=== PATIENT | male | born 1970 | race Hispanic/Latino ===

== ENCOUNTER 2017-10-06 13:56 | Inpatient (IN) | payer OTHER ==
[2017-10-06 14:21] VITALS: BMI 28.1
[2017-10-06] MEDS ORDERED: Lactated Ringer's 1,000 ML IV SCH ×2 (14:30→14:32)
--- NOTE | 2017-10-06 14:31 | ED PDOC ---
Arrival/HPI - General Time Seen by Provider: 10/06/17 14:13 Historian: Patient - History of Present Illness Narrative History of Present Illness (Text): 10/06/17 14:27 Maldonado Rose is a 47 year old male, whose past medical history includes diabetes, hypertension, LA, and 7 cardiac stents, who presents to the emergency department complaining persistent shortness of breath for a few days. Patient's states that patient had the flu last week and went to [facility] three days ago where he was diagnosed with pneumonia after a CT scan. Patient was prescribed Levaquin and received the third dose today with little relief. No other complaints offered at this time. Time/Duration: < week Symptom Onset: Gradual Symptom Course: Unchanged Severity Level: Mild Activities at Onset: Light Context: Home Past Medical History - Provider Review Nursing Documentation Reviewed: Yes - Cardiac Hx LA: Yes Hx Hypertension: Yes - Endocrine/Metabolic Hx Diabetes Mellitus Type 2: Yes - Psychiatric Hx Substance Use: No Family/Social History - Physician Review Nursing Documentation Reviewed: Yes Family/Social History: No Known Family HX Smoking Status: Smoker Currrent Status Unknown Hx Alcohol Use: Yes Hx Substance Use: No Allergies/Home Meds Allergies/Adverse Reactions: Allergies No Known Allergies Allergy (Verified 01/09/17 22:10) Home Medications: Home Meds Medication Instructions Recorded Confirmed Aspirin [Ecotrin] 81 mg PO DAILY 05/23/17 10/06/17 Dapagliflozin/Metformin HCl 1 each PO DAILY 05/23/17 10/06/17 [Xigduo Xr 5 mg-1,000 mg Tablet] Lisinopril [Zestril] 5 mg PO DAILY 05/23/17 10/06/17 Metoprolol Tartrate [Lopressor] 25 mg PO BID 05/23/17 10/06/17 Prasugrel [Effient] 10 mg PO DAILY 05/23/17 10/06/17 SITagliptin [Januvia] 100 mg PO DAILY 05/23/17 10/06/17 Review of Systems - Physician Review All systems were reviewed & negative as marked: Yes - Review of Systems Constitutional: absent: Night Sweats Eyes: absent: Vision Changes ENT: absent: Hearing Changes Respiratory: SOB Gastrointestinal: absent: Abdominal Pain Genitourinary Male: absent: Dysuria, Frequency Musculoskeletal: absent: Arthralgias, Back Pain Skin: absent: Rash, Pruritis Neurological: absent: Headache Endocrine: absent: Diaphoresis Hemo/Lymphatic: absent: Adenopathy Psychiatric: absent: Anxiety, Depression Physical Exam Vital Signs Reviewed: Yes Vital Signs Temp Pulse Resp BP Pulse Ox 10/06/17 16:04 98.8 F 129 H 20 123/69 95 10/06/17 15:21 22 96 10/06/17 14:21 99.6 F 150 H 22 141/76 93 L Temperature: Afebrile Blood Pressure: Normal Pulse: Tachycardic Mental Status: Positive for: Alert and Oriented X 3 - Systems Exam Head: Present: Atraumatic, Normocephalic Pupils: Present: PERRL Extroacular Muscles: Present: EOMI Conjunctiva: Present: Normal Mouth: Present: Moist Mucous Membranes Neck: Present: Normal Range of Motion Respiratory/Chest: Present: Other (Coarse breath sounds bilaterally). No: Good Air Exchange (Decreased air entry, worse on left than right) Cardiovascular: Present: Tachycardic Abdomen: Present: Normal Bowel Sounds. No: Tenderness, Distention, Peritoneal Signs Back: Present: Normal Inspection Upper Extremity: Present: NORMAL PULSES (equal pulses bilaterally) Lower Extremity: No: Edema Neurological: Present: GCS=15, CN II-XII Intact, Speech Normal Skin: Present: Warm, Dry, Normal Color. No: Rashes Psychiatric: Present: Alert, Oriented x 3, Normal Insight, Normal Concentration Medical Decision Making ED Course and Treatment: 10/06/17 14:41 Impression: 47 year old male complaining persistent shortness of breath for a few days. Differential Diagnosis included but are not limited to: Plan: -- EKG -- Chest X-ray -- VBG and Blood Culture -- Urine Culture -- Labs -- Toradol, Tamiflu, Vancomycin, Zosyn, and IV Fluids -- Reassess and disposition Progress Notes: EKG: Ordered, reviewed, and independently interpreted the EKG. Rate : 146 BPM Rhythm : NSR Interpretation : No ST-segment elevations or depressions, no T-wave inversions, normal intervals. Comparison : No previous EKG for comparison. 10/06/17 14:35 Reviewed radiology, Chest X-ray shows pneumonia. 10/06/17 15:00 Lactate at 2.6. Antibiotics ordered as well as blood culture and IVF at 30 cc per kg over 30 minutes. Code Sepsis called on patient. 10/06/17 15:52 Cxray shows "Large left pleural effusion. Underlying consolidation cannot be excluded. Follow-up to resolution is advised." WBC elevated with shift and bands. Lactate elevated. Failed outpatient therapy for pneumonia (on day 3 of levaquin). Spoke to Dr. Antonio who admits to Dr. Mitchell and requesting admission to medicine. - Lab Interpretations Lab Results: 10/06/17 14:30 10/06/17 14:30 Lab Results 10/06/17 17:00: Influenza Typ A,B (EIA) Negative for flu a/b 10/06/17 14:30: WBC 11.8 H, RBC 5.32, Hgb 16.7, Hct 45.2, MCV 85.0, MCH 31.4, MCHC 36.9, RDW 11.8, Plt Count 157, MPV 10.5, Gran % 90.3 H, Lymph % (Auto) 4.1 L, Desha % (Auto) 5.2, Eos % (Auto) 0.3 L, Baso % (Auto) 0.1, Gran # 10.66 H, Lymph # (Auto) 0.5 L, Desha # (Auto) 0.6, Eos # (Auto) 0.0, Baso # (Auto) 0.01, Neutrophils % (Manual) 86 H, Band Neutrophils % 2, Lymphocytes % (Manual) 6 L, Atypical Lymphs % 1 H, Monocytes % (Manual) 5 10/06/17 14:30: Sodium 134, Chloride 95 L, Potassium 3.6, Carbon Dioxide 22, Anion Gap 20, BUN 21, Creatinine 0.7 L, Est GFR ( Amer) > 60, Est GFR ( Non-Af Amer) > 60, Random Glucose 233 H, Calcium 9.9, Total Bilirubin 0.7, AST 18, ALT 18, Alkaline Phosphatase 90, Total Creatine Kinase < 20 L, Troponin I < 0.01, NT-Pro-B Natriuret Pep 199, Total Protein 7.4, Albumin 3.8, Globulin 3.6, Albumin/Globulin Ratio 1.0 L 10/06/17 14:30: pO2 94 H, VBG pH 7.40, VBG pCO2 38.0 L, VBG HCO3 23.5, VBG Total CO2 24.7, VBG O2 Sat (Calc) 97.9 H, VBG Base Excess -1.1 L, VBG Potassium 3.6, Sodium 130.0 L, Chloride 94.0 L, Glucose 237 H, Lactate 2.6 H, FiO2 21.0, Venous Blood Potassium 3.6 10/06/17 14:30: PT 15.1 H, INR 1.32 H, APTT 31.3 I have reviewed the lab results: Yes - RAD Interpretation Radiology Orders: 10/06/17 14:20 CHEST PORTABLE [RAD] Stat - Medication Orders Current Medication Orders: Lactated Ringer's (Lactated Ringer's) 1,000 mls @ 1,000 mls/hr IV .Q1H VALENTINA Last Admin: 10/06/17 15:08 Dose: 1,000 mls/hr eMAR Start Stop Document 10/06/17 15:08 EQ (Rec: 10/06/17 15:08 EQ [id number]) Intravenous Solution Start Date 10/06/17 Start Time 15:08 Discontinued Medications Lactated Ringer's (Lactated Ringer's) 1,000 mls @ 500 mls/hr IV .Q2H VALENTINA Last Admin: 10/06/17 15:20 Dose: eMAR Start Stop Document 10/06/17 15:20 EQ (Rec: 10/06/17 15:20 EQ [id number]) Intravenous Solution Start Date 10/06/17 Start Time 15:20 Vancomycin HCl (Vancomycin 1gm) 1 gm in 250 mls @ 167 mls/hr IVPB STAT STA PRN Reason: Protocol Stop: 10/06/17 16:01 Last Admin: 10/06/17 17:02 Dose: 167 mls/hr eMAR Start Stop Document 10/06/17 17:02 EQ (Rec: 10/06/17 17:03 EQ [id number]) Intravenous Solution Start Date 10/06/17 Start Time 17:02 Piperacillin Sod/Tazobactam Sod (Zosyn 3.375 In Ns 100ml) 100 mls @ 200 mls/hr IVPB STAT STA PRN Reason: Protocol Stop: 10/06/17 15:01 Last Admin: 10/06/17 15:19 Dose: 200 mls/hr eMAR Start Stop Document 10/06/17 15:19 EQ (Rec: 10/06/17 15:19 EQ [id number]) Intravenous Solution Start Date 10/06/17 Start Time 15:19 Lactated Ringer's 2,600 ml/ IV (SUPPLIES) 2,600 mls @ 5,034.9 mls/hr IV ONCE ONE PRN Reason: 60 ML/KG/HR Stop: 10/06/17 14:58 Last Admin: 10/06/17 15:08 Dose: 5,034.9 mls/hr eMAR Start Stop Document 10/06/17 15:08 EQ (Rec: 10/06/17 15:08 EQ [id number]) Intravenous Solution Start Date 10/06/17 Start Time 15:08 Ketorolac Tromethamine (Toradol) 30 mg IVP STAT STA Stop: 10/06/17 14:23 Last Admin: 10/06/17 15:06 Dose: 30 mg MAR Pain Assessment Document 10/06/17 15:06 EQ (Rec: 10/06/17 15:07 EQ [id number]) Pain Reassessment Is this a pain reassessment? No Sleep Is patient sleeping during reassessment? No Presence of Pain Presence of Pain Yes IVP Administration Document 10/06/17 15:06 EQ (Rec: 10/06/17 15:07 EQ [id number]) Charges for Administration # of IVP Administrations 1 Morphine Sulfate (Morphine) 4 mg IVP STAT STA Stop: 10/06/17 14:34 Last Admin: 10/06/17 15:06 Dose: 4 mg MAR Pain Assessment Document 10/06/17 15:06 EQ (Rec: 10/06/17 15:06 EQ [id number]) Pain Reassessment Is this a pain reassessment? No Sleep Is patient sleeping during reassessment? No Presence of Pain Presence of Pain Yes IVP Administration Document 10/06/17 15:06 EQ (Rec: 10/06/17 15:06 EQ [id number]) Charges for Administration # of IVP Administrations 1 Oseltamivir Phosphate (Tamiflu Cap) 75 mg PO STAT STA PRN Reason: Protocol Stop: 10/06/17 14:34 Last Admin: 10/06/17 15:07 Dose: 75 mg - Scribe Statement The provider has reviewed the documentation as recorded by the Juan Padilla Provider Scribe Attestation: All medical record entries made by the Scribe were at my direction and personally dictated by me. I have reviewed the chart and agree that the record accurately reflects my personal performance of the history, physical exam, medical decision making, and the department course for this patient. I have also personally directed, reviewed, and agree with the discharge instructions and disposition. Disposition/Present on Arrival - Present on Arrival Any Indicators Present on Arrival: No - Disposition Have Diagnosis and Disposition been Completed?: Yes Diagnosis: Pneumonia, SIRS (systemic inflammatory response syndrome) Disposition: HOSPITALIZED Disposition Time: 16:00 Patient Plan: Admission Patient Problems: Current Active Problems Problem Status Onset Pneumonia Acute SIRS (systemic inflammatory response syndrome) Acute Condition: FAIR Referrals: Ivet Mitchell MD [Primary Care Provider] - Follow up with primary
[2017-10-06] MEDS ORDERED: Piperacillin/Tazobact 3.375 gm 100 ML IVPB STA (14:32)
[2017-10-06] MEDS ORDERED: Vancomycin 1gm in NS 250ml 1 GM/250 ML BAG IVPB STA (14:32)
[2017-10-06] MEDS ORDERED: Morphine 4 mg/ml ISec IVP STA (14:33)
[2017-10-06 14:51] LABS: VENOUS BLOOD GAS BASE EXCESS -1.1 mmol/L (0.0-2.0); VENOUS BLOOD GAS PO2 94 mm/Hg (30-55)
[2017-10-06 14:57] LABS: BASO # 0.01 K/mm3 (0.0-2.0); BASO % 0.1 % (0.0-3.0); EOS % 0.3 % (1.5-5.0); GRAN # 10.66 (1.4-6.5); GRAN % 90.3 % (50.0-68.0); HEMOGLOBIN 16.7 g/dL (14.0-18.0); LYMPH # 0.5 (1.2-3.4); LYMPH % 4.1 % (22.0-35.0); MEAN CORPUSCULAR HEMOGLOBIN 31.4 pg (25.0-35.0); MEAN CORPUSCULAR HGB CONC 36.9 g/dl (31.0-37.0); MEAN PLATELET VOLUME 10.5 fl (7.0-11.0); MONO # 0.6 (0.1-0.6); MONO % 5.2 % (1.0-6.0); PLATELET COUNT 157 10^3/uL (120.0-450.0); RBC 5.32 10^6/uL (3.5-6.1); RED CELL DISTRIBUTION WIDTH 11.8 % (11.5-14.5); WHITE BLOOD COUNT 11.8 10^3/ul (4.5-11.0)
[2017-10-06 15:00] LABS: ALBUMIN 3.8 g/dL (3.0-4.8); ALT/SGPT 18 U/L (7-56); AST/SGOT 18 U/L (17-59); BLOOD UREA NITROGEN 21 mg/dL (7-21); CALCIUM 9.9 mg/dL (8.4-10.5); GFR AFRICAN-AMERICAN > 60; GFR NON-AFRICAN AMERICAN > 60
[2017-10-06 15:06] LABS: INR 1.32 (0.93-1.08); PARTIAL THROMBOPLASTIN TIME 31.3 Seconds (25.1-36.5); PROTHROMBIN TIME 15.1 SECONDS (9.4-12.5)
[2017-10-06 15:11] LABS: B-TYPE NATRIURETIC PEPTIDE 199 pg/mL (0-450); TROPONIN I < 0.01 ng/mL
[2017-10-06 15:22] LABS: ATYPICAL LYMPHOCYTE 1 % (0.0-0.0); BAND 2 % (0-2); LYMPHOCYTE 6 % (22.0-35.0); MONOCYTE 5 % (1.0-6.0); NEUTROPHIL 86 % (50.0-70.0)
--- NOTE | 2017-10-06 15:46 | RAD ---
HISTORY: Cough and fever COMPARISON: No prior. FINDINGS: LUNGS: The right lung is clear. There is a large left pleural effusion. PLEURA: No significant pleural effusion identified, no pneumothorax apparent. CARDIOVASCULAR: Normal. OSSEOUS STRUCTURES: No significant abnormalities. VISUALIZED UPPER ABDOMEN: Normal. OTHER FINDINGS: None. IMPRESSION: Large left pleural effusion. Underlying consolidation cannot be excluded. Follow-up to resolution is advised.
[2017-10-06] MEDS ORDERED: HYDROmorphone 0.5 mg/0.5 ml ISec IVP STA (18:55)
[2017-10-06 19:04] LABS: VENOUS BLOOD GAS BASE EXCESS 1.1 mmol/L (0.0-2.0); VENOUS BLOOD GAS PO2 40 mm/Hg (30-55); VENOUS BLOOD PH 7.32 (7.32-7.43)
--- NOTE | 2017-10-06 19:39 | PCM.SEPTIC ---
Sepsis Progress Note - Reassessment Type Date of Evaluation: 10/06/17 Time of Evaluation: 19:00 Reassessment Type: Non-invasive reassessment - Non Invasive Reassessment Were the most recent vital sign reviewed: Yes Vital Sign (Latest): Temp Pulse Resp BP Pulse Ox 98.8 F 110 H 18 121/65 95 10/06/17 16:04 10/06/17 17:50 10/06/17 17:50 10/06/17 17:50 10/06/17 17:50 Cardiovascular: Yes: Tachycardia Respiratory: Yes: Other (Coarse breath sounds) Capillary Refill: Normal (Less than 2 sec) Skin: Warm
[2017-10-06] MEDS: Insulin Reg-LOW-Coverage SC SCH (21:36)
[2017-10-06] MEDS: Vancomycin 1gm in NS 250ml 1 GM/250 ML BAG IVPB SCH (22:27)
[2017-10-07] MEDS: Meropenem 1 GM in Sodium Chloride 0.9% 100 ML IVPB SCH ×2 (01:12→05:05)
[2017-10-07] MEDS: Albuterol-Ipratrop 3 mg / 0.5 (3 ml) UD IH SCH ×4 (01:31→20:42)
[2017-10-07] MEDS ORDERED: Oxycodone/Acetaminophen 10/325 mg Tab PO STA (03:19)
[2017-10-07] MEDS: Insulin Reg-LOW-Coverage SC SCH ×5 (08:10→22:06)
--- NOTE | 2017-10-07 09:57 | CARD ---
APPROVED REPORT EKG Measurement Heart [id number] <Conclusion> Sinus tachycardia NSSTW changes Electrical artifact present
[2017-10-07] MEDS: Oxycodone/Acetaminophen 10/325 mg Tab PO PRN ×3 (10:35→22:03)
[2017-10-07] MEDS: Vancomycin 1gm in NS 250ml 1 GM/250 ML BAG IVPB SCH ×2 (10:37→21:01)
[2017-10-07] MEDS: METFORMIN HCL PO SCH (10:37)
[2017-10-07] MEDS: DAPAGLIFLOZIN PO SCH (10:37)
[2017-10-07] MEDS: [UNRECOGNIZED DRUG - OTHER] PO SCH (10:37)
--- NOTE | 2017-10-07 12:39 | CT ---
PROCEDURE: CT Chest without contrast HISTORY: left effusion r/o a mass COMPARISON: None. TECHNIQUE: Contiguous axial images were obtained through the chest without intravenous contrast enhancement. Sagittal and coronal reconstructions were performed. Radiation dose (DLP): 679.16 mGy-cm. This CT exam was performed using one or more of the following dose reduction techniques: Automated exposure control, adjustment of the mA and/or kV according to patient size, and/or use of iterative reconstruction technique. FINDINGS: LUNGS: Extensive left lower lobe atelectasis. Subsegmental lingular atelectasis. Multifocal vaguely nodular small opacities posterior basal right lower lobe and in lateral segment right middle lobe and extensive ill-defined opacity in anterior segment right upper lobe. Nonspecific. Possible infectious etiology. Cannot rule out neoplastic origin. Followup advised. MEDIASTINUM: Unremarkable thoracic aorta. No aneurysm. Normal heart size. Trace pericardial effusion. Coronary arterial calcification. Main pulmonary artery unremarkable. No vascular congestion. Mediastinal lymphadenopathy, mild. No hilar lymphadenopathy appreciated. Focal high attenuation material is seen within the lumen of the distal thoracic esophagus, uncertain significance. There is no high attenuation material seen within the stomach. This does not appear calcified. Uncertain PLEURA: Moderate left pleural effusion. Trace right pleural effusion. No pneumothorax. BONES: No fracture. No destructive lesion. UPPER ABDOMEN: Mild splenomegaly. OTHER FINDINGS: None. IMPRESSION: Moderate left pleural effusion. Extensive left lower lobe atelectasis with lingular subsegmental atelectasis. Vaguely nodular multifocal small opacities right lower lobe, right middle lobe and extensive ill-defined opacity anterior segment right upper lobe. Possible infectious origin. Cannot rule out neoplastic. Mediastinal lymphadenopathy. Incidental focal high attenuation material within the distal esophageal lumen of uncertain significance. Mild splenomegaly.
[2017-10-07] MEDS: Meropenem 1g/NS 100mL IVPB 1 GM/100 ML PIGGYBACK IVPB SCH ×2 (15:59→22:53)
[2017-10-07] MEDS: MethylPREDNISolone 40 mg Vial IVP SCH (22:03)
--- NOTE | 2017-10-07 22:33 | CON ---
DATE: 10/07/2017 CHIEF COMPLAINT: Shortness of breath times several days. HISTORY OF PRESENT ILLNESS: This is a 47-year-old male, long-time smoker, still continues to smoke, who has a history of diabetes, hypertension, coronary artery disease, myocardial infarction, diabetes mellitus and who had flu-like symptoms for the past week and now is admitted with worsening shortness of breath and patient states he had low grade fevers and no abdominal pain, no diarrhea, no constipation. No dysuria, no frequency. No headaches or blurred vision. PAST MEDICAL HISTORY: Significant for coronary artery disease, high cholesterol, hypertension, diabetes mellitus and myocardial infarction. PAST SURGICAL HISTORY: Significant for cardiac cath with stent placement. ALLERGIES: THE PATIENT HAS NO KNOWN ALLERGIES. MEDICATIONS AT HOME: Include Januvia, prasugrel, metoprolol, lisinopril, metformin, aspirin. SOCIAL HISTORY: He works in construction and [employer]. No travel history. Lives with his family. They do have a dog. PHYSICAL EXAMINATION: VITAL SIGNS: Temperature is 97, T-max was 102.5, respiratory rate was up to 22, heart rate of 128, blood pressure is 130/90. Examination of oxygenation reveals down to 93% on O2 saturation. HEENT: Unremarkable. NECK: Supple. LUNGS: Have decreased breath sounds. HEART: Normal S1, S2. ABDOMEN: Soft, nontender. LABORATORY DATA: Reveals a white count of 11,800, hemoglobin of 16, platelets of 157 and 90% granulocytosis and the coagulation is noted. BUN of 21, creatinine of 0.7. Serology, influenza is negative. Microbiology is pending. The patient had a chest x-ray, which shows a large left pleural effusion, underlying consolidation cannot be identified. The patient had a sepsis. Progress note by is reviewed. ASSESSMENT AND PLAN: This is a 47-year-old male with hypertension, coronary artery disease, myocardial infarction, diabetes mellitus, admitted with fever of 102, tachycardia, dyspnea, hypoxia and with a large effusion. We will treat the patient on vancomycin, meropenem and doxycycline. Procalcitonin is pending. Urine for Legionella antigen is pending and order a CAT scan of the chest. HIV test is pending. Blood culture, urine culture and sputum cultures have been ordered, and order a CAT scan of the chest and we will follow closely with you. Yonis Guzman MD [facility] # [id number]
[2017-10-08] MEDS: Albuterol-Ipratrop 3 mg / 0.5 (3 ml) UD IH SCH ×4 (02:07→20:28)
[2017-10-08] MEDS: Oxycodone/Acetaminophen 10/325 mg Tab PO PRN ×4 (05:04→22:23)
[2017-10-08] MEDS: Meropenem 1g/NS 100mL IVPB 1 GM/100 ML PIGGYBACK IVPB SCH ×3 (05:05→22:20)
[2017-10-08 06:58] LABS: BASO # 0.02 K/mm3 (0.0-2.0); BASO % 0.1 % (0.0-3.0); EOS % 0.1 % (1.5-5.0); GRAN # 16.68 (1.4-6.5); GRAN % 88.9 % (50.0-68.0); HEMOGLOBIN 15.9 g/dL (14.0-18.0); LYMPH # 0.8 (1.2-3.4); LYMPH % 4.4 % (22.0-35.0); MEAN CELL VOLUME 85.2 fl (80.0-105.0); MEAN CORPUSCULAR HEMOGLOBIN 31.1 pg (25.0-35.0); MEAN CORPUSCULAR HGB CONC 36.5 g/dl (31.0-37.0); MEAN PLATELET VOLUME 10.6 fl (7.0-11.0); MONO # 1.2 (0.1-0.6); MONO % 6.5 % (1.0-6.0); RBC 5.12 10^6/uL (3.5-6.1); RED CELL DISTRIBUTION WIDTH 11.8 % (11.5-14.5); WHITE BLOOD COUNT 18.8 10^3/ul (4.5-11.0)
[2017-10-08 07:36] LABS: ALBUMIN 3.3 g/dL (3.0-4.8); ALT/SGPT 24 U/L (7-56); AST/SGOT 22 U/L (17-59); BLOOD UREA NITROGEN 17 mg/dL (7-21); CALCIUM 9.2 mg/dL (8.4-10.5); GFR AFRICAN-AMERICAN > 60; GFR NON-AFRICAN AMERICAN > 60
[2017-10-08] MEDS: Insulin Reg-LOW-Coverage SC SCH ×4 (07:46→21:49)
--- NOTE | 2017-10-08 08:15 | HP ---
CHIEF COMPLAINT: Shortness of breath, coughing. HISTORY OF PRESENT ILLNESS: Mr. Maldonado Castaneda is a 47-year-old male with past medical history of diabetes mellitus, hypertension, myocardial infarction and history of seven cardiac stents, came to the emergency department complaining of persistent shortness of breath for a few days; the patient's states the patient had flu-like symptoms, went to [facility] 3 days ago where he was diagnosed with pneumonia after CT scan. The patient was prescribed Levaquin, received third dose, 2 days with a little relief. No hematuria or hematochezia. Still coughing, having shortness of breath and feverish. PAST MEDICAL HISTORY: History of NV, hypertension, diabetes mellitus type 2. FAMILY HISTORY: Father and mother, noncontributory. HABITS: Currently smoking , Alcohol, yes. Substance abuse, no. ALLERGIES: THE PATIENT IS NOT ALLERGIC WITH ANY MEDICATIONS. HOME MEDICATIONS: Ecotrin, metformin, Zestril, Lopressor, Effient, Januvia. REVIEW OF SYSTEMS: The patient was seen and examined on the bedside in his room, having fever. No vision changes. No hearing changes. Still having shortness of breath. No abdominal pain. No dysuria or frequency. No arthralgia, back pain. No rash, pruritus. Feeling headache and feverish. No adenopathy. No anxiety or depression. PHYSICAL EXAMINATION: VITAL SIGNS: Temperature 98.8, pulse 129, respiratory rate 20, blood pressure 123/69, pulse oximetry 95. HEENT: Head; normocephalic, atraumatic. Eyes; PERRLA. Extraocular muscles intact. Conjunctivae clear. Nose patent. Mucous membrane moist. NECK: Supple. No carotid bruit, JVD or thyromegaly. CHEST: Bilaterally symmetrical. LUNGS: Positive wheezing bilaterally. HEART: S1 and S2 positive. ABDOMEN: Soft. Bowel sounds present. No organomegaly. EXTREMITIES: No edema. No cyanosis. NEUROLOGICAL: The patient is awake and alert. Moving all 4 extremities. No focal deficit. LABORATORY DATA: White blood cells noted , hemoglobin 16.7, hematocrit , platelet count noted . Sodium 134, potassium 3.6, BUN 21, creatinine 0.7, glucose noted ASSESSMENT AND PLAN: Mr. Maldonado Castaneda is a 47-year-old male with leukocytosis; hyperglycemia, failed outpatient treatment, was taking Levaquin, today is the third dose and not helping; pneumonia, systemic inflammatory response syndrome; diabetes mellitus; hypertension; myocardial infarction, 7 cardiac stents; history of chronic obstructive pulmonary disease; went to [facility], got Levaquin, today was third day, but still not helping, so came here. We admitted the patient, put Infectious Disease consult and Pulmonary consult, ordered some serology, started the patient on doxycycline, meropenem, vancomycin, Tylenol p.r.n. for fever, started on insulin sliding scale with low algorithm, repeat labs. We will follow up. Misty Verduzco MD MTDD
--- NOTE | 2017-10-08 08:31 | CON ---
DATE: PULMONARY CONSULTATION REFERRING PHYSICIAN: Misty Verduzco MD REASON FOR CONSULTATION: Chronic lung disease, pneumonia, and pleural effusion. HISTORY OF PRESENT ILLNESS: This is a 47-year-old gentleman with past medical history significant for chronic obstructive lung disease, diabetes, hypertension, history of coronary artery disease, coronary stent, comes into emergency room with cough, shortness of breath. According to , the patient had flew about a week ago or so, was admitted to [facility]. The patient was sent home with Levuin. With persistent symptom, she brought him to emergency room where a CT scan shows left lung infiltrate, effusion, adenopathy. He has a cough. No hemoptysis, no hematemesis, no hematuria, no diarrhea reported. PAST MEDICAL HISTORY: Diabetes, hypertension, chronic lung disease, coronary artery disease, history of coronary stent. ALLERGIES: NONE KNOWN. SOCIAL HISTORY: Active smoker. Denies any alcohol use. FAMILY HISTORY: No significant cardiopulmonary disease reported. MEDICATIONS: He is on oral hypoglycemic with combination of metformin and dapagliflozin, also on doxycycline 100 mg twice a day, DuoNeb q. 6 hours, Ecotrin 81 mg daily, Effient 10 mg daily, insulin coverage, Januvia 100 mg daily, metoprolol tartrate 25 mg twice a day; started on meropenem 1 g IV q. 8 hours., Percocet 10/325 one tab q. 6 hours. p.r.n., Tylenol p.r.n., vancomycin 1 g q. 12 hours, Zestril 5 mg daily. REVIEW OF SYSTEMS: Mild headache, rhinitis, cough, sputum production. No nausea, no vomiting. No dysuria, leg pain or leg swelling. PHYSICAL EXAMINATION GENERAL: Lying in the bed. Temperature is 99.9, T-max 102.5, heart rate is 135, respiratory rate is 20, blood pressure is 134/81, pulse ox 90% on 3 L nasal cannula. HEENT: Moist mucous membrane. Crowded airway. Mallampati score is IV. NECK: Short thick neck. LUNGS: Have decreased breath sounds in the left lung. Scattered rhonchi and wheezing. HEART: S1 and S2. ABDOMEN: Soft, nontender. No organomegaly. EXTREMITIES: No edema. NEUROLOGIC: Awake and follows simple commands. LABORATORY DATA: Shows hemoglobin 16.7, hematocrit 45.2, WBC of 11.8, platelet is 157. INR 1.32. PTT 31. VBG is pH 7.32, pCO2 is 55, O2 is 40. Sodium 134, potassium 3.6, chloride 95, bicarbonate 22, BUN 21, creatinine 0.7, glucose 233, calcium 9.9, AST 18, ALT 18, alkaline phosphatase is 90. Troponin less than 0.01. ProBNP 199. Albumin is 3.8, procalcitonin 2.91. Influenza A and B is negative. Urine Legionella Pneumophila antigen is negative. Blood culture has been negative. CAT scan of the chest shows left lung infiltrate, effusion, mediastinal adenopathy. IMPRESSION AND PLAN: Probably had viral syndrome, could be influenza, presently has a left lung pneumonia with effusion and adenopathy, history of diabetes, hypertension, may have component of chronic obstructive pulmonary disease, also may have sleep apnea syndrome. Agree with present management. Continue broad-spectrum antibiotics covering healthcare-associated organism. He failed outpatient Levaquin treatment. Add inhaled bronchodilator, IV bronchodilator, sleep apnea precaution, gastric prophylaxis, DVT prophylaxis. We will need PFT, sleep study upon discharge as an outpatient. Let see how he does next day or so; if does not improve, may need thoracentesis for diagnosing therapeutic purposes. Thank you and we will follow with you. Laz Da Silva MD
--- NOTE | 2017-10-08 09:29 | PN ---
DATE: 10/07/2017 SUBJECTIVE: The patient is seen and examined at the bedside, looking sicker, complaining about pain in the left side of the chest with coughing, looks like musculoskeletal. No nausea, vomiting or diarrhea. No hematuria, no hematochezia. No swelling of the leg. No fever, no chills. PHYSICAL EXAMINATION: VITAL SIGNS: Temperature 98.4, pulse 112, blood pressure 120/84, respiratory rate 18. HEENT: Head normocephalic, atraumatic. Eyes: PERRLA. Extraocular muscles intact. Conjunctivae clear. Nose: Patent. NECK: Supple. No carotid bruit, JVD or thyromegaly. CHEST: Bilaterally symmetrical. HEART: S1, S2 positive. LUNGS: Clear to auscultation. ABDOMEN: Soft. Bowel sounds present. No organomegaly. EXTREMITIES: No edema, no cyanosis. NEUROLOGIC: Patient is awake, alert. Moving all 4 extremities. No focal deficits. MEDICATIONS: Aspirin, albuterol, Effient, Januvia, Lopressor, meropenem, Percocet, Tylenol, vancomycin, oxycodone, Zestril. LABORATORY DATA: White blood cells 11.8, hemoglobin 16.7, hematocrit 45.2, platelets 157. Sodium 134, potassium 3.6, BUN 21, creatinine 0.7, glucose 181. ASSESSMENT AND PLAN: Mr. Maldonado Castaneda is a 47-year-old male with leukocytosis; hyperglycemia; went for CAT scan of the chest, results are pending; progress note is appreciated; viral syndrome; history of hypertension; myocardial infarction, seven cardiac stents. Patient was admitted with pneumonia, systemic inflammatory response syndrome. Patient was getting Tylenol for chest pain, but as per patient, Tylenol is not helping. Infectious Disease and Pulmonary are on the case. Serology ordered. Aspirin, diabetes mellitus, hypertension and hypercholesterolemia. We will follow up. Misty Verduzco MD [facility]
[2017-10-08] MEDS: Vancomycin 1gm in NS 250ml 1 GM/250 ML BAG IVPB SCH (09:31)
[2017-10-08] MEDS: MethylPREDNISolone 40 mg Vial IVP SCH ×2 (09:31→21:25)
[2017-10-08] MEDS: METFORMIN HCL PO SCH (09:37)
[2017-10-08] MEDS: DAPAGLIFLOZIN PO SCH (09:37)
[2017-10-08] MEDS: [UNRECOGNIZED DRUG - OTHER] PO SCH (09:37)
--- NOTE | 2017-10-08 23:15 | PN ---
DATE: 10/08/2017 SUBJECTIVE: The patient is in bed, in no acute distress, nontoxic. PHYSICAL EXAMINATION: VITAL SIGNS: Temperature is 99, blood pressure is 140/90, respiratory rate of 20, heart rate of 115. HEENT: Examination of the HEENT is unremarkable. NECK: Supple. LUNGS: Have decreased breath sounds. HEART: Normal S1 and S2. ABDOMEN: Soft, nontender. LABORATORY DATA: Reveals the patient's white count of 18,000, hemoglobin of 15, and platelets of 238. Coagulation is noted. Chemistries revealed the BUN of 17, creatinine of 0.7. Procalcitonin is noted to be 2.91. Blood cultures, no growth. Urine cultures, no growth. Patient had a CAT scan of the chest, which reveals extensive left pleural effusion, extensive left lower lobe atelectasis and vague nodule of multifocal small opacities of right lower lobe, right middle lobe and extensive ill-defined opacity in anterior segment of the right upper lobe and mediastinal adenopathy, incidental focal high attenuation material within distal esophagus, mild splenomegaly is read on the CAT scan of the chest by Dr. Avery Mckeon. Dr. Da Silva's consultation is reviewed and appreciated. ASSESSMENT AND PLAN: This is a 47-year-old male who was seen earlier this morning in room 373, bed 2, who states he is doing much better with leukocytosis, with hypertension, coronary artery disease, myocardial infarction, diabetes mellitus, admitted with tachycardia and fever and hypoxia, large effusion with sepsis with community-acquired pneumonia, concerned about the mediastinal adenopathy that is not consistent with community-acquired pneumonia, more concerned with an underlying malignancy, and at this time although this is most likely a bacterial pneumonia with a procalcitonin of 2.91, I am concerned about underlying malignancy to be the cause of this patient with a long history of smoking. Patient appears to be responding. We will check on the sputum culture. We will change the doxycycline to p.o. and continue the meropenem and discontinue the vancomycin. We will discuss with Dr. Da Silva. Dr. Verduzco's progress note is reviewed. We will also discuss with Dr. Verduzco, concerned about underlying malignancy in this patient. We will also check on final cultures. Patient's influenza is negative, HIV is negative and urine for Legionella antigen is negative. Yonis Guzman MD [facility] # [id number]
--- NOTE | 2017-10-09 02:55 | PN ---
DATE: 10/08/2017 PULMONARY PROGRESS NOTE REFERRING PHYSICIAN: Misty Verduzco MD SUBJECTIVE: He is lying in the bed. Head at 45 degree. Feels little better. Cough has improved. No nausea, no vomiting, no diarrhea. No leg pain, no leg swelling. OBJECTIVE: GENERAL: In no acute distress. VITAL SIGNS: Temperature 99, heart rate 127, respiratory rate 20, blood pressure 144/92, pulse ox 95% on room air. HEENT: Moist mucous membrane. Crowded airway. Mallampati score is IV. NECK: Supple. No JVD. LUNGS: Decreased breath sounds 0.40 the left side. Scattered rhonchi and crackles. HEART: S1 and S2. ABDOMEN: Soft, nontender. No organomegaly. EXTREMITIES: No edema. NEUROLOGIC: Awake, alert, and follows simple commands. MEDICATIONS: He is on combination of metformin and dapagliflozin, which is not given, doxycycline 100 mg twice a day, DuoNeb q. 6 hours, Ecotrin 81 mg daily, Effient 10 mg daily, insulin coverage, Januvia 100 mg daily, metoprolol tartrate 25 mg twice a day; meropenem 1 g IV q. 8 hours., Percocet 10/325 one tab q. 6 hours. p.r.n., Solu-Medrol 40 mg q.12 hour, Tylenol p.r.n., Zestril 5 mg daily. LABORATORY DATA: Hemoglobin 15.9, hematocrit 43.6, WBC 18.8, platelet count is 238. Sodium 133, potassium 4.2, chloride 93, bicarbonate 28, BUN 17, creatinine 0.6, glucose 275, calcium 9.2. AST 22, ALT 24, alkaline phosphatase 105, albumin is 3.3. Microbiology: Blood culture and urine culture, there is no growth. IMPRESSION AND PLAN: Probably started the viral syndrome, could be influenza, left lung pneumonia, effusion, adenopathy, diabetes, hypertension, chronic obstructive lung disease, may have sleep apnea syndrome. Spoke to patient in detail. We will suggest to get ultrasound-guided thoracentesis. Will consult Dr. Avery Connell. Continue IV and inhaled bronchodilator. Keep head at 45 degree, gastric prophylaxis, deep vein thrombosis prophylaxis. Need further x-ray to assure the stability of infiltrate and effusion. Thank you and will follow with you. Laz Da Silva MD
[2017-10-09] MEDS: Albuterol-Ipratrop 3 mg / 0.5 (3 ml) UD IH SCH ×4 (02:58→20:18)
--- NOTE | 2017-10-09 04:49 | PN ---
DATE: SUBJECTIVE: Patient is a 47-year-old male. Patient is seen and examined on the bedside, looking comfortable. No nausea, vomiting, or diarrhea. No fever. No chills. Cough is a little bit better. Chest pain is better, that is mainly musculoskeletal. No headache. No dizziness. No hematuria or hematochezia. PHYSICAL EXAMINATION: VITAL SIGNS: Temperature 98.8, pulse 120, blood pressure 144/92. HEENT: Head normocephalic, atraumatic. Eyes: PERRLA. Extraocular muscles intact. Conjunctivae clear. Nose patent. Mucous membranes moist. NECK: Supple. No carotid bruit. No JVD or thyromegaly. CHEST: Bilaterally symmetrical. HEART: S1 and S2 positive. LUNGS: Clear to auscultation. ABDOMEN: Soft. Bowel sounds present. No organomegaly. EXTREMITIES: No edema. No cyanosis. NEUROLOGIC: Patient is awake, alert. Moving all four extremities. No focal deficits. MEDICATIONS: Metformin, doxycycline, DuoNeb, Ecotrin, Effient, insulin, Januvia, metoprolol, meropenem, Percocet, Solu-Medrol, Tylenol, Zestril. LABORATORY DATA: White blood cells is 10.8, hemoglobin 15.9, hematocrit 43.6, platelets 238. Sodium 133, potassium 4.2, BUN 17, creatinine 0.7, glucose 243. ASSESSMENT AND PLAN: Mr. 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 Seen by Dr. Da Silva, equipment tech/critical care. Patient has a history of hypertension, chronic Lyme disease, coronary artery disease, history of coronary artery stent, has probably viral syndrome, could be influenza, has left lung pneumonia with effusion and adenopathy, history of chronic obstructive pulmonary disease, sleep apnea syndrome. Continue broad-spectrum antibiotics coverage for healthcare associated pneumonia. Patient failed outpatient Levaquin treatment. Add inhaled bronchodilators, intravenous bronchodilators, sleep apnea precautions. Patient is getting Percocet for chest pain due to coughing, and according to Dr. Da Silva, if patient will not improve, needs thoracentesis for diagnostic and therapeutic purposes. CAT scan of the chest is reviewed by me, moderate left pleural effusion, extensive left lower lobe atelectasis with lingual subsegment atelectasis, vague nodule, multifocal small opacities in the right lower lobe and right middle lobe and extensive ill-defined opacities in the anterior segment of the upper lobe, possible infectious reason, cannot rule out neoplastic or mediastinal lymphadenopathy, incidental focal high attenuation material within the distal esophageal lumen of uncertain etiology, mild splenomegaly. Gastrointestinal and deep venous thrombosis prophylaxis. Repeat labs. We will follow. Misty Verduzco MD
[2017-10-09] MEDS: Meropenem 1g/NS 100mL IVPB 1 GM/100 ML PIGGYBACK IVPB SCH ×3 (05:17→22:15)
[2017-10-09] MEDS: Oxycodone/Acetaminophen 10/325 mg Tab PO PRN (07:57)
[2017-10-09] MEDS: Insulin Reg-LOW-Coverage SC SCH ×2 (07:59→12:40)
[2017-10-09] MEDS ORDERED: MethylPREDNISolone 40 mg Vial IVP SCH (10:16)
[2017-10-09] MEDS: [UNRECOGNIZED DRUG - OTHER] PO SCH (10:47)
[2017-10-09] MEDS: DAPAGLIFLOZIN PO SCH (10:47)
[2017-10-09] MEDS: METFORMIN HCL PO SCH (10:47)
[2017-10-09] MEDS: MethylPREDNISolone 40 mg Vial IVP SCH ×2 (10:48→22:21)
--- NOTE | 2017-10-09 13:36 | PCM.RRT ---
<Danni Barroso - Last Filed: 10/09/17 16:40> SHOP SERVICE TECHNICIAN Nurse Assessment - Situation Date: 10/09/17 Time SHOP SERVICE TECHNICIAN was called: 13:16 SHOP SERVICE TECHNICIAN Responder Arrival Time: 13:20 SHOP SERVICE TECHNICIAN Location:: [address] [place] [address] SHOP SERVICE TECHNICIAN Reason for Call: Respiratory Distress SHOP SERVICE TECHNICIAN Called By: RN - IV IV Inserted during SHOP SERVICE TECHNICIAN?: No - Respiratory Oxygen Delivery Method: BiPAP @% Received Nebulizer Treatments:: No Was the Patient Ventilated with Bag/Mask 100% O2?: No Secretions Suctioned?: No Was the Patient Intubated?: No Was the Patient Placed on a Ventilator?: No - Ventilator Settings Mode: CPAP - Medication Medications Administered During SHOP SERVICE TECHNICIAN: Lasix 40 mgIV - Diagnostic Test Ordered EKG: Yes Chest X-Ray: Yes - Stat Labs Ordered SHOP SERVICE TECHNICIAN Stat Labs Ordered: CBC, BMP, TROPONIN, LACTIC ACID, ABG CPR started during SHOP SERVICE TECHNICIAN?: No - Vital Signs Vital Sign: HR 103, BP 159/99, RR 26, 76% FiO2 - Julio C Coma Scale Coma Scale Eye Opening: Spontaneous Coma Scale Motor: Obeys Commands Movement Coma Scale Verbal: Oriented - Time SHOP SERVICE TECHNICIAN Ended Time SHOP SERVICE TECHNICIAN Ended: 14:30 - Vital Signs at end of SHOP SERVICE TECHNICIAN Vital Signs at end of SHOP SERVICE TECHNICIAN: BP 162/105, HR 107, 99% on bipap - Recommendations 5) SHOP SERVICE TECHNICIAN Level of Care Recommendations: Transfer to ICU Notifications: Attending Physician, Consultations I.Reason for SHOP SERVICE TECHNICIAN - A) Acute Change in Patient: (Select all that apply): Staff member or family is worried about patient - Neurological Status (Select all that apply): Alert, Oriented - Respiratory Oxygen Delivery Method: BiPAP @% - Constitutional Appears: In Acute Distress, Other (anxious) - Head Head Exam: ATRAUMATIC, NORMOCEPHALIC - Eyes Eye Exam: EOMI, PERRL. absent: Conjunctival injection, Nystagmus, Scleral icterus - Respiratory Exam Respiratory Exam: Decreased Breath Sounds, NORMAL BREATHING PATTERN. absent: Accessory Muscle Use, Chest Wall Tenderness, Rales, Rhonchi, Wheezes - Cardiovascular Exam Cardiovascular Exam: RRR, +S1, +S2. absent: Murmur - GI/Abdominal Exam GI & Abdominal Exam: Soft, Normal Bowel Sounds. absent: Distended, Tenderness, Mass, Organomegaly, Rebound - Neurological Exam Neurological Exam: Alert, Awake, Oriented x3 - Extremities Exam Extremities Exam: Normal Inspection Plan - Assessment of Findings&Treatment Plan 47 year old male, whose past medical history includes diabetes, hypertension, MD, and 7 cardiac stents, anxiety, admitted for sepsis 2/2 pneumonia, found to have moderate left sided pleural effusion, leukocytosis (steroid induced), elevated lactate. SHOP SERVICE TECHNICIAN called as pt was sob and complained of left sided chest pain: - CBC, CMP, Troponin - CXR showed left sided pneumothorax, bipap, ABG - Lasix 40mg IV and ativan given - Case discussed with PMD Dr Verduzco and ICU team - F/u results Dr Bam Foster and Dr Rodriguez at bedside, discussed interventions. <New Rodriguez - Last Filed: 10/09/17 18:37> SHOP SERVICE TECHNICIAN Nurse Assessment - Vital Signs Vital Sign: Rapid Response Vital Sign Blood Pressure 159/99 Pulse Rate 103 Respiratory Rate 26 Oxygen Saturation 76 - Vital Signs at end of SHOP SERVICE TECHNICIAN Vital Signs at end of SHOP SERVICE TECHNICIAN: Rapid Response End Vital Sign Blood Pressure 152/94 Pulse Rate 111 Respiratory Rate 22 O2 Sat by Pulse Oximetry 100 Attending/Attestation - Attestation I have personally seen and examined this patient.: Yes I have fully participated in the care of the patient.: Yes I have reviewed all pertinent clinical information, including history, physical exam and plan: Yes
[2017-10-09] MEDS ORDERED: Metoprolol 1 mg/ml Inj IVP ONE (13:42)
[2017-10-09 13:44] LABS: ARTERIAL BLOOD GAS HCO3 29.2 mmol/L (21-28); ARTERIAL BLOOD GAS O2 SAT 96.6 % (95-98); ARTERIAL BLOOD GAS PCO2 46 mm/Hg (35-45); ARTERIAL BLOOD GAS PH 7.41 (7.35-7.45); ARTERIAL BLOOD GAS TCO2 30.6 mmol.L (22-28)
[2017-10-09 13:45] LABS: BASO # 0.03 K/mm3 (0.0-2.0); BASO % 0.1 % (0.0-3.0); GRAN # 22.82 (1.4-6.5); GRAN % 87.5 % (50.0-68.0); LYMPH # 0.9 (1.2-3.4); LYMPH % 3.3 % (22.0-35.0); MEAN CELL VOLUME 85.6 fl (80.0-105.0); MEAN CORPUSCULAR HEMOGLOBIN 31.1 pg (25.0-35.0); MEAN CORPUSCULAR HGB CONC 36.3 g/dl (31.0-37.0); MEAN PLATELET VOLUME 10.2 fl (7.0-11.0); MONO # 2.4 (0.1-0.6); MONO % 9.1 % (1.0-6.0); RBC 5.47 10^6/uL (3.5-6.1); RED CELL DISTRIBUTION WIDTH 12.2 % (11.5-14.5)
[2017-10-09 13:55] LABS: WHITE BLOOD COUNT 26.1 10^3/ul (4.5-11.0)
[2017-10-09 14:01] LABS: ALB/GLOB RATIO 0.9 (1.1-1.8); ALBUMIN 3.5 g/dL (3.0-4.8); ALT/SGPT 18 U/L (7-56); AST/SGOT 27 U/L (17-59); BLOOD UREA NITROGEN 19 mg/dL (7-21); CALCIUM 9.6 mg/dL (8.4-10.5); GFR AFRICAN-AMERICAN > 60; GFR NON-AFRICAN AMERICAN > 60; MAGNESIUM 2.3 mg/dL (1.7-2.2)
[2017-10-09 14:06] LABS: TROPONIN I < 0.01 ng/mL
--- NOTE | 2017-10-09 14:25 | RAD ---
HISTORY: [facility] COMPARISON: Chest CT 10/07/2017 and portable chest 10/06/2017. FINDINGS: LUNGS: There is prominent infiltrate at the right lung diffusely with limited sparing at right base. No definite right pleural effusion is identified. Limited left pleural effusion is seen the left base. This represents a significant interval improvement compared to moderately large left pleural effusion previously shown. However, the lateral left hemithorax is quite lucent and is suspicious for a pneumothorax occupying the pleural space lateral to trapped lung with atelectasis or residual infiltrate medial to it and lateral to the left heart. Follow-up chest CT can be performed if clinically warranted for additional characterization. Patient apparently has not undergone recent left thoracentesis. No right pneumothorax. CARDIOVASCULAR: Cardiac silhouette is obscured by bilateral pulmonary opacity as well as the pulmonary vascular pattern. OSSEOUS STRUCTURES: No significant abnormalities. VISUALIZED UPPER ABDOMEN: Normal. OTHER FINDINGS: None. IMPRESSION: 1. Interval prominent infiltrate or atelectasis opacifies the majority of the right lung with limited sparing at the right base. No definite right pleural effusion appreciable. 2. Prior left pleural effusion is markedly reduced however lucency at the lateral left hemithorax may represent bullous pulmonary changes versus potential pneumothorax lateral to trapped lung. CT may be useful for follow-up if clinically warranted. Findings discussed with Dr. Lo, with written down and read back verification 08/08/2018 2:15 p.m..
[2017-10-09] MEDS ORDERED: Albuterol-Ipratrop 3 mg / 0.5 (3 ml) UD IH SCH (14:30)
[2017-10-09] MEDS ORDERED: Propofol 10 mg/ml 1,000 MG/100 ML VIAL ONE (14:49)
[2017-10-09] MEDS ORDERED: Insulin Regular 100 UNITS in Sodium Chloride 0.9% 99 ML IV PRN (15:32)
[2017-10-09] MEDS ORDERED: Propofol 10 mg/ml 500 MG/50 ML VIAL IV PRN ×2 (15:35→16:38)
[2017-10-09] MEDS ORDERED: Midazolam 100 mg/100ml in NS 100 MG/100 ML SOL IV PRN (15:40)
[2017-10-09] MEDS ORDERED: Propofol 10 mg/ml 1,000 MG/100 ML VIAL IV PRN (16:31)
[2017-10-09 16:36] LABS: VENOUS BLOOD GAS BASE EXCESS 4.4 mmol/L (0.0-2.0); VENOUS BLOOD GAS PO2 63 mm/Hg (30-55); VENOUS BLOOD PH 7.31 (7.32-7.43)
[2017-10-09 16:39] LABS: HEMOGLOBIN 16.7 g/dL (14.0-18.0); MEAN CORPUSCULAR HEMOGLOBIN 31.2 pg (25.0-35.0); MEAN CORPUSCULAR HGB CONC 36.3 g/dl (31.0-37.0); MEAN PLATELET VOLUME 10.9 fl (7.0-11.0); RBC 5.35 10^6/uL (3.5-6.1); RED CELL DISTRIBUTION WIDTH 12.2 % (11.5-14.5)
[2017-10-09 16:43] LABS: WHITE BLOOD COUNT 31.5 10^3/ul (4.5-11.0)
--- NOTE | 2017-10-09 16:52 | RAD ---
HISTORY: s/p intubation COMPARISON: 10/09/2017. FINDINGS: Endotracheal tube terminates 4.7 cm proximal to the isabel. The nasogastric tube terminates in the stomach. LUNGS: There is persistent dense consolidation in the right lung. There is progressive collapse of the left upper lobe and lower lobe. PLEURA: No significant pleural effusion identified. Question of loculated left lower and lateral pneumothorax. CARDIOVASCULAR: Normal. OSSEOUS STRUCTURES: No significant abnormalities. VISUALIZED UPPER ABDOMEN: Normal. OTHER FINDINGS: None. IMPRESSION: Endotracheal tube terminates 4.7 cm proximal to the isabel. Persistent consolidation in the right lung could with progressive collapse of the left upper and lower lobes. Question of left lower and lateral pneumothorax. Repeat PA radiograph/CT scan would be helpful for further evaluation.
[2017-10-09 16:58] LABS: INR 1.15 (0.93-1.08); PROTHROMBIN TIME 13.1 SECONDS (9.4-12.5)
[2017-10-09 17:00] LABS: ARTERIAL BLOOD GAS HCO3 31.2 mmol/L (21-28); ARTERIAL BLOOD GAS O2 SAT 93.3 % (95-98); ARTERIAL BLOOD GAS PCO2 62 mm/Hg (35-45); ARTERIAL BLOOD GAS PH 7.31 (7.35-7.45); ARTERIAL BLOOD GAS TCO2 33.1 mmol.L (22-28)
[2017-10-09 17:06] LABS: ALBUMIN 3.3 g/dL (3.0-4.8); ALT/SGPT 21 U/L (7-56); AST/SGOT 28 U/L (17-59); BLOOD UREA NITROGEN 21 mg/dL (7-21); CALCIUM 9.4 mg/dL (8.4-10.5); GFR AFRICAN-AMERICAN > 60; GFR NON-AFRICAN AMERICAN > 60; MAGNESIUM 2.1 mg/dL (1.7-2.2)
[2017-10-09] MEDS ORDERED: NOREPINEPHRINE BIT/0.9 % NACL 4 MG/250 ML BAG IV ONE (17:08)
[2017-10-09] MEDS ORDERED: Cisatracurium Besylate 200 MG in Sodium Chloride 0.9% 250 ML IV PRN (17:19)
[2017-10-09] MEDS: Fentanyl 1000mcg/100ml NS 1,000 MCG/100 ML BAG IV PRN (18:09)
--- NOTE | 2017-10-09 19:34 | PCM.PROC ---
Procedures Attestation:: I certify that I have explained the specified Operation(s) or Procedure(s), risks, benefits and reasonable alternatives to the Patient and/or other person responsible. The opportunity was given to ask questions and all questions answered - Central Line Placement Left Subclavian Triple Lumen Catheter Aseptic technique was employed throughout the procedure: Hand Hygiene done prior to procedure, Full sterile barriers (mask, hair cover, sterile gown, sterile gloves), Full body sterile drape, Chloraprep Antiseptic: 30 second prep for IJ or SC sites, Chloraprep Antiseptic: 2 minute prep for Femoral CVP Time Out Performed: Yes Pt. Placed on Pulse Ox Monitor: Yes Central Line Prep: Chlorhexidine-Alcohol Combination Local Anesthesia Used: Lidocaine 1% Amount of Anesthesia Used (mls): 10 Ultrasound Used for Placement: No Central Line Lumen Inserted: triple Central Line Length: 20 cm Post Procedure: Sutured in Place, Good Blood Return, All Ports Aspirated, Flushed, Capped, Sterile Dressing Applied Secured by: Suture Post procedure dressing: Chlorhexidine disc (Biopatch) Post Procedure X-Ray: Yes Patient Tolerated Procedure: Well, No Complications - Chest Tube Chest Tube Location: Mid-Axillary Left Size of Tube (cm): 32 Chest Tube Procedure: Chlorhexidine Tube Sutured to Skin: Yes Sterile Dressing Applied: Yes Anesthesia: Lidocaine 1% Volume Anesthetic (mls): 10 Incision Made With: #11 blade Post Procedure: sutured to skin, sterile dressing applied, air occlusive dressing [place] of Air [place]: Yes Tube Drainage: fluid (serous) Amount of Initial Drainage: 1,000 Post Procedure CXR?: Yes Patient Tolerated Procedure: Yes
[2017-10-09] MEDS: Propofol 10 mg/ml 1,000 MG/100 ML VIAL IV PRN ×2 (19:39→22:08)
--- NOTE | 2017-10-09 19:39 | PCM.PROC ---
Procedures Attestation:: I certify that I have explained the specified Operation(s) or Procedure(s), risks, benefits and reasonable alternatives to the Patient and/or other person responsible. The opportunity was given to ask questions and all questions answered - Arterial Line Right Radial Aseptic technique was employed throughout the procedure: Hand Hygiene done prior to procedure, Full sterile barriers (mask, hair cover, sterile gown, sterile gloves), Full body sterile drape, Chloraprep Antiseptic: 30 second prep for IJ or SC sites Time Out Performed: Yes Pt. placed on Pulse Ox Monitor: Yes Central Line Prep: Chlorhexidine-Alcohol Combination Local Anesthesia Used: Lidocaine 1% Ultrasound Used for Placement: Yes Technique Used: Guide Wire Technique Secured by: Suture Post procedure dressing: Clear vapor permeable Patient Tolerated Procedure: well Immediate Complications: none
[2017-10-09] MEDS: Pantoprazole 40mg/100mL NS 40 MG/100 ML BAG IVPB SCH ×3 (20:00→22:18)
[2017-10-09 20:30] LABS: VENOUS BLOOD GAS BASE EXCESS 0.8 mmol/L (0.0-2.0); VENOUS BLOOD GAS PO2 88 mm/Hg (30-55); VENOUS BLOOD PH 7.39 (7.32-7.43)
--- NOTE | 2017-10-09 20:47 | CP.PCM.CON ---
History of Present Illness - History of Present Illness History of Present Illness: Surgery Consult note. Dr. Rubi Patient history obtained from chart review due to patient condition. 47yo M with PMHx of DM, HTN, CAD s/p stents x7 came to the ED on 10/06/17 for shortness of breath. Patient was recently diagnosed with Pneumonia on CT at [facility]. Today, patient had an [employer] due to worsening shortness of breath. Patient was transferred to the ICU and subsequently intubated to protect the airway. CXR evidence of worsening ARDS and repeat CXR with large left sided pleural effusion. CT Chest on 10/07 with evidence of moderate size left pleural effusion noted. Surgery consulted today due to need for urgent Chest tube due to worsening hypotension and large left sided pleural effusion. ROS unobtainable due to patient condition PMHx: DM, HTN, CAD s/p cardiac stents x7 PSHx: unknown Family Hx: unknown Social Hx: Current tobacco use NKDA Review of Systems - Review of Systems Systems not reviewed;Unavailable: Acuity of Condition, Intubated Past Patient History - Past Social History Smoking Status: Never Smoked - CARDIAC Hx Cardiac Disorders: Yes Hx Hypercholesterolemia: Yes Hx Hypertension: Yes Other/Comment: [place] - ENDOCRINE/METABOLIC Hx Endocrine Disorders: Yes Hx Diabetes Mellitus Type 2: Yes - MUSCULOSKELETAL/RHEUMATOLOGICAL Hx Falls: No - PSYCHIATRIC Hx Psychophysiologic Disorder: Yes Other/Comment: Etoh (socially) - SURGICAL HISTORY Hx Coronary Stent: Yes - ANESTHESIA Hx Anesthesia: No Hx Anesthesia Reactions: No Hx Malignant Hyperthermia: No Meds Allergies/Adverse Reactions: Allergies Allergy/AdvReac Type Severity Reaction Status Date / Time No Known Allergies Allergy Verified 01/09/17 22:10 - Medications Medications: Current Medications Acetaminophen (Tylenol 325mg Tab) 650 mg PO Q4H PRN PRN Reason: Fever >100.4 F Last Admin: 10/08/17 17:35 Dose: 650 mg Albuterol/Ipratropium (Duoneb 3 Mg/0.5 Mg (3 Ml) Ud) 3 ml IH [id number] [facility] Last Admin: 10/09/17 20:18 Dose: 3 ml Aspirin (Ecotrin) 81 mg PO DAILY [facility] Last Admin: 10/09/17 10:36 Dose: 81 mg Doxycycline Hyclate (Doryx) 100 mg PO Q12 [facility] PRN Reason: Protocol Stop: 10/17/17 22:01 Last Admin: 10/09/17 10:36 Dose: 100 mg Heparin Sodium (Porcine) (Heparin) 5,000 units SC Q12 [facility] PRN Reason: Protocol Meropenem/Sodium Chloride (Meropenem 1g/Ns 100ml Ivpb) 1 gm in 100 mls @ 100 mls/hr IVPB Q8 [facility] Last Admin: 10/09/17 05:17 Dose: 100 mls/hr Vancomycin HCl (Vancomycin 1gm) 1 gm in 250 mls @ 167 mls/hr IVPB Q12H [facility] PRN Reason: Protocol Insulin Human Regular 100 (units/ Sodium Chloride) 100 mls @ 1 mls/hr IV .Q24H PRN; Protocol; 1 UNITS/HR PRN Reason: TITRATE PER MD ORDER Fentanyl Citrate (Fentanyl Citrate/Sodium Chloride 1 Mg/100 Ml) 1,000 mcg in 100 mls @ 10 mls/hr IV .Q10H PRN; Protocol; 100 MCG/HR PRN Reason: TITRATE PER MD ORDER Last Admin: 10/09/17 18:09 Dose: 100 mcg/hr, 10 mls/hr Midazolam 100 mg/100ml in NS (Midazolam 100 Mg/100ml In Ns) 100 mg in 100 mls @ 5 mls/hr IV .Q20H PRN; Protocol; 5 MG/HR PRN Reason: Agitation Last Admin: 10/09/17 18:11 Dose: 5 mg/hr, 5 mls/hr Pantoprazole Sodium (Protonix 40mg Ivpb) 40 mg in 100 mls @ 20 mls/hr IVPB .Q5H [facility] Cisatracurium Besylate 200 mg/ (Sodium Chloride) 270 mls @ 3.51 mls/hr IV .Q24H PRN; Protocol; 0.5 MCG/KG/MIN PRN Reason: TITRATE PER MD ORDER Propofol (Diprivan) 1,000 mg in 100 mls @ 2.6 mls/hr IV .Q24H PRN; Protocol; 5 MCG/KG/MIN PRN Reason: TITRATE PER MD ORDER Last Admin: 10/09/17 19:39 Dose: 40 mcg/kg/min, 20.804 mls/hr Insulin Human Regular (Humulin R Low) 0 units SC ACHS [facility] PRN Reason: Protocol Last Admin: 10/09/17 12:40 Dose: 3 units Lisinopril (Zestril) 5 mg PO DAILY [facility] Last Admin: 10/09/17 10:36 Dose: 5 mg Methylprednisolone (Solu-Medrol) 20 mg IVP Q12 [facility] Metoprolol Tartrate (Lopressor) 50 mg PO BID [facility] Last Admin: 10/09/17 20:05 Dose: Not Given Non-Formulary Medication (Dapagliflozin/Metformin Hcl [Xigduo Xr 5 Mg-1,000 Mg Tablet]) 1 each PO DAILY [facility] Last Admin: 10/09/17 10:47 Dose: Not Given Oseltamivir Phosphate (Tamiflu Cap) 75 mg PO BID [facility] PRN Reason: Protocol Stop: 10/14/17 14:16 Last Admin: 10/09/17 20:05 Dose: Not Given Oxycodone/Acetaminophen (Percocet 10/325 Mg Tab) 1 tab PO Q6H PRN PRN Reason: Pain, moderate (4-7) Last Admin: 10/09/17 07:57 Dose: 1 tab Prasugrel (Effient) 10 mg PO DAILY [facility] Last Admin: 10/09/17 10:36 Dose: 10 mg Sitagliptin Phosphate (Januvia) 100 mg PO DAILY [facility] Last Admin: 10/09/17 10:37 Dose: 100 mg Physical Exam - Constitutional Appears: In Acute Distress, Older Than Stated Age - Head Exam Head Exam: ATRAUMATIC, NORMAL INSPECTION, NORMOCEPHALIC - ENT Exam ENT Exam: Mucous Membranes Moist - Respiratory Exam Respiratory Exam: Decreased Breath Sounds (decreased breath sounds on left ), Respiratory Distress Additional comments: Intubated and sedated - GI/Abdominal Exam GI & Abdominal Exam: Soft. absent: Distended, Firm, Guarding - Extremities Exam Extremities exam: Positive for: normal inspection. Negative for: pedal edema - Neurological Exam Additional comments: Intubated and sedated - Skin Skin Exam: Diaphoretic Results - Vital Signs Recent Vital Signs: Last Vital Signs Temp 98.7 F 10/09/17 12:00 Pulse 91 H 10/09/17 20:00 Resp 20 10/09/17 12:00 BP 93/56 L 10/09/17 20:00 Pulse Ox 97 10/09/17 20:00 - Labs Result Diagrams: 10/09/17 16:20 10/09/17 16:20 Labs: Laboratory Results - last 24 hr 10/08/17 10/09/17 10/09/17 21:31 07:35 11:09 WBC RBC Hgb Hct MCV MCH MCHC RDW Plt Count MPV Gran % Lymph % (Auto) Love % (Auto) Eos % (Auto) Baso % (Auto) Gran # Lymph # (Auto) Love # (Auto) Eos # (Auto) Baso # (Auto) PT INR pCO2 pO2 HCO3 ABG pH ABG Total CO2 ABG O2 Saturation ABG Base Excess ABG Potassium VBG pH VBG pCO2 VBG HCO3 VBG Total CO2 VBG O2 Sat (Calc) VBG Base Excess VBG Potassium Sodium Chloride Glucose Lactate Mechanical Rate FiO2 Tidal Volume PEEP Inspiratory BiPAP Potassium Carbon Dioxide Anion Gap BUN Creatinine Est GFR ( Amer) Est GFR (Non-Af Amer) POC Glucose (mg/dL) 243 H 339 H 250 H Random Glucose Calcium Phosphorus Magnesium Total Bilirubin AST ALT Alkaline Phosphatase Troponin I Total Protein Albumin Globulin Albumin/Globulin Ratio Arterial Blood Potassium Venous Blood Potassium 10/09/17 10/09/17 10/09/17 13:19 13:19 13:20 WBC 26.1 H* D RBC 5.47 Hgb 17.0 Hct 46.8 MCV 85.6 MCH 31.1 MCHC 36.3 RDW 12.2 Plt Count 285 MPV 10.2 Gran % 87.5 H Lymph % (Auto) 3.3 L Love % (Auto) 9.1 H Eos % (Auto) 0.0 L Baso % (Auto) 0.1 Gran # 22.82 H Lymph # (Auto) 0.9 L Love # (Auto) 2.4 H Eos # (Auto) 0.0 Baso # (Auto) 0.03 PT INR pCO2 46 H pO2 77.0 L HCO3 29.2 H ABG pH 7.41 ABG Total CO2 30.6 H ABG O2 Saturation 96.6 ABG Base Excess 3.8 H ABG Potassium 3.8 VBG pH VBG pCO2 VBG HCO3 VBG Total CO2 VBG O2 Sat (Calc) VBG Base Excess VBG Potassium Sodium 130.0 L 134 Chloride 99.0 91 L Glucose 355 H Lactate 1.7 Mechanical Rate 16 FiO2 100.0 Tidal Volume PEEP Inspiratory BiPAP 16 Potassium 4.8 Carbon Dioxide 32 Anion Gap 16 BUN 19 Creatinine 0.7 L Est GFR ( Amer) > 60 Est GFR (Non-Af Amer) > 60 POC Glucose (mg/dL) Random Glucose 345 H* D Calcium 9.6 Phosphorus 3.4 Magnesium 2.3 H Total Bilirubin 0.5 AST 27 ALT 18 Alkaline Phosphatase 144 H D Troponin I < 0.01 Total Protein 7.3 Albumin 3.5 Globulin 3.8 Albumin/Globulin Ratio 0.9 L Arterial Blood Potassium 3.8 Venous Blood Potassium 10/09/17 10/09/17 10/09/17 16:20 16:20 16:20 WBC 31.5 H* D RBC 5.35 Hgb 16.7 Hct 46.0 MCV 86.0 MCH 31.2 MCHC 36.3 RDW 12.2 Plt Count 338 MPV 10.9 Gran % Lymph % (Auto) Love % (Auto) Eos % (Auto) Baso % (Auto) Gran # Lymph # (Auto) Love # (Auto) Eos # (Auto) Baso # (Auto) PT 13.1 H INR 1.15 H pCO2 pO2 HCO3 ABG pH ABG Total CO2 ABG O2 Saturation ABG Base Excess ABG Potassium VBG pH VBG pCO2 VBG HCO3 VBG Total CO2 VBG O2 Sat (Calc) VBG Base Excess VBG Potassium Sodium 137 Chloride 95 L Glucose Lactate Mechanical Rate FiO2 Tidal Volume PEEP Inspiratory BiPAP Potassium 3.8 Carbon Dioxide 28 Anion Gap 18 BUN 21 Creatinine 0.6 L Est GFR ( Amer) > 60 Est GFR (Non-Af Amer) > 60 POC Glucose (mg/dL) Random Glucose 318 H* Calcium 9.4 Phosphorus 4.8 H Magnesium 2.1 Total Bilirubin 0.4 AST 28 ALT 21 Alkaline Phosphatase 165 H Troponin I Total Protein 6.8 Albumin 3.3 Globulin 3.5 Albumin/Globulin Ratio 1.0 L Arterial Blood Potassium Venous Blood Potassium 10/09/17 10/09/17 10/09/17 16:20 16:55 20:22 WBC RBC Hgb Hct MCV MCH MCHC RDW Plt Count MPV Gran % Lymph % (Auto) Love % (Auto) Eos % (Auto) Baso % (Auto) Gran # Lymph # (Auto) Love # (Auto) Eos # (Auto) Baso # (Auto) PT INR pCO2 62 H pO2 63 H 66.0 L 88 H HCO3 31.2 H ABG pH 7.31 L ABG Total CO2 33.1 H ABG O2 Saturation 93.3 L ABG Base Excess 3.2 H ABG Potassium 3.8 VBG pH 7.31 L 7.39 VBG pCO2 65.0 H 43.0 VBG HCO3 32.7 H 26.0 VBG Total CO2 34.7 H 27.3 VBG O2 Sat (Calc) 91.8 H 98.0 H VBG Base Excess 4.4 H 0.8 VBG Potassium 4.0 2.8 L Sodium 133.0 132.0 139.0 Chloride 99.0 97.0 L 112.0 H Glucose 356 H 353 H 246 H Lactate 2.6 H 1.9 1.2 Mechanical Rate 30 FiO2 21.0 100.0 21.0 Tidal Volume 350 PEEP 15 Inspiratory BiPAP Potassium Carbon Dioxide Anion Gap BUN Creatinine Est GFR ( Amer) Est GFR (Non-Af Amer) POC Glucose (mg/dL) Random Glucose Calcium Phosphorus Magnesium Total Bilirubin AST ALT Alkaline Phosphatase Troponin I Total Protein Albumin Globulin Albumin/Globulin Ratio Arterial Blood Potassium 3.8 Venous Blood Potassium 4.0 2.8 L Assessment & Plan - Assessment and Plan (Free Text) Assessment: 47yo M with large left sided pleural effusion, VDRF and worsening cardiac output. Surgery consulted for urgent chest tube placement - CT Chest 10/07 noted - Multiple CXRs from this admission noted - Hypotensive, tachycardic - severe leukocytosis Plan: - Emergent implied consent - Left Chest tube placement: 32F. Immediate gush of air along with >1L of straw colored fluid. - Left subclavian TLC placement - Right radial Arterial line placement - f/u pleural fluid analysis and cxs sent - Chest tube to suction - Continue IV Abx - Daily CXR - We will continue to follow Further recs as per Dr. Greyson Huynh PGY1 surgery pager: [phone]
[2017-10-09] MEDS: Vancomycin 1gm in NS 250ml 1 GM/250 ML BAG IVPB SCH (21:00)
[2017-10-09 22:00] LABS: ARTERIAL BLOOD GAS HCO3 30.5 mmol/L (21-28); ARTERIAL BLOOD GAS O2 SAT 99.4 % (95-98); ARTERIAL BLOOD GAS PCO2 47 mm/Hg (35-45); ARTERIAL BLOOD GAS PH 7.42 (7.35-7.45); ARTERIAL BLOOD GAS TCO2 31.9 mmol.L (22-28)
[2017-10-09] MEDS ORDERED: NOREPINEPHRINE BIT/0.9 % NACL 4 MG/250 ML BAG IV PRN (23:20)
[2017-10-10] MEDS: Pantoprazole 40mg/100mL NS 40 MG/100 ML BAG IVPB SCH ×5 (00:49→22:56)
[2017-10-10] MEDS: Albuterol-Ipratrop 3 mg / 0.5 (3 ml) UD IH SCH ×4 (01:05→20:11)
[2017-10-10] MEDS: Vancomycin 1gm in NS 250ml 1 GM/250 ML BAG IVPB SCH ×2 (01:54→14:18)
[2017-10-10] MEDS: Propofol 10 mg/ml 1,000 MG/100 ML VIAL IV PRN (02:37)
[2017-10-10] MEDS: Fentanyl 1000mcg/100ml NS 1,000 MCG/100 ML BAG IV PRN (03:10)
--- NOTE | 2017-10-10 04:56 | CP.PCM.CON ---
<Lamberto Hagen - Last Filed: 10/10/17 12:41> History of Present Illness - History of Present Illness History of Present Illness: GI consult note for Dr. Flo Hagen PGY2 HPI: Patient is a 47yo male with past medical history of diabetes, hypertension , [place], CAD s/p 7 stents that had [place] [facility] [place] of [place]ness of breath. History obtained from chart due to patient status. He had reported having been to [facility] [place] three days prior to presentation with similar complaints and at that time was diagnosed with pneumonia and discharged on levaquin. He had been taking levaquin with minimal relief of his symptoms and persistent worsening of his dyspnea. On arrival to the ED, CXR was notable for a large left pleural effusion with likely underlying consolidation. He was noted to have leukocytosis of 11.8 with left shift, lactate of 3.0 and temperature of 102.5F. He was subsequently admitted for sepsis secondary to pneumonia. His hospital course was complicated by acute hypoxemic respiratory failure resulting in intubation. GI consulted for evaluation for coffee-ground secretions from OGT. 12point ROS limited due to patient status PMHx: as stated above PSHx: Hx of 7 stents placed Allergies: NKDA Medications: See MAR Family Hx: No reported family history of colorectal ca Social Hx: History of tobacco and regular alcohol use over the past 4 months; no illicit drugs; lives with his Past Patient History - Past Social History Smoking Status: Never Smoked - CARDIAC Hx Cardiac Disorders: Yes Hx Hypercholesterolemia: Yes Hx Hypertension: Yes Other/Comment: [place] - ENDOCRINE/METABOLIC Hx Endocrine Disorders: Yes Hx Diabetes Mellitus Type 2: Yes - MUSCULOSKELETAL/RHEUMATOLOGICAL Hx Falls: No - PSYCHIATRIC Hx Psychophysiologic Disorder: Yes Other/Comment: Etoh (socially) - SURGICAL HISTORY Hx Coronary Stent: Yes - ANESTHESIA Hx Anesthesia: No Hx Anesthesia Reactions: No Hx Malignant Hyperthermia: No Meds Allergies/Adverse Reactions: Allergies Allergy/AdvReac Type Severity Reaction Status Date / Time No Known Allergies Allergy Verified 01/09/17 22:10 - Medications Medications: Current Medications Acetaminophen (Tylenol 325mg Tab) 650 mg PO Q4H PRN PRN Reason: Fever >100.4 F Last Admin: 10/08/17 17:35 Dose: 650 mg Albuterol/Ipratropium (Duoneb 3 Mg/0.5 Mg (3 Ml) Ud) 3 ml IH [id number] [facility] Last Admin: 10/10/17 01:05 Dose: 3 ml Aspirin (Ecotrin) 81 mg PO DAILY [facility] Last Admin: 10/09/17 10:36 Dose: 81 mg Doxycycline Hyclate (Doryx) 100 mg PO Q12 [facility] PRN Reason: Protocol Stop: 10/17/17 22:01 Last Admin: 10/09/17 22:11 Dose: 100 mg Meropenem/Sodium Chloride (Meropenem 1g/Ns 100ml Ivpb) 1 gm in 100 mls @ 100 mls/hr IVPB Q8 [facility] Last Admin: 10/09/17 22:15 Dose: 100 mls/hr Vancomycin HCl (Vancomycin 1gm) 1 gm in 250 mls @ 167 mls/hr IVPB Q12H [facility] PRN Reason: Protocol Last Admin: 10/10/17 01:54 Dose: 167 mls/hr Insulin Human Regular 100 (units/ Sodium Chloride) 100 mls @ 1 mls/hr IV .Q24H PRN; Protocol; 1 UNITS/HR PRN Reason: TITRATE PER MD ORDER Last Titration: 10/10/17 04:09 Dose: 3 units/hr, 3 mls/hr Fentanyl Citrate (Fentanyl Citrate/Sodium Chloride 1 Mg/100 Ml) 1,000 mcg in 100 mls @ 10 mls/hr IV .Q10H PRN; Protocol; 100 MCG/HR PRN Reason: TITRATE PER MD ORDER Last Admin: 10/10/17 03:10 Dose: 100 mcg/hr, 10 mls/hr Midazolam 100 mg/100ml in NS (Midazolam 100 Mg/100ml In Ns) 100 mg in 100 mls @ 5 mls/hr IV .Q20H PRN; Protocol; 5 MG/HR PRN Reason: Agitation Last Admin: 10/09/17 18:11 Dose: 5 mg/hr, 5 mls/hr Pantoprazole Sodium (Protonix 40mg Ivpb) 40 mg in 100 mls @ 20 mls/hr IVPB .Q5H [facility] Last Admin: 10/10/17 02:15 Dose: 20 mls/hr Cisatracurium Besylate 200 mg/ (Sodium Chloride) 270 mls @ 3.51 mls/hr IV .Q24H PRN; Protocol; 0.5 MCG/KG/MIN PRN Reason: TITRATE PER MD ORDER Last Titration: 10/10/17 01:23 Dose: 1.167 mcg/kg/min, 8.19 mls/hr Propofol (Diprivan) 1,000 mg in 100 mls @ 2.6 mls/hr IV .Q24H PRN; Protocol; 5 MCG/KG/MIN PRN Reason: TITRATE PER MD ORDER Last Titration: 10/10/17 03:13 Dose: 25 mcg/kg/min, 13.002 mls/hr NOREPINEPHRINE BIT/0.9 % NACL (Levophed 4 Mg/ 250 Ml Ns Premixed) 4 mg in 250 mls @ 15 mls/hr IV [id number] PRN; Protocol; 4 MCG/MIN PRN Reason: TITRATE PER MD ORDER Last Admin: 10/09/17 23:47 Dose: 4 mcg/min, 15 mls/hr Methylprednisolone (Solu-Medrol) 20 mg IVP Q12 [facility] Last Admin: 10/09/17 22:21 Dose: 20 mg Oseltamivir Phosphate (Tamiflu Cap) 75 mg PO BID [facility] PRN Reason: Protocol Stop: 10/14/17 14:16 Last Admin: 10/09/17 20:05 Dose: Not Given Oxycodone/Acetaminophen (Percocet 10/325 Mg Tab) 1 tab PO Q6H PRN PRN Reason: Pain, moderate (4-7) Last Admin: 10/09/17 07:57 Dose: 1 tab Prasugrel (Effient) 10 mg PO DAILY [facility] Last Admin: 10/09/17 10:36 Dose: 10 mg Physical Exam - Head Exam Head Exam: ATRAUMATIC, NORMAL INSPECTION, NORMOCEPHALIC - Eye Exam Eye Exam: EOMI, PERRL - ENT Exam ENT Exam: Mucous Membranes Moist - Respiratory Exam Additional comments: coarse breath sounds bilaterally - Cardiovascular Exam Cardiovascular Exam: +S1, +S2. absent: Gallop, JVD, Rubs - GI/Abdominal Exam GI & Abdominal Exam: Soft. absent: Distended, Firm, Rigid, Tenderness Additional comments: no hepatosplenomegaly - Extremities Exam Extremities exam: Negative for: pedal edema - Neurological Exam Neurological exam: Alert - Skin Skin Exam: Dry, Intact, Normal Color, Warm Results - Vital Signs Recent Vital Signs: Last Vital Signs Temp 98 F 10/09/17 19:27 Pulse 82 10/10/17 04:00 Resp 20 10/09/17 12:00 BP 104/58 L 10/10/17 04:00 Pulse Ox 93 L 10/10/17 04:00 - Labs Result Diagrams: 10/10/17 06:30 10/10/17 06:30 Labs: Laboratory Results - last 24 hr 10/09/17 10/09/17 10/09/17 07:35 11:09 13:19 WBC RBC Hgb Hct MCV MCH MCHC RDW Plt Count MPV Gran % Lymph % (Auto) Ramsey % (Auto) Eos % (Auto) Baso % (Auto) Gran # Lymph # (Auto) Ramsey # (Auto) Eos # (Auto) Baso # (Auto) PT INR pCO2 46 H pO2 77.0 L HCO3 29.2 H ABG pH 7.41 ABG Total CO2 30.6 H ABG O2 Saturation 96.6 ABG Base Excess 3.8 H ABG Potassium 3.8 VBG pH VBG pCO2 VBG HCO3 VBG Total CO2 VBG O2 Sat (Calc) VBG Base Excess VBG Potassium Sodium 130.0 L Chloride 99.0 Glucose 355 H Lactate 1.7 Mechanical Rate 16 FiO2 100.0 Tidal Volume PEEP Inspiratory BiPAP 16 Potassium Carbon Dioxide Anion Gap BUN Creatinine Est GFR ( Amer) Est GFR (Non-Af Amer) POC Glucose (mg/dL) 339 H 250 H Random Glucose Calcium Phosphorus Magnesium Total Bilirubin AST ALT Alkaline Phosphatase Troponin I Total Protein Albumin Globulin Albumin/Globulin Ratio Procalcitonin Arterial Blood Potassium 3.8 Venous Blood Potassium 10/09/17 10/09/17 10/09/17 13:19 13:20 16:20 WBC 26.1 H* D 31.5 H* D RBC 5.47 5.35 Hgb 17.0 16.7 Hct 46.8 46.0 MCV 85.6 86.0 MCH 31.1 31.2 MCHC 36.3 36.3 RDW 12.2 12.2 Plt Count 285 338 MPV 10.2 10.9 Gran % 87.5 H Lymph % (Auto) 3.3 L Ramsey % (Auto) 9.1 H Eos % (Auto) 0.0 L Baso % (Auto) 0.1 Gran # 22.82 H Lymph # (Auto) 0.9 L Ramsey # (Auto) 2.4 H Eos # (Auto) 0.0 Baso # (Auto) 0.03 PT INR pCO2 pO2 HCO3 ABG pH ABG Total CO2 ABG O2 Saturation ABG Base Excess ABG Potassium VBG pH VBG pCO2 VBG HCO3 VBG Total CO2 VBG O2 Sat (Calc) VBG Base Excess VBG Potassium Sodium 134 Chloride 91 L Glucose Lactate Mechanical Rate FiO2 Tidal Volume PEEP Inspiratory BiPAP Potassium 4.8 Carbon Dioxide 32 Anion Gap 16 BUN 19 Creatinine 0.7 L Est GFR ( Amer) > 60 Est GFR (Non-Af Amer) > 60 POC Glucose (mg/dL) Random Glucose 345 H* D Calcium 9.6 Phosphorus 3.4 Magnesium 2.3 H Total Bilirubin 0.5 AST 27 ALT 18 Alkaline Phosphatase 144 H D Troponin I < 0.01 Total Protein 7.3 Albumin 3.5 Globulin 3.8 Albumin/Globulin Ratio 0.9 L Procalcitonin Arterial Blood Potassium Venous Blood Potassium 10/09/17 10/09/17 10/09/17 16:20 16:20 16:20 WBC RBC Hgb Hct MCV MCH MCHC RDW Plt Count MPV Gran % Lymph % (Auto) Ramsey % (Auto) Eos % (Auto) Baso % (Auto) Gran # Lymph # (Auto) Ramsey # (Auto) Eos # (Auto) Baso # (Auto) PT 13.1 H INR 1.15 H pCO2 pO2 HCO3 ABG pH ABG Total CO2 ABG O2 Saturation ABG Base Excess ABG Potassium VBG pH VBG pCO2 VBG HCO3 VBG Total CO2 VBG O2 Sat (Calc) VBG Base Excess VBG Potassium Sodium 137 Chloride 95 L Glucose Lactate Mechanical Rate FiO2 Tidal Volume PEEP Inspiratory BiPAP Potassium 3.8 Carbon Dioxide 28 Anion Gap 18 BUN 21 Creatinine 0.6 L Est GFR ( Amer) > 60 Est GFR (Non-Af Amer) > 60 POC Glucose (mg/dL) Random Glucose 318 H* Calcium 9.4 Phosphorus 4.8 H Magnesium 2.1 Total Bilirubin 0.4 AST 28 ALT 21 Alkaline Phosphatase 165 H Troponin I Total Protein 6.8 Albumin 3.3 Globulin 3.5 Albumin/Globulin Ratio 1.0 L Procalcitonin 1.50 H Arterial Blood Potassium Venous Blood Potassium 10/09/17 10/09/17 10/09/17 16:20 16:55 19:48 WBC RBC Hgb Hct MCV MCH MCHC RDW Plt Count MPV Gran % Lymph % (Auto) Ramsey % (Auto) Eos % (Auto) Baso % (Auto) Gran # Lymph # (Auto) Ramsey # (Auto) Eos # (Auto) Baso # (Auto) PT INR pCO2 62 H pO2 63 H 66.0 L HCO3 31.2 H ABG pH 7.31 L ABG Total CO2 33.1 H ABG O2 Saturation 93.3 L ABG Base Excess 3.2 H ABG Potassium 3.8 VBG pH 7.31 L VBG pCO2 65.0 H VBG HCO3 32.7 H VBG Total CO2 34.7 H VBG O2 Sat (Calc) 91.8 H VBG Base Excess 4.4 H VBG Potassium 4.0 Sodium 133.0 132.0 Chloride 99.0 97.0 L Glucose 356 H 353 H Lactate 2.6 H 1.9 Mechanical Rate 30 FiO2 21.0 100.0 Tidal Volume 350 PEEP 15 Inspiratory BiPAP Potassium Carbon Dioxide Anion Gap BUN Creatinine Est GFR ( Amer) Est GFR (Non-Af Amer) POC Glucose (mg/dL) 282 H Random Glucose Calcium Phosphorus Magnesium Total Bilirubin AST ALT Alkaline Phosphatase Troponin I Total Protein Albumin Globulin Albumin/Globulin Ratio Procalcitonin Arterial Blood Potassium 3.8 Venous Blood Potassium 4.0 10/09/17 10/09/17 10/09/17 20:22 20:56 21:55 WBC RBC Hgb Hct MCV MCH MCHC RDW Plt Count MPV Gran % Lymph % (Auto) Ramsey % (Auto) Eos % (Auto) Baso % (Auto) Gran # Lymph # (Auto) Ramsey # (Auto) Eos # (Auto) Baso # (Auto) PT INR pCO2 pO2 88 H HCO3 ABG pH ABG Total CO2 ABG O2 Saturation ABG Base Excess ABG Potassium VBG pH 7.39 VBG pCO2 43.0 VBG HCO3 26.0 VBG Total CO2 27.3 VBG O2 Sat (Calc) 98.0 H VBG Base Excess 0.8 VBG Potassium 2.8 L Sodium 139.0 Chloride 112.0 H Glucose 246 H Lactate 1.2 Mechanical Rate FiO2 21.0 Tidal Volume PEEP Inspiratory BiPAP Potassium Carbon Dioxide Anion Gap BUN Creatinine Est GFR ( Amer) Est GFR (Non-Af Amer) POC Glucose (mg/dL) 259 H 265 H Random Glucose Calcium Phosphorus Magnesium Total Bilirubin AST ALT Alkaline Phosphatase Troponin I Total Protein Albumin Globulin Albumin/Globulin Ratio Procalcitonin Arterial Blood Potassium Venous Blood Potassium 2.8 L 10/09/17 10/09/17 10/10/17 21:57 22:55 00:04 WBC RBC Hgb Hct MCV MCH MCHC RDW Plt Count MPV Gran % Lymph % (Auto) Ramsey % (Auto) Eos % (Auto) Baso % (Auto) Gran # Lymph # (Auto) Ramsey # (Auto) Eos # (Auto) Baso # (Auto) PT INR pCO2 47 H pO2 257.0 H HCO3 30.5 H ABG pH 7.42 ABG Total CO2 31.9 H ABG O2 Saturation 99.4 H ABG Base Excess 5.1 H ABG Potassium 3.5 L VBG pH VBG pCO2 VBG HCO3 VBG Total CO2 VBG O2 Sat (Calc) VBG Base Excess VBG Potassium Sodium 135.0 Chloride 101.0 Glucose 292 H Lactate 1.3 Mechanical Rate 30 FiO2 100.0 Tidal Volume 350 PEEP 15 Inspiratory BiPAP Potassium Carbon Dioxide Anion Gap BUN Creatinine Est GFR ( Amer) Est GFR (Non-Af Amer) POC Glucose (mg/dL) 310 H 235 H Random Glucose Calcium Phosphorus Magnesium Total Bilirubin AST ALT Alkaline Phosphatase Troponin I Total Protein Albumin Globulin Albumin/Globulin Ratio Procalcitonin Arterial Blood Potassium 3.5 L Venous Blood Potassium 10/10/17 10/10/17 10/10/17 01:03 01:48 02:56 WBC RBC Hgb Hct MCV MCH MCHC RDW Plt Count MPV Gran % Lymph % (Auto) Ramsey % (Auto) Eos % (Auto) Baso % (Auto) Gran # Lymph # (Auto) Ramsey # (Auto) Eos # (Auto) Baso # (Auto) PT INR pCO2 pO2 HCO3 ABG pH ABG Total CO2 ABG O2 Saturation ABG Base Excess ABG Potassium VBG pH VBG pCO2 VBG HCO3 VBG Total CO2 VBG O2 Sat (Calc) VBG Base Excess VBG Potassium Sodium Chloride Glucose Lactate Mechanical Rate FiO2 Tidal Volume PEEP Inspiratory BiPAP Potassium Carbon Dioxide Anion Gap BUN Creatinine Est GFR ( Amer) Est GFR (Non-Af Amer) POC Glucose (mg/dL) 234 H 178 H 156 H Random Glucose Calcium Phosphorus Magnesium Total Bilirubin AST ALT Alkaline Phosphatase Troponin I Total Protein Albumin Globulin Albumin/Globulin Ratio Procalcitonin Arterial Blood Potassium Venous Blood Potassium Assessment & Plan - Assessment and Plan (Free Text) Plan: 47yo male with history of diabetes, hypertension, [place], CAD s/p 7 stents admitted to the ICU with acute hypoxemic respiratory failure secondary to ARDS in the setting of community acquire pneumonia. GI consulted for evaluation of upper GI bleed. 1. Coffee-ground secretions 2. Acute hypoxemic respiratory failure 2/2 ARDS/CAP 3. Hx of CAD 4. Hx of Diabetes -No urgent indications for endoscopy/colonoscopy at this time -Continue to monitor H/H and transfuse as deemed necessary -Continue PPI drip -Aspirin/Effient on hold at this time -May start feeds through OGT -Continue current medical management per ICU recommendations Patient seen and case discussed/reviewed with attending, Dr. Rossi <Brandon Rossi - Last Filed: 10/10/17 13:32> Meds - Medications Medications: Current Medications Acetaminophen (Tylenol 325mg Tab) 650 mg PO Q4H PRN PRN Reason: Fever >100.4 F Last Admin: 10/08/17 17:35 Dose: 650 mg Albuterol/Ipratropium (Duoneb 3 Mg/0.5 Mg (3 Ml) Ud) 3 ml IH [id number] [facility] Last Admin: 10/10/17 08:15 Dose: 3 ml Aspirin (Ecotrin) 81 mg PO DAILY [facility] Last Admin: 10/09/17 10:36 Dose: 81 mg Heparin Sodium (Porcine) (Heparin) 5,000 units SC Q12 [facility] PRN Reason: Protocol Last Admin: 10/10/17 10:44 Dose: 5,000 units Meropenem/Sodium Chloride (Meropenem 1g/Ns 100ml Ivpb) 1 gm in 100 mls @ 100 mls/hr IVPB Q8 [facility] Last Admin: 10/10/17 05:32 Dose: 100 mls/hr Vancomycin HCl (Vancomycin 1gm) 1 gm in 250 mls @ 167 mls/hr IVPB Q12H [facility] PRN Reason: Protocol Last Admin: 10/10/17 01:54 Dose: 167 mls/hr Fentanyl Citrate (Fentanyl Citrate/Sodium Chloride 1 Mg/100 Ml) 1,000 mcg in 100 mls @ 10 mls/hr IV .Q10H PRN; Protocol; 100 MCG/HR PRN Reason: TITRATE PER MD ORDER Last Admin: 10/10/17 03:10 Dose: 100 mcg/hr, 10 mls/hr Midazolam 100 mg/100ml in NS (Midazolam 100 Mg/100ml In Ns) 100 mg in 100 mls @ 5 mls/hr IV .Q20H PRN; Protocol; 5 MG/HR PRN Reason: Agitation Last Admin: 10/09/17 18:11 Dose: 5 mg/hr, 5 mls/hr Pantoprazole Sodium (Protonix 40mg Ivpb) 40 mg in 100 mls @ 20 mls/hr IVPB .Q5H [facility] Last Admin: 10/10/17 07:19 Dose: 20 mls/hr Cisatracurium Besylate 200 mg/ (Sodium Chloride) 270 mls @ 3.51 mls/hr IV .Q24H PRN; Protocol; 0.5 MCG/KG/MIN PRN Reason: TITRATE PER MD ORDER Last Titration: 10/10/17 09:05 Dose: 0 mcg/kg/min, 0 mls/hr Propofol (Diprivan) 1,000 mg in 100 mls @ 2.6 mls/hr IV .Q24H PRN; Protocol; 5 MCG/KG/MIN PRN Reason: TITRATE PER MD ORDER Last Titration: 10/10/17 05:28 Dose: 36 mcg/kg/min, 18.723 mls/hr Doxycycline Hyclate 100 mg/ (Sodium Chloride) 100 mls @ 100 mls/hr IVPB Q12 [facility] PRN Reason: Protocol Last Admin: 10/10/17 12:34 Dose: 100 mls/hr Insulin Human Lispro (Humalog Med) 0 units SC Q4 [facility] PRN Reason: Protocol Methylprednisolone (Solu-Medrol) 20 mg IVP Q12 [facility] Last Admin: 10/10/17 10:45 Dose: 20 mg Oseltamivir Phosphate (Tamiflu Cap) 75 mg PO BID [facility] PRN Reason: Protocol Stop: 10/14/17 14:16 Last Admin: 10/10/17 10:45 Dose: 75 mg Oxycodone/Acetaminophen (Percocet 10/325 Mg Tab) 1 tab PO Q6H PRN PRN Reason: Pain, moderate (4-7) Last Admin: 10/09/17 07:57 Dose: 1 tab Prasugrel (Effient) 10 mg PO DAILY [facility] Last Admin: 10/09/17 10:36 Dose: 10 mg Results - Vital Signs Recent Vital Signs: Last Vital Signs Temp 99.3 F 10/10/17 04:00 Pulse 84 10/10/17 06:00 Resp 18 10/10/17 11:32 BP 114/70 10/10/17 10:33 Pulse Ox 91 L 10/10/17 10:29 - Labs Result Diagrams: 10/10/17 06:30 10/10/17 06:30 Labs: Laboratory Results - last 24 hr 10/09/17 10/09/17 10/09/17 13:19 13:19 13:20 WBC 26.1 H* D RBC 5.47 Hgb 17.0 Hct 46.8 MCV 85.6 MCH 31.1 MCHC 36.3 RDW 12.2 Plt Count 285 MPV 10.2 Gran % 87.5 H Lymph % (Auto) 3.3 L Ramsey % (Auto) 9.1 H Eos % (Auto) 0.0 L Baso % (Auto) 0.1 Gran # 22.82 H Lymph # (Auto) 0.9 L Ramsey # (Auto) 2.4 H Eos # (Auto) 0.0 Baso # (Auto) 0.03 PT INR pCO2 46 H pO2 77.0 L HCO3 29.2 H ABG pH 7.41 ABG Total CO2 30.6 H ABG O2 Saturation 96.6 ABG O2 Content ABG Base Excess 3.8 H ABG Hemoglobin ABG Carboxyhemoglobin POC ABG HHb (Measured) ABG Methemoglobin ABG O2 Capacity ABG Potassium 3.8 VBG pH VBG pCO2 VBG HCO3 VBG Total CO2 VBG O2 Sat (Calc) VBG Base Excess VBG Potassium Hgb O2 Saturation Sodium 130.0 L 134 Chloride 99.0 91 L Glucose 355 H Lactate 1.7 Mechanical Rate 16 FiO2 100.0 Tidal Volume PEEP Inspiratory BiPAP 16 Potassium 4.8 Carbon Dioxide 32 Anion Gap 16 BUN 19 Creatinine 0.7 L Est GFR ( Amer) > 60 Est GFR (Non-Af Amer) > 60 POC Glucose (mg/dL) Random Glucose 345 H* D Calcium 9.6 Phosphorus 3.4 Magnesium 2.3 H Total Bilirubin 0.5 AST 27 ALT 18 Alkaline Phosphatase 144 H D Troponin I < 0.01 Total Protein 7.3 Albumin 3.5 Globulin 3.8 Albumin/Globulin Ratio 0.9 L Procalcitonin Arterial Blood Potassium 3.8 Venous Blood Potassium Ur L.pneumophila Ag 10/09/17 10/09/17 10/09/17 16:20 16:20 16:20 WBC 31.5 H* D RBC 5.35 Hgb 16.7 Hct 46.0 MCV 86.0 MCH 31.2 MCHC 36.3 RDW 12.2 Plt Count 338 MPV 10.9 Gran % Lymph % (Auto) Ramsey % (Auto) Eos % (Auto) Baso % (Auto) Gran # Lymph # (Auto) Ramsey # (Auto) Eos # (Auto) Baso # (Auto) PT 13.1 H INR 1.15 H pCO2 pO2 HCO3 ABG pH ABG Total CO2 ABG O2 Saturation ABG O2 Content ABG Base Excess ABG Hemoglobin ABG Carboxyhemoglobin POC ABG HHb (Measured) ABG Methemoglobin ABG O2 Capacity ABG Potassium VBG pH VBG pCO2 VBG HCO3 VBG Total CO2 VBG O2 Sat (Calc) VBG Base Excess VBG Potassium Hgb O2 Saturation Sodium 137 Chloride 95 L Glucose Lactate Mechanical Rate FiO2 Tidal Volume PEEP Inspiratory BiPAP Potassium 3.8 Carbon Dioxide 28 Anion Gap 18 BUN 21 Creatinine 0.6 L Est GFR ( Amer) > 60 Est GFR (Non-Af Amer) > 60 POC Glucose (mg/dL) Random Glucose 318 H* Calcium 9.4 Phosphorus 4.8 H Magnesium 2.1 Total Bilirubin 0.4 AST 28 ALT 21 Alkaline Phosphatase 165 H Troponin I Total Protein 6.8 Albumin 3.3 Globulin 3.5 Albumin/Globulin Ratio 1.0 L Procalcitonin Arterial Blood Potassium Venous Blood Potassium Ur L.pneumophila Ag 10/09/17 10/09/17 10/09/17 16:20 16:20 16:55 WBC RBC Hgb Hct MCV MCH MCHC RDW Plt Count MPV Gran % Lymph % (Auto) Ramsey % (Auto) Eos % (Auto) Baso % (Auto) Gran # Lymph # (Auto) Ramsey # (Auto) Eos # (Auto) Baso # (Auto) PT INR pCO2 62 H pO2 63 H 66.0 L HCO3 31.2 H ABG pH 7.31 L ABG Total CO2 33.1 H ABG O2 Saturation 93.3 L ABG O2 Content ABG Base Excess 3.2 H ABG Hemoglobin ABG Carboxyhemoglobin POC ABG HHb (Measured) ABG Methemoglobin ABG O2 Capacity ABG Potassium 3.8 VBG pH 7.31 L VBG pCO2 65.0 H VBG HCO3 32.7 H VBG Total CO2 34.7 H VBG O2 Sat (Calc) 91.8 H VBG Base Excess 4.4 H VBG Potassium 4.0 Hgb O2 Saturation Sodium 133.0 132.0 Chloride 99.0 97.0 L Glucose 356 H 353 H Lactate 2.6 H 1.9 Mechanical Rate 30 FiO2 21.0 100.0 Tidal Volume 350 PEEP 15 Inspiratory BiPAP Potassium Carbon Dioxide Anion Gap BUN Creatinine Est GFR ( Amer) Est GFR (Non-Af Amer) POC Glucose (mg/dL) Random Glucose Calcium Phosphorus Magnesium Total Bilirubin AST ALT Alkaline Phosphatase Troponin I Total Protein Albumin Globulin Albumin/Globulin Ratio Procalcitonin 1.50 H Arterial Blood Potassium 3.8 Venous Blood Potassium 4.0 Ur L.pneumophila Ag 10/09/17 10/09/17 10/09/17 19:48 20:22 20:56 WBC RBC Hgb Hct MCV MCH MCHC RDW Plt Count MPV Gran % Lymph % (Auto) Ramsey % (Auto) Eos % (Auto) Baso % (Auto) Gran # Lymph # (Auto) Ramsey # (Auto) Eos # (Auto) Baso # (Auto) PT INR pCO2 pO2 88 H HCO3 ABG pH ABG Total CO2 ABG O2 Saturation ABG O2 Content ABG Base Excess ABG Hemoglobin ABG Carboxyhemoglobin POC ABG HHb (Measured) ABG Methemoglobin ABG O2 Capacity ABG Potassium VBG pH 7.39 VBG pCO2 43.0 VBG HCO3 26.0 VBG Total CO2 27.3 VBG O2 Sat (Calc) 98.0 H VBG Base Excess 0.8 VBG Potassium 2.8 L Hgb O2 Saturation Sodium 139.0 Chloride 112.0 H Glucose 246 H Lactate 1.2 Mechanical Rate FiO2 21.0 Tidal Volume PEEP Inspiratory BiPAP Potassium Carbon Dioxide Anion Gap BUN Creatinine Est GFR ( Amer) Est GFR (Non-Af Amer) POC Glucose (mg/dL) 282 H 259 H Random Glucose Calcium Phosphorus Magnesium Total Bilirubin AST ALT Alkaline Phosphatase Troponin I Total Protein Albumin Globulin Albumin/Globulin Ratio Procalcitonin Arterial Blood Potassium Venous Blood Potassium 2.8 L Ur L.pneumophila Ag 10/09/17 10/09/17 10/09/17 21:55 21:57 22:55 WBC RBC Hgb Hct MCV MCH MCHC RDW Plt Count MPV Gran % Lymph % (Auto) Ramsey % (Auto) Eos % (Auto) Baso % (Auto) Gran # Lymph # (Auto) Ramsey # (Auto) Eos # (Auto) Baso # (Auto) PT INR pCO2 47 H pO2 257.0 H HCO3 30.5 H ABG pH 7.42 ABG Total CO2 31.9 H ABG O2 Saturation 99.4 H ABG O2 Content ABG Base Excess 5.1 H ABG Hemoglobin ABG Carboxyhemoglobin POC ABG HHb (Measured) ABG Methemoglobin ABG O2 Capacity ABG Potassium 3.5 L VBG pH VBG pCO2 VBG HCO3 VBG Total CO2 VBG O2 Sat (Calc) VBG Base Excess VBG Potassium Hgb O2 Saturation Sodium 135.0 Chloride 101.0 Glucose 292 H Lactate 1.3 Mechanical Rate 30 FiO2 100.0 Tidal Volume 350 PEEP 15 Inspiratory BiPAP Potassium Carbon Dioxide Anion Gap BUN Creatinine Est GFR ( Amer) Est GFR (Non-Af Amer) POC Glucose (mg/dL) 265 H 310 H Random Glucose Calcium Phosphorus Magnesium Total Bilirubin AST ALT Alkaline Phosphatase Troponin I Total Protein Albumin Globulin Albumin/Globulin Ratio Procalcitonin Arterial Blood Potassium 3.5 L Venous Blood Potassium Ur L.pneumophila Ag 10/10/17 10/10/17 10/10/17 00:04 01:03 01:48 WBC RBC Hgb Hct MCV MCH MCHC RDW Plt Count MPV Gran % Lymph % (Auto) Ramsey % (Auto) Eos % (Auto) Baso % (Auto) Gran # Lymph # (Auto) Ramsey # (Auto) Eos # (Auto) Baso # (Auto) PT INR pCO2 pO2 HCO3 ABG pH ABG Total CO2 ABG O2 Saturation ABG O2 Content ABG Base Excess ABG Hemoglobin ABG Carboxyhemoglobin POC ABG HHb (Measured) ABG Methemoglobin ABG O2 Capacity ABG Potassium VBG pH VBG pCO2 VBG HCO3 VBG Total CO2 VBG O2 Sat (Calc) VBG Base Excess VBG Potassium Hgb O2 Saturation Sodium Chloride Glucose Lactate Mechanical Rate FiO2 Tidal Volume PEEP Inspiratory BiPAP Potassium Carbon Dioxide Anion Gap BUN Creatinine Est GFR ( Amer) Est GFR (Non-Af Amer) POC Glucose (mg/dL) 235 H 234 H 178 H Random Glucose Calcium Phosphorus Magnesium Total Bilirubin AST ALT Alkaline Phosphatase Troponin I Total Protein Albumin Globulin Albumin/Globulin Ratio Procalcitonin Arterial Blood Potassium Venous Blood Potassium Ur L.pneumophila Ag 10/10/17 10/10/17 10/10/17 02:56 03:45 04:07 WBC RBC Hgb Hct MCV MCH MCHC RDW Plt Count MPV Gran % Lymph % (Auto) Ramsey % (Auto) Eos % (Auto) Baso % (Auto) Gran # Lymph # (Auto) Ramsey # (Auto) Eos # (Auto) Baso # (Auto) PT INR pCO2 pO2 HCO3 ABG pH ABG Total CO2 ABG O2 Saturation ABG O2 Content ABG Base Excess ABG Hemoglobin ABG Carboxyhemoglobin POC ABG HHb (Measured) ABG Methemoglobin ABG O2 Capacity ABG Potassium VBG pH VBG pCO2 VBG HCO3 VBG Total CO2 VBG O2 Sat (Calc) VBG Base Excess VBG Potassium Hgb O2 Saturation Sodium Chloride Glucose Lactate Mechanical Rate FiO2 Tidal Volume PEEP Inspiratory BiPAP Potassium Carbon Dioxide Anion Gap BUN Creatinine Est GFR ( Amer) Est GFR (Non-Af Amer) POC Glucose (mg/dL) 156 H 144 H Random Glucose Calcium Phosphorus Magnesium Total Bilirubin AST ALT Alkaline Phosphatase Troponin I Total Protein Albumin Globulin Albumin/Globulin Ratio Procalcitonin Arterial Blood Potassium Venous Blood Potassium Ur L.pneumophila Ag Negative 10/10/17 10/10/17 10/10/17 04:58 06:03 06:15 WBC RBC Hgb Hct MCV MCH MCHC RDW Plt Count MPV Gran % Lymph % (Auto) Ramsey % (Auto) Eos % (Auto) Baso % (Auto) Gran # Lymph # (Auto) Ramsey # (Auto) Eos # (Auto) Baso # (Auto) PT INR pCO2 62 H pO2 122.0 H HCO3 35.0 H ABG pH 7.36 ABG Total CO2 36.9 H ABG O2 Saturation 98.6 H ABG O2 Content ABG Base Excess 7.4 H ABG Hemoglobin ABG Carboxyhemoglobin POC ABG HHb (Measured) ABG Methemoglobin ABG O2 Capacity ABG Potassium 3.5 L VBG pH VBG pCO2 VBG HCO3 VBG Total CO2 VBG O2 Sat (Calc) VBG Base Excess VBG Potassium Hgb O2 Saturation Sodium 143.0 Chloride 106.0 Glucose 132 H Lactate 1.0 Mechanical Rate FiO2 50.0 Tidal Volume PEEP Inspiratory BiPAP Potassium Carbon Dioxide Anion Gap BUN Creatinine Est GFR ( Amer) Est GFR (Non-Af Amer) POC Glucose (mg/dL) 141 H 131 H Random Glucose Calcium Phosphorus Magnesium Total Bilirubin AST ALT Alkaline Phosphatase Troponin I Total Protein Albumin Globulin Albumin/Globulin Ratio Procalcitonin Arterial Blood Potassium 3.5 L Venous Blood Potassium Ur L.pneumophila Ag 10/10/17 10/10/17 10/10/17 06:30 06:30 10:37 WBC 17.4 H D RBC 4.48 Hgb 13.3 L D Hct 39.2 L MCV 87.5 MCH 29.7 MCHC 33.9 RDW 12.5 Plt Count 289 MPV 10.5 Gran % Lymph % (Auto) Ramsey % (Auto) Eos % (Auto) Baso % (Auto) Gran # Lymph # (Auto) Ramsey # (Auto) Eos # (Auto) Baso # (Auto) PT INR pCO2 pO2 HCO3 ABG pH ABG Total CO2 ABG O2 Saturation ABG O2 Content ABG Base Excess ABG Hemoglobin ABG Carboxyhemoglobin POC ABG HHb (Measured) ABG Methemoglobin ABG O2 Capacity ABG Potassium VBG pH VBG pCO2 VBG HCO3 VBG Total CO2 VBG O2 Sat (Calc) VBG Base Excess VBG Potassium Hgb O2 Saturation Sodium 144 Chloride 103 Glucose Lactate Mechanical Rate FiO2 Tidal Volume PEEP Inspiratory BiPAP Potassium 3.4 L Carbon Dioxide 33 Anion Gap 11 BUN 27 H Creatinine 0.6 L Est GFR ( Amer) > 60 Est GFR (Non-Af Amer) > 60 POC Glucose (mg/dL) 108 Random Glucose 128 H Calcium 8.1 L Phosphorus 3.2 Magnesium 2.5 H Total Bilirubin 0.2 AST 25 ALT 22 Alkaline Phosphatase 90 Troponin I Total Protein 5.2 L Albumin 2.4 L Globulin 2.8 Albumin/Globulin Ratio 0.8 L Procalcitonin Arterial Blood Potassium Venous Blood Potassium Ur L.pneumophila Ag 10/10/17 10/10/17 11:00 12:25 WBC RBC Hgb Hct MCV MCH MCHC RDW Plt Count MPV Gran % Lymph % (Auto) Ramsey % (Auto) Eos % (Auto) Baso % (Auto) Gran # Lymph # (Auto) Ramsey # (Auto) Eos # (Auto) Baso # (Auto) PT INR pCO2 46 H pO2 61.0 L HCO3 36.7 H ABG pH 7.51 H ABG Total CO2 38.1 H ABG O2 Saturation 96.0 ABG O2 Content 17.6 ABG Base Excess 12.1 H ABG Hemoglobin 13.3 ABG Carboxyhemoglobin 1.4 POC ABG HHb (Measured) 3.9 ABG Methemoglobin 0.7 ABG O2 Capacity 18.3 ABG Potassium VBG pH VBG pCO2 VBG HCO3 VBG Total CO2 VBG O2 Sat (Calc) VBG Base Excess VBG Potassium Hgb O2 Saturation 94.0 L Sodium Chloride Glucose Lactate Mechanical Rate FiO2 50.0 Tidal Volume PEEP Inspiratory BiPAP Potassium Carbon Dioxide Anion Gap BUN Creatinine Est GFR ( Amer) Est GFR (Non-Af Amer) POC Glucose (mg/dL) 106 Random Glucose Calcium Phosphorus Magnesium Total Bilirubin AST ALT Alkaline Phosphatase Troponin I Total Protein Albumin Globulin Albumin/Globulin Ratio Procalcitonin Arterial Blood Potassium Venous Blood Potassium Ur L.pneumophila Ag Attending/Attestation - Attestation I have personally seen and examined this patient.: Yes I have fully participated in the care of the patient.: Yes I have reviewed all pertinent clinical information: Yes Notes (Text): 10/10/17 13:24 I have seen and examined patient with medical services coordinator. Agree with above documentation with the following additions. In brief, this is a 47 year old male with history of DM, HTN, CAD s/p stent (previously on effient), who initially presented to hospital with complaint of dyspnea. His hospital course has been complicated by respiratory failure requiring intubation, vasopressor support and transfer to critical care unit where he is currently seen. GI called for evaluation of coffee ground emesis noted via NGT which started yesterday. Patient is intubated and cannot participate in conversation. Therefore, additional information is obtained via discussion with nursing staff , chart review, and discussion with patient's at bedside. There is no reported abdominal pain. According to patient's patient does endorse a nearly 30 pound weight loss over past 6 months and has started consuming ETOH more frequently over the past 4 months. He apparently had an EGD in the past which was normal, no prior colonoscopy. Review of vitals from today shows hypotension. Additional physical examination: Psych: unable to assess, patient intubated - NPO - Continue to monitor H/H, approximately 300 cc of dark bilious output noted over prior nursing shift - Continue with PPI infusion therapy - Continue with antibiotic therapy - Vasopressor and ventilator management as per critical care team - Currently no planned GI interventions given current septic state and respiratory compromise, however will need to closely monitor patient clinical course. Antiplatelet therapy held for time being.
--- NOTE | 2017-10-10 05:23 | CON ---
DATE: 10/09/2017 HISTORY OF PRESENT ILLNESS: The patient is a 47-year-old gentleman with a history of diabetes mellitus, hypertension, myocardial infarction, and a history of seven cardiac stents, who came to the Emergency Department on 10/06/2017 (three days ago), complaining of persistent shortness of breath for a few days. The patient reported at that time that he had a fever with flu- like symptoms and went to [facility] three days prior to [facility] admission, where he was diagnosed with pneumonia. The patient was prescribed Levaquin, without substantial relief after 3 days. The patient was still coughing, having shortness of breath, and was feverish. In fact on the day of admission his T max was >102. The patient was started on IV antibiotics for presumed community-acquired pneumonia. He was also found to have pleural effusion on the CAT scan and chest x-ray, which was supposed to be tapped today. However earlier today, the patient developed respiratory distress and rapid response was called. On subsequent CXR, surprisingly, patient was found to have lucency suspicious for pneumothorax in the area that was before occupied by pleural effusion. Of note, to clarify-->patient DID NOT have thoarcenthesis, and it was spontaneous secondary PTX, NOT iatrogenic one. The same CXR also showed new lobar consoldation on the right side. Protruding bowel through diaphragmatic hernia was deemed to be unlikely as per discussion with radiologist as it was not seen on recent CT chest. Prior to ICU evaluation/ consult patient received lasix, steroids and bronchodilators. ABG was consistent with severe hypoxemic respiratory failure (pa02 70s on fi02 100), patient was in visible respiratory distress-->was emergently transfered to ICU: intubated and sedated. Initially BP held up, but was tachycardic, later though patient became hypotensive. Post-intubation CXR showed progression of PTX and chest tube was emergently placed by surgical service with subsequent improvement in hemodynamcs and gas exchange. Patient was sedated and NMB-ed for imroved pt/vent synchrony, right radial a-line was placed. L.subclavian CVL was placed AFTER pneumothorax was evacuated with left chest tube, and chest tube was in place at the time of procedure. Postprocedural CXR showed re-expansion of the left lung. Vanco was added, blood, urine, endotracheal and pleural cultures were ordered, meropenem and doxy continued. PMD notified . PAST MEDICAL HISTORY: MD, hypertension, diabetes mellitus. FAMILY HISTORY: Noncontributory. SOCIAL HISTORY: The patient is active smoker, reportedly abuses alcohol. No illicit drug abuse. ALLERGIES: NKDA. HOME MEDICATIONS: Ecotrin, metformin, Zestril, Lopressor, Effient, and Januvia. MEDICATIONS IN THE HOSPITAL: Tylenol p.r.n., DuoNeb every 6 hours, aspirin, metformin, dapagliflozin, Januvia, lisinopril, Solu-Medrol 30 mg IV q.12 hours, metoprolol, (Tamiflu was added after ICU consult), Effient, Protonix drip, vancomycin, and doxycycline. REVIEW OF SYSTEMS: Review of 12-organ system other than mentioned in the history of present illness is negative. PHYSICAL EXAMINATION: VITAL SIGNS: The patient is on PRVC 350/30/15/100, blood pressure is 80/50, heart rate is 101, and oxygen saturation is 91%. ENT: Head and neck atraumatic. LUNGS: Crackles bilaterally. HEART: Regular rate and rhythm. S1, S2 distant. ABDOMEN: Soft, nontender, nondistended. MUSCULOSKELETAL: No C/C/E. NEUROLOGIC: The patient moves all extremities spontaneously. SKIN: Moist. PSYCHIATRIC: The patient is sedated now. The patient is on propofol, fentanyl, Nimbex, and Versed. LABORATORY DATA: WBC 15.5, hemoglobin 16.7, platelet count 338. Sodium 137, potassium 3.8, chloride 95, carbon dioxide 28, BUN 21, creatinine 0.6, glucose 318 (the patient is started on insulin drip). AST 28, ALT 21, bilirubin 0.4, and lactic acid 1.9. Influenza rapid test negative. HIV nonreactive. Urine for Legionella pneumophila antigen negative. Chest x-ray post intubation with persistent consolidation in the right lung with progressive collapse of the left upper and lower lobes, question of left lower and lateral pneumothorax. Repeat PA radiograph and CAT scan will be of help. ASSESSMENT AND PLAN: This is a 47-year-old gentleman with what appears to be secondary bacterial pneumonia after initial flu infection, complicated by hypoxemic respiratory failure, requiring intubation and secondary spontaneous tension pneumothorax of the left lung with obstructive shock, s/p chest tube placement NEURO: The patient is sedated with BZD and Fentanyl and will be on neuromuscular blockade. That will be to optimize patient-ventilator synchrony and improve gas exchange parameters. Pulmonary: Strict protective lung ventilation strategy: Vt 6 cc/pbw and Ppl<30 , will aim at stress index 1. Once off of pressors (BP improved after evacuation of pneumothorax), and fluid resuscitated (patient received 2 L NS boluses so far) will stick with conservative fluid management. Conservative 02 management. Once stabilized-->tapering sedation and d/c NMB and weaning trials. HOB>35, oral hygiene, VAP bundle. Sputum and pleural cultrues ordered, chest tube on suction and shows good tidal variation and "bubbling", Abx for pneumonia. Will go with higher PEEP/Fi02 ratio but avoid recruitment maneuvers. Cardiovascular: Patient was transfered to ICU for obstructive shock due to tension spontaneous pneumothorax, complicated by respiratory failure, requiring intubation. 1L NS was given immediately and chest tube was placed by surgical service emergently, with improved hemodynamics and oxygenation. Borderline BP at this point likely attributed to combination of distributive pathophysiology in the setting of sepsis and increased sedation requirement to maintain pt/vent synchrony. another 1L NS bolus was given and small dose of Levophed started, stress dose steroid is given. A-line and CVL placed.. The patient is known to have coronary artery disease. Echocardiogram was ordered. Gastrointestinal: Some coffee ground discharge noticed in NGT, protonix drip started, and NPO enforced. Hb however 16, we will proceed with GI consult and serial CBC. No chey blood Infectious Disease: Patient does have severe sepsis due to severe CAP, which likely contributing to end-organ dysfunction. Endotracheal aspirate and pleural fluid were ordered for cultures. Blood and urine were repeated. Repeat procalcitonin was ordered. Patient is on Vanco, Meropenem and Doxy. ID service is following patient is well. Substantial leukocytosis. Fluid resuscitation, hemodynamic support. chest tube to drain effusion (was put for tension pneumothorax, but will help to drain effusion as well if infected) Endocrine: The patient was started on insulin drip, and we will continue with Accu-Chek every one hour. We will maintain blood glucose between 140 and 180 range according to NICE-SUGAR trial. Received stress dose steroids Hem/Onc. Risk of VTE/PE/DVT overweigh risk of bleeding-->will continue with s/c heparin, while monitoring NGT output and Hb level on CBC. Protonix paolo ccm time 40 min Justin Valencia MD JACQUELINE
[2017-10-10] MEDS: Meropenem 1g/NS 100mL IVPB 1 GM/100 ML PIGGYBACK IVPB SCH ×3 (05:32→23:03)
--- NOTE | 2017-10-10 06:39 | OP ---
PROCEDURE DATE: 10/09/2017 PROCEDURE: Emergent Endotracheal intubation. SURGEON: Justin Valencia MD. INDICATION: Hypoxemic respiratory failure. DESCRIPTION OF PROCEDURE: Patient was pre-oxygenated with 100% FIO2 via Ambu bag. Vital signs were cycled every 1 minute. One liter of normal saline IV fluid bolus was given pre and during the procedure. Patient required 15 cc of propofol for sedation. Direct laryngoscopy performed. However, two consecutive attempts at endotracheal intubation were unsuccessful. Anesthesiologist, Dr. Morales, was requested for help and successfully intubated using GlideScope. Trachea intubated with endotracheal tube 7.5 Somali, secured at 23 cm at the lips. Chest x-ray confirmed correct position of the endotracheal tube. Justin Valencia MD MTDD
[2017-10-10 06:42] LABS: ARTERIAL BLOOD GAS O2 SAT 98.6 % (95-98); ARTERIAL BLOOD GAS PCO2 62 mm/Hg (35-45); ARTERIAL BLOOD GAS PH 7.36 (7.35-7.45); ARTERIAL BLOOD GAS TCO2 36.9 mmol.L (22-28)
[2017-10-10 07:08] LABS: MEAN CELL VOLUME 87.5 fl (80.0-105.0); MEAN CORPUSCULAR HEMOGLOBIN 29.7 pg (25.0-35.0); MEAN CORPUSCULAR HGB CONC 33.9 g/dl (31.0-37.0); MEAN PLATELET VOLUME 10.5 fl (7.0-11.0); RBC 4.48 10^6/uL (3.5-6.1); RED CELL DISTRIBUTION WIDTH 12.5 % (11.5-14.5); WHITE BLOOD COUNT 17.4 10^3/ul (4.5-11.0)
[2017-10-10 07:15] LABS: HEMOGLOBIN 13.3 g/dL (14.0-18.0)
[2017-10-10 07:44] LABS: ALB/GLOB RATIO 0.8 (1.1-1.8); ALBUMIN 2.4 g/dL (3.0-4.8); ALT/SGPT 22 U/L (7-56); AST/SGOT 25 U/L (17-59); BLOOD UREA NITROGEN 27 mg/dL (7-21); CALCIUM 8.1 mg/dL (8.4-10.5); GFR AFRICAN-AMERICAN > 60; GFR NON-AFRICAN AMERICAN > 60; MAGNESIUM 2.5 mg/dL (1.7-2.2)
--- NOTE | 2017-10-10 07:55 | RAD ---
HISTORY: comparison COMPARISON: Portable chest 10/09/2017 7:03 p.m.. FINDINGS: Endotracheal tube and left central venous line are unchanged in position as well as nasogastric tube. Nasogastric tube side hole remains and the distal esophagus or possible esophagogastric junction. Advancement further into the stomach is recommended. Left-sided chest tube unchanged in position. LUNGS: No interval change in peripheral infiltrate at the right upper and lower lobes is identified. Diminishing linear atelectasis seen at the inferior left lung zone. No definite left-sided infiltrate. PLEURA: Trace left pleural effusion is in question. None is seen the right. No pneumothorax bilaterally. CARDIOVASCULAR: Normal. OSSEOUS STRUCTURES: No significant abnormalities. VISUALIZED UPPER ABDOMEN: Normal. OTHER FINDINGS: None. IMPRESSION: No interval change in peripheral right upper lower lobe infiltrates with diminishing linear atelectasis identified at the mid to inferior left lung zones. No interval pneumothorax bilaterally. Trace of pleural effusion not excluded.
--- NOTE | 2017-10-10 07:56 | RAD ---
HISTORY: CVL and chest tube COMPARISON: Portable chest 10/09/2017. FINDINGS: Endotracheal tube is unchanged in position with left central venous line now placed terminating at the distal superior vena cava. Left-sided chest tube is identified in position at the left base terminating at the medial left base. Nasogastric tube is unchanged in position with side hole terminating at the distal esophagus or possibly the esophagogastric junction. Advancement of the NG tube further into the stomach is advised. LUNGS: There is apparent resolution of prior left pneumothorax. Limited emphysematous changes are seen the left chest wall laterally. There is improved aeration of the right lung however peripheral infiltrate persists at the right upper and lower lobes. Multifocal linear atelectasis seen the mid to inferior left lung zone. PLEURA: Trace of pleural effusion is not excluded. None is seen the right. No pneumothorax bilaterally. CARDIOVASCULAR: Normal. OSSEOUS STRUCTURES: No significant abnormalities. VISUALIZED UPPER ABDOMEN: Normal. OTHER FINDINGS: None. IMPRESSION: 1. Resolution of prior left pneumothorax with left chest tube identified in position at the left base. Multifocal linear atelectasis is seen at the mid to inferior left lung zone. Trace of pleural effusion in question. 2. Persistent infiltrate right lung as discussed above. No right pneumothorax. 3. Status post left central venous catheter placement as described above.
[2017-10-10] MEDS ORDERED: Magnesium Sulfate 2 GM in Sodium Chloride 0.9% 100 ML IVPB ONE (08:14)
--- NOTE | 2017-10-10 08:34 | CP.PCM.PN ---
Subjective - Date & Time of Evaluation Date of Evaluation: 10/10/17 Time of Evaluation: 08:31 - Subjective Subjective: Surgery: Dr. Rubi Pt seen and examined. Remains intubated. Was on levophed briefly overnight. Objective - Vital Signs/Intake and Output Vital Signs (last 24 hours): Temp Pulse Resp BP Pulse Ox 99.3 F 84 20 103/55 L 94 L 10/10/17 04:00 10/10/17 06:00 10/09/17 12:00 10/10/17 06:00 10/10/17 06:00 Intake and Output: 10/10/17 10/10/17 06:59 18:59 Intake Total 1731 Output Total 800 Balance 931 - Medications Medications: Current Medications Acetaminophen (Tylenol 325mg Tab) 650 mg PO Q4H PRN PRN Reason: Fever >100.4 F Last Admin: 10/08/17 17:35 Dose: 650 mg Albuterol/Ipratropium (Duoneb 3 Mg/0.5 Mg (3 Ml) Ud) 3 ml IH [id number] [facility] Last Admin: 10/10/17 01:05 Dose: 3 ml Aspirin (Ecotrin) 81 mg PO DAILY [facility] Last Admin: 10/09/17 10:36 Dose: 81 mg Doxycycline Hyclate (Doryx) 100 mg PO Q12 [facility] PRN Reason: Protocol Stop: 10/17/17 22:01 Last Admin: 10/09/17 22:11 Dose: 100 mg Meropenem/Sodium Chloride (Meropenem 1g/Ns 100ml Ivpb) 1 gm in 100 mls @ 100 mls/hr IVPB Q8 [facility] Last Admin: 10/10/17 05:32 Dose: 100 mls/hr Vancomycin HCl (Vancomycin 1gm) 1 gm in 250 mls @ 167 mls/hr IVPB Q12H [facility] PRN Reason: Protocol Last Admin: 10/10/17 01:54 Dose: 167 mls/hr Insulin Human Regular 100 (units/ Sodium Chloride) 100 mls @ 1 mls/hr IV .Q24H PRN; Protocol; 1 UNITS/HR PRN Reason: TITRATE PER MD ORDER Last Titration: 10/10/17 04:09 Dose: 3 units/hr, 3 mls/hr Fentanyl Citrate (Fentanyl Citrate/Sodium Chloride 1 Mg/100 Ml) 1,000 mcg in 100 mls @ 10 mls/hr IV .Q10H PRN; Protocol; 100 MCG/HR PRN Reason: TITRATE PER MD ORDER Last Admin: 10/10/17 03:10 Dose: 100 mcg/hr, 10 mls/hr Midazolam 100 mg/100ml in NS (Midazolam 100 Mg/100ml In Ns) 100 mg in 100 mls @ 5 mls/hr IV .Q20H PRN; Protocol; 5 MG/HR PRN Reason: Agitation Last Admin: 10/09/17 18:11 Dose: 5 mg/hr, 5 mls/hr Pantoprazole Sodium (Protonix 40mg Ivpb) 40 mg in 100 mls @ 20 mls/hr IVPB .Q5H [facility] Last Admin: 10/10/17 07:19 Dose: 20 mls/hr Cisatracurium Besylate 200 mg/ (Sodium Chloride) 270 mls @ 3.51 mls/hr IV .Q24H PRN; Protocol; 0.5 MCG/KG/MIN PRN Reason: TITRATE PER MD ORDER Last Titration: 10/10/17 01:23 Dose: 1.167 mcg/kg/min, 8.19 mls/hr Propofol (Diprivan) 1,000 mg in 100 mls @ 2.6 mls/hr IV .Q24H PRN; Protocol; 5 MCG/KG/MIN PRN Reason: TITRATE PER MD ORDER Last Titration: 10/10/17 05:28 Dose: 36 mcg/kg/min, 18.723 mls/hr NOREPINEPHRINE BIT/0.9 % NACL (Levophed 4 Mg/ 250 Ml Ns Premixed) 4 mg in 250 mls @ 15 mls/hr IV .[id number] PRN; Protocol; 4 MCG/MIN PRN Reason: TITRATE PER MD ORDER Last Admin: 10/09/17 23:47 Dose: 4 mcg/min, 15 mls/hr Calcium Gluconate 1,000 mg/ (Sodium Chloride) 110 mls @ 110 mls/hr IVPB ONCE ONE Stop: 10/10/17 09:13 Potassium Chloride (Potassium Chloride 20 Meq/100 Ml) 20 meq in 100 mls @ 50 mls/hr IVPB Q2H ONE Stop: 10/10/17 10:14 Methylprednisolone (Solu-Medrol) 20 mg IVP Q12 [facility] Last Admin: 10/09/17 22:21 Dose: 20 mg Oseltamivir Phosphate (Tamiflu Cap) 75 mg PO BID [facility] PRN Reason: Protocol Stop: 10/14/17 14:16 Last Admin: 10/09/17 20:05 Dose: Not Given Oxycodone/Acetaminophen (Percocet 10/325 Mg Tab) 1 tab PO Q6H PRN PRN Reason: Pain, moderate (4-7) Last Admin: 10/09/17 07:57 Dose: 1 tab Prasugrel (Effient) 10 mg PO DAILY [facility] Last Admin: 10/09/17 10:36 Dose: 10 mg - Labs Labs: 10/10/17 06:30 10/10/17 06:30 PT 13.1 SECONDS (9.4-12.5) H 10/09/17 16:20 INR 1.15 (0.93-1.08) H 10/09/17 16:20 APTT 31.3 Seconds (25.1-36.5) 10/06/17 14:30 - Constitutional Appears: No Acute Distress - Head Exam Head Exam: ATRAUMATIC, NORMOCEPHALIC - Eye Exam Eye Exam: EOMI - ENT Exam ENT Exam: Mucous Membranes Moist - Respiratory Exam Additional comments: intubated, L CT in place, no air leak - Cardiovascular Exam Cardiovascular Exam: Tachycardia - GI/Abdominal Exam GI & Abdominal Exam: Soft. absent: Distended, Firm, Guarding, Rigid, Tenderness - Extremities Exam Extremities Exam: absent: Calf Tenderness, Pedal Edema - Neurological Exam Neurological Exam: absent: Alert, Oriented x3 - Skin Skin Exam: Diaphoretic, Warm Assessment and Plan - Assessment and Plan (Free Text) Assessment: 47M w. sepsis 2/2 to PNA and L side pleural effusion/PTX, s/p CT POD#1 -AM CXR: PTX resolved -CT: 150cc/12hr serosang, no air leak -will place CT to H2O seal -c/w daily CXR -will d/w attending Zemaitis PGY3
--- NOTE | 2017-10-10 08:58 | PN ---
PULMONARY CRITICAL CARE PROGRESS NOTE DATE: 10/09/2017 REFERRING PHYSICIAN: Misty Verduzco MD SUBJECTIVE: Whole day events noted. Rapid Response was called. Patient has a coffee-ground vomit, became hypoxemic. Has a chest x-ray done, which showed right and left lung, extensive right lung pneumonia. He was placed on ventilator. Chest tube was placed with drainage of more than a liter of secretion. Presently, sedated and intubated with some improvement of blood pressure. Has a coffee-ground material from the nasogastric tube. No diarrhea. No hematemesis or hematuria. No leg swelling reported. OBJECTIVE: GENERAL: Intubated and sedated. VITAL SIGNS: Temp is 98, heart rate is 91, respiratory rate is 22, blood pressure 93/56, pulse ox 100% on ventilator with 40% oxygen. HEENT: Moist mucous membrane. Crowded airway. Mallampati score is 4. NECK: Supple. No JVD. LUNGS: Have crackles and rhonchi. Has a left-sided chest tube. HEART: S1 and S2. ABDOMEN: Soft, nontender. No organomegaly. EXTREMITIES: No edema. NEUROLOGIC: Intubated and sedated. MEDICATIONS: He is on cisatracurium for neuromuscular blockage, Diprivan for sedation; doxycycline 100 mg twice a day; DuoNeb q. 6 hour; Ecotrin 81 mg daily; Effient 10 mg daily; also on fentanyl; heparin 5000 units subcutaneous q. 12 hour; insulin coverage; Januvia 100 mg daily; metoprolol tartrate 50 mg twice a day, which is on hold; meropenem 1 gm IV q. 8 hours; also Versed was given at one point, Percocet 10/325 mg one tab q. 6 hours p.r.n.; Protonix 40 mg daily; Solu-Medrol 20 mg q. 12 hours; Tamiflu 75 mg twice a day also given; Tylenol p.r.n.; vancomycin 1 gm IV q. 12 hours; Zestril 5 mg daily. LABORATORY DATA: Shows hemoglobin 16.7, hematocrit 46.0, WBC 32,000, platelets 338, INR 1.15. Last ABG, pH 7.31, pCO2 of 62, O2 of 66, this is on ventilator with 100% oxygen. Sodium 137, potassium 3.8, chloride 95, bicarbonate 28, BUN 21, creatinine 0.6, glucose 318, calcium 9.4, phosphorus 4.8, AST 28, ALT 21, alk phos is 165, albumin is 3.3, procalcitonin 1.50. Microbiology: Blood culture, urine culture, there is no growth. Last chest x-ray done in the afternoon shows endotracheal tube terminated at 4.7 cm proximal to the isabel with extensive consolidation of the right lung, partial glance of the left lung. There is also left lower and lateral pneumothorax. IMPRESSION AND PLAN: Pneumonia, pleural effusion, probably massively aspirated with right lung. Rapid Response was called, also had coffee-ground vomit, nasogastric tube in place. Patient is transferred to Intensive Care Unit, somehow ended up with left pneumothorax requiring chest tube. Presently, Surgical trying to get A-line in. He is intubated and sedated, has a nasogastric tube draining blood, a coffee-ground. Spoke to the nursing staff. We will continue broad-spectrum antibiotics,covering healthcare associated organism, may increase Solu-Medrol. Being followed by Surgical as well as business services analyst. Titrate FiO2 to pulse ox 92%. Gastric prophylaxis. Deep venous thrombosis prophylaxis. GI consult. Intravenous Protonix. Keep n.p.o. Follow up electrolytes and arterial blood gas. Critical care time is more than 35 minutes. Thank you, and we will follow with you. Laz Da Silva MD
--- NOTE | 2017-10-10 09:02 | PN ---
DATE: 10/09/2017 SUBJECTIVE: Patient was seen earlier this morning in room 373, bed 2. No fevers or chills. Patient states he is doing much better, awake and alert. His breathing is much improved. PHYSICAL EXAMINATION: VITAL SIGNS: Temperature is 98, respiratory rate of 20, heart rate is 91, and blood pressure is 93/50. HEENT: Unremarkable. NECK: Supple. LUNGS: Have decreased breath sounds. HEART: Normal S1, S2. ABDOMEN: Soft, nontender. LABORATORY DATA: Reveals the patient's white count of 31,000, hemoglobin of 16. Chemistries reveal a BUN of 21, creatinine of 0.6. Procalcitonin is 1.5. Serology reveals urine for Legionella antigen is negative, influenza is negative, HIV is negative. Microbiology reveals the blood cultures are no growth, urine cultures are no growth. Patient's procalcitonin is elevated at 1.50. Review of orders reveals the patient to be on p.o. doxycycline and IV meropenem. Patient is also on Tamiflu, started by Dr. Valencia. Patient is also on vancomycin IV. consultation is reviewed. Dr. Okeefe procedure note was reviewed. Mid-axillary left chest tube placement. Patient apparently had a rapid response during today earlier and was transferred to Transitional Care. rapid response. ASSESSMENT AND PLAN: This is a 47-year-old male, who was seen earlier today in bed 2, and subsequently had a rapid response, transferred to the Intensive Care Unit with a history of hypertension, coronary artery disease, myocardial infarction, diabetes, admitted with leukocytosis, tachycardia, fever, hypoxia, large effusion. Sepsis with community-acquired pneumonia with CAT scan revealing mediastinal adenopathy, which is not consistent with the community-acquired pneumonia. Concerned about underlying malignancy. The patient does have an elevated procalcitonin that too is consistent with a bacterial pneumonia. Now patient is transferred to the Intensive Care Unit. Cultures are negative. Currently on vancomycin, meropenem, doxycycline, Tamiflu. I do not believe this is influenza. Tamiflu was started by Dr. Valencia as was the vancomycin today. We will follow closely with you. Yonis Guzman MD [facility] # [id number]
--- NOTE | 2017-10-10 09:31 | CP.CCUPN ---
CCU Objective - Vital Signs / Intake & Output Vital Signs (Last 4 hours): Vital Signs Pulse BP Pulse Ox 10/10/17 06:00 85 103/55 L 94 L Intake and Output (Last 8hrs): Intake & Output 10/09/17 10/10/17 10/10/17 22:59 06:59 14:59 Intake Total 3110 1621 Output Total 1200 800 Balance 1910 821 Weight 200 lb Intake: IV 3110 1621 Left Forearm 3000 1286 Output: Chest Tube Drainage 150 Left 150 Gastric Amount 300 300 Stomach 300 300 Urine 750 500 Urethral (Resendez) 750 500 - Physical Exam Head: Positive for: Atraumatic, Normocephalic Pupils: Positive for: PERRL Extroacular Muscles: Positive for: EOMI Conjunctiva: Positive for: Normal Mouth: Positive for: Moist Mucous Membranes Neck: Positive for: Normal Range of Motion Respiratory/Chest: Positive for: Other (Coarse breath sounds bilaterally). Negative for: Good Air Exchange (Decreased air entry, worse on left than right) Cardiovascular: Positive for: Tachycardic Abdomen: Positive for: Normal Bowel Sounds. Negative for: Tenderness, Distention, Peritoneal Signs Back: Positive for: Normal Inspection Upper Extremity: Positive for: NORMAL PULSES (equal pulses bilaterally) Lower Extremity: Negative for: Edema Neurological: Positive for: GCS=15, CN II-XII Intact, Speech Normal Skin: Positive for: Warm, Dry, Normal Color. Negative for: Rashes Psychiatric: Positive for: Alert, Oriented x 3, Normal Insight, Normal Concentration - Medications Active Medications: Active Medications Generic Name Dose Route Start Last Admin Trade Name Freq PRN Reason Stop Dose Admin Acetaminophen 650 mg 10/07/17 00:46 10/08/17 17:35 Tylenol 325mg Tab PO 650 mg Q4H PRN Administration Fever >100.4 F Albuterol/Ipratropium 3 ml 10/07/17 02:00 10/10/17 08:15 Duoneb 3 Mg/0.5 Mg (3 Ml) Ud IH 3 ml [id number] VALENTINA Administration Aspirin 81 mg 10/07/17 10:00 10/09/17 10:36 Ecotrin PO 81 mg DAILY VALENTINA Administration Doxycycline Hyclate 100 mg 10/08/17 22:00 10/09/17 22:11 Doryx PO 10/17/17 22:01 100 mg Q12 VALENTINA Administration Protocol Meropenem/Sodium Chloride 1 gm in 100 mls @ 100 mls/hr 10/07/17 14:00 05:32 Meropenem 1g/Ns 100ml Ivpb IVPB 100 mls/hr Q8 VALENTINA Administration Vancomycin HCl 1 gm in 250 mls @ 167 mls/hr 10/09/17 14:30 10/10/17 01:54 Vancomycin 1gm IVPB 167 mls/hr Q12H VALENTINA Administration Protocol Insulin Human Regular 100 100 mls @ 1 mls/hr 10/09/17 15:32 10/10/17 04:09 units/ Sodium Chloride IV 3 units/hr .Q24H PRN 3 mls/hr TITRATE PER MD ORDER Titration Protocol 1 UNITS/HR Fentanyl Citrate 1,000 mcg in 100 mls @ 10 mls/hr 10/09/17 15:39 10/10/17 03: 10 Fentanyl Citrate/Sodium Chloride 1 Mg/100 Ml IV 100 mcg/hr .Q10H PRN 10 mls/hr TITRATE PER MD ORDER Administration Protocol 100 MCG/HR Midazolam 100 mg/100ml in NS 100 mg in 100 mls @ 5 mls/hr 10/09/17 15:40 18:11 Midazolam 100 Mg/100ml In Ns IV 5 mg/hr .Q20H PRN 5 mls/hr Agitation Administration Protocol 5 MG/HR Pantoprazole Sodium 40 mg in 100 mls @ 20 mls/hr 10/09/17 16:15 10/10/17 07: 19 Protonix 40mg Ivpb IVPB 20 mls/hr .Q5H VALENTINA Administration Cisatracurium Besylate 200 mg/ 270 mls @ 3.51 mls/hr 10/09/17 17:19 10/10/17 01:23 Sodium Chloride IV 1.167 mcg/kg/min .Q24H PRN 8.19 mls/hr TITRATE PER MD ORDER Titration Protocol 0.5 MCG/KG/MIN Propofol 1,000 mg in 100 mls @ 2.6 mls/hr 10/09/17 18:19 10/10/17 05:28 Diprivan IV 36 mcg/kg/min .Q24H PRN 18.723 mls/hr TITRATE PER MD ORDER Titration Protocol 5 MCG/KG/MIN NOREPINEPHRINE BIT/0.9 % NACL 4 mg in 250 mls @ 15 mls/hr 10/09/17 23:20 23:47 Levophed 4 Mg/ 250 Ml Ns Premixed IV 4 mcg/min .[id number] PRN 15 mls/hr TITRATE PER MD ORDER Administration Protocol 4 MCG/MIN Potassium Chloride 20 meq in 100 mls @ 50 mls/hr 10/10/17 08:15 Potassium Chloride 20 Meq/100 Ml IVPB 10/10/17 10:14 Q2H ONE Methylprednisolone 20 mg 10/09/17 15:43 10/09/17 22:21 Solu-Medrol IVP 20 mg Q12 VALENTINA Administration Oseltamivir Phosphate 75 mg 10/09/17 18:00 10/09/17 20:05 Tamiflu Cap PO 10/14/17 14:16 Not Given BID [facility] Protocol Oxycodone/Acetaminophen 1 tab 10/07/17 10:21 10/09/17 07:57 Percocet 10/325 Mg Tab PO 1 tab Q6H PRN Administration Pain, moderate (4-7) Prasugrel 10 mg 10/07/17 10:00 10/09/17 10:36 Effient PO 10 mg DAILY VALENTINA Administration - Patient Studies Lab Studies: Microbiology Studies 10/09/17 16:00 Gram Stain - Final Sputum Lab Studies 10/10/17 10/10/17 10/10/17 Range/Units 06:30 06:30 06:15 WBC 17.4 H D (4.5-11.0) 10^3/ul RBC 4.48 (3.5-6.1) 10^6/uL Hgb 13.3 L D (14.0-18.0) g/dL Hct 39.2 L (42.0-52.0) % MCV 87.5 (80.0-105.0) fl MCH 29.7 (25.0-35.0) pg MCHC 33.9 (31.0-37.0) g/dl RDW 12.5 (11.5-14.5) % Plt Count 289 (120.0-450.0) 10^3/uL MPV 10.5 (7.0-11.0) fl Gran % (50.0-68.0) % Lymph % (Auto) (22.0-35.0) % Cand[place] % (Auto) (1.0-6.0) % Eos % (Auto) (1.5-5.0) % Baso % (Auto) (0.0-3.0) % Gran # (1.4-6.5) Lymph # (Auto) (1.2-3.4) [place] # (Auto) (0.1-0.6) Eos # (Auto) (0.0-0.7) Baso # (Auto) (0.0-2.0) K/mm3 PT (9.4-12.5) SECONDS INR (0.93-1.08) pCO2 62 H (35-45) mm/Hg pO2 122.0 H (80-100) mm/Hg HCO3 35.0 H (21-28) mmol/L ABG pH 7.36 (7.35-7.45) ABG Total CO2 36.9 H (22-28) mmol.L ABG O2 Saturation 98.6 H (95-98) % ABG Base Excess 7.4 H (-2.0-3.0) mmol/L ABG Potassium 3.5 L (3.6-5.2) mmol/L VBG pH (7.32-7.43) VBG pCO2 (40-60) VBG HCO3 (21-28) mmol/l VBG Total CO2 (22-28) mmol.L VBG O2 Sat (Calc) (40-65) % VBG Base Excess (0.0-2.0) mmol/L VBG Potassium (3.6-5.2) mmol/L Sodium 144 143.0 (132-148) mmol/L Chloride 103 106.0 (98-107) mmol/L Glucose 132 H (75-110) mg/dl Lactate 1.0 (0.7-2.1) mmol/L Mechanical Rate FiO2 50.0 % Tidal Volume PEEP Inspiratory BiPAP Potassium 3.4 L (3.6-5.0) mmol/L Carbon Dioxide 33 (21-33) mmol/L Anion Gap 11 (10-20) BUN 27 H (7-21) mg/dL Creatinine 0.6 L (0.8-1.5) mg/dl Est GFR ( Amer) > 60 Est GFR (Non-Af Amer) > 60 POC Glucose (mg/dL) (65-110) mg/dL Random Glucose 128 H (70-110) mg/dL Calcium 8.1 L (8.4-10.5) mg/dL Phosphorus 3.2 (2.5-4.5) mg/dL Magnesium 2.5 H (1.7-2.2) mg/dL Total Bilirubin 0.2 (0.2-1.3) mg/dL AST 25 (17-59) U/L ALT 22 (7-56) U/L Alkaline Phosphatase 90 (38-126) U/L Troponin I ng/mL Total Protein 5.2 L (5.8-8.3) g/dL Albumin 2.4 L (3.0-4.8) g/dL Globulin 2.8 gm/dL Albumin/Globulin Ratio 0.8 L (1.1-1.8) Procalcitonin (0.19-0.49) NG/ML Arterial Blood Potassium 3.5 L (3.6-5.2) mmol/L Venous Blood Potassium (3.6-5.2) mmol/L 10/10/17 10/10/17 10/10/17 Range/Units 02:56 01:48 01:03 WBC (4.5-11.0) 10^3/ul RBC (3.5-6.1) 10^6/uL Hgb (14.0-18.0) g/dL Hct (42.0-52.0) % MCV (80.0-105.0) fl MCH (25.0-35.0) pg MCHC (31.0-37.0) g/dl RDW (11.5-14.5) % Plt Count (120.0-450.0) 10^3/uL MPV (7.0-11.0) fl Gran % (50.0-68.0) % Lymph % (Auto) (22.0-35.0) % Cand[place] % (Auto) (1.0-6.0) % Eos % (Auto) (1.5-5.0) % Baso % (Auto) (0.0-3.0) % Gran # (1.4-6.5) Lymph # (Auto) (1.2-3.4) Candler # (Auto) (0.1-0.6) Eos # (Auto) (0.0-0.7) Baso # (Auto) (0.0-2.0) K/mm3 PT (9.4-12.5) SECONDS INR (0.93-1.08) pCO2 (35-45) mm/Hg pO2 (80-100) mm/Hg HCO3 (21-28) mmol/L ABG pH (7.35-7.45) ABG Total CO2 (22-28) mmol.L ABG O2 Saturation (95-98) % ABG Base Excess (-2.0-3.0) mmol/L ABG Potassium (3.6-5.2) mmol/L VBG pH (7.32-7.43) VBG pCO2 (40-60) VBG HCO3 (21-28) mmol/l VBG Total CO2 (22-28) mmol.L VBG O2 Sat (Calc) (40-65) % VBG Base Excess (0.0-2.0) mmol/L VBG Potassium (3.6-5.2) mmol/L Sodium (132-148) mmol/L Chloride (98-107) mmol/L Glucose (75-110) mg/dl Lactate (0.7-2.1) mmol/L Mechanical Rate FiO2 % Tidal Volume PEEP Inspiratory BiPAP Potassium (3.6-5.0) mmol/L Carbon Dioxide (21-33) mmol/L Anion Gap (10-20) BUN (7-21) mg/dL Creatinine (0.8-1.5) mg/dl Est GFR ( Amer) Est GFR (Non-Af Amer) POC Glucose (mg/dL) 156 H 178 H 234 H (65-110) mg/dL Random Glucose (70-110) mg/dL Calcium (8.4-10.5) mg/dL Phosphorus (2.5-4.5) mg/dL Magnesium (1.7-2.2) mg/dL Total Bilirubin (0.2-1.3) mg/dL AST (17-59) U/L ALT (7-56) U/L Alkaline Phosphatase (38-126) U/L Troponin I ng/mL Total Protein (5.8-8.3) g/dL Albumin (3.0-4.8) g/dL Globulin gm/dL Albumin/Globulin Ratio (1.1-1.8) Procalcitonin (0.19-0.49) NG/ML Arterial Blood Potassium (3.6-5.2) mmol/L Venous Blood Potassium (3.6-5.2) mmol/L 10/10/17 10/09/17 10/09/17 Range/Units 00:04 22:55 21:57 WBC (4.5-11.0) 10^3/ul RBC (3.5-6.1) 10^6/uL Hgb (14.0-18.0) g/dL Hct (42.0-52.0) % MCV (80.0-105.0) fl MCH (25.0-35.0) pg MCHC (31.0-37.0) g/dl RDW (11.5-14.5) % Plt Count (120.0-450.0) 10^3/uL MPV (7.0-11.0) fl Gran % (50.0-68.0) % Lymph % (Auto) (22.0-35.0) % Cand[place] % (Auto) (1.0-6.0) % Eos % (Auto) (1.5-5.0) % Baso % (Auto) (0.0-3.0) % Gran # (1.4-6.5) Lymph # (Auto) (1.2-3.4) Candler # (Auto) (0.1-0.6) Eos # (Auto) (0.0-0.7) Baso # (Auto) (0.0-2.0) K/mm3 PT (9.4-12.5) SECONDS INR (0.93-1.08) pCO2 47 H (35-45) mm/Hg pO2 257.0 H (80-100) mm/Hg HCO3 30.5 H (21-28) mmol/L ABG pH 7.42 (7.35-7.45) ABG Total CO2 31.9 H (22-28) mmol.L ABG O2 Saturation 99.4 H (95-98) % ABG Base Excess 5.1 H (-2.0-3.0) mmol/L ABG Potassium 3.5 L (3.6-5.2) mmol/L VBG pH (7.32-7.43) VBG pCO2 (40-60) VBG HCO3 (21-28) mmol/l VBG Total CO2 (22-28) mmol.L VBG O2 Sat (Calc) (40-65) % VBG Base Excess (0.0-2.0) mmol/L VBG Potassium (3.6-5.2) mmol/L Sodium 135.0 (132-148) mmol/L Chloride 101.0 (98-107) mmol/L Glucose 292 H (75-110) mg/dl Lactate 1.3 (0.7-2.1) mmol/L Mechanical Rate 30 FiO2 100.0 % Tidal Volume 350 PEEP 15 Inspiratory BiPAP Potassium (3.6-5.0) mmol/L Carbon Dioxide (21-33) mmol/L Anion Gap (10-20) BUN (7-21) mg/dL Creatinine (0.8-1.5) mg/dl Est GFR ( Amer) Est GFR (Non-Af Amer) POC Glucose (mg/dL) 235 H 310 H (65-110) mg/dL Random Glucose (70-110) mg/dL Calcium (8.4-10.5) mg/dL Phosphorus (2.5-4.5) mg/dL Magnesium (1.7-2.2) mg/dL Total Bilirubin (0.2-1.3) mg/dL AST (17-59) U/L ALT (7-56) U/L Alkaline Phosphatase (38-126) U/L Troponin I ng/mL Total Protein (5.8-8.3) g/dL Albumin (3.0-4.8) g/dL Globulin gm/dL Albumin/Globulin Ratio (1.1-1.8) Procalcitonin (0.19-0.49) NG/ML Arterial Blood Potassium 3.5 L (3.6-5.2) mmol/L Venous Blood Potassium (3.6-5.2) mmol/L 10/09/17 10/09/17 10/09/17 Range/Units 21:55 20:56 20:22 WBC (4.5-11.0) 10^3/ul RBC (3.5-6.1) 10^6/uL Hgb (14.0-18.0) g/dL Hct (42.0-52.0) % MCV (80.0-105.0) fl MCH (25.0-35.0) pg MCHC (31.0-37.0) g/dl RDW (11.5-14.5) % Plt Count (120.0-450.0) 10^3/uL MPV (7.0-11.0) fl Gran % (50.0-68.0) % Lymph % (Auto) (22.0-35.0) % Candler % (Auto) (1.0-6.0) % Eos % (Auto) (1.5-5.0) % Baso % (Auto) (0.0-3.0) % Gran # (1.4-6.5) Lymph # (Auto) (1.2-3.4) Candler # (Auto) (0.1-0.6) Eos # (Auto) (0.0-0.7) Baso # (Auto) (0.0-2.0) K/mm3 PT (9.4-12.5) SECONDS INR (0.93-1.08) pCO2 (35-45) mm/Hg pO2 88 H (80-100) mm/Hg HCO3 (21-28) mmol/L ABG pH (7.35-7.45) ABG Total CO2 (22-28) mmol.L ABG O2 Saturation (95-98) % ABG Base Excess (-2.0-3.0) mmol/L ABG Potassium (3.6-5.2) mmol/L VBG pH 7.39 (7.32-7.43) VBG pCO2 43.0 (40-60) VBG HCO3 26.0 (21-28) mmol/l VBG Total CO2 27.3 (22-28) mmol.L VBG O2 Sat (Calc) 98.0 H (40-65) % VBG Base Excess 0.8 (0.0-2.0) mmol/L VBG Potassium 2.8 L (3.6-5.2) mmol/L Sodium 139.0 (132-148) mmol/L Chloride 112.0 H (98-107) mmol/L Glucose 246 H (75-110) mg/dl Lactate 1.2 (0.7-2.1) mmol/L Mechanical Rate FiO2 21.0 % Tidal Volume PEEP Inspiratory BiPAP Potassium (3.6-5.0) mmol/L Carbon Dioxide (21-33) mmol/L Anion Gap (10-20) BUN (7-21) mg/dL Creatinine (0.8-1.5) mg/dl Est GFR ( Amer) Est GFR (Non-Af Amer) POC Glucose (mg/dL) 265 H 259 H (65-110) mg/dL Random Glucose (70-110) mg/dL Calcium (8.4-10.5) mg/dL Phosphorus (2.5-4.5) mg/dL Magnesium (1.7-2.2) mg/dL Total Bilirubin (0.2-1.3) mg/dL AST (17-59) U/L ALT (7-56) U/L Alkaline Phosphatase (38-126) U/L Troponin I ng/mL Total Protein (5.8-8.3) g/dL Albumin (3.0-4.8) g/dL Globulin gm/dL Albumin/Globulin Ratio (1.1-1.8) Procalcitonin (0.19-0.49) NG/ML Arterial Blood Potassium (3.6-5.2) mmol/L Venous Blood Potassium 2.8 L (3.6-5.2) mmol/L 10/09/17 10/09/17 10/09/17 Range/Units 19:48 16:55 16:20 WBC (4.5-11.0) 10^3/ul RBC (3.5-6.1) 10^6/uL Hgb (14.0-18.0) g/dL Hct (42.0-52.0) % MCV (80.0-105.0) fl MCH (25.0-35.0) pg MCHC (31.0-37.0) g/dl RDW (11.5-14.5) % Plt Count (120.0-450.0) 10^3/uL MPV (7.0-11.0) fl Gran % (50.0-68.0) % Lymph % (Auto) (22.0-35.0) % [place] % (Auto) (1.0-6.0) % Eos % (Auto) (1.5-5.0) % Baso % (Auto) (0.0-3.0) % Gran # (1.4-6.5) Lymph # (Auto) (1.2-3.4) Candler # (Auto) (0.1-0.6) Eos # (Auto) (0.0-0.7) Baso # (Auto) (0.0-2.0) K/mm3 PT (9.4-12.5) SECONDS INR (0.93-1.08) pCO2 62 H (35-45) mm/Hg pO2 66.0 L 63 H (80-100) mm/Hg HCO3 31.2 H (21-28) mmol/L ABG pH 7.31 L (7.35-7.45) ABG Total CO2 33.1 H (22-28) mmol.L ABG O2 Saturation 93.3 L (95-98) % ABG Base Excess 3.2 H (-2.0-3.0) mmol/L ABG Potassium 3.8 (3.6-5.2) mmol/L VBG pH 7.31 L (7.32-7.43) VBG pCO2 65.0 H (40-60) VBG HCO3 32.7 H (21-28) mmol/l VBG Total CO2 34.7 H (22-28) mmol.L VBG O2 Sat (Calc) 91.8 H (40-65) % VBG Base Excess 4.4 H (0.0-2.0) mmol/L VBG Potassium 4.0 (3.6-5.2) mmol/L Sodium 132.0 133.0 (132-148) mmol/L Chloride 97.0 L 99.0 (98-107) mmol/L Glucose 353 H 356 H (75-110) mg/dl Lactate 1.9 2.6 H (0.7-2.1) mmol/L Mechanical Rate 30 FiO2 100.0 21.0 % Tidal Volume 350 PEEP 15 Inspiratory BiPAP Potassium (3.6-5.0) mmol/L Carbon Dioxide (21-33) mmol/L Anion Gap (10-20) BUN (7-21) mg/dL Creatinine (0.8-1.5) mg/dl Est GFR ( Amer) Est GFR (Non-Af Amer) POC Glucose (mg/dL) 282 H (65-110) mg/dL Random Glucose (70-110) mg/dL Calcium (8.4-10.5) mg/dL Phosphorus (2.5-4.5) mg/dL Magnesium (1.7-2.2) mg/dL Total Bilirubin (0.2-1.3) mg/dL AST (17-59) U/L ALT (7-56) U/L Alkaline Phosphatase (38-126) U/L Troponin I ng/mL Total Protein (5.8-8.3) g/dL Albumin (3.0-4.8) g/dL Globulin gm/dL Albumin/Globulin Ratio (1.1-1.8) Procalcitonin (0.19-0.49) NG/ML Arterial Blood Potassium 3.8 (3.6-5.2) mmol/L Venous Blood Potassium 4.0 (3.6-5.2) mmol/L 10/09/17 10/09/17 10/09/17 Range/Units 16:20 16:20 16:20 WBC (4.5-11.0) 10^3/ul RBC (3.5-6.1) 10^6/uL Hgb (14.0-18.0) g/dL Hct (42.0-52.0) % MCV (80.0-105.0) fl MCH (25.0-35.0) pg MCHC (31.0-37.0) g/dl RDW (11.5-14.5) % Plt Count (120.0-450.0) 10^3/uL MPV (7.0-11.0) fl Gran % (50.0-68.0) % Lymph % (Auto) (22.0-35.0) % [place] % (Auto) (1.0-6.0) % Eos % (Auto) (1.5-5.0) % Baso % (Auto) (0.0-3.0) % Gran # (1.4-6.5) Lymph # (Auto) (1.2-3.4) [place]ler # (Auto) (0.1-0.6) Eos # (Auto) (0.0-0.7) Baso # (Auto) (0.0-2.0) K/mm3 PT 13.1 H (9.4-12.5) SECONDS INR 1.15 H (0.93-1.08) pCO2 (35-45) mm/Hg pO2 (80-100) mm/Hg HCO3 (21-28) mmol/L ABG pH (7.35-7.45) ABG Total CO2 (22-28) mmol.L ABG O2 Saturation (95-98) % ABG Base Excess (-2.0-3.0) mmol/L ABG Potassium (3.6-5.2) mmol/L VBG pH (7.32-7.43) VBG pCO2 (40-60) VBG HCO3 (21-28) mmol/l VBG Total CO2 (22-28) mmol.L VBG O2 Sat (Calc) (40-65) % VBG Base Excess (0.0-2.0) mmol/L VBG Potassium (3.6-5.2) mmol/L Sodium 137 (132-148) mmol/L Chloride 95 L (98-107) mmol/L Glucose (75-110) mg/dl Lactate (0.7-2.1) mmol/L Mechanical Rate FiO2 % Tidal Volume PEEP Inspiratory BiPAP Potassium 3.8 (3.6-5.0) mmol/L Carbon Dioxide 28 (21-33) mmol/L Anion Gap 18 (10-20) BUN 21 (7-21) mg/dL Creatinine 0.6 L (0.8-1.5) mg/dl Est GFR ( Amer) > 60 Est GFR (Non-Af Amer) > 60 POC Glucose (mg/dL) (65-110) mg/dL Random Glucose 318 H* (70-110) mg/dL Calcium 9.4 (8.4-10.5) mg/dL Phosphorus 4.8 H (2.5-4.5) mg/dL Magnesium 2.1 (1.7-2.2) mg/dL Total Bilirubin 0.4 (0.2-1.3) mg/dL AST 28 (17-59) U/L ALT 21 (7-56) U/L Alkaline Phosphatase 165 H (38-126) U/L Troponin I ng/mL Total Protein 6.8 (5.8-8.3) g/dL Albumin 3.3 (3.0-4.8) g/dL Globulin 3.5 gm/dL Albumin/Globulin Ratio 1.0 L (1.1-1.8) Procalcitonin 1.50 H (0.19-0.49) NG/ML Arterial Blood Potassium (3.6-5.2) mmol/L Venous Blood Potassium (3.6-5.2) mmol/L 10/09/17 10/09/17 10/09/17 Range/Units 16:20 13:20 13:19 WBC 31.5 H* D 26.1 H* D (4.5-11.0) 10^3/ul RBC 5.35 5.47 (3.5-6.1) 10^6/uL Hgb 16.7 17.0 (14.0-18.0) g/dL Hct 46.0 46.8 (42.0-52.0) % MCV 86.0 85.6 (80.0-105.0) fl MCH 31.2 31.1 (25.0-35.0) pg MCHC 36.3 36.3 (31.0-37.0) g/dl RDW 12.2 12.2 (11.5-14.5) % Plt Count 338 285 (120.0-450.0) 10^3/uL MPV 10.9 10.2 (7.0-11.0) fl Gran % 87.5 H (50.0-68.0) % Lymph % (Auto) 3.3 L (22.0-35.0) % [place] % (Auto) 9.1 H (1.0-6.0) % Eos % (Auto) 0.0 L (1.5-5.0) % Baso % (Auto) 0.1 (0.0-3.0) % Gran # 22.82 H (1.4-6.5) Lymph # (Auto) 0.9 L (1.2-3.4) [place] # (Auto) 2.4 H (0.1-0.6) Eos # (Auto) 0.0 (0.0-0.7) Baso # (Auto) 0.03 (0.0-2.0) K/mm3 PT (9.4-12.5) SECONDS INR (0.93-1.08) pCO2 (35-45) mm/Hg pO2 (80-100) mm/Hg HCO3 (21-28) mmol/L ABG pH (7.35-7.45) ABG Total CO2 (22-28) mmol.L ABG O2 Saturation (95-98) % ABG Base Excess (-2.0-3.0) mmol/L ABG Potassium (3.6-5.2) mmol/L VBG pH (7.32-7.43) VBG pCO2 (40-60) VBG HCO3 (21-28) mmol/l VBG Total CO2 (22-28) mmol.L VBG O2 Sat (Calc) (40-65) % VBG Base Excess (0.0-2.0) mmol/L VBG Potassium (3.6-5.2) mmol/L Sodium 134 (132-148) mmol/L Chloride 91 L (98-107) mmol/L Glucose (75-110) mg/dl Lactate (0.7-2.1) mmol/L Mechanical Rate FiO2 % Tidal Volume PEEP Inspiratory BiPAP Potassium 4.8 (3.6-5.0) mmol/L Carbon Dioxide 32 (21-33) mmol/L Anion Gap 16 (10-20) BUN 19 (7-21) mg/dL Creatinine 0.7 L (0.8-1.5) mg/dl Est GFR ( Amer) > 60 Est GFR (Non-Af Amer) > 60 POC Glucose (mg/dL) (65-110) mg/dL Random Glucose 345 H* D (70-110) mg/dL Calcium 9.6 (8.4-10.5) mg/dL Phosphorus 3.4 (2.5-4.5) mg/dL Magnesium 2.3 H (1.7-2.2) mg/dL Total Bilirubin 0.5 (0.2-1.3) mg/dL AST 27 (17-59) U/L ALT 18 (7-56) U/L Alkaline Phosphatase 144 H D (38-126) U/L Troponin I < 0.01 ng/mL Total Protein 7.3 (5.8-8.3) g/dL Albumin 3.5 (3.0-4.8) g/dL Globulin 3.8 gm/dL Albumin/Globulin Ratio 0.9 L (1.1-1.8) Procalcitonin (0.19-0.49) NG/ML Arterial Blood Potassium (3.6-5.2) mmol/L Venous Blood Potassium (3.6-5.2) mmol/L 10/09/17 10/09/17 10/09/17 Range/Units 13:19 11:09 07:35 WBC (4.5-11.0) 10^3/ul RBC (3.5-6.1) 10^6/uL Hgb (14.0-18.0) g/dL Hct (42.0-52.0) % MCV (80.0-105.0) fl MCH (25.0-35.0) pg MCHC (31.0-37.0) g/dl RDW (11.5-14.5) % Plt Count (120.0-450.0) 10^3/uL MPV (7.0-11.0) fl Gran % (50.0-68.0) % Lymph % (Auto) (22.0-35.0) % [place] % (Auto) (1.0-6.0) % Eos % (Auto) (1.5-5.0) % Baso % (Auto) (0.0-3.0) % Gran # (1.4-6.5) Lymph # (Auto) (1.2-3.4) [place] # (Auto) (0.1-0.6) Eos # (Auto) (0.0-0.7) Baso # (Auto) (0.0-2.0) K/mm3 PT (9.4-12.5) SECONDS INR (0.93-1.08) pCO2 46 H (35-45) mm/Hg pO2 77.0 L (80-100) mm/Hg HCO3 29.2 H (21-28) mmol/L ABG pH 7.41 (7.35-7.45) ABG Total CO2 30.6 H (22-28) mmol.L ABG O2 Saturation 96.6 (95-98) % ABG Base Excess 3.8 H (-2.0-3.0) mmol/L ABG Potassium 3.8 (3.6-5.2) mmol/L VBG pH (7.32-7.43) VBG pCO2 (40-60) VBG HCO3 (21-28) mmol/l VBG Total CO2 (22-28) mmol.L VBG O2 Sat (Calc) (40-65) % VBG Base Excess (0.0-2.0) mmol/L VBG Potassium (3.6-5.2) mmol/L Sodium 130.0 L (132-148) mmol/L Chloride 99.0 (98-107) mmol/L Glucose 355 H (75-110) mg/dl Lactate 1.7 (0.7-2.1) mmol/L Mechanical Rate 16 FiO2 100.0 % Tidal Volume PEEP Inspiratory BiPAP 16 Potassium (3.6-5.0) mmol/L Carbon Dioxide (21-33) mmol/L Anion Gap (10-20) BUN (7-21) mg/dL Creatinine (0.8-1.5) mg/dl Est GFR ( Amer) Est GFR (Non-Af Amer) POC Glucose (mg/dL) 250 H 339 H (65-110) mg/dL Random Glucose (70-110) mg/dL Calcium (8.4-10.5) mg/dL Phosphorus (2.5-4.5) mg/dL Magnesium (1.7-2.2) mg/dL Total Bilirubin (0.2-1.3) mg/dL AST (17-59) U/L ALT (7-56) U/L Alkaline Phosphatase (38-126) U/L Troponin I ng/mL Total Protein (5.8-8.3) g/dL Albumin (3.0-4.8) g/dL Globulin gm/dL Albumin/Globulin Ratio (1.1-1.8) Procalcitonin (0.19-0.49) NG/ML Arterial Blood Potassium 3.8 (3.6-5.2) mmol/L Venous Blood Potassium (3.6-5.2) mmol/L Laboratory Results - last 24 hr 10/09/17 10/09/17 10/09/17 07:35 11:09 13:19 WBC RBC Hgb Hct MCV MCH MCHC RDW Plt Count MPV Gran % Lymph % (Auto) [place] % (Auto) Eos % (Auto) Baso % (Auto) Gran # Lymph # (Auto) [place] # (Auto) Eos # (Auto) Baso # (Auto) PT INR pCO2 46 H pO2 77.0 L HCO3 29.2 H ABG pH 7.41 ABG Total CO2 30.6 H ABG O2 Saturation 96.6 ABG Base Excess 3.8 H ABG Potassium 3.8 VBG pH VBG pCO2 VBG HCO3 VBG Total CO2 VBG O2 Sat (Calc) VBG Base Excess VBG Potassium Sodium 130.0 L Chloride 99.0 Glucose 355 H Lactate 1.7 Mechanical Rate 16 FiO2 100.0 Tidal Volume PEEP Inspiratory BiPAP 16 Potassium Carbon Dioxide Anion Gap BUN Creatinine Est GFR ( Amer) Est GFR (Non-Af Amer) POC Glucose (mg/dL) 339 H 250 H Random Glucose Calcium Phosphorus Magnesium Total Bilirubin AST ALT Alkaline Phosphatase Troponin I Total Protein Albumin Globulin Albumin/Globulin Ratio Procalcitonin Arterial Blood Potassium 3.8 Venous Blood Potassium 10/09/17 10/09/17 10/09/17 13:19 13:20 16:20 WBC 26.1 H* D 31.5 H* D RBC 5.47 5.35 Hgb 17.0 16.7 Hct 46.8 46.0 MCV 85.6 86.0 MCH 31.1 31.2 MCHC 36.3 36.3 RDW 12.2 12.2 Plt Count 285 338 MPV 10.2 10.9 Gran % 87.5 H Lymph % (Auto) 3.3 L [place] % (Auto) 9.1 H Eos % (Auto) 0.0 L Baso % (Auto) 0.1 Gran # 22.82 H Lymph # (Auto) 0.9 L [place] # (Auto) 2.4 H Eos # (Auto) 0.0 Baso # (Auto) 0.03 PT INR pCO2 pO2 HCO3 ABG pH ABG Total CO2 ABG O2 Saturation ABG Base Excess ABG Potassium VBG pH VBG pCO2 VBG HCO3 VBG Total CO2 VBG O2 Sat (Calc) VBG Base Excess VBG Potassium Sodium 134 Chloride 91 L Glucose Lactate Mechanical Rate FiO2 Tidal Volume PEEP Inspiratory BiPAP Potassium 4.8 Carbon Dioxide 32 Anion Gap 16 BUN 19 Creatinine 0.7 L Est GFR ( Amer) > 60 Est GFR (Non-Af Amer) > 60 POC Glucose (mg/dL) Random Glucose 345 H* D Calcium 9.6 Phosphorus 3.4 Magnesium 2.3 H Total Bilirubin 0.5 AST 27 ALT 18 Alkaline Phosphatase 144 H D Troponin I < 0.01 Total Protein 7.3 Albumin 3.5 Globulin 3.8 Albumin/Globulin Ratio 0.9 L Procalcitonin Arterial Blood Potassium Venous Blood Potassium 10/09/17 10/09/17 10/09/17 16:20 16:20 16:20 WBC RBC Hgb Hct MCV MCH MCHC RDW Plt Count MPV Gran % Lymph % (Auto) [place] % (Auto) Eos % (Auto) Baso % (Auto) Gran # Lymph # (Auto) [place] # (Auto) Eos # (Auto) Baso # (Auto) PT 13.1 H INR 1.15 H pCO2 pO2 HCO3 ABG pH ABG Total CO2 ABG O2 Saturation ABG Base Excess ABG Potassium VBG pH VBG pCO2 VBG HCO3 VBG Total CO2 VBG O2 Sat (Calc) VBG Base Excess VBG Potassium Sodium 137 Chloride 95 L Glucose Lactate Mechanical Rate FiO2 Tidal Volume PEEP Inspiratory BiPAP Potassium 3.8 Carbon Dioxide 28 Anion Gap 18 BUN 21 Creatinine 0.6 L Est GFR ( Amer) > 60 Est GFR (Non-Af Amer) > 60 POC Glucose (mg/dL) Random Glucose 318 H* Calcium 9.4 Phosphorus 4.8 H Magnesium 2.1 Total Bilirubin 0.4 AST 28 ALT 21 Alkaline Phosphatase 165 H Troponin I Total Protein 6.8 Albumin 3.3 Globulin 3.5 Albumin/Globulin Ratio 1.0 L Procalcitonin 1.50 H Arterial Blood Potassium Venous Blood Potassium 10/09/17 10/09/17 10/09/17 16:20 16:55 19:48 WBC RBC Hgb Hct MCV MCH MCHC RDW Plt Count MPV Gran % Lymph % (Auto) [place] % (Auto) Eos % (Auto) Baso % (Auto) Gran # Lymph # (Auto) [place] # (Auto) Eos # (Auto) Baso # (Auto) PT INR pCO2 62 H pO2 63 H 66.0 L HCO3 31.2 H ABG pH 7.31 L ABG Total CO2 33.1 H ABG O2 Saturation 93.3 L ABG Base Excess 3.2 H ABG Potassium 3.8 VBG pH 7.31 L VBG pCO2 65.0 H VBG HCO3 32.7 H VBG Total CO2 34.7 H VBG O2 Sat (Calc) 91.8 H VBG Base Excess 4.4 H VBG Potassium 4.0 Sodium 133.0 132.0 Chloride 99.0 97.0 L Glucose 356 H 353 H Lactate 2.6 H 1.9 Mechanical Rate 30 FiO2 21.0 100.0 Tidal Volume 350 PEEP 15 Inspiratory BiPAP Potassium Carbon Dioxide Anion Gap BUN Creatinine Est GFR ( Amer) Est GFR (Non-Af Amer) POC Glucose (mg/dL) 282 H Random Glucose Calcium Phosphorus Magnesium Total Bilirubin AST ALT Alkaline Phosphatase Troponin I Total Protein Albumin Globulin Albumin/Globulin Ratio Procalcitonin Arterial Blood Potassium 3.8 Venous Blood Potassium 4.0 10/09/17 10/09/17 10/09/17 20:22 20:56 21:55 WBC RBC Hgb Hct MCV MCH MCHC RDW Plt Count MPV Gran % Lymph % (Auto) [place] % (Auto) Eos % (Auto) Baso % (Auto) Gran # Lymph # (Auto) [place] # (Auto) Eos # (Auto) Baso # (Auto) PT INR pCO2 pO2 88 H HCO3 ABG pH ABG Total CO2 ABG O2 Saturation ABG Base Excess ABG Potassium VBG pH 7.39 VBG pCO2 43.0 VBG HCO3 26.0 VBG Total CO2 27.3 VBG O2 Sat (Calc) 98.0 H VBG Base Excess 0.8 VBG Potassium 2.8 L Sodium 139.0 Chloride 112.0 H Glucose 246 H Lactate 1.2 Mechanical Rate FiO2 21.0 Tidal Volume PEEP Inspiratory BiPAP Potassium Carbon Dioxide Anion Gap BUN Creatinine Est GFR ( Amer) Est GFR (Non-Af Amer) POC Glucose (mg/dL) 259 H 265 H Random Glucose Calcium Phosphorus Magnesium Total Bilirubin AST ALT Alkaline Phosphatase Troponin I Total Protein Albumin Globulin Albumin/Globulin Ratio Procalcitonin Arterial Blood Potassium Venous Blood Potassium 2.8 L 10/09/17 10/09/17 10/10/17 21:57 22:55 00:04 WBC RBC Hgb Hct MCV MCH MCHC RDW Plt Count MPV Gran % Lymph % (Auto) Candler % (Auto) Eos % (Auto) Baso % (Auto) Gran # Lymph # (Auto) Candler # (Auto) Eos # (Auto) Baso # (Auto) PT INR pCO2 47 H pO2 257.0 H HCO3 30.5 H ABG pH 7.42 ABG Total CO2 31.9 H ABG O2 Saturation 99.4 H ABG Base Excess 5.1 H ABG Potassium 3.5 L VBG pH VBG pCO2 VBG HCO3 VBG Total CO2 VBG O2 Sat (Calc) VBG Base Excess VBG Potassium Sodium 135.0 Chloride 101.0 Glucose 292 H Lactate 1.3 Mechanical Rate 30 FiO2 100.0 Tidal Volume 350 PEEP 15 Inspiratory BiPAP Potassium Carbon Dioxide Anion Gap BUN Creatinine Est GFR ( Amer) Est GFR (Non-Af Amer) POC Glucose (mg/dL) 310 H 235 H Random Glucose Calcium Phosphorus Magnesium Total Bilirubin AST ALT Alkaline Phosphatase Troponin I Total Protein Albumin Globulin Albumin/Globulin Ratio Procalcitonin Arterial Blood Potassium 3.5 L Venous Blood Potassium 10/10/17 10/10/17 10/10/17 01:03 01:48 02:56 WBC RBC Hgb Hct MCV MCH MCHC RDW Plt Count MPV Gran % Lymph % (Auto) Candler % (Auto) Eos % (Auto) Baso % (Auto) Gran # Lymph # (Auto) Candler # (Auto) Eos # (Auto) Baso # (Auto) PT INR pCO2 pO2 HCO3 ABG pH ABG Total CO2 ABG O2 Saturation ABG Base Excess ABG Potassium VBG pH VBG pCO2 VBG HCO3 VBG Total CO2 VBG O2 Sat (Calc) VBG Base Excess VBG Potassium Sodium Chloride Glucose Lactate Mechanical Rate FiO2 Tidal Volume PEEP Inspiratory BiPAP Potassium Carbon Dioxide Anion Gap BUN Creatinine Est GFR ( Amer) Est GFR (Non-Af Amer) POC Glucose (mg/dL) 234 H 178 H 156 H Random Glucose Calcium Phosphorus Magnesium Total Bilirubin AST ALT Alkaline Phosphatase Troponin I Total Protein Albumin Globulin Albumin/Globulin Ratio Procalcitonin Arterial Blood Potassium Venous Blood Potassium 10/10/17 10/10/17 10/10/17 06:15 06:30 06:30 WBC 17.4 H D RBC 4.48 Hgb 13.3 L D Hct 39.2 L MCV 87.5 MCH 29.7 MCHC 33.9 RDW 12.5 Plt Count 289 MPV 10.5 Gran % Lymph % (Auto) Candler % (Auto) Eos % (Auto) Baso % (Auto) Gran # Lymph # (Auto) Candler # (Auto) Eos # (Auto) Baso # (Auto) PT INR pCO2 62 H pO2 122.0 H HCO3 35.0 H ABG pH 7.36 ABG Total CO2 36.9 H ABG O2 Saturation 98.6 H ABG Base Excess 7.4 H ABG Potassium 3.5 L VBG pH VBG pCO2 VBG HCO3 VBG Total CO2 VBG O2 Sat (Calc) VBG Base Excess VBG Potassium Sodium 143.0 144 Chloride 106.0 103 Glucose 132 H Lactate 1.0 Mechanical Rate FiO2 50.0 Tidal Volume PEEP Inspiratory BiPAP Potassium 3.4 L Carbon Dioxide 33 Anion Gap 11 BUN 27 H Creatinine 0.6 L Est GFR ( Amer) > 60 Est GFR (Non-Af Amer) > 60 POC Glucose (mg/dL) Random Glucose 128 H Calcium 8.1 L Phosphorus 3.2 Magnesium 2.5 H Total Bilirubin 0.2 AST 25 ALT 22 Alkaline Phosphatase 90 Troponin I Total Protein 5.2 L Albumin 2.4 L Globulin 2.8 Albumin/Globulin Ratio 0.8 L Procalcitonin Arterial Blood Potassium 3.5 L Venous Blood Potassium EKG/Cardiology Studies: Cardiology / EKG Studies 10/09/17 13:19 EKG [ELECTROCARDIOGRAM] Stat Comment: Reason For Exam: OPERATIONS TECH Fingerstick Blood Sugar Results: 137 Critical Care Progress Note - Nutrition Nutrition: Nutrition Category Date Time Status NPO Diet [DIET] Diets 10/10/17 Breakfast Ordered
--- NOTE | 2017-10-10 09:58 | CARD ---
APPROVED REPORT EKG Measurement Heart [id number] <Conclusion> Sinus tachycardia C/W ECG 10/06/17: the rate is slower
[2017-10-10] MEDS: MethylPREDNISolone 40 mg Vial IVP SCH ×2 (10:45→23:02)
[2017-10-10 11:13] LABS: ARTERIAL BLOOD GAS HCO3 36.7 mmol/L (21-28); ARTERIAL BLOOD GAS HEMOGLOBIN 13.3 g/dL (11.7-17.4); ARTERIAL BLOOD GAS O2 CAPACITY 18.3 mL/dl (16-24); ARTERIAL BLOOD GAS O2 CONTENT 17.6 ML/dl (15-23); ARTERIAL BLOOD GAS PCO2 46 mm/Hg (35-45); ARTERIAL BLOOD GAS PH 7.51 (7.35-7.45); ARTERIAL BLOOD GAS TCO2 38.1 mmol.L (22-28)
--- NOTE | 2017-10-10 14:44 | PN ---
DATE: 10/10/2017 SUBJECTIVE: The patient is seen and examined at the bedside. He is currently on neuromuscular blockade with Nimbex at 1.167 mcg/kg per minute. He is on Versed 5 mg per hour, propofol 30 mcg/kg per minute and fentanyl 100 mcg per hour. Propofol was just switched off and fentanyl was decreased to 50 mcg per hour. His BIS is 37; however, shortly after propofol was stopped, it went up to 50s. Patient is on PRVC 350/30/15/15. His urine output overnight 500. Chest tube output overnight 150 mL. NG tube output overnight about 300 mL. Patient is on Levophed 4 mcg per minute (however, 1 minute after propofol was stopped, blood pressure increased to 120 systolic and norepinephrine was stopped completely), insulin drip at 3 units per hour and last Accu-Chek is 135. PHYSICAL EXAMINATION: VITAL SIGNS: Blood pressure 120/80, oxygen saturation 94%, heart rate 82 and respiratory rate 30. HEENT: Head and neck atraumatic. LUNGS: Some rhonchi on the left side. Clear to auscultation on the right side. ABDOMEN: Soft, nontender and nondistended (the patient, however, he is on neuromuscular blockade). MUSCULOSKELETAL: No C/C/E. NEUROLOGIC: Patient is on neuromuscular blockade. SKIN: Moist. PSYCHIATRIC: Patient is on neuromuscular blockade. LABORATORY DATA: WBC 17.4 down from 31.5, hemoglobin 13.3 down from 16.7, platelet count 289. Sodium 144, potassium 3.4, chloride 103, carbon dioxide 33, BUN 27, creatinine 0.6, AST 25, ALT 22, total bilirubin 0.2, albumin 2.4. INR 1.15. ABG is 7.36/62/122 on 50% FiO2. Lactic acid 1. MEDICATIONS: DuoNeb every 6 hours, fentanyl, insulin drip, meropenem, Solu-Medrol 20 mg IV q. 12, Nimbex, norepinephrine, Tamiflu, propofol, Protonix drip, vancomycin, heparin subcu. Chest x-ray showed slightly improved right lobar infiltrate and almost fully expanded left lung. A chest tube is in good position. Endotracheal tube is in trachea and nasogastric tube appears to be below diaphragm. We will advance NG tube a little bit down though. ASSESSMENT: This is 47-year-old gentleman who presented to ICU due to hypoxemic respiratory failure secondary to obstructive shock due to tension spontaneous pneumothorax status post chest tube placement. At present time, neuromuscular blockade will be discontinued, sedation lightened up. Levophed was weaned off. I will continue with conservative fluid management and conservative oxygen management. We will taper down FiO2 and positive end-expiratory pressure. Neurologic: Neuromuscular blockade stopped. Propofol stopped. Fentanyl tapered down to 50 mcg per hour and Versed continued at 5. Patient appears to be following commands. He also appears to be able to move all extremities spontaneously and on commands. Pulmonary: We will continue with protective lung ventilation strategy. If successfully weaned FiO2 down to 50% and positive end-expiratory pressure closer to 5 cm of water, we will proceed with weaning trial and sedation vacation. We will continue with head of bed elevated to more than 35 degrees. Oral hygiene, VAP bundle. We will continue with conservative fluid and oxygen management. Antibiotics for pneumonia. Bronchodilators and low-dose steroids. Chest tube is on suction, still has air leak. Cardiovascular: Patient currently is hemodynamically stable. He is off of pressors. Bedside echocardiogram did not reveal substantial left ventricular systolic dysfunction. Formal echocardiogram is pending. We will continue with conservative fluid management and gentle diuresis. Infectious Disease: Patient is on vancomycin, meropenem and doxycycline. ID Service is following him as well. Procalcitonin is 1.5 down from 2.91, but still elevated. Sputum culture showed rare gram-positive cocci. Pleural culture is pending. Gastrointestinal: It appears that nasogastric tube discharge is bilious and hemoglobin maintained well above 10. We will touch base with GI Service whether to continue Protonix drip or switch to Protonix daily or b.i.d. I will also touch base with GI Service whether to start trophic enteral feeds. At present time, however, risk of venous thromboembolism in intubated patient with sepsis recovering from obstructive shock is higher than the risk of hemodynamicly significant GI bleeding and I will continue with s/c heparin for deep venous thrombosis prophylaxis. We, however, will maintain watchful observation of his hemoglobin level. It appears that nasogastric tube discharge is bilious and not coffee-ground anymore. Hemoglobin level of 13.3 and even though it is slightly down to 16.7, it is most likely dilutional due to initial fluid resuscitation. Endocrine: Patient is on low-dose steroids. Insulin drip. Last Accu-Chek 130. We will maintain blood glucose within 140 to 180 range. If blood glucose will be well controlled, we will switch from insulin drip to long-acting formulation of insulin and insulin sliding scale. I would avoid oral hypoglycemic at present time. Renal: Patient makes good urine more than 0.5 mL/kg per hour. Creatinine is within normal limits. We will maintain mean arterial pressure more than 65. We will maintain euvolemia, euglycemia for additional nephroprotective effect. We will avoid nephrotoxic medication, but not at expense of treating underlying disease. Addendum: Sedation and NMB weaned off, patient was following commands with good cough and gag reflexes, alert and awake, lifting head off of pillow easily, tolerated PST well and extubated to high flow (65%, 60 L/min). passed swallow eval and some of oral meds restarted (e.g. Tamiflu). Saying he is hungry and asked for food. A-line removed. Insuling drip stoped, sliding scale started; will follow accu check and start longer acting insulin-->would avoid PO hypoglycemic. Spoke with GI: cont protonix drip, no active bleeding, ok to advance diet ccm time 40 min Justin Valencia MD MTDD
--- NOTE | 2017-10-10 15:27 | PN ---
DATE: 10/09/2017 SUBJECTIVE: The patient is a 47-year-old male. The patient was seen and examined on 10/09/2017. The patient became unstable, rapid response was called. He had coffee ground vomited and after that, he became hypoxic, rapid response team was there. The patient was transferred to the unit. No fever. No chills. Was not able to say one sentence in one breath. No swelling of the leg. No headache. No diarrhea. PHYSICAL EXAMINATION: VITAL SIGNS: Temperature 98, heart rate 91, respiratory rate 22, blood pressure 93/53, pulse oximetry 100% on ventilator with 40% oxygen. HEENT: Head normocephalic, atraumatic. Eyes: PERRLA. Extraocular movements are intact. Conjunctivae clear. Nose patent. Mucous membrane moist. NECK: Supple. No carotid bruits, JVD, or thyromegaly. CHEST: Bilaterally symmetrical. LUNGS: Have crackles and rhonchi. Has a left-sided chest tube. HEART: S1 and S2 positive. ABDOMEN: Soft. Nontender. No organomegaly. EXTREMITIES: No edema. No cyanosis. Later on, the patient was intubated. LABORATORY DATA: Hemoglobin 16.7, hematocrit 46, white blood cell 32, platelets 338. BUN 21, creatinine 0.6, glucose 318. AST 28, ALT 21. MEDICATIONS: Doxycycline, DuoNeb, Ecotrin, Effient, insulin, Januvia, metoprolol, meropenem, Percocet, Protonix, Solu-Medrol, Tamiflu, vancomycin, and Zestril. ASSESSMENT AND PLAN: Mr. Maldonado Castaneda is a 47-year-old male , rapid response, the patient had coffee-ground vomitus, became hypoxic, lung effusion, extensive right lung pneumonia. The patient was intubated, put on ventilator. Chest tube was placed with draining of more than a liter of secretion. Coffee-ground material was sucked with the nasogastric tube, history of pneumonia, massive aspiration. Rapid response noted. The patient was transferred to Intensive Care Unit. Surgically, trying to get A-line. Spoke to Dr. Valencia and rapid response , Dr. Adelaida Foster. Continue broad-spectrum antibiotic covering healthcare-associated organism. Dr. Da Silva increased his Solu-Medrol. Length of time discussion done with Dr. Da Silva, also patient's conveyor man and the critical care physician. Being followed up by surgical team, stamping bench die maker, and conveyor man. Gastric prophylaxis, deep vein thrombosis prophylaxis. GI consult called. Intravenous Protonix given. We will continue correcting electrolytes. Dr. Valencia spoke to the patient's . We will follow up. Misty Verduzco MD MTDD
[2017-10-10] MEDS: Insulin Lispro (humaLOG) MEDIUM Coverage SC SCH ×2 (16:43→22:45)
--- NOTE | 2017-10-10 19:09 | PN ---
DATE: SUBJECTIVE: Patient is in bed, in no acute distress, was seen in ICU, intubated on a ventilator. Patient has a chest tube. PHYSICAL EXAMINATION GENERAL: The patient is sedated. VITAL SIGNS: Temperature is 99, blood pressure is 114/70, respiratory rate on the vent, heart rate of 85. HEENT: Reveals ET tube in place. NECK: Supple. LUNGS: Have decreased breath sounds. HEART: Normal S1 and S2. ABDOMEN: Soft, nontender. LABORATORY DATA: Reveals a white count of 17,000, hemoglobin of 13, platelets of 289. Coagulation is noted. Chemistry reveals the BUN of 27, creatinine of 0.6, procalcitonin is 1.5, HIV is negative, influenza is negative. Urine for Legionella antigen is negative. Microbiology reveals the sputum cultures are negative. Blood cultures are negative. ASSESSMENT AND PLAN: This is a 47-year-old male who was seen earlier. Patient had a rapid response in the ICU, respiratory failure, intubated and severe sepsis. He is on meropenem, vancomycin, doxycycline. The culture is negative. Serology is negative. We will follow with you. Yonis Guzman MD
--- NOTE | 2017-10-10 23:39 | PN ---
DATE: 10/10/2017 CRITICAL CARE PROGRESS NOTE REFERRING PHYSICIAN: Dr. Verduzco. SUBJECTIVE: He is in Intensive Care Unit on high-flow oxygen, extubated this morning, much more awake and alert. is at bedside, still has cough, sputum production. No hemoptysis, no hematemesis, no hematuria, no diarrhea reported. Has the left-sided chest tube with air leak. OBJECTIVE: GENERAL: No acute distress, on ventilator. VITAL SIGNS: Temperature is 98, heart rate is 103, respiratory rate is 20 to 30, blood pressure 131/79, pulse oximetry 92% on high flow nasal cannulation. HEENT: Moist mucous membrane. Crowded airway. Mallampati score is IV. NECK: Supple. No JVD. LUNGS: Have crackles and rhonchi of the both lung quinones. HEART: S1 and S2. ABDOMEN: Soft and nontender. No organomegaly. EXTREMITIES: There is no edema. NEUROLOGIC: Awake, alert. Follows simple commands. MEDICATIONS: He is on doxycycline 100 mg twice a day, DuoNeb q. 6 hour, Ecotrin 81 mg daily, Effient 10 mg daily, heparin 5000 units subcutaneous q. 12 hour, insulin coverage, meropenem 1 g IV q. 8 hours, Percocet 10/325 mg one tab q. 6 hours p.r.n., Protonix 40 mg daily, Solu-Medrol 20 mg q. 12 hours, Tamiflu 75 mg daily, Tylenol p.r.n. basis vancomycin 1 g IV q. 12 hours. LABORATORY DATA: Shows hemoglobin 13.3, hematocrit 39.2, WBC 17.4, platelets is 289. INR 1.15. Blood gas this morning shows pH 7.51, pCO2 of 46, O2 of 61 that on 50% oxygen. Sodium 144, potassium 3.4, chloride 103, bicarbonate 33, BUN 27, creatinine 0.6, glucose 128, calcium 8.1, phosphorus 3.2, magnesium 2.5. AST 25, ALT 22, alkaline phosphatase is 90, albumin is 2.4. Microbiology: Blood culture, sputum culture. Blood culture is no growth so far. Chest x-ray done this morning shows no interval changes, has right lung pneumonia, no pneumothorax, left-sided chest tube extubated. Echocardiogram done, report is pending. IMPRESSION AND PLAN: Multilobe pneumonia, part of it aspiration, lung abscess, has spontaneous pneumothorax requiring chest tube, status post respiratory failure, presents on high flow nasal cannula, also probably has a component of sleep apnea syndrome. Spoke to the patient's in detail. All the questions answered. Spoke to Dr. Verduzco. Further care discussed. For now, continue antibiotics, continue high flow oxygen, keep at 45 degree, bronchodilators, antibiotics as per Infectious Diseases. We will get CT of the chest once clinically really improves. Critical care time more than 35 minutes. We will follow with you. Laz Da Silva MD
[2017-10-11] MEDS: Albuterol-Ipratrop 3 mg / 0.5 (3 ml) UD IH SCH ×4 (02:37→20:32)
[2017-10-11] MEDS: Pantoprazole 40mg/100mL NS 40 MG/100 ML BAG IVPB SCH (03:26)
[2017-10-11] MEDS: Vancomycin 1gm in NS 250ml 1 GM/250 ML BAG IVPB SCH ×2 (04:43→15:54)
[2017-10-11] MEDS: Insulin Lispro (humaLOG) MEDIUM Coverage SC SCH ×5 (04:50→16:46)
[2017-10-11 05:35] LABS: BASO # 0.02 K/mm3 (0.0-2.0); BASO % 0.2 % (0.0-3.0); GRAN # 9.72 (1.4-6.5); GRAN % 84.5 % (50.0-68.0); HEMOGLOBIN 13.1 g/dL (14.0-18.0); LYMPH % 8.4 % (22.0-35.0); MEAN CELL VOLUME 88.4 fl (80.0-105.0); MEAN CORPUSCULAR HEMOGLOBIN 29.8 pg (25.0-35.0); MEAN CORPUSCULAR HGB CONC 33.8 g/dl (31.0-37.0); MEAN PLATELET VOLUME 10.4 fl (7.0-11.0); MONO # 0.8 (0.1-0.6); MONO % 6.9 % (1.0-6.0); RBC 4.39 10^6/uL (3.5-6.1); RED CELL DISTRIBUTION WIDTH 12.4 % (11.5-14.5); WHITE BLOOD COUNT 11.5 10^3/ul (4.5-11.0)
[2017-10-11 05:40] LABS: ARTERIAL BLOOD GAS HCO3 31.2 mmol/L (21-28); ARTERIAL BLOOD GAS HEMOGLOBIN 12.9 g/dL (11.7-17.4); ARTERIAL BLOOD GAS O2 CAPACITY 18.1 mL/dl (16-24); ARTERIAL BLOOD GAS O2 CONTENT 17.9 ML/dl (15-23); ARTERIAL BLOOD GAS O2 SAT 99.1 % (95-98); ARTERIAL BLOOD GAS PCO2 40 mm/Hg (35-45); ARTERIAL BLOOD GAS TCO2 32.4 mmol.L (22-28)
[2017-10-11] MEDS: Meropenem 1g/NS 100mL IVPB 1 GM/100 ML PIGGYBACK IVPB SCH ×3 (05:57→21:01)
[2017-10-11 06:32] LABS: ALB/GLOB RATIO 0.8 (1.1-1.8); ALBUMIN 2.3 g/dL (3.0-4.8); ALT/SGPT 24 U/L (7-56); AST/SGOT 22 U/L (17-59); BLOOD UREA NITROGEN 28 mg/dL (7-21); GFR AFRICAN-AMERICAN > 60; GFR NON-AFRICAN AMERICAN > 60; MAGNESIUM 2.3 mg/dL (1.7-2.2)
--- NOTE | 2017-10-11 08:39 | RAD ---
HISTORY: comparison COMPARISON: 10/10/2017 FINDINGS: LUNGS: Extensive right-sided pulmonary opacity slightly decreased from prior examination. Left basilar opacity, vaguely linear, possibly subsegmental atelectasis. PLEURA: No significant pleural effusion identified, no pneumothorax apparent. Left chest tube remains. Minimal subcutaneous emphysema over left lateral chest wall. CARDIOVASCULAR: Normal heart size. No congestive change. Left subclavian central venous catheter. Endotracheal tube and nasogastric tube have been removed. OSSEOUS STRUCTURES: No significant abnormalities. VISUALIZED UPPER ABDOMEN: Normal. OTHER FINDINGS: None. IMPRESSION: Decreasing diffuse right-sided opacity. ET tube and NG tube removed. Left chest tube. No pneumothorax.
--- NOTE | 2017-10-11 09:13 | CARD ---
APPROVED REPORT EXAM: Two-dimensional and M-mode echocardiogram with Doppler and color Doppler. Other Information Quality : PoorRhythm : INDICATION Dyspnea 2D DIMENSIONS IVSd1.1 (0.7-1.1cm)LVDd5.0 (3.9-5.9cm) PWd1.3 (0.7-1.1cm)LVDs3.3 (2.5-4.0cm) FS (%) 34.5 %LVEF (%)63.3 (>50%) M-Mode DIMENSIONS Left Atrium (MM)3.30 (2.5-4.0cm)Aortic Root3.50 (2.2-3.7cm) Aortic Cusp Exc.2.20 (1.5-2.0cm) Aortic Valve AoV Peak Agdodzjr400.0cm/s Mitral Valve MV E Srzhiuej55.0cm/sMV A Ozqzjadl34.7cm/sE/A ratio0.8 TDI Lateral E' Peak V11.90cm/sMedial E' Peak V9.07cm/sE/Lateral E'6.3 E/Medial E'8.3 Tricuspid Valve TR Peak [id number]/sRAP [id number] Peak Gr.13mmHg [id number] LEFT VENTRICLE The left ventricle is normal size. There is normal left ventricular wall thickness. The left ventricular function is normal. The left ventricular ejection fraction is within the normal range. There is normal LV segmental wall motion. RIGHT VENTRICLE The right ventricle is not well visualized. ATRIA The left atrium size is normal. The right atrium size is normal. AORTIC VALVE The aortic valve is mildly calcified. MITRAL VALVE The mitral valve is normal in structure. TRICUSPID VALVE The tricuspid valve is not well visualized. PULMONIC VALVE The pulmonic valve is not well visualized. GREAT VESSELS The aortic root is normal in size. PERICARDIAL EFFUSION There is no pericardial effusion. <Conclusion> Poor quality study. Overall LV systolic function appears normal. Cannot assess regional wall motion. No or MS. Poor Doppler study. Suggest repeat study.
--- NOTE | 2017-10-11 10:47 | CP.PCM.PN ---
Subjective - Date & Time of Evaluation Date of Evaluation: 10/11/17 Time of Evaluation: 07:20 - Subjective Subjective: Patient seen and examined this AM. Patient's chest tube was still on suction overnight, returned to [facility]. Patient denies any increased SOB or fevers. Has a cough and pain in the site of chest tube and couldn't sleep. No air leak on chest tube, approximately 150cc's of serous fluid output Objective - Vital Signs/Intake and Output Vital Signs (last 24 hours): Temp Pulse Resp BP Pulse Ox 98.2 F 83 24 140/88 96 10/11/17 04:00 10/11/17 06:00 10/11/17 10:17 10/11/17 06:00 10/11/17 05:59 Intake and Output: 10/11/17 10/11/17 06:59 18:59 Intake Total 990 Output Total 150 Balance 840 - Medications Medications: Current Medications Acetaminophen (Tylenol 325mg Tab) 650 mg PO Q4H PRN PRN Reason: Fever >100.4 F Last Admin: 10/08/17 17:35 Dose: 650 mg Albuterol/Ipratropium (Duoneb 3 Mg/0.5 Mg (3 Ml) Ud) 3 ml IH [id number] [facility] Last Admin: 10/11/17 07:01 Dose: 3 ml Aspirin (Ecotrin) 81 mg PO DAILY [facility] Last Admin: 10/09/17 10:36 Dose: 81 mg Heparin Sodium (Porcine) (Heparin) 5,000 units SC Q12 [facility] PRN Reason: Protocol Last Admin: 10/10/17 22:54 Dose: 5,000 units Meropenem/Sodium Chloride (Meropenem 1g/Ns 100ml Ivpb) 1 gm in 100 mls @ 100 mls/hr IVPB Q8 [facility] Last Admin: 10/11/17 05:57 Dose: 100 mls/hr Vancomycin HCl (Vancomycin 1gm) 1 gm in 250 mls @ 167 mls/hr IVPB Q12H [facility] PRN Reason: Protocol Last Admin: 10/11/17 04:43 Dose: 167 mls/hr Pantoprazole Sodium (Protonix 40mg Ivpb) 40 mg in 100 mls @ 20 mls/hr IVPB .Q5H [facility] Last Admin: 10/11/17 03:26 Dose: 20 mls/hr Doxycycline Hyclate 100 mg/ (Sodium Chloride) 100 mls @ 100 mls/hr IVPB Q12 [facility] PRN Reason: Protocol Last Admin: 10/10/17 22:57 Dose: 100 mls/hr Insulin Human Lispro (Humalog Med) 0 units SC Q4 [facility] PRN Reason: Protocol Last Admin: 10/11/17 09:05 Dose: Not Given Methylprednisolone (Solu-Medrol) 20 mg IVP Q12 [facility] Last Admin: 10/10/17 23:02 Dose: 20 mg Oseltamivir Phosphate (Tamiflu Cap) 75 mg PO BID [facility] PRN Reason: Protocol Stop: 10/14/17 14:16 Last Admin: 10/10/17 18:23 Dose: 75 mg Oxycodone/Acetaminophen (Percocet 10/325 Mg Tab) 1 tab PO Q6H PRN PRN Reason: Pain, moderate (4-7) Last Admin: 10/09/17 07:57 Dose: 1 tab Prasugrel (Effient) 10 mg PO DAILY [facility] Last Admin: 10/09/17 10:36 Dose: 10 mg - Labs Labs: 10/11/17 05:15 10/11/17 05:15 PT 13.1 SECONDS (9.4-12.5) H 10/09/17 16:20 INR 1.15 (0.93-1.08) H 10/09/17 16:20 APTT 31.3 Seconds (25.1-36.5) 10/06/17 14:30 - Constitutional Appears: Non-toxic, No Acute Distress - Head Exam Head Exam: ATRAUMATIC, NORMOCEPHALIC - Eye Exam Eye Exam: Normal appearance. absent: Conjunctival injection, Scleral icterus - ENT Exam ENT Exam: Mucous Membranes Moist, Normal Oropharynx - Respiratory Exam Respiratory Exam: absent: Accessory Muscle Use, Respiratory Distress Additional comments: tachypnea, chest tube dressing in the left midaxillary line c/d/i - Cardiovascular Exam Cardiovascular Exam: RRR - GI/Abdominal Exam GI & Abdominal Exam: Soft. absent: Distended - Extremities Exam Extremities Exam: absent: Calf Tenderness, Pedal Edema, Tenderness - Neurological Exam Neurological Exam: Alert, Awake, Oriented x3 - Psychiatric Exam Psychiatric exam: Normal Affect, Normal Mood - Skin Skin Exam: Dry, Normal Color, Warm Assessment and Plan - Assessment and Plan (Free Text) Assessment: 47M w. sepsis 2/2 to PNA and L side pleural effusion/PTX, s/p CT POD#2 Plan: -AM CXR: no pneumothorax of pleural effusion -F/u CXR this afternoon after chest tube on water seal -CXR tomorrow AM -Chest Tube: 150cc/12hr serous, no air leak. Continue on water seal. May consider removal tomorrow AM if stable -Add ofirmev and a lidoderm patch to left chest for pain management Discussed with Dr. Greyson Antoine, PGy2 Surgery pager
[2017-10-11] MEDS: MethylPREDNISolone 40 mg Vial IVP SCH ×2 (10:57→21:04)
[2017-10-11] MEDS ORDERED: Oxycodone/Acetaminophen 10/325 mg Tab PO PRN (11:52)
--- NOTE | 2017-10-11 11:53 | PN ---
DATE: 10/11/2017 SUBJECTIVE: The patient is resting in bed, O2 via high-flow, no respiratory distress. The patient has a left-sided chest tube to low Gomco suction and tolerating well. No complaints of severe chest pain or nauseous or vomiting. No abdominal pain. No present fever or chills. The patient is off all sedative medications at this time. PHYSICAL EXAMINATION VITAL SIGNS: His temperature is 98.2, pulse is 83, respirations are 18 and BP is 140/88. SKIN: Warm and dry. HEENT: Head; atraumatic, normocephalic. Eyes; reactive to light. Ears, nose and throat seemed to be within normal limits. NECK: Supple. No JVD, no thyroid enlargement, no lymph nodes. HEART: Has regular rate and rhythm. Normal S1, S2. LUNGS: Reveal occasional rhonchi bilaterally with slight decrease in breath sounds on the left. ABDOMEN: Soft. Decreased bowel sounds. GENITALIA AND RECTAL: Deferred. MUSCULOSKELETAL: No joint deformities. EXTREMITIES: Reveal no edema. NEUROLOGIC: He seemed to be grossly intact. LABORATORY DATA: As far as his laboratories are concerned, his white count is 11.5, hemoglobin is 13.1, hematocrit 38.8 with platelets of 225,000. His arterial blood gas reveals a pH of 7.50, pCO2 of 40, pO2 of 161. As far as his sodium is 138, potassium 3.7, chloride 98, CO2 of 34 with a BUN of 28, creatinine of 0.6 and a glucose of 376. Chest x-ray is pending. IMPRESSION: As far as my impression, this patient had spontaneous pneumothorax, resolved with chest tube, initially presented to the hospital with flu syndrome. The patient continues to have some respiratory failure requiring high flow oxygen support. As noted, there may be a component of pneumonia. PLAN: As far as our plan, we will continue with the patient's high flow oxygen support, continue with aggressive pulmonary toilet. The patient does have the chest tube to suction. He is continuing with doxycycline, DuoNeb, subcu heparin, Solu-Medrol, Tamiflu as well as vancomycin. We will continue to monitor closely, also continue to treat along with the other consultants and the primary care doctor. Jasen Garcia MD [facility] # [id number]
--- NOTE | 2017-10-11 12:29 | CP.PCM.PN ---
<AntonioXenia - Last Filed: 10/11/17 12:26> Subjective - Date & Time of Evaluation Date of Evaluation: 10/11/17 Time of Evaluation: 08:30 - Subjective Subjective: GI Fellow PGY4 Progress Note Patient seen and examined at bedside, pt extubated yesterday and tolerating clear liquid diet. No further bleeding, no melena or hematochezia. Pt off pressor support and no prior hx of GI bleed. ROS: A 12pt ROS was negative except as above. Objective - Vital Signs/Intake and Output Vital Signs (last 24 hours): Temp Pulse Resp BP Pulse Ox 98.2 F 83 24 140/88 96 10/11/17 04:00 10/11/17 06:00 10/11/17 10:17 10/11/17 06:00 10/11/17 05:59 Intake and Output: 10/11/17 10/11/17 06:59 18:59 Intake Total 990 Output Total 150 Balance 840 - Medications Medications: Current Medications Acetaminophen (Tylenol 325mg Tab) 650 mg PO Q4H PRN PRN Reason: Fever >100.4 F Last Admin: 10/08/17 17:35 Dose: 650 mg Albuterol/Ipratropium (Duoneb 3 Mg/0.5 Mg (3 Ml) Ud) 3 ml IH [id number] [facility] Last Admin: 10/11/17 07:01 Dose: 3 ml Aspirin (Ecotrin) 81 mg PO DAILY [facility] Last Admin: 10/09/17 10:36 Dose: 81 mg Heparin Sodium (Porcine) (Heparin) 5,000 units SC Q12 [facility] PRN Reason: Protocol Last Admin: 10/11/17 10:56 Dose: 5,000 units Meropenem/Sodium Chloride (Meropenem 1g/Ns 100ml Ivpb) 1 gm in 100 mls @ 100 mls/hr IVPB Q8 [facility] Last Admin: 10/11/17 05:57 Dose: 100 mls/hr Vancomycin HCl (Vancomycin 1gm) 1 gm in 250 mls @ 167 mls/hr IVPB Q12H [facility] PRN Reason: Protocol Last Admin: 10/11/17 04:43 Dose: 167 mls/hr Doxycycline Hyclate 100 mg/ (Sodium Chloride) 100 mls @ 100 mls/hr IVPB Q12 [facility] PRN Reason: Protocol Last Admin: 10/11/17 10:57 Dose: 100 mls/hr Insulin Human Lispro (Humalog Med) 0 units SC Q4 [facility] PRN Reason: Protocol Last Admin: 10/11/17 09:05 Dose: Not Given Methylprednisolone (Solu-Medrol) 20 mg IVP Q12 [facility] Last Admin: 10/11/17 10:57 Dose: 20 mg Oseltamivir Phosphate (Tamiflu Cap) 75 mg PO BID [facility] PRN Reason: Protocol Stop: 10/14/17 14:16 Last Admin: 10/11/17 10:57 Dose: 75 mg Oxycodone/Acetaminophen (Percocet 10/325 Mg Tab) 1 tab PO Q6H PRN PRN Reason: Pain, severe (8-10) Last Admin: 10/11/17 12:06 Dose: 1 tab Pantoprazole Sodium (Protonix Inj) 40 mg IVP DAILY [facility] Prasugrel (Effient) 10 mg PO DAILY [facility] Last Admin: 10/09/17 10:36 Dose: 10 mg - Labs Labs: 10/11/17 05:15 10/11/17 05:15 PT 13.1 SECONDS (9.4-12.5) H 10/09/17 16:20 INR 1.15 (0.93-1.08) H 10/09/17 16:20 APTT 31.3 Seconds (25.1-36.5) 10/06/17 14:30 - Constitutional Appears: Non-toxic, No Acute Distress - Head Exam Head Exam: ATRAUMATIC, NORMAL INSPECTION, NORMOCEPHALIC - Eye Exam Eye Exam: EOMI, Normal appearance, PERRL Pupil Exam: NORMAL ACCOMODATION, PERRL - ENT Exam ENT Exam: Mucous Membranes Moist, Normal Exam - Neck Exam Neck Exam: Normal Inspection - Respiratory Exam Respiratory Exam: Rhonchi, Respiratory Distress - Cardiovascular Exam Cardiovascular Exam: Tachycardia - GI/Abdominal Exam GI & Abdominal Exam: Soft, Normal Bowel Sounds. absent: Distended, Rigid, Tenderness - Extremities Exam Extremities Exam: Full ROM, Normal Inspection - Back Exam Back Exam: NORMAL INSPECTION - Neurological Exam Neurological Exam: Alert, Awake, Oriented x3 - Psychiatric Exam Psychiatric exam: Normal Affect, Normal Mood - Skin Skin Exam: Dry, Intact, Normal Color, Warm Assessment and Plan - Assessment and Plan (Free Text) Assessment: 47yo male with history of diabetes, hypertension, [place], CAD s/p 7 stents admitted to the ICU with acute hypoxemic respiratory failure in the setting of community acquire pneumonia. GI consulted for evaluation of upper GI bleed. 1. Coffee-ground emesis 2. Acute hypoxemic respiratory failure 2/2 CAP 3. Hx of CAD 4. Hx of Diabetes Plan: -Continue supportive care for respiratory status -No acute GI bleed, H/H stable, vitals stable -No urgent indications for endoscopy at this time -Continue to monitor H/H and transfuse as necessary -Continue PPI daily -Advance diet as tolerated -Continue current medical management per ICU recommendations <Ramesh Ramírez - Last Filed: 10/11/17 14:31> Objective - Vital Signs/Intake and Output Vital Signs (last 24 hours): Temp Pulse Resp BP Pulse Ox 98.2 F 83 28 H 140/88 96 10/11/17 04:00 10/11/17 06:00 10/11/17 13:27 10/11/17 06:00 10/11/17 05:59 Intake and Output: 10/11/17 10/11/17 06:59 18:59 Intake Total 990 Output Total 150 Balance 840 - Medications Medications: Current Medications Acetaminophen (Tylenol 325mg Tab) 650 mg PO Q4H PRN PRN Reason: Fever >100.4 F Last Admin: 10/08/17 17:35 Dose: 650 mg Albuterol/Ipratropium (Duoneb 3 Mg/0.5 Mg (3 Ml) Ud) 3 ml IH [id number] [facility] Last Admin: 10/11/17 13:20 Dose: 3 ml Aspirin (Ecotrin) 81 mg PO DAILY [facility] Last Admin: 10/09/17 10:36 Dose: 81 mg Heparin Sodium (Porcine) (Heparin) 5,000 units SC Q12 [facility] PRN Reason: Protocol Last Admin: 10/11/17 10:56 Dose: 5,000 units Meropenem/Sodium Chloride (Meropenem 1g/Ns 100ml Ivpb) 1 gm in 100 mls @ 100 mls/hr IVPB Q8 [facility] Last Admin: 10/11/17 05:57 Dose: 100 mls/hr Vancomycin HCl (Vancomycin 1gm) 1 gm in 250 mls @ 167 mls/hr IVPB Q12H [facility] PRN Reason: Protocol Last Admin: 10/11/17 04:43 Dose: 167 mls/hr Doxycycline Hyclate 100 mg/ (Sodium Chloride) 100 mls @ 100 mls/hr IVPB Q12 [facility] PRN Reason: Protocol Last Admin: 10/11/17 10:57 Dose: 100 mls/hr Acetaminophen (Ofirmev) 1,000 mg in 100 mls @ 400 mls/hr IVPB Q6H [facility] Stop: 10/13/17 13:31 Insulin Human Lispro (Humalog Med) 0 units SC Q4 [facility] PRN Reason: Protocol Last Admin: 10/11/17 13:03 Dose: 5 units Lidocaine (Lidoderm) 1 ea TD DAILY [facility] Methylprednisolone (Solu-Medrol) 20 mg IVP Q12 [facility] Last Admin: 10/11/17 10:57 Dose: 20 mg Oseltamivir Phosphate (Tamiflu Cap) 75 mg PO BID [facility] PRN Reason: Protocol Stop: 10/14/17 14:16 Last Admin: 10/11/17 10:57 Dose: 75 mg Oxycodone HCl (Oxycodone Immediate Release Tab) 10 mg PO Q6H PRN PRN Reason: Pain, severe (8-10) Oxycodone HCl (Oxycodone Immediate Release Tab) 5 mg PO Q6H PRN PRN Reason: Pain, moderate (4-7) Pantoprazole Sodium (Protonix Inj) 40 mg IVP DAILY [facility] Prasugrel (Effient) 10 mg PO DAILY [facility] Last Admin: 10/09/17 10:36 Dose: 10 mg - Labs Labs: 10/11/17 05:15 10/11/17 05:15 PT 13.1 SECONDS (9.4-12.5) H 10/09/17 16:20 INR 1.15 (0.93-1.08) H 10/09/17 16:20 APTT 31.3 Seconds (25.1-36.5) 10/06/17 14:30 Attending/Attestation - Attestation I have personally seen and examined this patient.: Yes I have fully participated in the care of the patient.: Yes I have reviewed all pertinent clinical information, including history, physical exam and plan: Yes Notes (Text): 10/11/17 14:31 47 year old male with significant h/o CAD admitted with respiratory failure with possible coffee ground emesis, now resolved. No evidence of ongoing bleeding. Hgb normal. No indication for urgent endoscopy. Would give PPI daily empirically. Advance diet as tolerated. Will sign off.
--- NOTE | 2017-10-11 13:59 | RAD ---
HISTORY: re-evaluate pneumothorax on water seal COMPARISON: 10/11/2017 at 5:57 a.m. FINDINGS: LUNGS: Improving diffuse right-sided pulmonary opacity. Linear atelectasis at left base. PLEURA: No significant pleural effusion identified, no pneumothorax apparent. Left chest tube unchanged. CARDIOVASCULAR: Normal heart size. No congestive change. Left subclavian central venous catheter. OSSEOUS STRUCTURES: No significant abnormalities. VISUALIZED UPPER ABDOMEN: Normal. OTHER FINDINGS: None. IMPRESSION: Improving diffuse right-sided pulmonary opacity.
[2017-10-11] MEDS: Lidocaine 5% Patch TD SCH (14:57)
[2017-10-11] MEDS: oxyCODONE 10 mg Immediate Release Tab PO PRN (19:13)
--- NOTE | 2017-10-11 20:28 | PN ---
DATE: SUBJECTIVE: The patient was seen in bed in ICU. The patient is extubated, awake and alert, comfortable. PHYSICAL EXAMINATION VITAL SIGNS: Temperature is 98, blood pressure is 140/80, respiratory rate of 24, heart rate of 83. HEENT: Unremarkable. NECK: Supple. LUNGS: Have decreased breath sounds. HEART: Normal S1 and S2. ABDOMEN: Soft, nontender. LABORATORY DATA: Reveals a white count of 11,500, hemoglobin of 13, platelets of 225. Chemistries revealed BUN of 28, creatinine of 0.6, procalcitonin is 1.5. Serology is noted. The patient's pleural effusion is growing Staph aureus and sputum is growing Staph aureus, although blood cultures are negative. Sputum has a heavy growth of Staph aureus. ASSESSMENT AND PLAN: This is a 47-year-old male, patient admitted with hypertension, coronary artery disease, myocardial infarction, diabetes, leukocytosis, tachycardia, sepsis and fevers. Sepsis with Staphylococcus aureus community-acquired pneumonia and pleural effusion, chest tube placement. The patient intubated, now extubated. We will start the patient on Zyvox, and the patient is also on doxycycline and meropenem. Awaiting for the sensitivity of the Staphylococcus aureus pneumonia, and although the patient's influenza serology is negative, patient's urine legionella antigen is negative, human immunodeficiency virus is negative, the patient is currently on Tamiflu, and we will follow with you. We will discontinue the doxycycline. The patient is also on Solu-Medrol. Yonis Guzman MD
--- NOTE | 2017-10-11 23:21 | PN ---
DATE: PULMONARY CRITICAL CARE PROGRESS NOTE REFERRING PHYSICIAN: Misty Verduzco MD SUBJECTIVE: He is lying in the bed, on high-flow nasal cannula oxygen. is at bedside. Feels better. Decreased cough. Decreased shortness of breath. No nausea. No vomiting. Has left-sided chest tube site area, some discomfort. No leg pain or leg swelling. OBJECTIVE GENERAL: Lying in the ICU bed with high-flow nasal cannula. VITAL SIGNS: Temperature is 98, heart rate is 74, respiratory rate is 24, blood pressure is 140/88, pulse ox is 95% on high-flow oxygen. HEENT: Moist mucous membrane. Crowded airway. Mallampati score is IV. NECK: Supple. No JVD. LUNGS: Have scattered rhonchi and crackles. HEART: S1 and S2. ABDOMEN: Soft, nontender. No organomegaly. EXTREMITIES: No edema. NEUROLOGY: Awake and alert. Follows simple commands. Has a left-sided chest tube, which is on water seal and no air leak noted. LABORATORY DATA: Show hemoglobin 13.1, hematocrit 38.8, WBC 11.5, platelet count is 225. Blood gases show pH 7.50, pCO2 40, O2 is that is on high-flow nasal cannula. Sodium 138, potassium 3.7, chloride 98, bicarbonate 34, BUN 28, creatinine 0.6, glucose is 286, calcium 8.0, phosphorus 2.7, magnesium 2.3, AST 22, ALT 24, alkaline phosphatase is 89, and albumin is 2.3. Pleural fluid has Staphylococcus aureus. Sputum has Staphylococcus aureus. Sensitivity is pending. Chest x-ray done this morning shows improving diffuse right-sided pulmonary infiltrate. MEDICATIONS: He is on DuoNeb q. 6 hours, Ecotrin 81 mg daily, Effient 10 mg daily, heparin 5000 units subcutaneously q .12 hours, insulin coverage, lidocaine patch to the affected area daily, meropenem 1 g IV q. 8 hours, Tylenol p.r.n., oxycodone immediate release 10 mg q. 6 hours p.r.n., Protonix 40 mg daily, Solu-Medrol 20 mg q. 12 hours, Tamiflu 75 mg twice a day, Tylenol p.r.n., and Zyvox 600 mg twice a day, IMPRESSION AND PLAN: Multiple-lobe pneumonia, end up with spontaneous pneumothorax on the left side with hemodynamic instability requiring left-sided chest tube, was intubated and extubated, on high-flow nasal cannula oxygen, may have a component of sleep apnea syndrome. I spoke to the nursing staff, also spoke to the live in housekeeper nanny. We will keep the chest tube on water seal for now. Follow up x-ray. They will pull out the chest tube by tomorrow if there is no air leak and x-ray is stable. Has Staphylococcus in the sputum and pleural effusion. Continue Zyvox. Continue also meropenem covering Gram-negatives. Keep head elevated at 45 degrees. Bronchodilator. Gastric prophylaxis. Deep venous thrombosis prophylaxis. Sleep apnea precautions. Follow up labs in the morning. Critical care time more than 35 minutes. Thank you and we will follow with you. Laz Da Silva MD
[2017-10-11] MEDS: oxyCODONE 5 mg Immediate Release Tab PO PRN (23:44)
[2017-10-12] MEDS: Insulin Lispro (humaLOG) MEDIUM Coverage SC SCH ×6 (00:04→22:15)
[2017-10-12] MEDS: oxyCODONE 10 mg Immediate Release Tab PO PRN ×3 (02:09→17:56)
--- NOTE | 2017-10-12 02:45 | PN ---
DATE: SUBJECTIVE: The patient is a 47-year-old male. The patient is seen and examined at the bedside. Complaining about pain. Extubated yesterday. Tolerating clear liquid. He is on high-flow oxygen. No further bleeding. No melena, hematuria, or hematochezia. The patient is off the pressor support. No prior history of GI bleeding. No headache. No dizziness. Looks comfortable, except a little bit pain. PHYSICAL EXAMINATION: VITAL SIGNS: Temperature 98.2, pulse 83, respiratory rate 24, blood pressure 140/98, and pulse oximetry 96%. HEENT: Head: Normocephalic, atraumatic. Eyes: PERRLA. Extraocular movements are intact. Conjunctivae clear. Nose patent. Mucous membranes are moist. NECK: Supple. No carotid bruits, JVD, or thyromegaly. CHEST: Bilaterally symmetrical. HEART: S1 and S2 positive. LUNGS: Clear to auscultation. ABDOMEN: Soft. Bowel sounds are present. No organomegaly. EXTREMITIES: No edema. No cyanosis. NEUROLOGIC: The patient is awake and alert. Moving all four extremities with no focal deficit. LABORATORY DATA: White blood cells 11.5, hemoglobin 13.3, hematocrit 38.8, and platelets 225. Sodium 138, potassium 3.7, BUN 20, creatinine 0.6, and glucose 376. MEDICATIONS: Tylenol, DuoNeb, aspirin, heparin, meropenem, vancomycin, doxycycline, insulin, Solu-Medrol, Tamiflu, and oxycodone. ASSESSMENT AND PLAN: Mr. Maldonado Castaneda is a 47-year-old male with renal insufficiency, hyperglycemia, leukocytosis, anemia with a history of diabetes mellitus, hypertension, myocardial infarction, coronary artery disease, status post 7 cardiac stents, admitted to the Intensive Care Unit with acute hypoxemic respiratory failure in the setting of community-acquired pneumonia, gastrointestinal bleeding, aspiration pneumonia and pleural effusion. The patient has a history of coffee-ground emesis. Continue supportive care for status as per Gastroenterology. No acute gastrointestinal bleeding. Hemoglobin and hematocrit are stable. No urgent indication for endoscopy at this time. Continue monitoring hemoglobin and hematocrit and transfuse as necessary. Continue PPI. Advance diet as tolerated. The patient is in the Intensive Care Unit. Seen by Dr. Guzman, Infectious Disease specialist. The patient has tachycardia, sepsis, and now he has chest tube placement. History of intubation and extubation. The patient is getting Zosyn, doxycycline, and meropenem. Waiting for sensitivity Staphylococcus aureus pneumoniae. Already, patient's influenza serology is negative now. Patient's urine Legionella antigen is negative. Human immunodeficiency virus syndrome is negative. The patient is on Tamiflu. We will follow with you. Dr. Guzman discontinued the doxycycline. The patient is on Solu-Medrol. We will continue present treatment. Gastric and deep venous thrombosis prophylaxis. Repeat labs. Misty Verduzco MD MTDD
[2017-10-12] MEDS: Albuterol-Ipratrop 3 mg / 0.5 (3 ml) UD IH SCH ×4 (04:14→20:45)
[2017-10-12] MEDS: Meropenem 1g/NS 100mL IVPB 1 GM/100 ML PIGGYBACK IVPB SCH ×3 (05:44→21:08)
[2017-10-12 07:05] LABS: BASO # 0.01 K/mm3 (0.0-2.0); BASO % 0.1 % (0.0-3.0); EOS % 0.4 % (1.5-5.0); GRAN # 8.95 (1.4-6.5); GRAN % 81.8 % (50.0-68.0); HEMOGLOBIN 14.1 g/dL (14.0-18.0); LYMPH # 1.5 (1.2-3.4); LYMPH % 13.3 % (22.0-35.0); MEAN CELL VOLUME 87.9 fl (80.0-105.0); MEAN CORPUSCULAR HEMOGLOBIN 29.9 pg (25.0-35.0); MEAN CORPUSCULAR HGB CONC 34.1 g/dl (31.0-37.0); MEAN PLATELET VOLUME 10.3 fl (7.0-11.0); MONO # 0.5 (0.1-0.6); MONO % 4.4 % (1.0-6.0); RBC 4.71 10^6/uL (3.5-6.1); RED CELL DISTRIBUTION WIDTH 11.9 % (11.5-14.5); WHITE BLOOD COUNT 10.9 10^3/ul (4.5-11.0)
[2017-10-12 07:44] LABS: ALB/GLOB RATIO 0.8 (1.1-1.8); ALBUMIN 2.5 g/dL (3.0-4.8); ALT/SGPT 30 U/L (7-56); AST/SGOT 20 U/L (17-59); BLOOD UREA NITROGEN 21 mg/dL (7-21); CALCIUM 8.5 mg/dL (8.4-10.5); GFR AFRICAN-AMERICAN > 60; GFR NON-AFRICAN AMERICAN > 60; MAGNESIUM 2.1 mg/dL (1.7-2.2)
[2017-10-12 08:22] LABS: ARTERIAL BLOOD GAS HCO3 29.6 mmol/L (21-28); ARTERIAL BLOOD GAS HEMOGLOBIN 14.7 g/dL (11.7-17.4); ARTERIAL BLOOD GAS O2 CAPACITY 20.2 mL/dl (16-24); ARTERIAL BLOOD GAS O2 SAT 98.8 % (95-98); ARTERIAL BLOOD GAS PCO2 38 mm/Hg (35-45); ARTERIAL BLOOD GAS TCO2 30.8 mmol.L (22-28)
--- NOTE | 2017-10-12 09:20 | RAD ---
HISTORY: comparison COMPARISON: Comparison chest 10/11/2017. FINDINGS: In situ left-sided chest tube unchanged. . Left-sided subclavian central line with tip in the SVC. Diffuse some infiltrate changes throughout the right lung with more confluent opacity right lung base. Left lower lobe atelectasis and or infiltrate LUNGS: Bilateral mid to lower lobe infiltrates left greater than right with lesser changes on seen in the right lung. . Probable bilateral effusions. In situ left-sided chest. . No obvious pneumothorax PLEURA: As above CARDIOVASCULAR: Heart size and OSSEOUS STRUCTURES: No significant abnormalities. VISUALIZED UPPER ABDOMEN: Normal. OTHER FINDINGS: Decreased subcutaneous emphysema left chest wall IMPRESSION: In situ left-sided chest tube. . No change left subclavian central line. Diffuse bilateral infiltrates right greater than left with more confluent bibasilar opacities. No obvious pneumothorax
--- NOTE | 2017-10-12 09:24 | CP.PCM.PN ---
Subjective - Date & Time of Evaluation Date of Evaluation: 10/12/17 Time of Evaluation: 09:20 - Subjective Subjective: Surgery: Dr. Rubi Pt seen and examined. Resting comfortably in bed. Has mild discomfort at CT site. Objective - Vital Signs/Intake and Output Vital Signs (last 24 hours): Temp Pulse Resp BP Pulse Ox 98.6 F 91 H 20 133/87 96 10/12/17 04:00 10/12/17 08:30 10/12/17 08:30 10/12/17 08:00 10/12/17 08:30 Intake and Output: 10/12/17 10/12/17 06:59 18:59 Intake Total 1120 Output Total 1550 30 Balance -430 -30 - Medications Medications: Current Medications Acetaminophen (Tylenol 325mg Tab) 650 mg PO Q4H PRN PRN Reason: Fever >100.4 F Last Admin: 10/08/17 17:35 Dose: 650 mg Albuterol/Ipratropium (Duoneb 3 Mg/0.5 Mg (3 Ml) Ud) 3 ml IH [id number] [facility] Last Admin: 10/12/17 07:43 Dose: 3 ml Aspirin (Ecotrin) 81 mg PO DAILY [facility] Last Admin: 10/09/17 10:36 Dose: 81 mg Heparin Sodium (Porcine) (Heparin) 5,000 units SC Q12 [facility] PRN Reason: Protocol Last Admin: 10/11/17 21:01 Dose: 5,000 units Acetaminophen (Ofirmev) 1,000 mg in 100 mls @ 400 mls/hr IVPB Q6H [facility] Stop: 10/13/17 13:31 Last Admin: 10/12/17 08:09 Dose: 400 mls/hr Meropenem/Sodium Chloride (Meropenem 1g/Ns 100ml Ivpb) 1 gm in 100 mls @ 100 mls/hr IVPB Q8 [facility] PRN Reason: Protocol Stop: 10/20/17 22:01 Last Admin: 10/12/17 05:44 Dose: 100 mls/hr Insulin Human Lispro (Humalog Med) 0 units SC ACHS [facility] PRN Reason: Protocol Last Admin: 10/12/17 08:11 Dose: 3 units Lidocaine (Lidoderm) 1 ea TD DAILY [facility] Last Admin: 10/11/17 14:57 Dose: 1 ea Linezolid (Zyvox) 600 mg PO BID [facility] PRN Reason: Protocol Stop: 10/20/17 15:57 Last Admin: 10/12/17 07:58 Dose: Not Given Methylprednisolone (Solu-Medrol) 20 mg IVP Q12 [facility] Last Admin: 10/11/17 21:04 Dose: 20 mg Oseltamivir Phosphate (Tamiflu Cap) 75 mg PO BID [facility] PRN Reason: Protocol Stop: 10/14/17 14:16 Last Admin: 10/11/17 17:09 Dose: 75 mg Oxycodone HCl (Oxycodone Immediate Release Tab) 10 mg PO Q6H PRN PRN Reason: Pain, severe (8-10) Last Admin: 10/12/17 02:09 Dose: 10 mg Oxycodone HCl (Oxycodone Immediate Release Tab) 5 mg PO Q6H PRN PRN Reason: Pain, moderate (4-7) Last Admin: 10/11/17 23:44 Dose: 5 mg Pantoprazole Sodium (Protonix Inj) 40 mg IVP DAILY [facility] Last Admin: 10/11/17 14:57 Dose: 40 mg Prasugrel (Effient) 10 mg PO DAILY [facility] Last Admin: 10/09/17 10:36 Dose: 10 mg - Labs Labs: 10/12/17 06:20 10/12/17 06:00 PT 13.1 SECONDS (9.4-12.5) H 10/09/17 16:20 INR 1.15 (0.93-1.08) H 10/09/17 16:20 APTT 31.3 Seconds (25.1-36.5) 10/06/17 14:30 - Constitutional Appears: Non-toxic, No Acute Distress - Head Exam Head Exam: ATRAUMATIC, NORMOCEPHALIC - Eye Exam Eye Exam: EOMI - ENT Exam ENT Exam: Mucous Membranes Moist - Neck Exam Neck Exam: Full ROM - Respiratory Exam Respiratory Exam: NORMAL BREATHING PATTERN. absent: Clear to Ausculation Bilateral Additional comments: L side CT in place, no air leak, +tidling - GI/Abdominal Exam GI & Abdominal Exam: Soft. absent: Tenderness - Extremities Exam Extremities Exam: absent: Calf Tenderness, Pedal Edema - Neurological Exam Neurological Exam: Alert, Awake, Oriented x3 Assessment and Plan - Assessment and Plan (Free Text) Assessment: 47M w. L side PTX. s/p CT placement -AM CXR: PTX resolved -L CT: 30cc/12hr serosang, tidling, no air leak -will plan to d/c CT w. repeat CXR this afternoon -d.w attending Yordan PGY3
[2017-10-12] MEDS: Lidocaine 5% Patch TD SCH (09:44)
[2017-10-12] MEDS: MethylPREDNISolone 40 mg Vial IVP SCH ×2 (09:45→21:08)
--- NOTE | 2017-10-12 10:32 | PN ---
DATE: 10/12/2017 POWER PLANT ASSISTANT NOTE SUBJECTIVE: The patient is resting in bed on room air and O2 saturation is 95%. The patient has no complaints of respiratory distress. No cough. No congestion or wheezing. Chest tube is still in place on the left. Note that still on low suction. No fever, chills, nausea or vomiting. No abdominal pain. No diarrhea. PHYSICAL EXAMINATION: VITAL SIGNS: Physical exam note that his temperature is 98.6, pulse is 87, respirations are 29-inch and his BP is 128/83. SKIN: Warm and dry. HEENT: Head atraumatic, normocephalic. Eyes reactive to light. Ear, nose and throat seemed to be within normal limits. NECK: Supple. No JVD. No thyroid enlargement. No lymph nodes. HEART: Has regular rate and rhythm. Normal S1 and S2. LUNGS: Reveal decreased breath sounds on the left at the base. Occasional rhonchi. ABDOMEN: Soft, nontender. Normal bowel sounds. No organomegaly noted. GENITALIA AND RECTAL: Deferred. MUSCULOSKELETAL: No joint deformities. EXTREMITIES: Reveal trace lower extremity edema. NEUROLOGICALLY: He seemed to be grossly intact. LABORATORY DATA: As far as his laboratories, his white count is 10.9, hemoglobin is 14.1, hematocrit 41.4 with platelets of 244,000. The patient's CMP is pending. IMPRESSION: As far as my impression, the patient has spontaneous pneumothorax that was resolved with the chest tube. The patient has influenza and is being treated with Tamiflu. He is status post respiratory failure and there may be a component of pneumonia. PLAN: As far as our plan, we will continue with aggressive pulmonary toilet. The patient will get O2 via nasal cannula as needed. We will continue with aggressive therapy along with the chest tube. Note that he is on doxycycline, DuoNeb, subcu heparin, Solu-Medrol, Tamiflu and vancomycin. We will continue to treat aggressively along with the other consultants and the primary care doctor. Jasen Garcia MD
--- NOTE | 2017-10-12 13:28 | RAD ---
HISTORY: Chest tube removal COMPARISON: Comparison made with prior chest radiograph 10/12/2017 at 0549 hours FINDINGS: LUNGS: Interval removal left-sided chest tube. No definitive pneumothorax. Re- demonstrated are mild diffuse bilateral on infiltrates with more confluent opacities in the lower lobes left greater than right. PLEURA: No significant pleural effusion identified, no pneumothorax apparent. CARDIOVASCULAR: Cardiomegaly OSSEOUS STRUCTURES: No significant abnormalities. VISUALIZED UPPER ABDOMEN: Normal. OTHER FINDINGS: No change left subclavian line IMPRESSION: Status post removal left-sided chest tube. No definitive pneumothorax. No other changes. . Bilateral infiltrates with more confluent opacities in the lower lung quinones left greater than right.
--- NOTE | 2017-10-12 19:29 | PN ---
DATE: 10/12/2017 SUBJECTIVE: The patient is in bed, in no acute distress, nontoxic. PHYSICAL EXAMINATION: VITAL SIGNS: Temperature is 98, blood pressure is 130/70, respiratory rate of 24. HEENT: Unremarkable. NECK: Supple. LUNGS: Have decreased breath sounds. HEART: Normal S1, S2. ABDOMEN: Soft, nontender. No rebound. No guarding. No masses. LABORATORY DATA: Reveals white count is 10,900, hemoglobin of 14, platelets of 244. BUN of 21, creatinine of 0.5. Procalcitonin is 1.50. The patient's HIV is negative. Influenza is negative. Urine for Legionella antigen is negative. Microbiology reveals the patient has Staph aureus from the sputum which is MRSA with an PANKAJ of 1 and the pleural fluid is also Staph aureus, the sensitivity of that is pending. ASSESSMENT AND PLAN: A 47-year-old male who has admitted with sepsis with methicillin-resistant Staphylococcus aureus community-acquired pneumonia, deteriorated, was intubated, required a chest because of a pneumothorax. Also, had an effusion which also has Staph aureus, sensitivity of that is pending. The methicillin-resistant Staphylococcus aureus had grown from the sputum. The blood cultures have been negative and the patient had left-sided pneumothorax, status post chest tube placement. Plan is to discontinue the chest tube. Dr. Okeefe note is reviewed. The patient had a chest x-ray interval removal of his left-sided chest tube, no pneumothorax. Dr. Jasen Garcia's progress note is reviewed and Dr. Tao's note is reviewed. Dr. Da Silva's note is also reviewed in this patient with methicillin-resistant Staphylococcus aureus multifocal pneumonia with spontaneous pneumothorax, now on Zyvox and meropenem and Tamiflu, although the influenza was negative. We will repeat a procalcitonin. Continue Zyvox, meropenem, and Tamiflu. When final culture results are back, maybe able to discontinue the meropenem and complete the Zyvox therapy for methicillin-resistant Staphylococcus aureus pneumonia. The patient is also on Solu-Medrol. Today is day #4 of Tamiflu and the patient has been on methicillin-resistant Staphylococcus aureus therapy. Vancomycin initially switched over to Zyvox and continue the present course. The patient appears to be improving. Yonis Guzman MD [facility] # [id number]
--- NOTE | 2017-10-12 23:10 | PN ---
DATE: 10/12/2017 PULMONARY CRITICAL CARE PROGRESS NOTE REFERRING PHYSICIAN: Dr. Verduzco. SUBJECTIVE: He is lying in the bed, head at 45 degrees. Night was unremarkable. Feels better, decreased cough and decreased shortness of breath, on nasal cannula oxygen. Chest tube is removed, also A line is removed. No nausea, no vomiting, no diarrhea. No leg pain or leg swelling. OBJECTIVE: GENERAL: In no acute distress. VITAL SIGNS: Temp is 98, heart rate 94, respiratory rate is 24, pulse ox 96% on nasal cannula, blood pressure 145/80. HEENT: Moist mucous membrane. Crowded airway. Mallampati score is IV. NECK: Supple. No JVD. LUNGS: Has few crackles and scattered rhonchi. HEART: S1 and S2. ABDOMEN: Soft, nontender. No organomegaly. EXTREMITIES: There is no edema. NEUROLOGIC: Awake, alert, follows simple command. MEDICATIONS: He is on DuoNeb q. 6 hour, Ecotrin 81 mg daily, Effient 10 mg daily, heparin 5000 units subcutaneously q .12 hours, insulin coverage, lidocaine patch to the affected area, meropenem 1 g IV q. 8 hours, oxycodone immediate release 10 mg q. 6 hours p.r.n., Protonix 40 mg daily, Solu-Medrol 20 mg q. 12 hours, Tamiflu 75 mg twice a day, tramadol 30 mg q. 6 hours p.r.n., Tylenol p.r.n., and Zyvox 600 mg twice a day. LABORATORY DATA: Show hemoglobin 14.1, hematocrit 41.4, WBC 10.9, platelet count is 244. Blood gases show pH 7.50, pCO2 38, O2 115. Sodium 136, potassium 4.0, chloride 97, bicarbonate 32, BUN 21, creatinine 0.5, glucose 317, calcium 8.5, phosphorus 3.2, magnesium 2.1, AST 20, ALT 30, alkaline phosphatase is 88, and albumin is 2.5. There is Staphylococcus aureus in the sputum as well as in the pleural fluid, which is MRSA. Chest x-ray done this afternoon shows status post removal of left-sided chest tube. No definite pneumothorax, bilateral infiltrate with more opacity on the lower quinones, left greater than the right. IMPRESSION AND PLAN: Multiple-lobe pneumonia, status post pneumothorax, requiring chest tube, which has been removed, there may be component of sleep apnea syndrome, continue antibiotics, covering health-care associated organism. Intravenous and inhaled bronchodilators. Supplement oxygen. Gastric prophylaxis, deep venous thrombosis prophylaxis. Follow up ABG, chest x-ray, CBC, CMP in the morning. Thank you and we will follow with you. Laz Da Silva MD
[2017-10-13] MEDS: oxyCODONE 10 mg Immediate Release Tab PO PRN ×4 (00:04→21:20)
--- NOTE | 2017-10-13 02:05 | PN ---
DATE: SUBJECTIVE: The patient is a 47-year-old male. The patient is seen and examined at the bedside, resting on the bed in the unit comfortably, has mild discomfort at CT site. Having oxygen with nasal cannula. No headache, no fever, no chills, no swelling of the leg. No dyspnea. No rash on the skin. PHYSICAL EXAMINATION: VITAL SIGNS: Temperature 98.6, pulse 91, respiratory rate 20, blood pressure 133/87, pulse oximetry 96%. HEENT: Head: Normocephalic, atraumatic. Eyes: PERRLA. Extraocular movements intact. Conjunctivae clear. Nose patent. Mucous membranes moist. NECK: Supple. No carotid bruits, JVD, or thyromegaly. CHEST: Bilaterally symmetrical. HEART: S1 and S2 positive. LUNGS: Clear to auscultation. ABDOMEN: Soft. Bowel sounds present. No organomegaly. EXTREMITIES: No edema. No cyanosis. NEUROLOGIC: The patient is awake and alert. Moving all four extremities with no focal deficit. MEDICATIONS: Tylenol, DuoNeb, aspirin, heparin, acetaminophen, meropenem, Zyvox, Solu-Medrol, Tamiflu, oxycodone, Protonix, Effient. LABORATORY DATA: White blood cells 10.9, hemoglobin 14.1, hematocrit 41.4, and platelets 244. Sodium 136, potassium 4.0, BUN 21, creatinine 0.5, glucose 306. ASSESSMENT AND PLAN: Mr. Maldonado Rose is a 47-year-old male with hypochloremia, hyperglycemia with left-sided pleural effusion status post chest tube placement. In morning x-ray, pleural effusion resolved, history of sepsis with methicillin-resistant Staphylococcus aureus, community-acquired pneumonia, deteriorated, was intubated requiring chest tube because of pneumothorax. The patient has effusion also Staph aureus, sensitivity is still pending. Methicillin-resistant Staphylococcus aureus had grown from the sputum. Plan is to discontinue the chest tube. The patient's pneumonia is likely multifocal, now on Zyvox and meropenem and Tamiflu, all the influenza was negative. We will repeat prolactin and continue Zyvox, meropenem, and Tamiflu. When final culture results will come back, may be able to discontinue the meropenem and complete his Zyvox therapy for methicillin-resistant Staphylococcus aureus pneumonia. The patient is getting stepping dose of Solu-Medrol, today is day 4 of Tamiflu. The patient is improving slowly. Chest x-ray reviewed by me. There was a history of rapid response on the floor when the patient deteriorated. Maybe sleep apnea syndrome. Keep head elevated at 45 degrees, bronchodilators. Gastric prophylaxis, deep vein thrombosis prophylaxis. We will follow up. Misty Verduzco MD MTDD
[2017-10-13] MEDS: Albuterol-Ipratrop 3 mg / 0.5 (3 ml) UD IH SCH ×3 (02:10→14:01)
[2017-10-13] MEDS: Meropenem 1g/NS 100mL IVPB 1 GM/100 ML PIGGYBACK IVPB SCH ×3 (06:06→21:20)
[2017-10-13 07:16] LABS: BASO # 0.02 K/mm3 (0.0-2.0); BASO % 0.2 % (0.0-3.0); EOS # 0.1 (0.0-0.7); EOS % 0.7 % (1.5-5.0); GRAN # 7.94 (1.4-6.5); HEMOGLOBIN 13.5 g/dL (14.0-18.0); LYMPH # 1.8 (1.2-3.4); LYMPH % 17.7 % (22.0-35.0); MEAN CELL VOLUME 87.7 fl (80.0-105.0); MEAN CORPUSCULAR HEMOGLOBIN 29.7 pg (25.0-35.0); MEAN CORPUSCULAR HGB CONC 33.8 g/dl (31.0-37.0); MEAN PLATELET VOLUME 10.5 fl (7.0-11.0); MONO # 0.5 (0.1-0.6); MONO % 4.4 % (1.0-6.0); RBC 4.55 10^6/uL (3.5-6.1); RED CELL DISTRIBUTION WIDTH 11.9 % (11.5-14.5); WHITE BLOOD COUNT 10.3 10^3/ul (4.5-11.0)
[2017-10-13] MEDS: Insulin Lispro (humaLOG) MEDIUM Coverage SC SCH ×4 (08:17→22:18)
[2017-10-13 08:19] LABS: ALB/GLOB RATIO 0.8 (1.1-1.8); ALBUMIN 2.4 g/dL (3.0-4.8); ALT/SGPT 19 U/L (7-56); AST/SGOT 19 U/L (17-59); BLOOD UREA NITROGEN 20 mg/dL (7-21); CALCIUM 8.5 mg/dL (8.4-10.5); GFR AFRICAN-AMERICAN > 60; GFR NON-AFRICAN AMERICAN > 60; MAGNESIUM 2.1 mg/dL (1.7-2.2)
--- NOTE | 2017-10-13 08:44 | CP.PCM.PN ---
Subjective - Date & Time of Evaluation Date of Evaluation: 10/13/17 Time of Evaluation: 06:30 - Subjective Subjective: Patient seen and examined this AM. No adverse events overnight. Patient denies any SOB, chest pain has improved, denies any fevers. Chest tube was removed yesterday with no change in CXR. Patient satting well on nasal canula Objective - Vital Signs/Intake and Output Vital Signs (last 24 hours): Temp Pulse Resp BP Pulse Ox 98.6 F 67 21 146/68 93 L 10/13/17 05:48 10/13/17 06:00 10/13/17 06:00 10/13/17 06:00 10/13/17 06:00 Intake and Output: 10/13/17 10/13/17 06:59 18:59 Intake Total 200 Output Total 600 Balance -400 - Medications Medications: Current Medications Acetaminophen (Tylenol 325mg Tab) 650 mg PO Q4H PRN PRN Reason: Fever >100.4 F Last Admin: 10/08/17 17:35 Dose: 650 mg Albuterol/Ipratropium (Duoneb 3 Mg/0.5 Mg (3 Ml) Ud) 3 ml IH [id number] [facility] Last Admin: 10/13/17 07:33 Dose: 3 ml Aspirin (Ecotrin) 81 mg PO DAILY [facility] Last Admin: 10/09/17 10:36 Dose: 81 mg Heparin Sodium (Porcine) (Heparin) 5,000 units SC Q12 [facility] PRN Reason: Protocol Last Admin: 10/12/17 21:08 Dose: 5,000 units Meropenem/Sodium Chloride (Meropenem 1g/Ns 100ml Ivpb) 1 gm in 100 mls @ 100 mls/hr IVPB Q8 [facility] PRN Reason: Protocol Stop: 10/20/17 22:01 Last Admin: 10/13/17 06:06 Dose: 100 mls/hr Insulin Human Lispro (Humalog Med) 0 units SC ACHS [facility] PRN Reason: Protocol Last Admin: 10/13/17 08:17 Dose: 5 units Ketorolac Tromethamine (Toradol) 30 mg IVP Q6 PRN PRN Reason: Pain, Mild (1-3) Last Admin: 10/13/17 06:06 Dose: 30 mg Lidocaine (Lidoderm) 1 ea TD DAILY [facility] Last Admin: 10/12/17 09:44 Dose: 1 ea Linezolid (Zyvox) 600 mg PO BID [facility] PRN Reason: Protocol Stop: 10/20/17 15:57 Last Admin: 10/12/17 17:02 Dose: 600 mg Methylprednisolone (Solu-Medrol) 20 mg IVP Q12 [facility] Last Admin: 10/12/17 21:08 Dose: 20 mg Oseltamivir Phosphate (Tamiflu Cap) 75 mg PO BID [facility] Reason: Protocol Stop: 10/14/17 14:16 Last Admin: 10/12/17 17:01 Dose: Not Given Oxycodone HCl (Oxycodone Immediate Release Tab) 10 mg PO Q6H PRN PRN Reason: Pain, severe (8-10) Last Admin: 10/13/17 00:04 Dose: 10 mg Oxycodone HCl (Oxycodone Immediate Release Tab) 5 mg PO Q6H PRN PRN Reason: Pain, moderate (4-7) Last Admin: 10/11/17 23:44 Dose: 5 mg Pantoprazole Sodium (Protonix Inj) 40 mg IVP DAILY [facility] Last Admin: 10/12/17 09:46 Dose: 40 mg Prasugrel (Effient) 10 mg PO DAILY [facility] Last Admin: 10/09/17 10:36 Dose: 10 mg - Labs Labs: 10/13/17 06:05 10/13/17 06:05 PT 13.1 SECONDS (9.4-12.5) H 10/09/17 16:20 INR 1.15 (0.93-1.08) H 10/09/17 16:20 APTT 31.3 Seconds (25.1-36.5) 10/06/17 14:30 - Constitutional Appears: Non-toxic, No Acute Distress - Head Exam Head Exam: ATRAUMATIC, NORMOCEPHALIC - Eye Exam Eye Exam: Normal appearance. absent: Conjunctival injection, Scleral icterus - ENT Exam ENT Exam: Mucous Membranes Moist, Normal Oropharynx - Respiratory Exam Respiratory Exam: NORMAL BREATHING PATTERN. absent: Accessory Muscle Use, Respiratory Distress - Cardiovascular Exam Cardiovascular Exam: RRR - GI/Abdominal Exam GI & Abdominal Exam: absent: Distended - Extremities Exam Extremities Exam: absent: Calf Tenderness, Pedal Edema, Tenderness - Back Exam Additional comments: Dressing left midaxillary line clean and dry - Neurological Exam Neurological Exam: Alert, Awake, Oriented x3 - Psychiatric Exam Psychiatric exam: Normal Affect, Normal Mood - Skin Skin Exam: Dry, Intact, Normal Color, Warm Assessment and Plan - Assessment and Plan (Free Text) Assessment: 47M with left pneumothorax s/p chest tube insertion removed yesterday Plan: -No further surgical intervention indicated -Follow up with Dr. Rubi in his office 1 week after discharge for chest suture removal and follow up -Keep chest wound dressing on until seen in the office--may change daily after -Management per medical and ICU team Please reach out to the surgical team for any further questions or concerns Discussed with Dr. Greyson Antoine, PGY2
[2017-10-13] MEDS: Lidocaine 5% Patch TD SCH ×2 (09:39→09:46)
[2017-10-13] MEDS: MethylPREDNISolone 40 mg Vial IVP SCH ×2 (09:43→21:20)
--- NOTE | 2017-10-13 10:13 | PN ---
DATE: 10/10/2017 SUBJECTIVE: The patient is a 47-year-old male. The patient was seen and examined in the ICU. was sitting at the bedside. Looking a little bit better, and extubated in the morning. More awake and alert. coughing or sputum production or having chest pain with coughing. No hemoptysis, no hematuria, no hematochezia, no diarrhea. Reported to have left-sided chest tube with air leakage. PHYSICAL EXAMINATION: VITAL SIGNS: Temperature 98.1, heart rate 103, respiratory rate 20, blood pressure 130/79, pulse oximetry 92% on high-flow nasal cannula. HEENT: Head is normocephalic and atraumatic. Eyes: PERRLA. Extraocular muscles are intact. Conjunctivae are clear. Nose is patent. Mucous membranes are moist. NECK: Supple. No carotid bruits. No JVD or thyromegaly. CHEST: Bilaterally symmetrical. HEART: S1 and S2 positive. LUNGS: Clear to auscultation. ABDOMEN: Soft. Bowel sounds present. No organomegaly. EXTREMITIES: No edema. No cyanosis. NEUROLOGIC: The patient is awake and alert. Follow simple commands. MEDICATIONS: Doxycycline, DuoNeb, Ecotrin, Effient, heparin, insulin, meropenem, Percocet, Protonix, Solu-Medrol, Tamiflu, Tylenol. LABORATORY DATA: Hemoglobin 13.3, hematocrit 39.2, white blood cells 17.4, and platelets 289. Sodium 144, potassium 3.4, BUN 27, and creatinine 0.6. AST 25 and ALT 22. ASSESSMENT AND PLAN: Mr. Okeefe has multiple medical problems, multilobar pneumonia, aspiration pneumonia, lung abscess, has spontaneous pneumothorax requiring chest tube placement, status post respiratory failure, is now on high-flow oxygen cannula, sleep apnea syndrome, obesity. Length of time discussion with patient's , me and Dr. Da Silva. We talked to the together, explained to her 's condition. Continue bronchodilators. Antibiotics as per Infectious Disease. We will get CAT scan of the chest to see the improvement. Otherwise, continue present treatment. Gastrointestinal and deep venous thrombosis prophylaxis. Repeat labs. We will follow. Misty Verduzco MD MTDD
--- NOTE | 2017-10-13 10:20 | CP.PCM.PN ---
Subjective - Date & Time of Evaluation Date of Evaluation: 10/13/17 Time of Evaluation: 09:20 - Subjective Subjective: Patient is feeling better, no fevers overnight, breathing better, no nausea or diarrhea. Objective - Vital Signs/Intake and Output Vital Signs (last 24 hours): Temp Pulse Resp BP Pulse Ox 98.6 F 67 21 146/68 93 L 10/13/17 05:48 10/13/17 06:00 10/13/17 06:00 10/13/17 06:00 10/13/17 06:00 Intake and Output: 10/12/17 10/13/17 18:59 06:59 Intake Total 200 Output Total 30 600 Balance -30 -400 - Medications Medications: Current Medications Acetaminophen (Tylenol 325mg Tab) 650 mg PO Q4H PRN PRN Reason: Fever >100.4 F Last Admin: 10/08/17 17:35 Dose: 650 mg Albuterol/Ipratropium (Duoneb 3 Mg/0.5 Mg (3 Ml) Ud) 3 ml IH [id number] [facility] Last Admin: 10/13/17 02:10 Dose: Not Given Aspirin (Ecotrin) 81 mg PO DAILY [facility] Last Admin: 10/09/17 10:36 Dose: 81 mg Heparin Sodium (Porcine) (Heparin) 5,000 units SC Q12 [facility] PRN Reason: Protocol Last Admin: 10/12/17 21:08 Dose: 5,000 units Meropenem/Sodium Chloride (Meropenem 1g/Ns 100ml Ivpb) 1 gm in 100 mls @ 100 mls/hr IVPB Q8 [facility] PRN Reason: Protocol Stop: 10/20/17 22:01 Last Admin: 10/13/17 06:06 Dose: 100 mls/hr Insulin Human Lispro (Humalog Med) 0 units SC ACHS [facility] PRN Reason: Protocol Last Admin: 10/12/17 22:15 Dose: 3 units Ketorolac Tromethamine (Toradol) 30 mg IVP Q6 PRN PRN Reason: Pain, Mild (1-3) Last Admin: 10/13/17 06:06 Dose: 30 mg Lidocaine (Lidoderm) 1 ea TD DAILY [facility] Last Admin: 10/12/17 09:44 Dose: 1 ea Linezolid (Zyvox) 600 mg PO BID [facility] PRN Reason: Protocol Stop: 10/20/17 15:57 Last Admin: 10/12/17 17:02 Dose: 600 mg Methylprednisolone (Solu-Medrol) 20 mg IVP Q12 [facility] Last Admin: 10/12/17 21:08 Dose: 20 mg Oseltamivir Phosphate (Tamiflu Cap) 75 mg PO BID [facility] PR[facility] Reason: Protocol Stop: 10/14/17 14:16 Last Admin: 10/12/17 17:01 Dose: Not Given Oxycodone HCl (Oxycodone Immediate Release Tab) 10 mg PO Q6H PRN PRN Reason: Pain, severe (8-10) Last Admin: 10/13/17 00:04 Dose: 10 mg Oxycodone HCl (Oxycodone Immediate Release Tab) 5 mg PO Q6H PRN PRN Reason: Pain, moderate (4-7) Last Admin: 10/11/17 23:44 Dose: 5 mg Pantoprazole Sodium (Protonix Inj) 40 mg IVP DAILY [facility] Last Admin: 10/12/17 09:46 Dose: 40 mg Prasugrel (Effient) 10 mg PO DAILY [facility] Last Admin: 10/09/17 10:36 Dose: 10 mg - Labs Labs: 10/12/17 06:20 10/12/17 06:00 PT 13.1 SECONDS (9.4-12.5) H 10/09/17 16:20 INR 1.15 (0.93-1.08) H 10/09/17 16:20 APTT 31.3 Seconds (25.1-36.5) 10/06/17 14:30 - Constitutional Appears: Non-toxic, Chronically Ill - Head Exam Head Exam: NORMAL INSPECTION - ENT Exam ENT Exam: Mucous Membranes Moist - Neck Exam Neck Exam: absent: Meningismus - Respiratory Exam Respiratory Exam: Decreased Breath Sounds Additional comments: left chest wall dressings in place; left anterior chest wall IV catheter in place, intact and clean - Cardiovascular Exam Cardiovascular Exam: +S1, +S2 - GI/Abdominal Exam GI & Abdominal Exam: Soft. absent: Tenderness Assessment and Plan - Assessment and Plan (Free Text) Plan: Assessment Sepsis with multifocal MRSA community-acquired pneumonia, S/P pneumothorax, S/P VDRF R/O Influenza obesity with BMI 30 DM HTN CAD S/P PCI Plan On Zyvox, Merrem and Tamiflu - once the pleural fluid cx is confirmed to be MRSA as well, can d/c Merrem will continue to monitor clinically
[2017-10-13] MEDS: oxyCODONE 5 mg Immediate Release Tab PO PRN (23:05)
--- NOTE | 2017-10-14 01:04 | PN ---
DATE: 10/13/2017 PULMONARY PROGRESS NOTE REFERRING PHYSICIAN: Misty Verduzco MD SUBJECTIVE: The patient is lying in the bed, head at 45 degrees, on nasal cannula oxygen, feels much better. Decreased cough and shortness of breath, has some left-sided chest tube area discomfort. No nausea, no vomiting, no diarrhea. No leg pain or leg swelling. OBJECTIVE: GENERAL: In no acute distress. VITAL SIGNS: Temperature is 98, heart rate 89, respiratory rate is 17, blood pressure 134/84, pulse ox 96% on nasal cannula. HEENT: Moist mucous membrane. Crowded airway. Mallampati score is IV. NECK: Supple. No JVD. LUNGS: Have few crackles. Scattered rhonchi. HEART: S1 and S2. ABDOMEN: Soft, nontender. No organomegaly. EXTREMITIES: There is no edema. NEUROLOGIC: Awake, alert, follows simple command. MEDICATIONS: He is on DuoNeb q. 6 hours, Ecotrin 81 mg daily, Effient 10 mg daily, heparin 5000 units subcutaneously q. 12 hours, insulin coverage, Lidoderm patch daily, meropenem 1 g IV q. 8 hours, oxycodone immediate release 10 mg q. 6 hours p.r.n, oxycodone 5 mg q. 6 hours for moderate pain, Protonix 40 mg daily, Solu-Medrol 20 mg q. 12 hours, Tamiflu 75 mg twice a day, Toradol 30 mg q. 6 hours p.r.n., Tylenol p.r.n., Zyvox 600 mg twice a day. LABORATORY DATA: Shows hemoglobin 13.5, hematocrit 39.9, WBC 10.3, platelet count is 248. Sodium 139, potassium 2.8, chloride 99, bicarbonate 31, BUN 20, creatinine 0.6, glucose 256, calcium 8.5, phosphorus 3.2, magnesium is 2.1. AST 19, ALT 19, alkaline phosphatase is 98, albumin is 2.4. Microbiology; pleural fluid and sputum have Staph, which is MRSA. IMPRESSION AND PLAN: Multilobar pneumonia, status post spontaneous pneumothorax requiring chest tube, which has been removed, status post septic shock, may have sleep apnea syndrome. Continue antibiotics, keep head at 45 degrees. May discontinue central line. Pain management, gastric prophylaxis, deep venous thrombosis prophylaxis, out of bed to chair, sedation. Thank you and we will follow with you. Laz Da Silva MD
[2017-10-14] MEDS: oxyCODONE 10 mg Immediate Release Tab PO PRN ×4 (03:20→22:02)
[2017-10-14] MEDS: Meropenem 1g/NS 100mL IVPB 1 GM/100 ML PIGGYBACK IVPB SCH (05:35)
[2017-10-14] MEDS: oxyCODONE 5 mg Immediate Release Tab PO PRN (05:38)
[2017-10-14] MEDS: Albuterol-Ipratrop 3 mg / 0.5 (3 ml) UD IH SCH ×3 (08:20→20:10)
[2017-10-14] MEDS: Insulin Lispro (humaLOG) MEDIUM Coverage SC SCH ×4 (08:32→22:12)
--- NOTE | 2017-10-14 10:11 | CP.PCM.PN ---
Subjective - Date & Time of Evaluation Date of Evaluation: 10/14/17 Time of Evaluation: 09:10 - Subjective Subjective: Comfortable in bed, no fevers, not in distress, improved cough and breathing, not needing supplementary oxygen currently, no diarrhea. Objective - Vital Signs/Intake and Output Vital Signs (last 24 hours): Temp Pulse Resp BP Pulse Ox 98.5 F 91 H 22 132/71 93 L 10/14/17 08:00 10/14/17 08:00 10/14/17 08:00 10/14/17 08:00 10/14/17 08:00 Intake and Output: 10/14/17 10/14/17 06:59 18:59 Intake Total 200 Output Total 2900 Balance -2700 - Medications Medications: Current Medications Acetaminophen (Tylenol 325mg Tab) 650 mg PO Q4H PRN PRN Reason: Fever >100.4 F Last Admin: 10/08/17 17:35 Dose: 650 mg Albuterol/Ipratropium (Duoneb 3 Mg/0.5 Mg (3 Ml) Ud) 3 ml IH [id number] [facility] Last Admin: 10/14/17 08:20 Dose: 3 ml Aspirin (Ecotrin) 81 mg PO DAILY [facility] Last Admin: 10/09/17 10:36 Dose: 81 mg Heparin Sodium (Porcine) (Heparin) 5,000 units SC Q12 [facility] PRN Reason: Protocol Last Admin: 10/13/17 21:20 Dose: 5,000 units Meropenem/Sodium Chloride (Meropenem 1g/Ns 100ml Ivpb) 1 gm in 100 mls @ 100 mls/hr IVPB Q8 [facility] PRN Reason: Protocol Stop: 10/20/17 22:01 Last Admin: 10/14/17 05:35 Dose: 100 mls/hr Insulin Human Lispro (Humalog Med) 0 units SC ACHS [facility] PRN Reason: Protocol Last Admin: 10/14/17 08:32 Dose: 3 units Ketorolac Tromethamine (Toradol) 30 mg IVP Q6 PRN PRN Reason: Pain, Mild (1-3) Last Admin: 10/14/17 00:52 Dose: 30 mg Lidocaine (Lidoderm) 1 ea TD DAILY [facility] Last Admin: 10/13/17 09:46 Dose: Not Given Linezolid (Zyvox) 600 mg PO BID [facility] PRN Reason: Protocol Stop: 10/20/17 15:57 Last Admin: 10/13/17 17:07 Dose: 600 mg Methylprednisolone (Solu-Medrol) 20 mg IVP Q12 [facility] Last Admin: 10/13/17 21:20 Dose: 20 mg Oseltamivir Phosphate (Tamiflu Cap) 75 mg PO BID [facility] PRN Reason: Protocol Stop: 10/14/17 14:16 Last Admin: 10/13/17 17:07 Dose: Not Given Oxycodone HCl (Oxycodone Immediate Release Tab) 10 mg PO Q6H PRN PRN Reason: Pain, severe (8-10) Last Admin: 10/14/17 03:20 Dose: 10 mg Oxycodone HCl (Oxycodone Immediate Release Tab) 5 mg PO Q6H PRN PRN Reason: Pain, moderate (4-7) Last Admin: 10/14/17 05:38 Dose: 5 mg Pantoprazole Sodium (Protonix Inj) 40 mg IVP DAILY [facility] Last Admin: 10/13/17 09:39 Dose: 40 mg Prasugrel (Effient) 10 mg PO DAILY [facility] Last Admin: 10/09/17 10:36 Dose: 10 mg - Labs Labs: 10/13/17 06:05 10/13/17 06:05 PT 13.1 SECONDS (9.4-12.5) H 10/09/17 16:20 INR 1.15 (0.93-1.08) H 10/09/17 16:20 APTT 31.3 Seconds (25.1-36.5) 10/06/17 14:30 - Constitutional Appears: Non-toxic, Chronically Ill - Head Exam Head Exam: NORMAL INSPECTION - Neck Exam Neck Exam: absent: Meningismus - Respiratory Exam Respiratory Exam: Decreased Breath Sounds - Cardiovascular Exam Cardiovascular Exam: +S1, +S2 - GI/Abdominal Exam GI & Abdominal Exam: Soft. absent: Tenderness Assessment and Plan - Assessment and Plan (Free Text) Plan: Assessment Sepsis with multifocal MRSA community-acquired pneumonia, S/P pneumothorax, S/P VDRF R/O Influenza obesity with BMI 30 DM HTN CAD S/P PCI Plan On Zyvox and we can d/c Merrem and will continue Tamiflu - will need to complete at least 2 weeks of antibiotics for the MRSA pneumonia will continue to monitor clinically
[2017-10-14] MEDS: MethylPREDNISolone 40 mg Vial IVP SCH ×2 (10:41→22:03)
[2017-10-14] MEDS: Lidocaine 5% Patch TD SCH (11:00)
--- NOTE | 2017-10-14 14:15 | PN ---
DATE: 10/13/2017 SUBJECTIVE: The patient is a 47-year-old male. The patient was seen and examined at the bedside in the unit. was standing at the bedside. Also, the patient was having breakfast. Cough is getting better. Shortness of breath is getting better, getting oxygen with nasal cannula. History of chest discomfort is there, but getting better. No nausea, vomiting, or diarrhea. No fever, no chills. No headache, no dizziness, no swelling of the leg. PHYSICAL EXAMINATION: VITAL SIGNS: Temperature 98, heart rate 89, respiratory rate 17, blood pressure 137/84, pulse oxymetry 96% on nasal cannula. HEENT: Head: Normocephalic, atraumatic. Eyes: PERRLA. Extraocular muscles intact. Conjunctivae clear. Nose patent. Mucous membranes moist. NECK: Supple. No carotid bruits. No JVD or thyromegaly. CHEST: Bilaterally symmetrical, has chest tube on the left side. LUNGS: Few crackles, scattered rhonchi. HEART: S1 and S2 positive. ABDOMEN: Soft. Bowel sounds positive. No organomegaly. EXTREMITIES: No edema. No cyanosis. NEUROLOGIC: The patient is awake and alert, oriented x3, Follows simple commands. Moving all four extremities. Cranial nerves II through XII are grossly intact. MEDICATIONS: DuoNeb, Ecotrin, Effient, heparin, insulin, Lidoderm patch, meropenem, oxycodone, OxyContin, Protonix, Solu-Medrol, Tamiflu, Toradol, Tylenol, and Zyvox. LABORATORY DATA: Hemoglobin 13.5, hematocrit 39.9, white blood cell 10.3, platelets 248. Sodium 139, potassium 2.8, BUN 20, creatinine 0.6, glucose 256, AST 19, ALT 19. Microbiology of pleural fluid and sputum have Staph, which is MRSA. ASSESSMENT AND PLAN: Mr. Maldonado Castaneda has multiple medical problems. Multilobar pneumonia, status post spontaneous pneumothorax requiring chest tube, which has been removed, but area is still little bit tender, status post septic shock, sleep apnea syndrome, and obesity. Discontinue central line. Pain management, gastric and deep venous thrombosis prophylaxis, out of bed, physical therapy. Appreciated Dr. Da Silva and Dr. Akahs Hernández's input. Sepsis with multifocal methicillin-resistant Staphylococcus aureus, community-acquired pneumonia, rule out influenza, diabetes, hypertension, coronary artery disease. Patient is on Zyvox, Merrem, and Tamiflu. Continue present treatment. We will follow up. Misty Verduzco MD [facility]
--- NOTE | 2017-10-15 00:49 | PN ---
DATE: SUBJECTIVE: The patient is a 47-year-old male. The patient was seen and examined on the ICU. Chest tube is removed. That area on the chest wall is covered with dressing. No shortness of breath, nausea, vomiting, or diarrhea. No fever. No chills. No distress. The cough is better. Not needing supplemental oxygen currently. No nasal cannula. PHYSICAL EXAMINATION: VITAL SIGNS: Temperature 98.5, pulse 91, respiratory rate 20, blood pressure 122/71 , pulse oximetry is 96%. HEENT: Head: Normocephalic, atraumatic. Eyes: PERRLA. Extraocular muscles intact. Conjunctivae clear. Nose patent. NECK: Supple. No carotid bruits. No JVD or thyromegaly. CHEST: Bilaterally symmetrical. HEART: S1, S2 positive. LUNGS: Clear to auscultation. ABDOMEN: Soft. Bowel sounds present. No organomegaly. EXTREMITIES: No edema. No cyanosis. NEUROLOGIC: The patient is awake and alert. Moving all 4 extremities. No focal deficits. MEDICATIONS: DuoNeb, Ecotrin, heparin, meropenem, insulin, Toradol, Lidoderm, Zosyn, Solu-Medrol, Tamiflu, oxycodone, Protonix, and Effient. LABORATORY DATA: White blood cells 10.3, hemoglobin 13.0, hematocrit 39.9, and platelets 248. Sodium 139, potassium 3.8, BUN 20, creatinine 0.6, glucose 360. ASSESSMENT AND PLAN: Mr. Maldonado Castaneda is a 47-year-old male with anemia, sepsis, multifocal methicillin-resistant Staphylococcus aureus community-acquired pneumonia, status post pneumothorax, status post ventilator-dependent respiratory failure, rule out influenza, obesity with body mass index 30, diabetes mellitus, hypertension and coronary artery disease. Patient is on Zyvox. We can discontinue the Merrem and we will continue Tamiflu. We will need to complete at least 2 weeks for antibiotics for methicillin-resistant Staphylococcus aureus pneumoniae. History of intubation and extubation. History of rapid response. Piledriver Carpenter is on the case, ID is on the case. Surgery is on the case also. History of spontaneous pneumothorax requiring chest tube, which has been removed, history of septic shock, sleep apnea syndrome. Central line was discontinued. Gastrointestinal and deep venous thrombosis prophylaxis. Repeat labs. We will follow up. Misty Verduzco MD [facility] # [id number]
--- NOTE | 2017-10-15 01:05 | PN ---
DATE: 10/14/2017 PULMONARY PROGRESS NOTE REFERRING PHYSICIAN: Misty Verduzco MD. SUBJECTIVE: He is lying in the bed, head at 45 degrees, still has some cough and sputum production. No nausea, no vomiting. No diarrhea. No leg pain or leg swelling. OBJECTIVE: GENERAL: In no acute distress. VITAL SIGNS: Temperature is 98, heart rate 91, respiratory rate is 22, blood pressure 132/71, pulse ox 93% on nasal cannula. HEENT: Moist mucous membrane. Crowded airway. Mallampati score is IV. NECK: Supple. No JVD. LUNGS: Have a few crackles and scattered rhonchi. Left-sided chest tube area has opening with dressing. HEART: S1 and S2. ABDOMEN: Soft, nontender. No organomegaly. EXTREMITIES: No edema. NEUROLOGIC: Awake, alert, follow simple commands. MEDICATIONS: He is on DuoNeb q.6 hours, Ecotrin 81 mg daily, Effient 10 mg daily, heparin 5000 units daily, Lidoderm patch daily, oxycodone immediate release 10 mg q.6 hours p.r.n., Protonix 40 mg daily, Solu-Medrol 20 mg q.12 hours, Toradol 30 mg q.6 hours p.r.n., Tylenol p.r.n., Zyvox 600 mg twice a day. LABORATORY DATA: Shows blood sugar 315. IMPRESSION AND PLAN: Multilobar pneumonia status post spontaneous pneumothorax requiring chest tube, which has been removed; resolved septic shock; may have sleep apnea syndrome; coronary artery disease. Pulmonary point of view, doing okay. Continue antibiotics. Bronchodilator. Spoke to nursing staff and requested her to put Vaseline gauze at the chest tube area. Order chest x-ray in the morning. ICU. Physical therapy. We will restart his platelet inhibitor. Thank you and we will follow with you. Laz Da Silva MD
[2017-10-15] MEDS: Albuterol-Ipratrop 3 mg / 0.5 (3 ml) UD IH SCH ×3 (01:39→13:22)
[2017-10-15] MEDS: oxyCODONE 10 mg Immediate Release Tab PO PRN ×2 (03:15→10:04)
[2017-10-15] MEDS ORDERED: Pantoprazole 40 mg EC Tab PO SCH (07:30)
[2017-10-15] MEDS: oxyCODONE 5 mg Immediate Release Tab PO PRN ×2 (07:30→13:48)
[2017-10-15] MEDS: Insulin Lispro (humaLOG) MEDIUM Coverage SC SCH ×2 (07:49→13:47)
[2017-10-15 08:46] VITALS: BP 122/78; PULSE 72; RESP 18; TEMP 98.3; O2SAT 95
[2017-10-15] MEDS: MethylPREDNISolone 40 mg Vial IVP SCH (10:06)
[2017-10-15] MEDS: Lidocaine 5% Patch TD SCH (10:08)
--- NOTE | 2017-10-15 15:21 | PN ---
DATE: 10/15/2017 PULMONARY PROGRESS NOTE REFERRING PHYSICIAN: Misty Verduzco MD. SUBJECTIVE: He is lying in the bed, head at 45 degrees. Feels better. Decreased cough, decreased shortness of breath. No nausea. No vomiting, diarrhea, leg pain, leg swelling. OBJECTIVE: GENERAL: In no acute distress. VITAL SIGNS: Temp is 98, heart rate is 72, respiratory rate is 20, blood pressure 122/78, pulse ox 95% on room air. HEENT: Moist mucous membrane. Crowded airway. Mallampati score is 4. NECK: Supple. No JVD. LUNGS: Have a fair airflow with few rhonchi. HEART: S1 and S2. ABDOMEN: Soft and nontender. No organomegaly. EXTREMITIES: No edema. NEUROLOGICAL: Awake and alert. Follows simple command. LABORATORY DATA: Reviewed. Blood sugar this morning is 277. MEDICATIONS: He is on DuoNeb q.6 hours, Ecotrin 81 mg daily, Effient 10 mg daily, heparin 5000 units subcu q. 12 hours, insulin coverage, Lidoderm patch to affected area, oxycodone immediate release 10 mg q. 6 hours p.r.n., Protonix 40 mg daily, Solu-Medrol 20 mg q. 12 hours, Toradol is at 30 mg q. 6 hours p.r.n., Tylenol p.r.n., Zyvox 600 mg twice a day. IMPRESSION AND PLAN: Multilobe pneumonia, status post spontaneous pneumothorax requiring chest tube; status post septic shock, improved; has methicillin-resistant Staphylococcus aureus in the sputum and the pleural fluid; history of sleep apnea syndrome. Pulmonary point of view, doing well. He could be discharged home. He is cleared by Infectious Disease. He is on Zyvox, inhaled bronchodilators. Outpatient pulmonary function test and attended sleep study. Thank you and we will follow with you. Laz Da Silva MD
--- NOTE | 2017-10-15 23:30 | CP.PCM.DIS ---
<AgustinPriscillaromero Estrada - Last Filed: 10/15/17 23:27> Provider - Provider Date of Admission: 10/06/17 16:29 Attending physician: Misty Verduzco MD Primary care physician: Ivet Mitchell MD Consults: Pulmo - Dr. Avinash CALLE - Dr. Thomas RIVAS - Dr. Avery Connell Surgery - Dr. Rubi Time Spent in preparation of Discharge (in minutes): 35 Hospital Course - Lab Results Lab Results: Micro Results 10/09/17 16:20 Blood-Venous Blood Culture - Final NO GROWTH AFTER 5 DAYS 10/09/17 16:20 Blood-Venous Gram Stain - Final TEST NOT PERFORMED 10/09/17 16:00 Blood-Venous Blood Culture - Final NO GROWTH AFTER 5 DAYS 10/09/17 16:00 Blood-Venous Gram Stain - Final TEST NOT PERFORMED 10/10/17 08:48 Pleural Fluid Gram Stain - Final 10/10/17 08:48 Pleural Fluid Body Fluid Culture - Final Methicillin Resistant S Aureus 10/09/17 16:00 Sputum Gram Stain - Final 10/09/17 16:00 Sputum Sputum Culture - Final Methicillin Resistant S Aureus 10/09/17 16:39 Naris MRSA Culture (Admit) - Final MRSA NOT DETECTED 10/07/17 11:20 Urine Urine Culture - Final No Growth (<1,000 CFU/ML) Most Recent Lab Values WBC 10.3 10^3/ul (4.5-11.0) 10/13/17 06:05 RBC 4.55 10^6/uL (3.5-6.1) 10/13/17 06:05 Hgb 13.5 g/dL (14.0-18.0) L 10/13/17 06:05 Hct 39.9 % (42.0-52.0) L 10/13/17 06:05 MCV 87.7 fl (80.0-105.0) 10/13/17 06:05 MCH 29.7 pg (25.0-35.0) 10/13/17 06:05 MCHC 33.8 g/dl (31.0-37.0) 10/13/17 06:05 RDW 11.9 % (11.5-14.5) 10/13/17 06:05 Plt Count 248 10^3/uL (120.0-450.0) 10/13/17 06:05 MPV 10.5 fl (7.0-11.0) 10/13/17 06:05 Gran % 77.0 % (50.0-68.0) H 10/13/17 06:05 Lymph % (Auto) 17.7 % (22.0-35.0) L 10/13/17 06:05 Ector % (Auto) 4.4 % (1.0-6.0) 10/13/17 06:05 Eos % (Auto) 0.7 % (1.5-5.0) L 10/13/17 06:05 Baso % (Auto) 0.2 % (0.0-3.0) 10/13/17 06:05 Gran # 7.94 (1.4-6.5) H 10/13/17 06:05 Lymph # (Auto) 1.8 (1.2-3.4) 10/13/17 06:05 Ector # (Auto) 0.5 (0.1-0.6) 10/13/17 06:05 Eos # (Auto) 0.1 (0.0-0.7) 10/13/17 06:05 Baso # (Auto) 0.02 K/mm3 (0.0-2.0) 10/13/17 06:05 Neutrophils % (Manual) 86 % (50.0-70.0) H 10/06/17 14:30 Band Neutrophils % 2 % (0-2) 10/06/17 14:30 Lymphocytes % (Manual) 6 % (22.0-35.0) L 10/06/17 14:30 Atypical Lymphs % 1 % (0.0-0.0) H 10/06/17 14:30 Monocytes % (Manual) 5 % (1.0-6.0) 10/06/17 14:30 PT 13.1 SECONDS (9.4-12.5) H 10/09/17 16:20 INR 1.15 (0.93-1.08) H 10/09/17 16:20 APTT 31.3 Seconds (25.1-36.5) 10/06/17 14:30 pCO2 38 mm/Hg (35-45) 10/12/17 08:00 pO2 115.0 mm/Hg (80-100) H 10/12/17 08:00 HCO3 29.6 mmol/L (21-28) H 10/12/17 08:00 ABG pH 7.50 (7.35-7.45) H 10/12/17 08:00 ABG Total CO2 30.8 mmol.L (22-28) H 10/12/17 08:00 ABG O2 Saturation 98.8 % (95-98) H 10/12/17 08:00 ABG O2 Content 20.0 ML/dl (15-23) 10/12/17 08:00 ABG Base Excess 6.1 mmol/L (-2.0-3.0) H 10/12/17 08:00 ABG Hemoglobin 14.7 g/dL (11.7-17.4) 10/12/17 08:00 ABG Carboxyhemoglobin 1.7 % (0.5-1.5) H 10/12/17 08:00 POC ABG HHb (Measured) 1.2 % (0-5) 10/12/17 08:00 ABG Methemoglobin 1.2 % (0.0-3.0) 10/12/17 08:00 ABG O2 Capacity 20.2 mL/dl (16-24) 10/12/17 08:00 ABG Potassium 3.5 mmol/L (3.6-5.2) L 10/10/17 06:15 VBG pH 7.39 (7.32-7.43) 10/09/17 20:22 VBG pCO2 43.0 (40-60) 10/09/17 20:22 VBG HCO3 26.0 mmol/l (21-28) 10/09/17 20:22 VBG Total CO2 27.3 mmol.L (22-28) 10/09/17 20:22 VBG O2 Sat (Calc) 98.0 % (40-65) H 10/09/17 20:22 VBG Base Excess 0.8 mmol/L (0.0-2.0) 10/09/17 20:22 VBG Potassium 2.8 mmol/L (3.6-5.2) L 10/09/17 20:22 Hgb O2 Saturation 95.9 % (95.0-98.0) 10/12/17 08:00 Sodium 143.0 mmol/L (132-148) 10/10/17 06:15 Chloride 106.0 mmol/L (98-107) 10/10/17 06:15 Glucose 132 mg/dl (75-110) H 10/10/17 06:15 Lactate 1.0 mmol/L (0.7-2.1) 10/10/17 06:15 Mechanical Rate 30 10/09/17 21:57 FiO2 50.0 % 10/12/17 08:00 Tidal Volume 350 10/09/17 21:57 PEEP 15 10/09/17 21:57 Inspiratory BiPAP 16 10/09/17 13:19 Sodium 139 mmol/L (132-148) 10/13/17 06:05 Potassium 3.8 mmol/L (3.6-5.0) 10/13/17 06:05 Chloride 99 mmol/L (98-107) 10/13/17 06:05 Carbon Dioxide 31 mmol/L (21-33) 10/13/17 06:05 Anion Gap 12 (10-20) 10/13/17 06:05 BUN 20 mg/dL (7-21) 10/13/17 06:05 Creatinine 0.6 mg/dl (0.8-1.5) L 10/13/17 06:05 Est GFR ( Amer) > 60 10/13/17 06:05 Est GFR (Non-Af Amer) > 60 10/13/17 06:05 POC Glucose (mg/dL) 277 mg/dL (65-110) H 10/15/17 11:07 Random Glucose 360 mg/dL (70-110) H* 10/13/17 06:05 Calcium 8.5 mg/dL (8.4-10.5) 10/13/17 06:05 Phosphorus 3.2 mg/dL (2.5-4.5) 10/13/17 06:05 Magnesium 2.1 mg/dL (1.7-2.2) 10/13/17 06:05 Total Bilirubin 0.3 mg/dL (0.2-1.3) 10/13/17 06:05 AST 19 U/L (17-59) 10/13/17 06:05 ALT 19 U/L (7-56) 02/19/18 06:05 Alkaline Phosphatase 98 U/L (38-126) 10/13/17 06:05 Total Creatine Kinase < 20 U/L (35-230) L 10/06/17 14:30 Troponin I < 0.01 ng/mL 10/09/17 13:19 NT-Pro-B Natriuret Pep 199 pg/mL (0-450) 10/06/17 14:30 Total Protein 5.5 g/dL (5.8-8.3) L 10/13/17 06:05 Albumin 2.4 g/dL (3.0-4.8) L 10/13/17 06:05 Globulin 3.1 gm/dL 10/13/17 06:05 Albumin/Globulin Ratio 0.8 (1.1-1.8) L 10/13/17 06:05 Procalcitonin 0.17 NG/ML (0.19-0.49) L 10/12/17 14:28 Arterial Blood Potassium 3.5 mmol/L (3.6-5.2) L 10/10/17 06:15 Venous Blood Potassium 2.8 mmol/L (3.6-5.2) L 10/09/17 20:22 HIV 1&2 Ag/Ab, 4th Gen Nonreactive (Nonreactive) 10/07/17 06:30 Influenza Typ A,B (EIA) Negative for flu a/b (NEGATIVE) 10/06/17 17:00 Ur L.pneumophila Ag Negative (NEGATIVE) 10/10/17 03:45 Ur Strep pneumoniae Ag Not detected 10/09/17 16:00 - Hospital Course Hospital Course: 47 yr female w/ history of DM II, HTN, MT, & CAD x7 stents. Admitted to [facility] for SOB following diagnosis of pneumonia diagnosed in [facility] [place] by CT scan. Pt found to be septic in ED. When sent to ICU, pt went into respiratory failure with spontaneous pneumothorax and treated with mereopenem, vancomycin, doxycycline. On 10/12 L chest tube removed. Pt is discharge on zyvox and cleared to follow up outpatient. - Date & Time of H&P Date of H&P: 10/15/17 Time of H&P: 11:00 Discharge Exam - Head Exam Head Exam: NORMAL INSPECTION - Eye Exam Eye Exam: EOMI, Normal appearance, PERRL Pupil Exam: NORMAL ACCOMODATION, PERRL - ENT Exam ENT Exam: Mucous Membranes Moist - Neck Exam Neck exam: Full Rom - Respiratory Exam Respiratory Exam: Clear to PA & Lateral, NORMAL BREATHING PATTERN Additional comments: L chest dressing C/D/I - Cardiovascular Exam Cardiovascular Exam: +S1, +S2 - GI/Abdominal Exam GI & Abdominal Exam: Normal Bowel Sounds - Rectal Exam Rectal Exam: NORMAL INSPECTION - Neurological Exam Neurological exam: Alert, CN II-XII Intact, Normal Gait, Oriented x3, Reflexes Normal - Psychiatric Exam Psychiatric exam: Normal Affect, Normal Mood - Skin Skin Exam: Dry, Intact, Normal Color, Warm Discharge Plan - Follow Up Plan Condition: FAIR Disposition: HOME/ ROUTINE Instructions: Sepsis in Adults, Pneumonia, Adult (DC), Pneumothorax (Collapsed Lung) (DC), Chest Tubes Additional Instructions: TAKE ALL MEDICATIONS PRESCRIBED. FOLLOW UP WITH YOUR DOCTOR IN 1 WEEK. IF YOU ARE EXPERIENCING SHORTNESS OF BREATH AND/OR CHEST PAIN, GO TO THE ER. Referrals: Ivet Mitchell MD [Primary Care Provider] - <Misty Verduzco - Last Filed: 10/16/17 10:23> Provider - Provider Date of Admission: 10/06/17 16:29 Attending physician: Misty Verduzco MD Primary care physician: Ivet Mitchell MD Hospital Course - Lab Results Lab Results: Micro Results 10/09/17 16:20 Blood-Venous Blood Culture - Final NO GROWTH AFTER 5 DAYS 10/09/17 16:20 Blood-Venous Gram Stain - Final TEST NOT PERFORMED 10/09/17 16:00 Blood-Venous Blood Culture - Final NO GROWTH AFTER 5 DAYS 10/09/17 16:00 Blood-Venous Gram Stain - Final TEST NOT PERFORMED 10/10/17 08:48 Pleural Fluid Gram Stain - Final 10/10/17 08:48 Pleural Fluid Body Fluid Culture - Final Methicillin Resistant S Aureus 10/09/17 16:00 Sputum Gram Stain - Final 10/09/17 16:00 Sputum Sputum Culture - Final Methicillin Resistant S Aureus 10/09/17 16:39 Naris MRSA Culture (Admit) - Final MRSA NOT DETECTED 10/07/17 11:20 Urine Urine Culture - Final No Growth (<1,000 CFU/ML) Most Recent Lab Values WBC 10.3 10^3/ul (4.5-11.0) 10/13/17 06:05 RBC 4.55 10^6/uL (3.5-6.1) 10/13/17 06:05 Hgb 13.5 g/dL (14.0-18.0) L 10/13/17 06:05 Hct 39.9 % (42.0-52.0) L 10/13/17 06:05 MCV 87.7 fl (80.0-105.0) 10/13/17 06:05 MCH 29.7 pg (25.0-35.0) 10/13/17 06:05 MCHC 33.8 g/dl (31.0-37.0) 10/13/17 06:05 RDW 11.9 % (11.5-14.5) 10/13/17 06:05 Plt Count 248 10^3/uL (120.0-450.0) 10/13/17 06:05 MPV 10.5 fl (7.0-11.0) 10/13/17 06:05 Gran % 77.0 % (50.0-68.0) H 10/13/17 06:05 Lymph % (Auto) 17.7 % (22.0-35.0) L 10/13/17 06:05 Ector % (Auto) 4.4 % (1.0-6.0) 10/13/17 06:05 Eos % (Auto) 0.7 % (1.5-5.0) L 10/13/17 06:05 Baso % (Auto) 0.2 % (0.0-3.0) 10/13/17 06:05 Gran # 7.94 (1.4-6.5) H 10/13/17 06:05 Lymph # (Auto) 1.8 (1.2-3.4) 10/13/17 06:05 Ector # (Auto) 0.5 (0.1-0.6) 10/13/17 06:05 Eos # (Auto) 0.1 (0.0-0.7) 10/13/17 06:05 Baso # (Auto) 0.02 K/mm3 (0.0-2.0) 10/13/17 06:05 Neutrophils % (Manual) 86 % (50.0-70.0) H 10/06/17 14:30 Band Neutrophils % 2 % (0-2) 10/06/17 14:30 Lymphocytes % (Manual) 6 % (22.0-35.0) L 10/06/17 14:30 Atypical Lymphs % 1 % (0.0-0.0) H 10/06/17 14:30 Monocytes % (Manual) 5 % (1.0-6.0) 10/06/17 14:30 PT 13.1 SECONDS (9.4-12.5) H 10/09/17 16:20 INR 1.15 (0.93-1.08) H 10/09/17 16:20 APTT 31.3 Seconds (25.1-36.5) 10/06/17 14:30 pCO2 38 mm/Hg (35-45) 10/12/17 08:00 pO2 115.0 mm/Hg (80-100) H 10/12/17 08:00 HCO3 29.6 mmol/L (21-28) H 10/12/17 08:00 ABG pH 7.50 (7.35-7.45) H 10/12/17 08:00 ABG Total CO2 30.8 mmol.L (22-28) H 10/12/17 08:00 ABG O2 Saturation 98.8 % (95-98) H 10/12/17 08:00 ABG O2 Content 20.0 ML/dl (15-23) 10/12/17 08:00 ABG Base Excess 6.1 mmol/L (-2.0-3.0) H 10/12/17 08:00 ABG Hemoglobin 14.7 g/dL (11.7-17.4) 10/12/17 08:00 ABG Carboxyhemoglobin 1.7 % (0.5-1.5) H 10/12/17 08:00 POC ABG HHb (Measured) 1.2 % (0-5) 10/12/17 08:00 ABG Methemoglobin 1.2 % (0.0-3.0) 10/12/17 08:00 ABG O2 Capacity 20.2 mL/dl (16-24) 10/12/17 08:00 ABG Potassium 3.5 mmol/L (3.6-5.2) L 10/10/17 06:15 VBG pH 7.39 (7.32-7.43) 10/09/17 20:22 VBG pCO2 43.0 (40-60) 10/09/17 20:22 VBG HCO3 26.0 mmol/l (21-28) 10/09/17 20:22 VBG Total CO2 27.3 mmol.L (22-28) 10/09/17 20:22 VBG O2 Sat (Calc) 98.0 % (40-65) H 10/09/17 20:22 VBG Base Excess 0.8 mmol/L (0.0-2.0) 10/09/17 20:22 VBG Potassium 2.8 mmol/L (3.6-5.2) L 10/09/17 20:22 Hgb O2 Saturation 95.9 % (95.0-98.0) 10/12/17 08:00 Sodium 143.0 mmol/L (132-148) 10/10/17 06:15 Chloride 106.0 mmol/L (98-107) 10/10/17 06:15 Glucose 132 mg/dl (75-110) H 10/10/17 06:15 Lactate 1.0 mmol/L (0.7-2.1) 10/10/17 06:15 Mechanical Rate 30 10/09/17 21:57 FiO2 50.0 % 10/12/17 08:00 Tidal Volume 350 10/09/17 21:57 PEEP 15 10/09/17 21:57 Inspiratory BiPAP 16 10/09/17 13:19 Sodium 139 mmol/L (132-148) 10/13/17 06:05 Potassium 3.8 mmol/L (3.6-5.0) 10/13/17 06:05 Chloride 99 mmol/L (98-107) 10/13/17 06:05 Carbon Dioxide 31 mmol/L (21-33) 10/13/17 06:05 Anion Gap 12 (10-20) 10/13/17 06:05 BUN 20 mg/dL (7-21) 10/13/17 06:05 Creatinine 0.6 mg/dl (0.8-1.5) L 10/13/17 06:05 Est GFR ( Amer) > 60 10/13/17 06:05 Est GFR (Non-Af Amer) > 60 10/13/17 06:05 POC Glucose (mg/dL) 277 mg/dL (65-110) H 10/15/17 11:07 Random Glucose 360 mg/dL (70-110) H* 10/13/17 06:05 Calcium 8.5 mg/dL (8.4-10.5) 10/13/17 06:05 Phosphorus 3.2 mg/dL (2.5-4.5) 10/13/17 06:05 Magnesium 2.1 mg/dL (1.7-2.2) 10/13/17 06:05 Total Bilirubin 0.3 mg/dL (0.2-1.3) 10/13/17 06:05 AST 19 U/L (17-59) 10/13/17 06:05 ALT 19 U/L (7-56) 10/13/17 06:05 Alkaline Phosphatase 98 U/L (38-126) 10/13/17 06:05 Total Creatine Kinase < 20 U/L (35-230) L 10/06/17 14:30 Troponin I < 0.01 ng/mL 10/09/17 13:19 NT-Pro-B Natriuret Pep 199 pg/mL (0-450) 10/06/17 14:30 Total Protein 5.5 g/dL (5.8-8.3) L 10/13/17 06:05 Albumin 2.4 g/dL (3.0-4.8) L 10/13/17 06:05 Globulin 3.1 gm/dL 10/13/17 06:05 Albumin/Globulin Ratio 0.8 (1.1-1.8) L 10/13/17 06:05 Procalcitonin 0.17 NG/ML (0.19-0.49) L 10/12/17 14:28 Arterial Blood Potassium 3.5 mmol/L (3.6-5.2) L 10/10/17 06:15 Venous Blood Potassium 2.8 mmol/L (3.6-5.2) L 10/09/17 20:22 HIV 1&2 Ag/Ab, 4th Gen Nonreactive (Nonreactive) 10/07/17 06:30 Influenza Typ A,B (EIA) Negative for flu a/b (NEGATIVE) 10/06/17 17:00 Ur L.pneumophila Ag Negative (NEGATIVE) 10/10/17 03:45 Ur Strep pneumoniae Ag Not detected 10/09/17 16:00 - Hospital Course Hospital Course: pt is seen and examined at bed side , looking comfortable , agreed all above , chart , labs and meds noted , pt had complected hospital stay . happy to go home , meds pres. given by press worker helper , with f/u pcp and field map editor , d/d with [employer] Specialist and hospital staff , will f/u
== END 2017-10-15 16:27 | disposition home or self-care (01) | DRG 871 ==
LOC: ED 13:56 → ERH 16:29 → 3RSO 21:13 → ICU 10-09 14:38 → 3RNO 10-14 19:44
PROVIDERS: ADMIT Internal Medicine; ATTEND Internal Medicine
PROC: 3E0F7GC Introduction of Other Therapeutic Substance into Respiratory Tract, Via Natural or Artificial Opening (ICD-10-PCS; 2017-10-07)
PROC: 5A1945Z Respiratory Ventilation, 24-96 Consecutive Hours (ICD-10-PCS; principal; 2017-10-09)
PROC: 0BH17EZ Insertion of Endotracheal Airway into Trachea, Via Natural or Artificial Opening (ICD-10-PCS; 2017-10-09)
PROC: 0CJS8ZZ Inspection of Larynx, Via Natural or Artificial Opening Endoscopic (ICD-10-PCS; 2017-10-09)
PROC: 0W9B30Z Drainage of Left Pleural Cavity with Drainage Device, Percutaneous Approach (ICD-10-PCS; 2017-10-09)
PROC: 5A09357 Assistance with Respiratory Ventilation, Less than 24 Consecutive Hours, Continuous Positive Airway Pressure (ICD-10-PCS; 2017-10-09)
PROC: 05H633Z Insertion of Infusion Device into Left Subclavian Vein, Percutaneous Approach (ICD-10-PCS; 2017-10-09)
PROC: 03HB33Z Insertion of Infusion Device into Right Radial Artery, Percutaneous Approach (ICD-10-PCS; 2017-10-09)
DX: A41.02 Sepsis due to Methicillin resistant Staphylococcus aureus (principal); J15.212 Pneumonia due to Methicillin resistant Staphylococcus aureus; J69.0 Pneumonitis due to inhalation of food and vomit; J85.1 Abscess of lung with pneumonia; J96.01 Acute respiratory failure with hypoxia; R65.21 Severe sepsis with septic shock; J91.8 Pleural effusion in other conditions classified elsewhere; J93.0 Spontaneous tension pneumothorax; J44.0 Chronic obstructive pulmonary disease with (acute) lower respiratory infection; E11.65 Type 2 diabetes mellitus with hyperglycemia; I10 Essential (primary) hypertension; I25.10 Atherosclerotic heart disease of native coronary artery without angina pectoris; E78.00 Pure hypercholesterolemia, unspecified; G47.30 Sleep apnea, unspecified; D64.9 Anemia, unspecified; E66.9 Obesity, unspecified; Z68.30 Body mass index [BMI] 30.0-30.9, adult; F17.210 Nicotine dependence, cigarettes, uncomplicated; I25.2 Old myocardial infarction; Z95.5 Presence of coronary angioplasty implant and graft

== ENCOUNTER 2017-11-08 18:52 | Inpatient (IN) | payer OTHER ==
[2017-11-08 18:52] VITALS: BMI 28.1
--- NOTE | 2017-11-08 19:16 | ED PDOC ---
Arrival/HPI - General Chief Complaint: Shortness Of Breath Time Seen by Provider: 11/08/17 18:55 Historian: Patient - History of Present Illness Narrative History of Present Illness (Text): 11/08/17 19:10 47yo male with Past medical history of hypertension, Diabetes, [place] with 7 cardiac stent present with complaint of left sided chest pain, greenish productive cough, shortness of breath secondary to the pain x days. Patient notes that he was seen in Emergency department in September for this same pain and at that time was treated for Pneumonia and pleural effusion. He states the pain improved after he had Thoracentesis. The pain improved s/p the thoracentesis and then became worse again few days ago. He notes that he also started having productive cough recently and not sure if it caused the pain to be worse. He notes that he was on Oxycodone for this pain by his PMD, but don't have any more at home. He denies dizziness, nausea, vomiting, diarrhea, sick contact, travel, diaphoresis, LE edema, any other complaint. Past Medical History - Provider Review Nursing Documentation Reviewed: Yes - Infectious Disease Hx of Infectious Diseases: None - Cardiac Hx Cardiac Disorders: Yes Hx Hypertension: Yes - Pulmonary Hx Pneumonia: Yes Other/Comment: lung collapsed - Endocrine/Metabolic Hx Diabetes Mellitus Type 2: Yes - Musculoskeletal/Rheumatological Hx Falls: No - Psychiatric Hx Psychophysiologic Disorder: Yes Hx Substance Use: No Other/Comment: Etoh (socially) - Surgical History Hx Coronary Stent: Yes - Anesthesia Hx Anesthesia: No Hx Anesthesia Reactions: No Hx Malignant Hyperthermia: No Family/Social History - Physician Review Nursing Documentation Reviewed: Yes Family/Social History: Unknown Family HX Smoking Status: Current Some Days Smoker Hx Alcohol Use: Yes (socially) Frequency of alcohol use: Socially Hx Substance Use: No Allergies/Home Meds Allergies/Adverse Reactions: Allergies No Known Allergies Allergy (Verified 11/08/17 19:02) Home Medications: Home Meds Medication Instructions Recorded Confirmed Aspirin [Ecotrin] 81 mg PO DAILY 05/23/17 11/08/17 Dapagliflozin/Metformin HCl 1 each PO DAILY 05/23/17 11/08/17 [Xigduo Xr 5 mg-1,000 mg Tablet] Lisinopril [Zestril] 5 mg PO DAILY 05/23/17 11/08/17 Metoprolol Tartrate [Lopressor] 25 mg PO BID 05/23/17 11/08/17 Prasugrel [Effient] 10 mg PO DAILY 05/23/17 11/08/17 SITagliptin [Januvia] 100 mg PO DAILY 05/23/17 11/08/17 Review of Systems - Physician Review All systems were reviewed & negative as marked: Yes - Review of Systems Constitutional: Normal Eyes: Normal ENT: Normal Respiratory: SOB, Cough, Sputum. absent: Wheezing Cardiovascular: Chest Pain. absent: Palpitations, Edema, Calf Pain, CORREA Gastrointestinal: Normal Genitourinary Male: Normal Musculoskeletal: Normal Skin: Normal Neurological: Normal Endocrine: Normal Hemo/Lymphatic: Normal Psychiatric: Normal Physical Exam Vital Signs Reviewed: Yes Vital Signs Temp Pulse Resp BP Pulse Ox 11/08/17 20:26 94 H 18 112/71 97 11/08/17 19:32 93 H 18 118/66 97 11/08/17 19:03 22 99 11/08/17 18:56 98.7 F 91 H 22 115/79 99 Temperature: Afebrile Blood Pressure: Normal Pulse: Regular Respiratory Rate: Normal Appearance: Positive for: Well-Appearing, Non-Toxic, Comfortable Pain Distress: None Mental Status: Positive for: Alert and Oriented X 3 - Systems Exam Head: Present: Atraumatic, Normocephalic Pupils: Present: PERRL Extroacular Muscles: Present: EOMI Conjunctiva: Present: Normal Mouth: Present: Moist Mucous Membranes Neck: Present: Normal Range of Motion Respiratory/Chest: Present: Clear to Auscultation, Good Air Exchange, Decreased Breath Sounds (Left base). No: Respiratory Distress, Accessory Muscle Use, Wheezes, Rales, Retracting, Rhonchi Cardiovascular: Present: Regular Rate and Rhythm, Normal S1, S2. No: Murmurs Abdomen: Present: Normal Bowel Sounds. No: Tenderness, Distention, Peritoneal Signs Back: Present: Normal Inspection Upper Extremity: Present: Normal Inspection. No: Cyanosis, Edema Lower Extremity: Present: Normal Inspection. No: Edema Neurological: Present: GCS=15, CN II-XII Intact, Speech Normal Skin: Present: Warm, Dry, Normal Color. No: Rashes Psychiatric: Present: Alert, Oriented x 3, Normal Insight, Normal Concentration Medical Decision Making ED Course and Treatment: 11/09/17 02:03 47yo male in Emergency department for left sided chest pain with shortness of breath. He was hemodynamically stable in Emergency department. His pain was controlled in Emergency department with medication. His CE was negative. Chest X-ray IMPRESSION: - No significant change compared to chest radiographs done 8 days prior. - Small left pleural effusion versus an infiltrate in the left lung base. - Probable chronic pleural and parenchymal scarring in the left lung. - See above for remaining findings. EKG NSR @[address] changes Secondary to pt's cardiac history and multiple co morbidities he will benefit with admission of further observation and treatment Blood culture is pending He was placed on Levaquin for Pneumonia ASA given Case was DW Dr. Arteaga who is covering [facility] and he accepted pt for admission. He requested Drs. Toribio and Avinash consult and it was placed. - Lab Interpretations Lab Results: 11/08/17 19:20 11/08/17 19:20 Lab Results 11/08/17 19:20: Sodium 137, Chloride 97 L, Potassium 4.0, Carbon Dioxide 30, Anion Gap 15, BUN 16, Creatinine 0.7 L, Est GFR ( Amer) > 60, Est GFR ( Non-Af Amer) > 60, Random Glucose 172 H, Calcium 9.9, Phosphorus 4.4, Magnesium 1.8, Total Bilirubin 0.4, AST 36, ALT 37, Alkaline Phosphatase 105, Troponin I < 0.01, NT-Pro-B Natriuret Pep 37.3, Total Protein 7.6, Albumin 3.8, Globulin 3.8, Albumin/Globulin Ratio 1.0 L 11/08/17 19:20: pO2 40, VBG pH 7.33, VBG pCO2 59.0, VBG HCO3 31.1 H, VBG Total CO2 32.9 H, VBG O2 Sat (Calc) 79.2 H, VBG Base Excess 3.6 H, VBG Potassium 4.0, Sodium 136.0, Chloride 100.0, Glucose 165 H, Lactate 1.5, FiO2 21.0, Venous Blood Potassium 4.0 11/08/17 19:20: PT 13.0 H, INR 1.14 H, APTT 29.8 11/08/17 19:20: WBC 12.5 H D, RBC 4.84, Hgb 14.2, Hct 41.0 L, MCV 84.7 D, MCH 29.3, MCHC 34.6, RDW 12.8, Plt Count 383, MPV 9.1, Gran % 69.2 H, Lymph % (Auto ) 23.0, [place] % (Auto) 7.0 H, Eos % (Auto) 0.6 L, Baso % (Auto) 0.2, Gran # 8.65 H, Lymph # (Auto) 2.9, [place] # (Auto) 0.9 H, Eos # (Auto) 0.1, Baso # (Auto) 0.03 - RAD Interpretation Radiology Orders: 11/08/17 19:09 CHEST PORTABLE [RAD] Stat - Medication Orders Current Medication Orders: Acetaminophen (Tylenol 325mg Tab) 650 mg PO Q6H PRN PRN Reason: Pain, Mild (1-3) Albuterol/Ipratropium (Duoneb 3 Mg/0.5 Mg (3 Ml) Ud) 3 ml IH TIDRESP [place] Albuterol/Ipratropium (Duoneb 3 Mg/0.5 Mg (3 Ml) Ud) 3 ml IH [id number] PRN PRN Reason: Shortness of Breath Last Admin: 11/09/17 01:00 Dose: 3 ml Aspirin (Aspirin Chewable) 81 mg PO DAILY [facility] Insulin Human Regular (Humulin R Low) 0 units SC ACHS [place] PRN Reason: Protocol Lisinopril (Zestril) 5 mg PO DAILY [facility] Metoprolol Tartrate (Lopressor) 25 mg PO BID [facility] Oxycodone HCl (Oxycodone Immediate Release Tab) 5 mg PO Q6H PRN PRN Reason: Pain, moderate (4-7) Last Admin: 11/09/17 00:24 Dose: 5 mg [facility] Pain Assessment Document 11/09/17 00:24 OSUJB (Rec: 11/09/17 00:25 OSB [id number]) Pain Reassessment Is this a pain reassessment? Yes Sleep Is patient sleeping during reassessment? No Presence of Pain Presence of Pain Yes Location Left, Right or Bilateral Left Pain Location Body Site Chest Description Description Intermittent Pain Behavior Facial Grimacing Alleviating Factors/Management Medication Techniques Alleviating Factors Medication Prasugrel (Effient) 10 mg PO DAILY [facility] Sitagliptin Phosphate (Januvia) 100 mg PO DAILY [facility] Discontinued Medications Aspirin (Aspirin) 325 mg PO STAT STA Stop: 11/08/17 21:14 Last Admin: 11/08/17 21:27 Dose: 325 mg Levofloxacin/Dextrose (Levaquin 750mg) 750 mg in 150 mls @ 100 mls/hr IVPB STAT STA PRN Reason: Protocol Stop: 11/08/17 22:41 Last Admin: 11/08/17 21:27 Dose: 100 mls/hr eMAR Start Stop Document 11/08/17 21:27 IT (Rec: 11/08/17 21:27 IT [id number]) Intravenous Solution Start Date 11/08/17 Start Time 21:27 Oxycodone/Acetaminophen (Percocet 5/325 Mg Tab) 1 tab PO STAT STA Stop: 11/08/17 19:28 Last Admin: 11/08/17 19:35 Dose: 1 tab MAR Pain Assessment Document 11/08/17 19:35 IT (Rec: 11/08/17 19:35 IT [id number]) Pain Reassessment Is this a pain reassessment? No Sleep Is patient sleeping during reassessment? No Presence of Pain Presence of Pain Yes Pain Scale Used Pain Scale Used Numeric Disposition/Present on Arrival - Present on Arrival Any Indicators Present on Arrival: No History of DVT/PE: No History of Uncontrolled Diabetes: No Urinary Catheter: No History of Decub. Ulcer: No History Surgical Site Infection Following: None - Disposition Have Diagnosis and Disposition been Completed?: Yes Diagnosis: Pneumonia, Chest pain, Pleural effusion Disposition: HOSPITALIZED Disposition Time: 21:10 Patient Plan: Admission Patient Problems: Current Active Problems Problem Status Onset Chest pain Acute Pleural effusion Acute Pneumonia Acute Condition: FAIR
[2017-11-08] MEDS ORDERED: Oxycodone/Acetaminophen 5/325 mg Tab PO STA (19:27)
[2017-11-08 19:31] LABS: BASO # 0.03 K/mm3 (0.0-2.0); BASO % 0.2 % (0.0-3.0); EOS # 0.1 (0.0-0.7); EOS % 0.6 % (1.5-5.0); GRAN # 8.65 (1.4-6.5); GRAN % 69.2 % (50.0-68.0); HEMOGLOBIN 14.2 g/dL (14.0-18.0); LYMPH # 2.9 (1.2-3.4); MEAN CELL VOLUME 84.7 fl (80.0-105.0); MEAN CORPUSCULAR HEMOGLOBIN 29.3 pg (25.0-35.0); MEAN CORPUSCULAR HGB CONC 34.6 g/dl (31.0-37.0); MEAN PLATELET VOLUME 9.1 fl (7.0-11.0); MONO # 0.9 (0.1-0.6); RBC 4.84 10^6/uL (3.5-6.1); RED CELL DISTRIBUTION WIDTH 12.8 % (11.5-14.5); WHITE BLOOD COUNT 12.5 10^3/ul (4.5-11.0)
[2017-11-08 19:34] LABS: VENOUS BLOOD GAS BASE EXCESS 3.6 mmol/L (0.0-2.0); VENOUS BLOOD GAS PO2 40 mm/Hg (30-55); VENOUS BLOOD PH 7.33 (7.32-7.43)
[2017-11-08 19:41] LABS: INR 1.14 (0.93-1.08); PARTIAL THROMBOPLASTIN TIME 29.8 Seconds (25.1-36.5)
[2017-11-08 19:54] LABS: ALBUMIN 3.8 g/dL (3.0-4.8); ALT/SGPT 37 U/L (7-56); AST/SGOT 36 U/L (17-59); BLOOD UREA NITROGEN 16 mg/dL (7-21); CALCIUM 9.9 mg/dL (8.4-10.5); GFR AFRICAN-AMERICAN > 60; GFR NON-AFRICAN AMERICAN > 60
[2017-11-08 19:56] LABS: B-TYPE NATRIURETIC PEPTIDE 37.3 pg/mL (0-450); TROPONIN I < 0.01 ng/mL
[2017-11-08] MEDS ORDERED: levoFLOXacin 750 mg in D5W 750 MG/150 ML BAG IVPB STA (21:12)
--- NOTE | 2017-11-08 21:13 | RAD ---
EXAM: XR Chest, 1 View EXAM DATE/TIME: 11/08/2017 7:09 PM CLINICAL HISTORY: 47 years old, male; Condition or disease; Other: Sepsis; Patient HX: SOB, sepsis; Additional info: Sepsis patient TECHNIQUE: Frontal view of the chest. COMPARISON: Prior chest radiographs of 2017-10-31 FINDINGS: LUNGS: Persistent dense opacity in the left lung base, suspicious for a small left pleural effusion versus an infiltrate. Stable appearance of multiple linear densities in the left lower lung, with an appearance suggestive of chronic scarring. Right lung appears clear. PLEURAL SPACE: See above. Stable appearance of pleural density along the left lung laterally, suspicious for chronic pleural thickening/scarring. No pneumothorax is seen. HEART: Heart does not appear significantly enlarged. MEDIASTINUM: Mediastinal contour is within normal limits. BONES/JOINTS: No acute bony abnormality visualized. OTHER FINDINGS: Overall, no significant interval change is seen since the prior exam. IMPRESSION: - No significant change compared to chest radiographs done 8 days prior. - Small left pleural effusion versus an infiltrate in the left lung base. - Probable chronic pleural and parenchymal scarring in the left lung. - See above for remaining findings.
[2017-11-09] MEDS: oxyCODONE 5 mg Immediate Release Tab PO PRN ×4 (00:24→19:52)
[2017-11-09] MEDS ORDERED: Albuterol-Ipratrop 3 mg / 0.5 (3 ml) UD IH PRN (00:35)
[2017-11-09] MEDS ORDERED: Albuterol-Ipratrop 3 mg / 0.5 (3 ml) UD IH SCH (03:30)
[2017-11-09] MEDS: Albuterol-Ipratrop 3 mg / 0.5 (3 ml) UD IH SCH ×3 (07:58→19:59)
[2017-11-09] MEDS: Insulin Reg-LOW-Coverage SC SCH ×3 (09:22→22:05)
[2017-11-09] MEDS: Promethazine 6.25 MG/5 ML CUP PO SCH ×3 (09:31→17:38)
[2017-11-09] MEDS: Meropenem IV 1 gm in NS 50 ML IVPB SCH ×2 (14:50→21:21)
[2017-11-09] MEDS: Vancomycin 1gm in NS 250ml 1 GM/250 ML BAG IVPB SCH (14:51)
--- NOTE | 2017-11-09 16:32 | CT ---
PROCEDURE: CT Chest without contrast HISTORY: r/o mass COMPARISON: Comparison is made to the previous study dated 10/07/2017 TECHNIQUE: Contiguous axial images were obtained through the chest without intravenous contrast enhancement. Sagittal and coronal reconstructions were performed. Radiation dose (DLP): 452.86 mGy-cm. This CT exam was performed using one or more of the following dose reduction techniques: Automated exposure control, adjustment of the mA and/or kV according to patient size, and/or use of iterative reconstruction technique. FINDINGS: LUNGS: There is persistent consolidation at the medial aspect of the left lung lower lobe and lung base. There is interval appearance of central necrosis and possible abscess formation at the medial aspect of the left lung base since the previous exam. The differential consideration includes less likely central necrosis of mass lesion. There are linear opacities again noted at the lingula and left lower lobe. Interval decrease in the size of the airspace consolidation at the left lower lobe since the previous exam. Mild bronchiectasis seen bilaterally more prominent at the left lower lobe. Interval resolving of the previously seen nodular opacities at the right lung since the previous study. MEDIASTINUM: Unremarkable thoracic aorta. No aneurysm. Normal sized heart. Main pulmonary artery unremarkable. No vascular congestion. Mildly enlarged mediastinal lymph nodes are again noted slightly less comparing to the previous exam. Stranding and linear densities are again noted at the anterior aspect of the mediastinum of uncertain etiology. Diffuse coronary artery calcification is again noted. No evidence of pericardial effusion. PLEURA: Again noted is pleural thickening and pleural effusion at the mid and lower portion of the left chest. No evidence of right pleural effusion or right pleural thickening. BONES: No fracture. No destructive lesion. UPPER ABDOMEN: No evidence of acute pathology in the upper abdomen. There are multiple peripheral high density structures in the stomach of uncertain etiology and may represent recent ingested food. OTHER FINDINGS: None. IMPRESSION: Interval decrease in the size of airspace consolidation at the left lower lobe since the previous exam. Interval appearance of cystic structure contains air-fluid level at the medial aspect of the left lung base suspicious for abscess formation since the previous study. Interval decrease in the size of the left pleural effusion since the previous study. Pleural thickening in the left mid and lower chest is again noted. Interval resolving of the previously seen small nodular opacities at the right lung since the previous exam. Interval decrease in the size of the mediastinal lymph nodes since the previous study.
[2017-11-09 18:02] LABS: URINE APPEARANCE CLEAR (CLEAR); URINE BILIRUBIN NEGATIVE (NEGATIVE); URINE BLOOD NEGATIVE (NEGATIVE); URINE COLOR LIGHT YELLOW (YELLOW); URINE GLUCOSE (UA) >=1000 mg/dL (NEGATIVE); URINE LEUKOCYTE ESTERASE NEGATIVE Leu/uL (NEGATIVE); URINE PROTEIN NEGATIVE mg/dL (<30 mg/dL); URINE UROBILINOGEN 0.2 E.U./dL (<1 E.U./dL)
[2017-11-09] MEDS: MethylPREDNISolone 40 mg Vial IVP SCH (21:21)
--- NOTE | 2017-11-09 22:45 | HP ---
HISTORY OF PRESENT ILLNESS: This is a 47-year-old male who is coming into the hospital with complaints of left sided chest pain. He was coughing with productive sputum. He said it was green colored. He was also having shortness of breath. He said he was in the hospital for similar symptoms few weeks ago. He has a history of coronary artery disease with stents, diabetes type 2, hypertension. The patient says that he also had a thoracentesis done in September when he was in the hospital, we treated with pneumonia. He says that the pain has become worse. He has been taking his oxycodone for the pain, but the pain is not being relieved. Denies any dizziness, no nausea, no vomiting. No abdominal pain, no back pain. No dysuria or frequency. No nocturia. No focal weakness in the arms or in the legs. REVIEW OF SYMPTOMS: All other review of symptoms are within normal limits except that was mentioned. ALLERGIES: NO KNOWN DRUG ALLERGIES. HOME MEDICATIONS: Medications have been reviewed. PAST MEDICAL HISTORY: Is as above. FAMILY HISTORY: Noncontributory. SOCIAL HISTORY: The patient drinks socially. He does smoke. PHYSICAL EXAMINATION: VITAL SIGNS: Temperature is 98, pulse is 76, blood pressure 105/69, respiration is 19, O2 saturation 97%, height is 5 feet 7 inches, weight is 170 pounds, BMI is 26.6. GENERAL: The patient lying in bed, uncomfortable, and in no acute distress. HEENT: Atraumatic and normocephalic. Anicteric sclerae. Moist mucosa. Rob[place] conjunctivae. No oral lesions. NECK: No JVD, anterior and posterior adenopathy, thyromegaly, or bruits. CARDIOVASCULAR: S1 and S2 regular. No murmur, rubs, or gallop. LUNGS: Good bilateral air entry. Bilateral rhonchi. No wheezes. No rales. ABDOMEN: Bowel sounds are positive. Soft, nontender and nondistended. No hepatosplenomegaly. No rebound and no guarding EXTREMITIES: No cyanosis, clubbing, or edema. NEUROLOGIC: No facial asymmetry. Tongue is midline. No uvula deviation. Power is 5/5 upper extremity and lower extremity. Sensation intact in upper extremity and lower extremity. PSYCHIATRIC: He is awake, alert and oriented x3. No anxiety or depression. He has normal affect. GENITOURINARY: No CVA tenderness. VASCULAR: 2+ pulses in the carotid pulses and pedal pulses. SKIN: No erythema or nodules SPINE: Shows normal curvature. LABORATORY DATA: White count of 12.5, hemoglobin 14.2. Chemistry shows a creatinine of . Rest of the blood work has been reviewed. His chest x-ray done shows that he has no significant change compared to the chest x-ray done 8 days prior. There is a small left pleural effusion versus infiltrate in the left lung base. EKG, atrial fibrillation with junctional pacemaker. QTC is 464. ASSESSMENT: 1. Hospital-acquired pneumonia. 2. Left pleural effusion. 3. Coronary artery disease with stents. 4. Hypertension. 5. Dyslipidemia. 6. Atrial fibrillation. PLAN: The patient is going to be admitted to the hospital. He is having shortness of breath. He has an abnormal chest x-ray. He was in the hospital in September. The patient is going to be on aspirin daily. He is going to continue with Effient. He will get evaluation with Dr. Toribio. The patient on Januvia for his diabetes. This will be continued. He is on Lopressor. The patient is on promethazine for his cough. I placed him on Zestril. He is on oxygen. He is on a carbohydrate consistent diet. We will await further input from the consultants. I placed him on promethazine. The patient sees as an outpatient. Stuart Arteaga MD
[2017-11-10] MEDS: Vancomycin 1gm in NS 250ml 1 GM/250 ML BAG IVPB SCH ×2 (00:44→13:15)
--- NOTE | 2017-11-10 00:48 | CON ---
DATE: REASON FOR CONSULTATION: Chest pain. HISTORY OF PRESENT ILLNESS: The patient is a 47-year-old male who has a history of coronary artery disease, history of coronary artery stenting 5 years ago, the most recent Myoview stress test was in March of last year, which was a negative study. The patient was admitted last month with left pleural effusion that required thoracocentesis. The patient was septic and was admitted to ICU with respiratory failure and spontaneous pneumothorax and he subsequently was discharged on Zyvox. The chest CT scan during that admission revealed moderate left pleural effusion, extensive left lower lobe atelectasis with lingular subsegmental atelectasis, nodular multifocal small opacities on the right lower lobe, right middle lobe and extensive ill-defined opacity in the anterior segment of right upper lobe, possible infectious origin, cannot rule neoplastic etiology, and the patient has been experiencing progressive loss of weight, which amounts to 20 pounds. He denies any hemoptysis. Patient quit smoking after that admission in September. Patient denies any retrosternal chest pain. SOCIAL HISTORY: Patient is ex-smoker, who quit last month after his admission to the hospital with moderate pleural effusion. He is , lives with his . MEDICATIONS: Aspirin 81 mg once a day, Effient 10 mg once a day, Januvia 100 mg once a day, Lopressor 25 mg once a day, oxycodone 10 mg q. 6 hours, Zestril 5 mg once a day. PHYSICAL EXAMINATION: GENERAL: Patient is a middle-aged male, who does not appear to be in acute distress. VITAL SIGNS: Blood pressure 115/70, heart rate 96, temperature 98, respirations 19. HEENT: Normocephalic. NECK: No JVD. CHEST: Absent breath sounds of the left base. HEART: S1 and S2 regular. No gallop or rub. ABDOMEN: Soft. EXTREMITIES: No edema. LABORATORY DATA: CBC: WBC 12.5, hemoglobin 14.1, hematocrit 41, platelet count 383,000. SMA-7: Sodium 137, potassium 4, chloride , CO2 30, glucose 172, BUN 16, and creatinine 0.7. One set of troponin is negative. INR is 1.1. PTT 29.8. Echocardiograph study last month revealed overall left ventricular systolic function appears to be normal, cannot assess for regional wall motion and suggested repeat study. Microbiology work of pleural fluid was positive for MRSA, last month and the Gram stain of the sputum was positive for MRSA last month. Blood cultures were negative. Chest x-ray during this admission revealed normal cardial silhouette, [id number] left pleural effusion and prominent bronchovascular markings. ASSESSMENT: 1. Recurrent left pleural effusion. 2. Rule out underlying malignancy. 3. Rule out . 4. History of coronary artery disease with history of coronary artery stenting in the remote past and most recent Myoview stress test performed in March of last year was negative. RECOMMENDATIONS: Continue current aspirin, Effient, Lopressor, Zestril. Obtain sputum for Gram stain, AFB. Repeat chest CT scan as well as echocardiograph study. Lee Lorenzana MD
--- NOTE | 2017-11-10 01:31 | CON ---
DATE: 11/09/2017 LOCATION: The patient is seen today in room 373, bed 3. CHIEF COMPLAINT: Shortness of breath, , left-sided chest pressure, times several days. HISTORY OF PRESENT ILLNESS: This is a 47-year-old male with diabetes, hypertension, coronary artery disease, myocardial infarction, high cholesterol, recently was in the hospital approximately a month ago, he was diagnosed with MRSA pneumonia; patient did have MRSA from his sputum at that time and MRSA from the pleural fluid at that time; all the blood cultures were negative and was treated and was discharged eventually and now returns to the emergency room with feeling of weakness and shortness of breath and left-sided chest pain, productive cough. He denies any fevers and he denies any chills. No abdominal pain, diarrhea or constipation. No bright red blood per rectum. No melena. PAST MEDICAL HISTORY: Significant for coronary artery disease, hypertension, diabetes, myocardial infarction, high cholesterol, the recent diagnosis of MRSA pneumonia. PAST SURGICAL HISTORY: Significant for cardiac catheterization with stent placement. ALLERGIES: PATIENT HAS NO KNOWN ALLERGIES. MEDICATIONS AT HOME: Are reviewed, which include prasugrel, metoprolol, lisinopril, aspirin and Januvia. PHYSICAL EXAMINATION: GENERAL: On exam, patient is in bed, appearing uncomfortable and weak. VITAL SIGNS: Temperature of 98, blood pressure is 115/70, respiratory rate of 22, heart rate of 96. HEENT: Unremarkable. NECK: Supple. LUNGS: Have decreased breath sounds. HEART: Normal S1, S2. ABDOMEN: Soft, nontender. No rebound, no guarding, no masses. LABORATORY DATA: Laboratory examination reveals a white count of 12,500, hemoglobin of 14, platelets of 383. Chemistries reveal a BUN of 16, creatinine of 0.7. Microbiology: cultures and pleural cultures from 10/10/2017 is MRSA and sensitive to vancomycin, tetracycline, Bactrim and clindamycin, and resistant to erythromycin. No D-test was done and also MRSA from the sputum. All the blood cultures were negative. ASSESSMENT AND PLAN: A 47-year-old male with tachycardia, leukocytosis, hypoxia, dyspnea, infiltrates. Severe sepsis with healthcare-associated pneumonia with hypoxemia. We will treat the patient with vancomycin, meropenem and doxycycline. We will order blood cultures, sputum cultures, procalcitonin and CAT scan of the chest. The patient had an HIV test last month, which was negative. We will follow closely with you. Yonis Guzman MD
[2017-11-10] MEDS: oxyCODONE 5 mg Immediate Release Tab PO PRN ×4 (03:13→21:12)
--- NOTE | 2017-11-10 03:23 | CON ---
DATE: PULMONARY CONSULTATION REFERRING PHYSICIAN: Stuart Arteaga MD REASON FOR CONSULTATION: Cough, shortness of breath. HISTORY OF PRESENT ILLNESS: This is a 47-year-old gentleman with a known history of chronic obstructive lung disease on last admission, stopped smoking. Also has a history of hypertension, diabetes, MD, coronary artery disease requiring coronary stent, comes in to ER with chest pain, greenish sputum production, shortness of breath. Previous admission was significant for pneumonia and pleural effusion. There is no hemoptysis. No hematemesis. No hematuria or diarrhea reported. PAST MEDICAL HISTORY: Coronary artery disease, history of MD, diabetes, hypertension, chronic lung disease. FAMILY HISTORY: No significant cardiopulmonary disease is reported. SOCIAL HISTORY: Recently stopped smoking. Denied any alcohol use. No history of substance abuse. ALLERGIES: NONE KNOWN. MEDICATIONS: On aspirin 81 mg daily, doxycycline 100 mg twice a day, DuoNeb q. 4 hours p.r.n. and q. 8 hours round the clock, Effient 10 mg daily, insulin coverage, Januvia 100 mg daily, metoprolol tartrate 25 mg twice a day, meropenem 1 g IV q. 8 hours, oxycodone 10 mg q. 6 hours p.r.n., promethazine 6.25 mg three times a day, Tylenol p.r.n., vancomycin 1 g IV q. 12 hours, Zestril 5 mg daily. REVIEW OF SYSTEMS: No headache, no rhinitis. Has cough, sputum production, also has some left-sided chest pain. No nausea, no palpitation. No dysuria. No leg pain or leg swelling. PHYSICAL EXAMINATION: GENERAL: Lying in the bed with cough and shortness of breath. VITAL SIGNS: Temperature is 99, heart rate is 76, respiratory rate is 20, blood pressure 115/70. HEENT: Moist mucous membranes. Crowded airway. Mallampati score is 4. NECK: Supple. No JVD. LUNGS: Scattered rhonchi, prolonged expiratory phase. HEART: S1 and S2. ABDOMEN: Soft, nontender. No organomegaly. EXTREMITIES: There is no edema. NEUROLOGIC: Awake and alert, follows simple commands. LABORATORY DATA: Show hemoglobin 14.2, hematocrit 41.0, WBC 12.5, platelet is 383. INR 1.14. PTT is 30. Blood gases shows VBG, pH 7.33, pCO2 of 59, O2 is 40. Sodium 137, potassium 4.0, chloride 97, bicarbonate 30, BUN 16, creatinine 0.7, glucose 172, calcium 9.9, phosphorus 4.4, magnesium 1.8, AST 36, ALT 37, alk phos is 105. Albumin 3.8. Chest x-ray done in ER shows left lower lobe some pleural effusion and infiltrate. IMPRESSION AND PLAN: Chronic obstructive lung disease, may have a residual left lower lobe pneumonia, history of spontaneous pneumothorax. Had a Staph in the sputum and effusion which he was treated for. So, the patient is seen by Infectious Diseases, was started on broad-spectrum antibiotics covering healthcare-associated organism. We will start IV and inhaled bronchodilator, pulmonary toilet. Waiting for CT scan report. Thank you and we will follow with you. Laz Da Silva MD
[2017-11-10] MEDS: Meropenem IV 1 gm in NS 50 ML IVPB SCH ×3 (05:26→21:52)
[2017-11-10] MEDS: Albuterol-Ipratrop 3 mg / 0.5 (3 ml) UD IH SCH ×3 (07:35→21:30)
[2017-11-10 07:53] LABS: ALB/GLOB RATIO 0.9 (1.1-1.8); ALBUMIN 3.4 g/dL (3.0-4.8); ALT/SGPT 35 U/L (7-56); AST/SGOT 26 U/L (17-59); BLOOD UREA NITROGEN 20 mg/dL (7-21); CALCIUM 10.1 mg/dL (8.4-10.5); GFR AFRICAN-AMERICAN > 60; GFR NON-AFRICAN AMERICAN > 60
[2017-11-10] MEDS: Insulin Reg-LOW-Coverage SC SCH (08:05)
[2017-11-10] MEDS: MethylPREDNISolone 40 mg Vial IVP SCH ×2 (09:15→21:06)
[2017-11-10] MEDS: Promethazine 6.25 MG/5 ML CUP PO SCH ×3 (09:15→17:09)
[2017-11-10] MEDS ORDERED: Insulin Human NPH 1 UNITS/0.01 ML SC ONE (09:50)
[2017-11-10] MEDS: Aspirin 325 mg EC Tablets PO SCH (10:00)
--- NOTE | 2017-11-10 11:24 | PN ---
DATE: 11/10/2017 CARDIOLOGY FOLLOWUP SUBJECTIVE: The patient is coughing without chest pain. PHYSICAL EXAMINATION: VITAL SIGNS: Blood pressure is 136/84, heart rate is in the 80s. NECK: Negative JVD. LUNGS: Minimal rhonchi. HEART: Reveals S1, S2. EXTREMITIES: Without edema. EKG shows no acute changes. LABORATORY DATA: Troponin is negative x1. The glucose is 331. IMPRESSION: 1. Chronic obstructive pulmonary disease. 2. Questionable pneumonia. 3. History of percutaneous transluminal coronary angioplasty and stent. 4. Stable angina. 5. Coronary artery disease. 6. Elevated glucose. 7. Hypercholesterolemia. PLAN: Given these findings, the patient's last PTCA was 4-5 years ago. His last stress test in April was negative. We will discontinue his Effient. We will increase his aspirin. We will add statin therapy. Avery Toribio MD
[2017-11-10] MEDS: Insulin Reg-HIGH-Coverage SC SCH ×3 (12:05→21:59)
--- NOTE | 2017-11-10 13:40 | PN ---
DATE: SUBJECTIVE: The patient has no complaints of any chest pain. He states his chest pain is improved significantly since yesterday. He has no headaches or dizziness. PHYSICAL EXAMINATION VITAL SIGNS: Temperature is 97.8, pulse of 95, blood pressure 136/84, respirations 20. GENERAL: The patient is lying in bed, flat, comfortable. HEENT: No oral lesion. Anicteric sclerae. Moist mucosa. NECK: No JVD, adenopathy, or thyromegaly. CARDIOVASCULAR: S1 and S2, regular. No murmurs, rubs, or gallops. LUNGS: Clear to auscultation bilaterally. No wheeze, rales, or rhonchi. ABDOMEN: Bowel sounds are positive. Soft, nontender and nondistended. EXTREMITIES: No cyanosis, clubbing or edema. LABORATORY DATA: White count of 12.5, hemoglobin 14.2, creatinine is 0.7, potassium is 5.4. CT of the chest has been reviewed. There is interval decrease in the size of the air space consolidation at the left lower base since the previous exam. ASSESSMENT 1. Hospital-acquired pneumonia. 2. Left pleural effusion. 3. Coronary artery disease with stent. 4. Hypertension. 5. Dyslipidemia. 6. Atrial fibrillation. PLAN: The patient is being followed by Dr. Da Silva and Dr. Toribio from Pulmonary and Cardiology respectively. The patient had blood cultures that have been negative. The patient is on doxycycline for antibiotics. The patient is on Lopressor. He is going to continue Lipitor. The patient is on steroids. The patient's sugars have been significantly elevated. I will discontinue the low-dose algorithm and placed him on higher dose of his insulin regimen to better control his sugars. Stuart Arteaga MD
--- NOTE | 2017-11-10 15:02 | CP.PCM.PN ---
Subjective - Date & Time of Evaluation Date of Evaluation: 11/10/17 Time of Evaluation: 12:25 - Subjective Subjective: Left chest pain is better, no fevers, less cough. Objective - Vital Signs/Intake and Output Vital Signs (last 24 hours): Temp Pulse Resp BP Pulse Ox 97.8 F 95 H 20 136/84 97 11/10/17 06:00 11/10/17 09:22 11/10/17 06:00 11/10/17 09:22 11/10/17 06:00 Intake and Output: 11/10/17 11/10/17 06:59 18:59 Intake Total 1020 Output Total 1600 Balance -580 - Medications Medications: Current Medications Acetaminophen (Tylenol 325mg Tab) 650 mg PO Q6H PRN PRN Reason: Pain, Mild (1-3) Albuterol/Ipratropium (Duoneb 3 Mg/0.5 Mg (3 Ml) Ud) 3 ml IH TIDRESP [facility] Last Admin: 11/10/17 07:35 Dose: 3 ml Albuterol/Ipratropium (Duoneb 3 Mg/0.5 Mg (3 Ml) Ud) 3 ml IH [id number] PRN PRN Reason: Shortness of Breath Last Admin: 11/09/17 01:00 Dose: 3 ml Aspirin (Ecotrin) 325 mg PO DAILY [facility] Last Admin: 11/10/17 10:00 Dose: 325 mg Atorvastatin Calcium (Lipitor) 20 mg PO DIN [facility] Doxycycline Hyclate (Doryx) 100 mg PO Q12 [facility] PRN Reason: Protocol Stop: 11/18/17 22:01 Last Admin: 11/10/17 10:01 Dose: 100 mg Meropenem (Merrem Iv 1 Gm Premix) 50 mls @ 100 mls/hr IVPB Q8 [facility] PRN Reason: Protocol Stop: 11/18/17 14:01 Last Admin: 11/10/17 05:26 Dose: 100 mls/hr Vancomycin HCl (Vancomycin 1gm) 1 gm in 250 mls @ 167 mls/hr IVPB Q12H [facility] PRN Reason: Protocol Stop: 11/18/17 13:31 Last Admin: 11/10/17 00:44 Dose: 167 mls/hr Insulin Human Regular (Humulin R High) 0 units SC ACHS [facility] PRN Reason: Protocol Lisinopril (Zestril) 5 mg PO DAILY [facility] Last Admin: 11/10/17 09:15 Dose: 5 mg Methylprednisolone (Solu-Medrol) 20 mg IVP Q12 [facility] Last Admin: 11/10/17 09:15 Dose: 20 mg Metoprolol Tartrate (Lopressor) 25 mg PO BID [facility] Last Admin: 11/10/17 09:22 Dose: 25 mg Oxycodone HCl (Oxycodone Immediate Release Tab) 10 mg PO Q6H PRN PRN Reason: Pain, moderate (4-7) Last Admin: 11/10/17 09:16 Dose: 10 mg Promethazine HCl (Phenergan Syrup) 6.25 mg PO TID [facility] Last Admin: 11/10/17 09:15 Dose: 6.25 mg Sitagliptin Phosphate (Januvia) 100 mg PO DAILY [facility] Last Admin: 11/10/17 09:15 Dose: 100 mg Zolpidem Tartrate (Ambien) 10 mg PO HS PRN; Protocol PRN Reason: Insomnia Last Admin: 11/09/17 21:21 Dose: 10 mg - Labs Labs: 11/10/17 06:00 PT 13.0 SECONDS (9.4-12.5) H 11/08/17 19:20 INR 1.14 (0.93-1.08) H 11/08/17 19:20 APTT 29.8 Seconds (25.1-36.5) 11/08/17 19:20 - Constitutional Appears: Non-toxic, Chronically Ill - Head Exam Head Exam: NORMAL INSPECTION - ENT Exam ENT Exam: Mucous Membranes Moist - Neck Exam Neck Exam: absent: Meningismus - Respiratory Exam Respiratory Exam: Decreased Breath Sounds - Cardiovascular Exam Cardiovascular Exam: +S1, +S2 - GI/Abdominal Exam GI & Abdominal Exam: Soft. absent: Tenderness Assessment and Plan - Assessment and Plan (Free Text) Plan: Assessment left sided HCAP with possible abscess formation history of sepsis with multifocal MRSA community-acquired pneumonia obesity with BMI 30 DM HTN CAD S/P PCI Plan continue Vancomycin, Merrem and Doxycycline day 2 and follow up Pulmonary evaluation regarding possible abscess on the left lower lobe will continue to monitor clinically
[2017-11-11] MEDS: Vancomycin 1gm in NS 250ml 1 GM/250 ML BAG IVPB SCH ×2 (01:58→13:09)
--- NOTE | 2017-11-11 03:12 | PN ---
DATE: PULMONARY PROGRESS NOTE REFERRING PHYSICIAN: Andrew Antonio MD SUBJECTIVE: He is lying in the bed, head at 45 degrees. Night was unremarkable. Feels a little better. Decreased cough. Decreased shortness of breath. No nausea, no vomiting, no diarrhea. No leg pain or leg swelling. OBJECTIVE: GENERAL: In no acute distress. VITAL SIGNS: Temperature is 98, heart rate is 62, respiratory rate is 18, blood pressure 113/58, pulse ox 98% on room air. HEENT: Moist mucous membrane. No ulcer or thrush noted. NECK: Supple. No JVD. LUNGS: Some crackles in the left base. Prolonged expiratory phase. HEART: S1 and S2. ABDOMEN: Soft, nontender. No organomegaly. EXTREMITIES: No edema. NEUROLOGIC: Awake and alert. Follows simple commands. LABORATORY DATA: Reviewed and noted, sodium 136, potassium 5.4, chloride 98, bicarbonate 28, BUN 20, creatinine 0.7, glucose 329, and calcium 10.1. AST 26, ALT 35, alkaline phosphatase is 124, albumin is 3.4, procalcitonin 0.07. Microbiology, sputum culture and blood culture, there is no growth. MEDICATIONS: He is on Ambien 10 mg at bedtime p.r.n., doxycycline 100 mg twice a day, DuoNeb q. 4 hours p.r.n., also DuoNeb three times a day [id number], Ecotrin 325 mg daily, insulin coverage, Januvia 100 mg daily, Lipitor is 20 mg daily, metoprolol tartrate 25 mg twice a day, meropenem 1 g q. 8 hours, oxycodone immediate release 10 mg q. 6 hours p.r.n., promethazine 6.25 mg three times a day, Solu-Medrol 20 mg q. 12 hours, Tylenol on p.r.n. basis, vancomycin 1 g IV q. 12 hours, and Zestril 5 mg daily. IMPRESSION AND PLAN: Chronic obstructive lung disease, left lower lobe pneumonia abscess, history of pneumothorax in the past, maybe a component of sleep apnea syndrome. Clinically, he is improved. We will decrease Solu-Medrol to 20 mg daily, continue antibiotics as per Infectious Disease. Gastric prophylaxis. Deep venous thrombosis prophylaxis. Continue antibiotics until the resolution of abscess. Thank you and we will follow with you. Laz Da Silva MD
[2017-11-11] MEDS: Meropenem IV 1 gm in NS 50 ML IVPB SCH ×3 (05:47→21:37)
[2017-11-11] MEDS: oxyCODONE 5 mg Immediate Release Tab PO PRN ×3 (05:52→17:41)
[2017-11-11] MEDS: Albuterol-Ipratrop 3 mg / 0.5 (3 ml) UD IH SCH ×3 (07:13→20:08)
[2017-11-11] MEDS: Insulin Reg-HIGH-Coverage SC SCH ×4 (07:40→23:01)
[2017-11-11] MEDS ORDERED: MethylPREDNISolone 40 mg Vial IVP SCH (10:00)
[2017-11-11] MEDS: Promethazine 6.25 MG/5 ML CUP PO SCH ×3 (10:56→17:39)
[2017-11-11] MEDS: Aspirin 325 mg EC Tablets PO SCH (10:56)
--- NOTE | 2017-11-11 11:07 | CARD ---
APPROVED REPORT EKG Measurement Heart [id number] <Conclusion> Normal sinus rhythm Nonspecific T wave abnormality
--- NOTE | 2017-11-11 20:15 | PN ---
DATE: 11/11/2017 CARDIOLOGY FOLLOWUP SUBJECTIVE: The patient's breathing is much improved. PHYSICAL EXAMINATION: VITAL SIGNS: Blood pressure is 123/74, the heart rate in the 90s. NECK: Negative JVD. LUNGS: Minimal rhonchi. HEART: Reveals S1 and S2. EXTREMITIES: Without edema. LABORATORY DATA: Glucose is 295. IMPRESSION: 1. Chronic obstructive pulmonary disease. 2. His respiratory status is much improved. 3. Stable angina. 4. History of percutaneous transluminal coronary angioplasty in the past. 5. Coronary artery disease. 6. Diabetes mellitus. PLAN: Given these findings, his Effient has been discontinued. Patient's breathing has markedly improved. Avery Toribio MD
[2017-11-12] MEDS: oxyCODONE 5 mg Immediate Release Tab PO PRN ×4 (00:26→18:19)
--- NOTE | 2017-11-12 04:28 | PN ---
DATE: PULMONARY PROGRESS NOTE REFERRING PHYSICIAN: Andrew Antonio MD SUBJECTIVE: Patient is sitting on the side of the bed. is bedside. Feels better. Still has a cough, sputum production. No nausea, no vomiting, diarrhea. No leg pain or leg swelling. OBJECTIVE: GENERAL: In no acute distress. VITAL SIGNS: Temp is 98, heart rate 89, respiratory rate 20, blood pressure 124/75, pulse ox 98% on room air. HEENT: Moist mucous membrane. Crowded airway. NECK: Supple. No JVD. LUNGS: Have decreased breath sounds at the left base. HEART: S1 and S2. ABDOMEN: Soft and nontender. No organomegaly. EXTREMITIES: No edema. NEUROLOGIC: Awake, alert. Follows simple command. MEDICATIONS: He is on Amaryl 2 mg , Ambien 10 mg at bedtime p.r.n., doxycycline 100 mg twice a day, DuoNeb q. 4 hours p.r.n. and q. 8 hours [id number], Ecotrin 325 mg daily, metformin 500 mg twice a day, insulin coverage, Januvia 100 mg daily, atorvastatin 20 mg daily, metoprolol tartrate 25 mg twice a day, meropenem 1 g q. 8 hours, doxycycline 100 mg q. 6 hours p.r.n., Phenergan 6.25 mg 3 times a day, Solu-Medrol 20 mg daily, Tylenol p.r.n., vancomycin 1 g IV q. 12 hours, Zestril 5 mg daily. LABORATORY DATA: Shows blood sugar 384. Blood culture has been negative. Urine culture is unremarkable. Sputum culture, heavy growth of Staph aureus. IMPRESSION AND PLAN: Lung abscess with Staphylococcus aureus infection, chronic obstructive lung disease, history of pneumothorax, may have sleep apnea syndrome. I spoke to patient and at bedside. We will continue antibiotics. Decrease steroids. Continue inhaled bronchodilator. Gastric prophylaxis and deep venous thrombosis prophylaxis. Sleep apnea precaution. Follow up labs in the morning. Thank you and we will follow with you. Laz Da Silva MD [facility] # [id number]
[2017-11-12] MEDS: Meropenem IV 1 gm in NS 50 ML IVPB SCH ×3 (06:33→22:05)
[2017-11-12] MEDS: Albuterol-Ipratrop 3 mg / 0.5 (3 ml) UD IH SCH ×3 (07:25→20:39)
[2017-11-12 07:42] LABS: BASO # 0.05 K/mm3 (0.0-2.0); BASO % 0.4 % (0.0-3.0); EOS # 0.1 (0.0-0.7); EOS % 0.4 % (1.5-5.0); GRAN # 8.17 (1.4-6.5); GRAN % 65.8 % (50.0-68.0); HEMOGLOBIN 12.7 g/dL (14.0-18.0); LYMPH # 3.5 (1.2-3.4); LYMPH % 27.8 % (22.0-35.0); MEAN CELL VOLUME 83.9 fl (80.0-105.0); MEAN CORPUSCULAR HEMOGLOBIN 28.7 pg (25.0-35.0); MEAN CORPUSCULAR HGB CONC 34.2 g/dl (31.0-37.0); MEAN PLATELET VOLUME 9.6 fl (7.0-11.0); MONO # 0.7 (0.1-0.6); MONO % 5.6 % (1.0-6.0); RBC 4.42 10^6/uL (3.5-6.1); RED CELL DISTRIBUTION WIDTH 12.6 % (11.5-14.5); WHITE BLOOD COUNT 12.4 10^3/ul (4.5-11.0)
[2017-11-12 08:03] LABS: ALB/GLOB RATIO 0.9 (1.1-1.8); ALBUMIN 3.3 g/dL (3.0-4.8); ALT/SGPT 40 U/L (7-56); AST/SGOT 27 U/L (17-59); BLOOD UREA NITROGEN 20 mg/dL (7-21); CALCIUM 9.8 mg/dL (8.4-10.5); GFR AFRICAN-AMERICAN > 60; GFR NON-AFRICAN AMERICAN > 60
--- NOTE | 2017-11-12 08:21 | PN ---
DATE: 11/11/2017 SUBJECTIVE: Patient is 47 years old, who was admitted because of increasing cough, congestion, and shortness of breath on November 09. CT scan showed left lower lobe pneumonia and was found to have a cystic structure containing air-fluid level at the medial aspect of the left lung base, suspicious for abscess formation. Patient was admitted for IV antibiotics and nebulizer treatment. PHYSICAL EXAMINATION: GENERAL: Today he looks comfortable. Less cough, congestion, and shortness of breath. Wants to go home. VITAL SIGNS: He is afebrile, pulse 89, respirations 20, blood pressure 124/75. LUNGS: Decreased air flow at the left lower lung area. HEART: S1 and S2 audible. Regular rate and rhythm. ABDOMEN: Soft, nontender. No rebound. No guarding. NEUROLOGIC: She is awake, alert, oriented, communicative, ambulatory. LABORATORY EXAMINATION: WBC is 12.5, hemoglobin 14, hematocrit 41, platelets 383. Chemistry: Blood sugar is 384. Sputum positive for Staphylococcus aureus. Blood cultures are negative. ASSESSMENT: 1. Hospital acquired pneumonia, left lower lobe infiltrates. 2. Chronic obstructive pulmonary disease. 3. Hypertension. 4. Hyperlipidemia. 5. Coronary artery disease. 6. Status post angioplasty. 7. Non-insulin diabetes. PLAN: Patient is currently on doxycycline 100 mg twice a day. She is getting nebulizer treatment. Blood sugar seems to be uncontrolled. She is on Januvia 100 mg daily, metoprolol 25 twice a day, meropenem. He is getting methylprednisolone; has been tapered down. We will follow up his CBC and CMP. We will order metformin and glimepiride. Monitor blood sugar. Discussed with other development consultant. Patient is insisting to go home. We will discuss with the ID. If we have to discharge, his antibiotics has to be chosen and the duration of antibiotics. Andrew Antonio MD
[2017-11-12] MEDS: Insulin Reg-HIGH-Coverage SC SCH ×4 (08:25→22:02)
[2017-11-12] MEDS: Promethazine 6.25 MG/5 ML CUP PO SCH ×2 (09:41→09:44)
[2017-11-12] MEDS: Aspirin 325 mg EC Tablets PO SCH (09:41)
--- NOTE | 2017-11-12 12:50 | PN ---
DATE: 11/12/2017 CARDIOLOGY FOLLOWUP SUBJECTIVE: The patient is ambulating in the room with a mild cough. PHYSICAL EXAMINATION: VITAL SIGNS: Blood pressure is 116/83, heart rate is in the 80s. The patient is afebrile. NECK: Negative JVD. LUNGS: Minimal rhonchi. HEART: Reveals S1, S2. EXTREMITIES: Without edema. LABORATORY DATA: Hemoglobin is 12.7, white count is 12.4. The glucose is 390. IMPRESSION: 1. Pneumonia. 2. Chronic obstructive pulmonary disease. 3. History of percutaneous transluminal coronary angioplasty and stent. 4. Stable angina. 5. Diabetes mellitus. PLAN: Given these findings, the patient's cardiac status is stable. He is on continued IV antibiotics. Avery Toribio MD
[2017-11-12] MEDS: Vancomycin 1gm in NS 250ml 1 GM/250 ML BAG IVPB SCH (13:11)
--- NOTE | 2017-11-12 15:01 | CP.PCM.PN ---
Subjective - Date & Time of Evaluation Date of Evaluation: 11/12/17 Time of Evaluation: 11:30 - Subjective Subjective: Improving left sided chest pain, no fevers, improving cough. Objective - Vital Signs/Intake and Output Vital Signs (last 24 hours): Temp Pulse Resp BP Pulse Ox 98.8 F 86 20 116/83 96 11/12/17 08:12 11/12/17 08:12 11/12/17 08:12 11/12/17 08:12 11/12/17 08:12 Intake and Output: 11/12/17 11/12/17 06:59 18:59 Intake Total 1080 Balance 1080 - Medications Medications: Current Medications Acetaminophen (Tylenol 325mg Tab) 650 mg PO Q6H PRN PRN Reason: Pain, Mild (1-3) Albuterol/Ipratropium (Duoneb 3 Mg/0.5 Mg (3 Ml) Ud) 3 ml IH TIDRESP [facility] Last Admin: 11/12/17 07:25 Dose: 3 ml Albuterol/Ipratropium (Duoneb 3 Mg/0.5 Mg (3 Ml) Ud) 3 ml IH [id number] PRN PRN Reason: Shortness of Breath Last Admin: 11/09/17 01:00 Dose: 3 ml Aspirin (Ecotrin) 325 mg PO DAILY [facility] Last Admin: 11/12/17 09:41 Dose: 325 mg Atorvastatin Calcium (Lipitor) 20 mg PO DIN [facility] Last Admin: 11/11/17 17:13 Dose: 20 mg Doxycycline Hyclate (Doryx) 100 mg PO Q12 [facility] PRN Reason: Protocol Stop: 11/18/17 22:01 Last Admin: 11/12/17 09:41 Dose: 100 mg Glimepiride (Amaryl) 2 mg PO ACBD [facility] Last Admin: 11/12/17 08:26 Dose: 2 mg Meropenem (Merrem Iv 1 Gm Premix) 50 mls @ 100 mls/hr IVPB Q8 [facility] PRN Reason: Protocol Stop: 11/18/17 14:01 Last Admin: 11/12/17 06:33 Dose: 100 mls/hr Vancomycin HCl (Vancomycin 1gm) 1 gm in 250 mls @ 167 mls/hr IVPB Q12H [facility] PRN Reason: Protocol Stop: 11/18/17 13:31 Last Admin: 11/11/17 13:09 Dose: 167 mls/hr Insulin Human Regular (Humulin R High) 0 units SC ACHS [facility] PRN Reason: Protocol Last Admin: 11/12/17 08:25 Dose: 10 units Lisinopril (Zestril) 5 mg PO DAILY [facility] Last Admin: 11/12/17 09:41 Dose: 5 mg Metformin HCl (Glucophage) 500 mg PO BID [facility] Last Admin: 11/12/17 09:41 Dose: 500 mg Metoprolol Tartrate (Lopressor) 25 mg PO BID [facility] Last Admin: 11/12/17 09:41 Dose: 25 mg Oxycodone HCl (Oxycodone Immediate Release Tab) 10 mg PO Q6H PRN PRN Reason: Pain, moderate (4-7) Last Admin: 11/12/17 06:33 Dose: 10 mg Prednisone (Prednisone Tab) 10 mg PO DAILY [facility] Last Admin: 11/12/17 09:41 Dose: 10 mg Promethazine HCl (Phenergan Syrup) 6.25 mg PO TID [facility] Last Admin: 11/12/17 09:44 Dose: Not Given Sitagliptin Phosphate (Januvia) 100 mg PO DAILY [facility] Last Admin: 11/12/17 09:41 Dose: 100 mg Zolpidem Tartrate (Ambien) 10 mg PO HS PRN; Protocol PRN Reason: Insomnia Last Admin: 11/11/17 21:37 Dose: 10 mg - Labs Labs: 11/12/17 06:50 11/12/17 06:50 PT 13.0 SECONDS (9.4-12.5) H 11/08/17 19:20 INR 1.14 (0.93-1.08) H 11/08/17 19:20 APTT 29.8 Seconds (25.1-36.5) 11/08/17 19:20 - Constitutional Appears: Non-toxic, Chronically Ill - Head Exam Head Exam: NORMAL INSPECTION - ENT Exam ENT Exam: Mucous Membranes Moist - Neck Exam Neck Exam: absent: Meningismus - Respiratory Exam Respiratory Exam: Decreased Breath Sounds - Cardiovascular Exam Cardiovascular Exam: +S1, +S2 - GI/Abdominal Exam GI & Abdominal Exam: Soft. absent: Tenderness Assessment and Plan - Assessment and Plan (Free Text) Plan: Assessment left sided HCAP with abscess formation history of sepsis with multifocal MRSA community-acquired pneumonia obesity with BMI 30 DM HTN CAD S/P PCI Plan continue Vancomycin, Merrem and Doxycycline day 4 and as per Pulmonary evaluation will need repeat CT chest to re-assess the abscess will continue to monitor clinically
--- NOTE | 2017-11-12 15:08 | PN ---
DATE: 11/12/2017 PULMONARY PROGRESS NOTE REFERRING PHYSICIAN: Andrew Antonio MD. SUBJECTIVE: The patient is lying in the bed, head at 45 degrees. Night was unremarkable. Still has some cough, sputum production. No hemoptysis. No hematemesis, hematuria. No diarrhea, leg pain or leg swelling. OBJECTIVE: GENERAL: In no acute distress. VITAL SIGNS: Temperature is 98, heart rate is 86, respiratory rate is 20, blood pressure 116/83, pulse ox 96% on room air. HEENT: Moist mucous membrane. Crowded airway. NECK: Supple. No JVD. LUNGS: Have decreased breath sounds on the left base. HEART: S1, S2. ABDOMEN: Soft, nontender. No organomegaly. EXTREMITIES: No edema. NEUROLOGIC: Awake, alert. Follows simple command. MEDICATIONS: He is on Amaryl 2 mg before meals b.i.d.; Ambien 10 mg at bedtime p.r.n.; doxycycline 100 mg twice a day; DuoNeb every 4 hours p.r.n., every 6 hours [id number]; Ecotrin 325 mg daily; metformin 500 mg twice a day; insulin coverage; Januvia 100 mg daily; Lipitor 20 mg daily; metoprolol tartrate 25 mg twice a day; Merrem 1 g IV every 8 hours; OxyContin immediate release 10 mg every 6 hours p.r.n.; Phenergan 6.25 mg three times a day; prednisone 10 mg daily; Tylenol p.r.n. basis; vancomycin 1 g IV every 12 hours; Zestril 5 mg daily. LABORATORY DATA: Shows hemoglobin 12.7, hematocrit 37.1, WBC 12.4, platelet is 332. Sodium 139, potassium 3.6, chloride 99, bicarbonate 30, BUN 20, creatinine 0.6, glucose 301, calcium 9.8, AST 27, ALT 40, alk phos is 139. Albumin is 3.3. Microbiology: Sputum culture has Staph. IMPRESSION AND PLAN: Lung abscess, has methicillin-resistant Staphylococcus aureus in the sputum, chronic obstructive lung disease, history of pneumothorax, may have a component of sleep apnea syndrome. Pulmonary point of view, he is doing okay. Continue prednisone 10 mg, we will taper off next 2-3 days. Inhaled bronchodilator. Pulmonary toilet. Antibiotics as per Infectious Diseases. Gastric prophylaxis. Deep venous thrombosis prophylaxis. Sleep apnea precaution. Careful with sedation. Start ambulating. Thank you and we will follow with you. Laz Da Silva MD
[2017-11-13] MEDS: Vancomycin 1gm in NS 250ml 1 GM/250 ML BAG IVPB SCH ×2 (03:46→17:30)
[2017-11-13] MEDS: oxyCODONE 5 mg Immediate Release Tab PO PRN (03:46)
[2017-11-13] MEDS: Meropenem IV 1 gm in NS 50 ML IVPB SCH ×3 (05:42→22:21)
[2017-11-13 07:21] LABS: BASO # 0.04 K/mm3 (0.0-2.0); BASO % 0.3 % (0.0-3.0); EOS # 0.1 (0.0-0.7); GRAN # 8.23 (1.4-6.5); GRAN % 65.6 % (50.0-68.0); HEMOGLOBIN 12.5 g/dL (14.0-18.0); LYMPH # 3.4 (1.2-3.4); LYMPH % 27.2 % (22.0-35.0); MEAN CELL VOLUME 83.4 fl (80.0-105.0); MEAN CORPUSCULAR HEMOGLOBIN 28.3 pg (25.0-35.0); MEAN PLATELET VOLUME 9.7 fl (7.0-11.0); MONO # 0.7 (0.1-0.6); MONO % 5.9 % (1.0-6.0); RBC 4.41 10^6/uL (3.5-6.1); RED CELL DISTRIBUTION WIDTH 12.7 % (11.5-14.5); WHITE BLOOD COUNT 12.5 10^3/ul (4.5-11.0)
[2017-11-13] MEDS: Albuterol-Ipratrop 3 mg / 0.5 (3 ml) UD IH SCH ×3 (08:11→20:31)
[2017-11-13] MEDS: Insulin Reg-HIGH-Coverage SC SCH ×4 (08:32→22:22)
--- NOTE | 2017-11-13 08:47 | PN ---
DATE: 11/12/2017 SUBJECTIVE: Patient is 47 years old, seen and examined, lying in bed, seems to be comfortable. Complains of shortness of breath with walking a little; otherwise, no fever, no chills, no nausea, vomiting, or diarrhea. OBJECTIVE: VITAL SIGNS: He is afebrile, pulse 86, respirations 20, and blood pressure 116/83. LUNGS: Bilateral fair airflow. No rhonchi or crackle. HEART: S1 and S2 audible. ABDOMEN: Soft and nontender. No rebound. No guarding. NEUROLOGIC: He is awake, alert, oriented, able to communicate, and ambulatory. LABORATORY EXAM: WBC is 12.4, hemoglobin 12.7, hematocrit 37.1, and platelets 322. Chemistry: Sodium 139, potassium 3.6, chloride 99, CO2 of 30. BUN 20, creatinine 0.6. Blood sugar of 81. Urine shows MRSA. CT scan of the chest shows decrease in size of airspace consolidation in the left lower lung region. pain and soft cystic structure containing air fluid level in the medial aspect of the left lung base consistent with abscess formation. In his previous study, there is interval decrease in size of the left pleural effusion. ASSESSMENT: 1. Questionable left lung base abscess. 2. History of pneumonia. 3. Non-insulin dependant diabetes. 4. Hypertension. 5. History of coronary artery disease. 6. History of pneumothorax on previous examination, status post chest tube insertion. PLAN: The patient had CT done in 11/09, has been on IV antibiotics. We will discuss with other consultants. We have to repeat CT scan to see the reduction in size of his fluid level in the cystic structure that we need intervention or can be treated with p.o. antibiotic as outpatient or he needs to be IV antibiotics. Currently, he is on IV vancomycin, meropenem, and doxycycline. His blood sugars seems to be running on high side. We will continue him on Januvia and metformin, and glimepiride has been added. He is also on insulin coverage. Discussed with patient at length. He is willing to stay and he stated he does not want to come back and wants his problems to be taken care on this admission. We will follow up his CBC and CMP in a.m. Andrew Antonio MD [facility] # [id number]
[2017-11-13] MEDS: Aspirin 325 mg EC Tablets PO SCH (09:18)
[2017-11-13] MEDS: Promethazine 6.25 MG/5 ML CUP PO SCH ×3 (09:20→17:29)
[2017-11-13] MEDS: oxyCODONE 10 mg Immediate Release Tab PO PRN ×3 (10:25→22:20)
--- NOTE | 2017-11-13 16:19 | CP.PCM.PN ---
Subjective - Date & Time of Evaluation Date of Evaluation: 11/13/17 Time of Evaluation: 12:10 - Subjective Subjective: Comfortable in bed, no fevers, not in distress. No pain on the left side chest currently. Objective - Vital Signs/Intake and Output Vital Signs (last 24 hours): Temp Pulse Resp BP Pulse Ox 98.0 F 82 20 136/89 95 11/13/17 07:30 11/13/17 09:19 11/13/17 07:30 11/13/17 09:19 11/13/17 07:30 Intake and Output: 11/13/17 11/13/17 06:59 18:59 Intake Total 980 Balance 980 - Medications Medications: Current Medications Acetaminophen (Tylenol 325mg Tab) 650 mg PO Q6H PRN PRN Reason: Pain, Mild (1-3) Albuterol/Ipratropium (Duoneb 3 Mg/0.5 Mg (3 Ml) Ud) 3 ml IH TIDRESP [facility] Last Admin: 11/13/17 08:11 Dose: 3 ml Albuterol/Ipratropium (Duoneb 3 Mg/0.5 Mg (3 Ml) Ud) 3 ml IH [id number] PRN PRN Reason: Shortness of Breath Last Admin: 11/09/17 01:00 Dose: 3 ml Aspirin (Ecotrin) 325 mg PO DAILY [facility] Last Admin: 11/13/17 09:18 Dose: 325 mg Atorvastatin Calcium (Lipitor) 20 mg PO DIN [facility] [place] Last Admin: 11/12/17 17:05 Dose: 20 mg Doxycycline Hyclate (Doryx) 100 mg PO Q12 [facility] PRN Reason: Protocol Stop: 11/18/17 22:01 Last Admin: 11/13/17 09:18 Dose: 100 mg Glimepiride (Amaryl) 2 mg PO ACBD [facility] [place] Last Admin: 11/13/17 08:32 Dose: 2 mg Meropenem (Merrem Iv 1 Gm Premix) 50 mls @ 100 mls/hr IVPB Q8 [facility] PRN Reason: Protocol Stop: 11/18/17 14:01 Last Admin: 11/13/17 05:42 Dose: 100 mls/hr Vancomycin HCl (Vancomycin 1gm) 1 gm in 250 mls @ 167 mls/hr IVPB Q12H [facility] PRN Reason: Protocol Stop: 11/18/17 13:31 Last Admin: 11/13/17 03:46 Dose: 167 mls/hr Insulin Human Regular (Humulin R High) 0 units SC ACHS [facility] [place] PRN Reason: Protocol Last Admin: 11/13/17 08:32 Dose: 4 units Lisinopril (Zestril) 5 mg PO DAILY [facility] [place] Last Admin: 11/13/17 09:19 Dose: 5 mg Metformin HCl (Glucophage) 500 mg PO BID [facility] [place] Last Admin: 11/13/17 09:18 Dose: 500 mg Metoprolol Tartrate (Lopressor) 25 mg PO BID [facility] [place] Last Admin: 11/13/17 09:19 Dose: 25 mg Oxycodone HCl (Oxycodone Immediate Release Tab) 10 mg PO Q6H PRN PRN Reason: Pain, moderate (4-7) Last Admin: 11/13/17 10:25 Dose: 10 mg Prednisone (Prednisone Tab) 10 mg PO DAILY [facility] Last Admin: 11/13/17 09:18 Dose: 10 mg Promethazine HCl (Phenergan Syrup) 6.25 mg PO TID [facility] Last Admin: 11/13/17 09:20 Dose: Not Given Sitagliptin Phosphate (Januvia) 100 mg PO DAILY [facility] [place] Last Admin: 11/13/17 09:18 Dose: 100 mg Zolpidem Tartrate (Ambien) 10 mg PO HS PRN; Protocol PRN Reason: Insomnia Last Admin: 11/12/17 22:06 Dose: 10 mg - Labs Labs: 11/13/17 06:30 11/12/17 06:50 PT 13.0 SECONDS (9.4-12.5) H 11/08/17 19:20 INR 1.14 (0.93-1.08) H 11/08/17 19:20 APTT 29.8 Seconds (25.1-36.5) 11/08/17 19:20 - Constitutional Appears: Non-toxic, Chronically Ill - Head Exam Head Exam: NORMAL INSPECTION - ENT Exam ENT Exam: Mucous Membranes Moist - Neck Exam Neck Exam: absent: Meningismus - Respiratory Exam Respiratory Exam: Decreased Breath Sounds - Cardiovascular Exam Cardiovascular Exam: +S1, +S2 - GI/Abdominal Exam GI & Abdominal Exam: Soft. absent: Tenderness Assessment and Plan - Assessment and Plan (Free Text) Plan: Assessment left sided HCAP with abscess formation history of sepsis with multifocal MRSA community-acquired pneumonia obesity with BMI 30 DM HTN CAD S/P PCI Plan continue Vancomycin, Merrem and Doxycycline day 5 and as per Pulmonary evaluation will need repeat CT chest to re-assess the abscess will continue to monitor clinically
[2017-11-14] MEDS: Vancomycin 1gm in NS 250ml 1 GM/250 ML BAG IVPB SCH ×2 (01:24→12:44)
--- NOTE | 2017-11-14 04:31 | PN ---
PULMONARY PROGRESS NOTE DATE: 11/13/2017 REFERRING PHYSICIAN: Andrew Antonio MD SUBJECTIVE: Patient is lying in the bed, head at 45 degrees. Night was unremarkable. Still has cough and sputum production. No chest pain. No hemoptysis. No hematemesis, hematuria. No diarrhea, leg pain, or leg swelling. OBJECTIVE: GENERAL: In no acute distress. VITAL SIGNS: Temp is 98, heart rate 84, respiratory rate is 20, blood pressure 123/80, pulse ox 100% on room air. HEENT: Moist mucous membrane. Crowded airway. NECK: Supple. No JVD. LUNGS: Have decreased breath sounds at the left base. HEART: S1 and S2. ABDOMEN: Soft and nontender. No organomegaly. EXTREMITIES: No edema. NEUROLOGIC: Awake, alert. Follows simple command. MEDICATIONS: He is on Amaryl 4 mg a.c. b.i.d.; Ambien 10 mg at bedtime p.r.n.; doxycycline 100 mg twice a day; DuoNeb every 4 hours p.r.n., DuoNeb every 8 hours around the clock; Ecotrin 325 mg daily; metformin 500 mg twice a day; insulin coverage; Januvia 100 mg daily; Lipitor 20 mg daily; metoprolol tartrate 25 mg twice a day; meropenem 1 gm IV every 8 hours; oxycodone immediate release 10 mg every 6 hours p.r.n.; promethazine 6.25 mg three times a day; prednisone 10 mg daily; Tylenol p.r.n.; vancomycin 1 gm IV every 12 hours; Zestril 5 mg daily. LABORATORY DATA: Showed hemoglobin 12.5, hematocrit 36.8, WBC 12.5, platelet is 341. Blood sugar 130. Sputum culture has MRSA. IMPRESSION AND PLAN: Lung abscess, which is methicillin-resistant Staphylococcus aureus, probably the cause, chronic obstructive lung disease; history of pneumothorax; may have a component of sleep apnea syndrome. Continue antibiotics via p.o. and inhaled bronchodilator. Reevaluate with CT of the chest to evaluate further need of antibiotics. Gastric prophylaxis, deep venous thrombosis prophylaxis. Pulmonary toilet. Thank you, and we will follow with you. Laz Da Silva MD [facility] # [id number]
[2017-11-14] MEDS: Meropenem IV 1 gm in NS 50 ML IVPB SCH ×3 (05:14→21:34)
[2017-11-14] MEDS: oxyCODONE 10 mg Immediate Release Tab PO PRN ×3 (05:14→18:59)
[2017-11-14] MEDS: Albuterol-Ipratrop 3 mg / 0.5 (3 ml) UD IH SCH ×3 (07:18→21:30)
[2017-11-14] MEDS: Insulin Reg-HIGH-Coverage SC SCH ×4 (08:16→21:31)
--- NOTE | 2017-11-14 08:34 | PN ---
DATE: 11/13/2017 SUBJECTIVE: The patient is 47 years old, seen and examined, lying in bed, seems to be comfortable. No nausea or vomiting, no diarrhea. PHYSICAL EXAMINATION VITAL SIGNS: The patient is afebrile, pulse 74, respirations 20, blood pressure 123/86. LUNGS: Bilateral fair airflow. Few crackles at the left lower lung base. HEART: S1 and S2 audible. ABDOMEN: Soft, nontender. No rebound, no guarding. NEUROLOGICAL: The patient is awake, alert, oriented, communicative. LABORATORY DATA: WBC is 12.5, hemoglobin 12.5, hematocrit 36.8, platelet 341. Chemistry: Blood sugar is 244. Sputum is growing MRSA. ASSESSMENT: 1. Left lung base abscess with air-fluid level. 2. History of pneumonia on previous admission with spontaneous pneumothorax, requiring chest tube that was successfully removed. 3. [id number] diabetes. 4. Hypertension. 5. Coronary artery disease, status post angioplasty. PLAN: Discussed with Dr. Hernández. We will order for CT of the chest for tomorrow to compare. If it seems to be improving, we will continue IV antibiotic. Otherwise, he might need intervention. We will get thoracic surgeon involved. Andrew Antonio MD
--- NOTE | 2017-11-14 09:08 | CT ---
PROCEDURE: CT Chest without contrast HISTORY: f/up LLL ABCESS COMPARISON: None. TECHNIQUE: Contiguous axial images were obtained through the chest without intravenous contrast enhancement. Sagittal and coronal reconstructions were performed. Radiation dose (DLP): mGy-cm. This CT exam was performed using one or more of the following dose reduction techniques: Automated exposure control, adjustment of the mA and/or kV according to patient size, and/or use of iterative reconstruction technique. FINDINGS: LUNGS: There is a slight decrease in the size of the left lower lobe consolidation and abscess. There is no change in the adjacent linear infiltrates the in the left lower lobe. Minimal ground-glass densities are seen in the upper lobes. MEDIASTINUM: Unremarkable thoracic aorta. No aneurysm. Normal sized heart. Main pulmonary artery unremarkable. No vascular congestion. No lymphadenopathy. There is a coronary artery stent PLEURA: No pleural fluid. No pneumothorax. BONES: No fracture. No destructive lesion. UPPER ABDOMEN: Grossly unremarkable. OTHER FINDINGS: None. IMPRESSION: Slight decrease in size of left lower lobe consolidation and abscess.
[2017-11-14] MEDS: Promethazine 6.25 MG/5 ML CUP PO SCH ×2 (09:12→14:27)
[2017-11-14] MEDS: Aspirin 325 mg EC Tablets PO SCH (09:12)
[2017-11-14 11:44] LABS: BASO # 0.05 K/mm3 (0.0-2.0); BASO % 0.4 % (0.0-3.0); EOS # 0.1 (0.0-0.7); EOS % 0.8 % (1.5-5.0); GRAN # 10.64 (1.4-6.5); GRAN % 74.9 % (50.0-68.0); HEMOGLOBIN 14.4 g/dL (14.0-18.0); LYMPH # 2.6 (1.2-3.4); MEAN CELL VOLUME 83.8 fl (80.0-105.0); MEAN CORPUSCULAR HEMOGLOBIN 29.2 pg (25.0-35.0); MEAN CORPUSCULAR HGB CONC 34.9 g/dl (31.0-37.0); MEAN PLATELET VOLUME 9.4 fl (7.0-11.0); MONO # 0.8 (0.1-0.6); MONO % 5.9 % (1.0-6.0); RBC 4.93 10^6/uL (3.5-6.1); RED CELL DISTRIBUTION WIDTH 12.7 % (11.5-14.5); WHITE BLOOD COUNT 14.2 10^3/ul (4.5-11.0)
[2017-11-14 12:15] LABS: ALBUMIN 3.6 g/dL (3.0-4.8); ALT/SGPT 33 U/L (7-56); AST/SGOT 21 U/L (17-59); BLOOD UREA NITROGEN 17 mg/dL (7-21); GFR AFRICAN-AMERICAN > 60; GFR NON-AFRICAN AMERICAN > 60
--- NOTE | 2017-11-14 14:06 | CP.PCM.PN ---
Subjective - Date & Time of Evaluation Date of Evaluation: 11/14/17 Time of Evaluation: 12:10 - Subjective Subjective: Feeling better, less cough, no chest pain, no nausea, no diarrhea. No fevers. Objective - Vital Signs/Intake and Output Vital Signs (last 24 hours): Temp Pulse Resp BP Pulse Ox 97.7 F 83 18 116/86 96 11/14/17 07:30 11/14/17 09:12 11/14/17 07:30 11/14/17 09:12 11/14/17 07:30 Intake and Output: 11/14/17 11/14/17 06:59 18:59 Intake Total 600 Balance 600 - Medications Medications: Current Medications Acetaminophen (Tylenol 325mg Tab) 650 mg PO Q6H PRN PRN Reason: Pain, Mild (1-3) Albuterol/Ipratropium (Duoneb 3 Mg/0.5 Mg (3 Ml) Ud) 3 ml IH TIDRESP [facility] Last Admin: 11/14/17 07:18 Dose: 3 ml Albuterol/Ipratropium (Duoneb 3 Mg/0.5 Mg (3 Ml) Ud) 3 ml IH [id number] PRN PRN Reason: Shortness of Breath Last Admin: 11/09/17 01:00 Dose: 3 ml Aspirin (Ecotrin) 325 mg PO DAILY [facility] Last Admin: 11/14/17 09:12 Dose: 325 mg Atorvastatin Calcium (Lipitor) 20 mg PO DIN [facility] Last Admin: 11/13/17 16:43 Dose: 20 mg Doxycycline Hyclate (Doryx) 100 mg PO Q12 [facility] PRN Reason: Protocol Stop: 11/18/17 22:01 Last Admin: 11/14/17 09:11 Dose: 100 mg Glimepiride (Amaryl) 4 mg PO ACBD [facility] Last Admin: 11/14/17 08:16 Dose: 4 mg Meropenem (Merrem Iv 1 Gm Premix) 50 mls @ 100 mls/hr IVPB Q8 [facility] PRN Reason: Protocol Stop: 11/18/17 14:01 Last Admin: 11/14/17 05:14 Dose: 100 mls/hr Vancomycin HCl (Vancomycin 1gm) 1 gm in 250 mls @ 167 mls/hr IVPB Q12H [facility] PRN Reason: Protocol Stop: 11/18/17 13:31 Last Admin: 11/14/17 01:24 Dose: 167 mls/hr Insulin Human Regular (Humulin R High) 0 units SC ACHS [facility] PRN Reason: Protocol Last Admin: 11/14/17 08:16 Dose: 4 units Lisinopril (Zestril) 5 mg PO DAILY [facility] Last Admin: 11/14/17 09:12 Dose: 5 mg Metformin HCl (Glucophage) 500 mg PO BID [facility] Last Admin: 11/14/17 09:12 Dose: 500 mg Metoprolol Tartrate (Lopressor) 25 mg PO BID [facility] Last Admin: 11/14/17 09:12 Dose: 25 mg Oxycodone HCl (Oxycodone Immediate Release Tab) 10 mg PO Q6H PRN PRN Reason: Pain, moderate (4-7) Last Admin: 11/14/17 05:14 Dose: 10 mg Prednisone (Prednisone Tab) 10 mg PO DAILY [facility] Last Admin: 11/14/17 09:11 Dose: 10 mg Promethazine HCl (Phenergan Syrup) 6.25 mg PO TID [facility] Last Admin: 11/14/17 09:12 Dose: Not Given Sitagliptin Phosphate (Januvia) 100 mg PO DAILY [facility] Last Admin: 11/14/17 09:12 Dose: 100 mg Zolpidem Tartrate (Ambien) 10 mg PO HS PRN; Protocol PRN Reason: Insomnia Last Admin: 11/13/17 23:24 Dose: 10 mg - Labs Labs: 11/13/17 06:30 11/12/17 06:50 PT 13.0 SECONDS (9.4-12.5) H 11/08/17 19:20 INR 1.14 (0.93-1.08) H 11/08/17 19:20 APTT 29.8 Seconds (25.1-36.5) 11/08/17 19:20 - Constitutional Appears: Non-toxic, Chronically Ill - Head Exam Head Exam: NORMAL INSPECTION - ENT Exam ENT Exam: Mucous Membranes Moist - Neck Exam Neck Exam: absent: Meningismus - Respiratory Exam Respiratory Exam: Decreased Breath Sounds - Cardiovascular Exam Cardiovascular Exam: +S1, +S2 - GI/Abdominal Exam GI & Abdominal Exam: Soft. absent: Tenderness Assessment and Plan - Assessment and Plan (Free Text) Plan: Assessment left sided HCAP with abscess formation history of sepsis with multifocal MRSA community-acquired pneumonia obesity with BMI 30 DM HTN CAD S/P PCI Plan continue Vancomycin, Merrem and Doxycycline day 6; repeated CT chest and shows some improvement but persistent abscess - recommend surgical evaluation will continue to monitor clinically discussed with Dr. Antonio
--- NOTE | 2017-11-14 14:22 | PN ---
DATE: 11/14/2017 CARDIOLOGY FOLLOWUP SUBJECTIVE: The patient is asymptomatic. PHYSICAL EXAMINATION VITAL SIGNS: Blood pressure is 116/86, the heart rate is in the 80s. NECK: Negative JVD. LUNGS: Bilateral rhonchi. HEART: Reveals S1 and S2. EXTREMITIES: Without edema. LABORATORY DATA: The white count is 12.5, hemoglobin is 12.5. Glucose is 213. CT scan today of the chest reveals slight increase in the size of the left lower lobe consolidation and abscess. IMPRESSION: 1. Pneumonia. 2. Coronary artery disease. 3. Stable angina. 4. Diabetes mellitus. 5. History of percutaneous transluminal coronary angioplasty and stent in the past. 6. Chronic obstructive pulmonary disease. PLAN: Given these findings, the patient's cardiac status remained stable. Awaiting for improvement of his infection. Avery Toribio MD
--- NOTE | 2017-11-14 16:39 | CP.PCM.CON ---
History of Present Illness - History of Present Illness History of Present Illness: Thoracic: Dr. Poe CC: L lung abscess HPI: 47M w. PMH of HTN, hypercholesterolemia, DM, SC x2 presents w. PNA and L lung abscess. Back in September pt developed flu like symptoms and went [place] [facility] [place] was diagnosed w. PNA and was given an out pt course of abx w. no improvement in symptoms prompting him to come to [facility] [place]. While at [facility] [place] pt was started on abx, and during hospital course pt developed spontaneous PTX requiring CT placement. Pt symptoms eventually resolved and he was D/C on 5 day course of outpt abx. Pt states that he felt good for about 2 weeks, then he began to experience L side chest pain again that was exacerbated w. deep inspiration. The pain was accompanied by productive cough, green in color, prompting him to return to [facility] [place] again. CT scan done one admission showed persistent L lung abscess. Pt was started on abx and CT scan was repeated today which showed interval decrease of abscess size. Overall pt states that he feels better. PMH: See above PSH: pilonidal cyst, coronary stents x 7 Meds: MAR reviewed NKDA Social: former smoker, no ETOH/drugs Fhx: non-contributory Review of Systems - Review of Systems All systems: reviewed and no additional remarkable complaints except (HPI) Past Patient History - Infectious Disease Hx of Infectious Diseases: None - Past Social History Smoking Status: Current Some Days Smoker - CARDIAC Hx Cardiac Disorders: Yes Hx Hypertension: Yes - PULMONARY Hx Pneumonia: Yes Other/Comment: lung collapsed - ENDOCRINE/METABOLIC Hx Diabetes Mellitus Type 2: Yes - MUSCULOSKELETAL/RHEUMATOLOGICAL Hx Falls: No - PSYCHIATRIC Hx Psychophysiologic Disorder: Yes Hx Substance Use: No Other/Comment: Etoh (socially) - SURGICAL HISTORY Hx Coronary Stent: Yes - ANESTHESIA Hx Anesthesia: No Hx Anesthesia Reactions: No Hx Malignant Hyperthermia: No Meds Allergies/Adverse Reactions: Allergies Allergy/AdvReac Type Severity Reaction Status Date / Time No Known Allergies Allergy Verified 11/08/17 19:02 - Medications Medications: Current Medications Acetaminophen (Tylenol 325mg Tab) 650 mg PO Q6H PRN PRN Reason: Pain, Mild (1-3) Albuterol/Ipratropium (Duoneb 3 Mg/0.5 Mg (3 Ml) Ud) 3 ml IH TIDRESP [facility] Last Admin: 11/14/17 13:19 Dose: 3 ml Albuterol/Ipratropium (Duoneb 3 Mg/0.5 Mg (3 Ml) Ud) 3 ml IH [id number] PRN PRN Reason: Shortness of Breath Last Admin: 11/09/17 01:00 Dose: 3 ml Aspirin (Ecotrin) 325 mg PO DAILY [facility] Last Admin: 11/14/17 09:12 Dose: 325 mg Atorvastatin Calcium (Lipitor) 20 mg PO DIN [facility] Last Admin: 11/13/17 16:43 Dose: 20 mg Doxycycline Hyclate (Doryx) 100 mg PO Q12 [facility] PRN Reason: Protocol Stop: 11/18/17 22:01 Last Admin: 11/14/17 09:11 Dose: 100 mg Glimepiride (Amaryl) 4 mg PO ACBD [facility] Last Admin: 11/14/17 08:16 Dose: 4 mg Meropenem (Merrem Iv 1 Gm Premix) 50 mls @ 100 mls/hr IVPB Q8 [facility] PRN Reason: Protocol Stop: 11/18/17 14:01 Last Admin: 11/14/17 14:27 Dose: 100 mls/hr Vancomycin HCl (Vancomycin 1gm) 1 gm in 250 mls @ 167 mls/hr IVPB Q12H [facility] PRN Reason: Protocol Stop: 11/18/17 13:31 Last Admin: 11/14/17 12:44 Dose: 167 mls/hr Insulin Human Regular (Humulin R High) 0 units SC ACHS [facility] PRN Reason: Protocol Last Admin: 11/14/17 12:20 Dose: 4 units Lisinopril (Zestril) 5 mg PO DAILY [facility] Last Admin: 11/14/17 09:12 Dose: 5 mg Metformin HCl (Glucophage) 500 mg PO BID [facility] Last Admin: 11/14/17 09:12 Dose: 500 mg Metoprolol Tartrate (Lopressor) 25 mg PO BID [facility] Last Admin: 11/14/17 09:12 Dose: 25 mg Oxycodone HCl (Oxycodone Immediate Release Tab) 10 mg PO Q6H PRN PRN Reason: Pain, moderate (4-7) Last Admin: 11/14/17 12:20 Dose: 10 mg Promethazine HCl (Phenergan Syrup) 6.25 mg PO TID [facility] Last Admin: 11/14/17 14:27 Dose: Not Given Sitagliptin Phosphate (Januvia) 100 mg PO DAILY [facility] Last Admin: 11/14/17 09:12 Dose: 100 mg Zolpidem Tartrate (Ambien) 10 mg PO HS PRN; Protocol PRN Reason: Insomnia Last Admin: 11/13/17 23:24 Dose: 10 mg Physical Exam - Constitutional Appears: Non-toxic, No Acute Distress - Head Exam Head Exam: ATRAUMATIC, NORMOCEPHALIC - Eye Exam Eye Exam: EOMI - ENT Exam ENT Exam: Mucous Membranes Moist - Neck Exam Neck exam: Positive for: Full Rom - Respiratory Exam Respiratory Exam: NORMAL BREATHING PATTERN. absent: Accessory Muscle Use, Respiratory Distress - Cardiovascular Exam Cardiovascular Exam: REGULAR RHYTHM - GI/Abdominal Exam GI & Abdominal Exam: Soft. absent: Tenderness - Extremities Exam Extremities exam: Negative for: calf tenderness, pedal edema - Neurological Exam Neurological exam: Alert, Oriented x3 - Psychiatric Exam Psychiatric exam: Normal Affect, Normal Mood - Skin Skin Exam: Dry, Normal Color, Warm Results - Vital Signs Recent Vital Signs: Last Vital Signs Temp 97.7 F 11/14/17 07:30 Pulse 83 11/14/17 09:12 Resp 18 11/14/17 07:30 BP 116/86 11/14/17 09:12 Pulse Ox 96 11/14/17 07:30 - Labs Result Diagrams: 11/14/17 11:30 11/14/17 11:30 Labs: Laboratory Results - last 24 hr 11/13/17 11/13/17 11/14/17 16:45 21:12 06:47 WBC RBC Hgb Hct MCV MCH MCHC RDW Plt Count MPV Gran % Lymph % (Auto) [place] % (Auto) Eos % (Auto) Baso % (Auto) Gran # Lymph # (Auto) [place] # (Auto) Eos # (Auto) Baso # (Auto) Sodium Potassium Chloride Carbon Dioxide Anion Gap BUN Creatinine Est GFR ( Amer) Est GFR (Non-Af Amer) POC Glucose (mg/dL) 244 H 130 H 218 H Random Glucose Calcium Total Bilirubin AST ALT Alkaline Phosphatase Total Protein Albumin Globulin Albumin/Globulin Ratio 11/14/17 11/14/17 11/14/17 10:53 11:30 11:30 WBC 14.2 H RBC 4.93 Hgb 14.4 Hct 41.3 L MCV 83.8 MCH 29.2 MCHC 34.9 RDW 12.7 Plt Count 362 MPV 9.4 Gran % 74.9 H Lymph % (Auto) 18.0 L [place] % (Auto) 5.9 Eos % (Auto) 0.8 L Baso % (Auto) 0.4 Gran # 10.64 H Lymph # (Auto) 2.6 [place] # (Auto) 0.8 H Eos # (Auto) 0.1 Baso # (Auto) 0.05 Sodium 139 Potassium 4.0 Chloride 98 Carbon Dioxide 34 H Anion Gap 11 BUN 17 Creatinine 0.5 L Est GFR ( Amer) > 60 Est GFR (Non-Af Amer) > 60 POC Glucose (mg/dL) 213 H Random Glucose 224 H Calcium 10.0 Total Bilirubin 0.2 AST 21 ALT 33 Alkaline Phosphatase 108 Total Protein 7.1 Albumin 3.6 Globulin 3.5 Albumin/Globulin Ratio 1.0 L 11/14/17 16:11 WBC RBC Hgb Hct MCV MCH MCHC RDW Plt Count MPV Gran % Lymph % (Auto) [place] % (Auto) Eos % (Auto) Baso % (Auto) Gran # Lymph # (Auto) [place] # (Auto) Eos # (Auto) Baso # (Auto) Sodium Potassium Chloride Carbon Dioxide Anion Gap BUN Creatinine Est GFR ( Amer) Est GFR (Non-Af Amer) POC Glucose (mg/dL) 252 H Random Glucose Calcium Total Bilirubin AST ALT Alkaline Phosphatase Total Protein Albumin Globulin Albumin/Globulin Ratio - Imaging and Cardiology CT scan - chest Status: Image reviewed by me, Report reviewed by me Assessment & Plan - Assessment and Plan (Free Text) Assessment: 47M w. L lung abscess Plan: -c/w abx -Repeat CT scan on sunday 11/19 -If no improvement in CT, will plan for Thoracotomy either or Friday -Cardiac clearance for OR -discussed w. Dr. Deepika Farr PGY3
--- NOTE | 2017-11-14 19:54 | PN ---
DATE: 11/14/2017 PULMONARY PROGRESS NOTE REFERRING PHYSICIAN: Andrew Antonio MD SUBJECTIVE: He is sitting on the side of the bed, feels better, has mild cough and clear sputum. No chest pain, no fever, no nausea, no vomiting or diarrhea. No leg pain or leg swelling. OBJECTIVE: GENERAL: In no acute distress. VITAL SIGNS: Temperature is 98, heart rate is 83, respiratory rate is 18, blood pressure 116/86, pulse ox 96% on room air. HEENT: Moist mucous membrane. Crowded airway. Mallampati score is 4. NECK: Supple. No JVD. LUNGS: Decreased breath sounds on the left base. HEART: S1 and S2. ABDOMEN: Soft, nontender. No organomegaly. EXTREMITIES: There is no edema. NEUROLOGIC: Awake, alert. Follows simple command. MEDICATIONS: He is on Amaryl 4 mg before b.i.d., Ambien 10 mg at bedtime p.r.n., doxycycline 100 mg twice a day, nebulizer DuoNeb every 4 hours p.r.n. and every 8 hours [id number], Ecotrin 325 mg daily, metformin 500 mg twice a day, insulin coverage, Januvia 100 mg daily, Lipitor 20 mg daily, metoprolol tartrate 25 mg twice a day, meropenem 1 g IV every 8 hours, OxyContin immediate release 10 mg every 6 hours p.r.n., Phenergan 6.25 mg three times a day, prednisone 5 mg daily, Tylenol p.r.n. basis, vancomycin 1 g IV every 12 hours, Zestril 5 mg daily. LABORATORY DATA: Shows hemoglobin is 14.4, hematocrit of 41.3, WBC 14.2, platelets 262. Sodium 139, potassium 4, chloride 98, bicarbonate 34. BUN 17, creatinine 0.5. Glucose 224. Calcium is 10. AST 21, ALT 33, alkaline phosphatase is 108, albumin is 3.6. Sputum culture has MRSA. CAT scan of the chest is repeated today, which shows slightly decreased infiltrate and abscess in the left lower lobe. IMPRESSION AND PLAN: Left lower lobe lung abscess with methicillin-resistant Staphylococcus aureus in the sputum and with methicillin-resistant Staphylococcus aureus in the pleural effusion in the previous admission, chronic obstructive lung disease status post pneumothorax which had been resolved, may have sleep apnea syndrome. Case discussed with Dr. Antonio in detail, who spoke to Interventional Radiology, was told nothing we can do. So I noticed also that Dr. Antonio told me that thoracic surgery consult had been called. I had a long discussion with the patient in both interventions including CT-guided as well as probably VATS. The patient at present time refused to consider any surgical or interventional procedure. He wants to go home if home infusion of antibiotics could be arranged and is cleared by Infectious Disease. Then, my recommendation after speaking to the patient is to continue IV antibiotics as per Infectious Diseases at least 2 to 3 more weeks. He should have a repeat CAT scan in 2 weeks to evaluate the cavity and infiltrate. If, after completing 2 to 3 weeks of antibiotics, he has persistent symptoms and abscess, he will follow with thoracic surgery and thoracic surgery opinion should be sought if he can benefit with VATS. I informed the patient he may end up with a trapped lung if surgery is not done and he expressed understanding and for now does not want any surgical procedure, wishing to go home on IV antibiotics and willing to get CT of the chest as the outpatient 2 weeks to 3 weeks. Hopefully, he will follow with Dr. Antonio or with his primary care physician. Laz Da Silva MD
--- NOTE | 2017-11-15 00:21 | PN ---
DATE: SUBJECTIVE: The patent is a 47-year-old male, seen and examined lying in the bed, seems to be comfortable. Not in any distress. No nausea or vomiting. No diarrhea. PHYSICAL EXAMINATION: VITAL SIGNS: He is afebrile, pulse 71, respirations 18, blood pressure 108/69. LUNGS: Bilateral fair airflow. Few soft crackles at left lower base. HEART: S1 and S2 audible. ABDOMEN: Soft. Nontender. No rebound. No guarding. NEUROLOGIC: The patient is awake, alert, oriented, able to communicate. LABORATORY EXAM: WBC is 14.2, hemoglobin 14.4, hematocrit 41.3, platelets 362. Chemistry: Sodium 139, potassium 4.0, chloride 98, CO2 of 24, BUN 17, creatinine 0.5, blood sugar of 207. Sputum positive for MRSA. CT scan of the chest that was done this morning shows slight decrease in the left lower lung abscess. ASSESSMENT: 1. Left lower lobe consolidation and abscess. 2. Coronary artery disease, status post angioplasty. 3. May-gnzzfgk-dyffmffxe diabetes. 4. Status post angioplasty. 5. Pneumonia on previous admission with pneumothorax and has chest tube insertion done. PLAN: Currently, the patient is on doxycycline. He is getting nebulizer treatment. He is on meropenem and vancomycin. Discussed with the supervisor conditioning yard. His steroid is being tapered down that could be the reason for leukocytosis. Also, discussed with ID. For now, we will continue current antibiotics including doxycycline, meropenem and vancomycin and monitor his WBC count if this is because of steroid or persistent infection. I also requested thoracic surgeon's input. In their opinion, we need to continue his antibiotic and repeat CT scan next week sometime to see if there is any improvement, and further decision will be made depending on repeat CT next Friday. If the size of abscess decreased, there is no need for intervention; otherwise he is going to need VATS. Andrew Antonio MD
[2017-11-15] MEDS: Vancomycin 1gm in NS 250ml 1 GM/250 ML BAG IVPB SCH ×3 (01:20→17:08)
[2017-11-15] MEDS: oxyCODONE 10 mg Immediate Release Tab PO PRN ×4 (02:59→21:34)
[2017-11-15] MEDS: Meropenem IV 1 gm in NS 50 ML IVPB SCH ×3 (05:40→21:30)
--- NOTE | 2017-11-15 07:25 | CP.PCM.PN ---
Subjective - Date & Time of Evaluation Date of Evaluation: 11/15/17 Time of Evaluation: 07:19 - Subjective Subjective: CT Surgery: Dr. Poe Pt seen and examined. No acute overnight events. State he feels well and would like to go home. Denies pain, cough, SOB. Ambulating w/o difficulty. Denies F/ C. Objective - Vital Signs/Intake and Output Vital Signs (last 24 hours): Temp Pulse Resp BP Pulse Ox 98.2 F 71 18 108/69 99 11/14/17 14:00 11/14/17 14:00 11/14/17 14:00 11/14/17 14:00 11/14/17 14:00 Intake and Output: 11/15/17 11/15/17 06:59 18:59 Intake Total 500 Balance 500 - Medications Medications: Current Medications Acetaminophen (Tylenol 325mg Tab) 650 mg PO Q6H PRN PRN Reason: Pain, Mild (1-3) Albuterol/Ipratropium (Duoneb 3 Mg/0.5 Mg (3 Ml) Ud) 3 ml IH TIDRESP [facility] Last Admin: 11/14/17 21:30 Dose: Not Given Albuterol/Ipratropium (Duoneb 3 Mg/0.5 Mg (3 Ml) Ud) 3 ml IH [id number] PRN PRN Reason: Shortness of Breath Last Admin: 11/09/17 01:00 Dose: 3 ml Aspirin (Ecotrin) 325 mg PO DAILY [facility] Last Admin: 11/14/17 09:12 Dose: 325 mg Atorvastatin Calcium (Lipitor) 20 mg PO DIN [facility] Last Admin: 11/14/17 16:54 Dose: 20 mg Doxycycline Hyclate (Doryx) 100 mg PO Q12 [facility] PRN Reason: Protocol Stop: 11/18/17 22:01 Last Admin: 11/14/17 21:34 Dose: 100 mg Glimepiride (Amaryl) 4 mg PO ACBD [facility] Last Admin: 11/14/17 16:54 Dose: 4 mg Meropenem (Merrem Iv 1 Gm Premix) 50 mls @ 100 mls/hr IVPB Q8 [facility] PRN Reason: Protocol Stop: 11/18/17 14:01 Last Admin: 11/15/17 05:40 Dose: 100 mls/hr Vancomycin HCl (Vancomycin 1gm) 1 gm in 250 mls @ 167 mls/hr IVPB Q12H [facility] PRN Reason: Protocol Stop: 11/18/17 13:31 Last Admin: 11/15/17 01:20 Dose: 167 mls/hr Insulin Human Regular (Humulin R High) 0 units SC ACHS [facility] PRN Reason: Protocol Last Admin: 11/14/17 21:31 Dose: Not Given Lisinopril (Zestril) 5 mg PO DAILY [facility] Last Admin: 11/14/17 09:12 Dose: 5 mg Metformin HCl (Glucophage) 500 mg PO BID [facility] Last Admin: 11/14/17 17:05 Dose: 500 mg Metoprolol Tartrate (Lopressor) 25 mg PO BID [facility] Last Admin: 11/14/17 17:05 Dose: 25 mg Oxycodone HCl (Oxycodone Immediate Release Tab) 10 mg PO Q6H PRN PRN Reason: Pain, moderate (4-7) Last Admin: 11/15/17 02:59 Dose: 10 mg Promethazine HCl (Phenergan Syrup) 6.25 mg PO TID [facility] Last Admin: 11/14/17 14:27 Dose: Not Given Sitagliptin Phosphate (Januvia) 100 mg PO DAILY [facility] Last Admin: 11/14/17 09:12 Dose: 100 mg Zolpidem Tartrate (Ambien) 10 mg PO HS PRN; Protocol PRN Reason: Insomnia Last Admin: 11/14/17 21:33 Dose: 10 mg - Labs Labs: 11/14/17 11:30 11/14/17 11:30 PT 13.0 SECONDS (9.4-12.5) H 11/08/17 19:20 INR 1.14 (0.93-1.08) H 11/08/17 19:20 APTT 29.8 Seconds (25.1-36.5) 11/08/17 19:20 - Constitutional Appears: Well, No Acute Distress - Head Exam Head Exam: ATRAUMATIC, NORMOCEPHALIC - Eye Exam Eye Exam: Normal appearance - ENT Exam ENT Exam: Mucous Membranes Moist - Respiratory Exam Respiratory Exam: NORMAL BREATHING PATTERN - Cardiovascular Exam Cardiovascular Exam: RRR - GI/Abdominal Exam GI & Abdominal Exam: Soft. absent: Tenderness - Neurological Exam Neurological Exam: Alert, Awake, Oriented x3 - Skin Skin Exam: Dry, Warm Assessment and Plan - Assessment and Plan (Free Text) Assessment: 47M with LLL abscess Plan: - slight improvement in abscess noted from previous study upon admission - cont IV ABX per ID recs - repeat CT chest midweek next week and if no improvement will consider possibility of surgery - encourage IS - d/w Dr. Deepika Jara, PGY-3
[2017-11-15] MEDS: Albuterol-Ipratrop 3 mg / 0.5 (3 ml) UD IH SCH ×3 (07:41→19:24)
[2017-11-15] MEDS: Insulin Reg-HIGH-Coverage SC SCH ×4 (08:29→21:26)
[2017-11-15] MEDS: Aspirin 325 mg EC Tablets PO SCH (10:18)
--- NOTE | 2017-11-15 11:22 | PN ---
DATE: 11/15/2017 PULMONARY PROGRESS NOTE REFERRING PHYSICIAN: Andrew Antonio MD. SUBJECTIVE: He is lying in the bed, head at 45 degrees. Feels better. Decreased cough. No shortness of breath. No nausea. No vomiting, diarrhea, leg pain, leg swelling. OBJECTIVE: GENERAL: In no acute distress. VITAL SIGNS: Temp is 98, heart rate is 72, respiratory rate is 20, blood pressure 125/78, pulse ox 98% on room air. HEENT: Moist mucous membrane. Crowded airway. Mallampati is 4. NECK: Supple. No JVD. LUNGS: Decreased breath sounds in the left base. HEART: S1 and S2. ABDOMEN: Soft, nontender. No organomegaly. EXTREMITIES: No edema. NEUROLOGICAL: Awake and alert. Follows simple command. LABORATORY DATA: Shows hemoglobin 14.4, hematocrit 41.3, WBC is 14,000 that is from yesterday. Blood sugar this morning 212. MEDICATIONS: He is on Amaryl 4 mg before meals b.i.d.; Ambien 10 mg at bedtime p.r.n.; doxycycline 100 mg twice a day; albuterol/Atrovent nebulizer every 4 hours p.r.n., every 8 hours [id number]; Ecotrin 325 mg daily; metformin 500 mg twice a day; insulin coverage; Januvia 100 mg daily; Lipitor 20 mg daily; metoprolol tartrate 25 mg twice a day; meropenem 1 g IV q. 8 hours; OxyContin immediate release 10 mg q. 6 hours p.r.n.; Phenergan 6.25 mg three times a day; Tylenol p.r.n.; vancomycin 1 g IV q. 12 hours; Zestril 5 mg daily. IMPRESSION AND PLAN: Left lower lobe abscess with thick pleural wall, has methicillin-resistant Staphylococcus aureus in the sputum, chronic obstructive lung disease. There is may be component of sleep apnea syndrome, diabetes. Case discussed with Dr. Antonio. Plan is agreeable with Infectious Diseases. Discharge home with a peripherally inserted central catheter line on Friday or so. Continue IV antibiotics. Follow up with CT of the chest at least a week to 10 days from now, till that the patient should be continued on antibiotics either IV or p.o. Need outpatient pulmonary function test to evaluate FEV1. Also needs sleep study upon discharge as outpatient. The patient will be followed by surgical team. I think he has a trapped lung. Thank you and we will follow with you. Laz Da Silva MD
[2017-11-15] MEDS: Promethazine 6.25 MG/5 ML CUP PO SCH ×3 (12:38→17:04)
--- NOTE | 2017-11-15 17:39 | PN ---
DATE: 11/15/2017 SUBJECTIVE: The patient was seen earlier this morning in room 564, bed 2. The patient is doing well. No fevers. No chills. OBJECTIVE: VITAL SIGNS: Temperature is 98, blood pressure is 125/70, respiratory rate of 20, heart rate of 72. HEENT: Unremarkable. NECK: Supple. LUNGS: Have decreased breath sounds. HEART: Normal S1 and S2. ABDOMEN: Soft. LABORATORY DATA: Reveals a white count of 14,200, hemoglobin of 14, platelets of 362. BUN of 17, creatinine of 0.7, and procalcitonin is 0.07. Urinalysis is noted. Patient has MRSA from the sputum. Review of orders reveals the patient to be on p.o. doxycycline, meropenem, vancomycin. ASSESSMENT AND PLAN: A 47-year-old male who was seen earlier this morning in 564, bed 2 with left-sided health-care associated pneumonia with abscess formation; history of sepsis and methicillin-resistant Staphylococcus aureus, community-acquired pneumonia with obesity, BMI of 30; diabetes; hypertension; coronary artery disease, on day # 7 of vancomycin, meropenem and doxycycline. We will repeat CAT scan showing improvement in the abscess and Dr. Da Silva's progress note is reviewed and he recommends a repeat CAT scan in 1 week to 10 days. Patient for possible discharge on IV antibiotics for now, pending repeat CAT scan. We will continue the IV antibiotics. Yonis Guzman MD
--- NOTE | 2017-11-16 00:11 | PN ---
DATE: SUBJECTIVE: Patient is a 47-year-old seen and examined states he feels a lot better. No nausea or vomiting. No diarrhea. PHYSICAL EXAMINATION: VITAL SIGNS: He is afebrile, pulse 75, respirations 20, blood pressure 122/64. LUNGS: Bilateral fair airflow. Few soft crackles at the left lower lung base. HEART: S1 and S2 audible. ABDOMEN: Soft. Nontender. No rebound. No guarding. NEUROLOGIC: The patient is awake, alert, oriented, able to communicate, ambulatory. EXTREMITIES: Bilateral legs, no edema. LABORATORY EXAMINATION: Blood sugar is 162; this morning was 113. ASSESSMENT: 1. Left lower lung abscess. 2. Methicillin-resistant staph aureus positive sputum. 3. Community-acquired pneumonia. 4. Non-insulin dependent diabetes. 5. Hypertension. 6. Coronary artery disease. PLAN: I will order for CBC in a.m. Since he was having persistent leukocytosis, thought was to have thoracic surgical opinion. I spoke to surgical supplies sterilizer, Dr. Ferreira, recommends to give antibiotic and repeat CT scan in 1 week to 10 days and if abscess persists, might need VAT. In the meantime, since he is not wheezing, his steroid has been discontinued. We will follow up his CBC in a.m. I will discuss with the ID for the duration and choice of antibiotic. If we make arrangement for IV infusion at home, then discharge plan will be made for Friday. Andrew Antonio MD
[2017-11-16] MEDS: Vancomycin 1gm in NS 250ml 1 GM/250 ML BAG IVPB SCH ×2 (00:34→13:34)
[2017-11-16] MEDS: oxyCODONE 10 mg Immediate Release Tab PO PRN ×4 (04:54→22:25)
[2017-11-16] MEDS: Meropenem IV 1 gm in NS 50 ML IVPB SCH ×4 (05:48→21:12)
[2017-11-16] MEDS: Albuterol-Ipratrop 3 mg / 0.5 (3 ml) UD IH SCH ×3 (07:22→19:23)
[2017-11-16 07:35] LABS: BASO # 0.04 K/mm3 (0.0-2.0); BASO % 0.3 % (0.0-3.0); EOS # 0.2 (0.0-0.7); EOS % 1.8 % (1.5-5.0); GRAN # 7.87 (1.4-6.5); GRAN % 65.9 % (50.0-68.0); HEMOGLOBIN 13.3 g/dL (14.0-18.0); LYMPH # 3.1 (1.2-3.4); LYMPH % 26.2 % (22.0-35.0); MEAN CELL VOLUME 84.2 fl (80.0-105.0); MEAN CORPUSCULAR HEMOGLOBIN 28.4 pg (25.0-35.0); MEAN CORPUSCULAR HGB CONC 33.7 g/dl (31.0-37.0); MEAN PLATELET VOLUME 9.7 fl (7.0-11.0); MONO # 0.7 (0.1-0.6); MONO % 5.8 % (1.0-6.0); RBC 4.69 10^6/uL (3.5-6.1); RED CELL DISTRIBUTION WIDTH 12.9 % (11.5-14.5); WHITE BLOOD COUNT 11.9 10^3/ul (4.5-11.0)
[2017-11-16] MEDS: Insulin Reg-HIGH-Coverage SC SCH ×4 (08:04→21:23)
--- NOTE | 2017-11-16 09:45 | CP.PCM.PN ---
Subjective - Date & Time of Evaluation Date of Evaluation: 11/16/17 Time of Evaluation: 09:42 - Subjective Subjective: Thoracic: Dr. Poe Pt seen and examined. Resting comfortably in bed. Overall he states that he feels better. Pt states that he will going home Friday w. PICC for IV abx outpt. Objective - Vital Signs/Intake and Output Vital Signs (last 24 hours): Temp Pulse Resp BP Pulse Ox 98.8 F 69 20 116/81 96 11/16/17 06:00 11/16/17 06:00 11/16/17 06:00 11/16/17 06:00 11/16/17 06:00 Intake and Output: 11/16/17 11/16/17 06:59 18:59 Intake Total 1720 Balance 1720 - Medications Medications: Current Medications Acetaminophen (Tylenol 325mg Tab) 650 mg PO Q6H PRN PRN Reason: Pain, Mild (1-3) Albuterol/Ipratropium (Duoneb 3 Mg/0.5 Mg (3 Ml) Ud) 3 ml IH TIDRESP [facility] Last Admin: 11/16/17 07:22 Dose: 3 ml Albuterol/Ipratropium (Duoneb 3 Mg/0.5 Mg (3 Ml) Ud) 3 ml IH [id number] PRN PRN Reason: Shortness of Breath Last Admin: 11/09/17 01:00 Dose: 3 ml Aspirin (Ecotrin) 325 mg PO DAILY [facility] Last Admin: 11/15/17 10:18 Dose: 325 mg Atorvastatin Calcium (Lipitor) 20 mg PO DIN [facility] Last Admin: 11/15/17 16:35 Dose: 20 mg Doxycycline Hyclate (Doryx) 100 mg PO Q12 [facility] PRN Reason: Protocol Stop: 11/18/17 22:01 Last Admin: 11/15/17 21:30 Dose: 100 mg Glimepiride (Amaryl) 4 mg PO ACBD [facility] Last Admin: 11/16/17 08:04 Dose: 4 mg Meropenem (Merrem Iv 1 Gm Premix) 50 mls @ 100 mls/hr IVPB Q8 [facility] PRN Reason: Protocol Stop: 11/18/17 14:01 Last Admin: 11/16/17 06:15 Dose: 100 mls/hr Vancomycin HCl (Vancomycin 1gm) 1 gm in 250 mls @ 167 mls/hr IVPB Q12H [facility] PRN Reason: Protocol Stop: 11/18/17 13:31 Last Admin: 11/16/17 00:34 Dose: 167 mls/hr Insulin Human Regular (Humulin R High) 0 units SC ACHS [facility] PRN Reason: Protocol Last Admin: 11/16/17 08:04 Dose: Not Given Lisinopril (Zestril) 5 mg PO DAILY [facility] Last Admin: 11/15/17 10:23 Dose: 5 mg Metformin HCl (Glucophage) 500 mg PO BID [facility] Last Admin: 11/15/17 17:08 Dose: 500 mg Metoprolol Tartrate (Lopressor) 25 mg PO BID [facility] Last Admin: 11/15/17 17:08 Dose: 25 mg Oxycodone HCl (Oxycodone Immediate Release Tab) 10 mg PO Q6H PRN PRN Reason: Pain, moderate (4-7) Last Admin: 11/16/17 04:54 Dose: 10 mg Promethazine HCl (Phenergan Syrup) 6.25 mg PO TID [facility] Last Admin: 11/15/17 17:04 Dose: Not Given Sitagliptin Phosphate (Januvia) 100 mg PO DAILY [facility] Last Admin: 11/15/17 10:19 Dose: 100 mg Zolpidem Tartrate (Ambien) 10 mg PO HS PRN; Protocol PRN Reason: Insomnia Last Admin: 11/15/17 21:30 Dose: 10 mg - Labs Labs: 11/16/17 06:30 11/14/17 11:30 PT 13.0 SECONDS (9.4-12.5) H 11/08/17 19:20 INR 1.14 (0.93-1.08) H 11/08/17 19:20 APTT 29.8 Seconds (25.1-36.5) 11/08/17 19:20 - Constitutional Appears: Non-toxic, No Acute Distress - Head Exam Head Exam: ATRAUMATIC, NORMOCEPHALIC - Eye Exam Eye Exam: EOMI - ENT Exam ENT Exam: Mucous Membranes Moist - Respiratory Exam Respiratory Exam: NORMAL BREATHING PATTERN. absent: Accessory Muscle Use, Respiratory Distress - GI/Abdominal Exam GI & Abdominal Exam: Soft. absent: Distended, Firm, Guarding, Rigid, Tenderness - Extremities Exam Extremities Exam: absent: Calf Tenderness, Pedal Edema - Neurological Exam Neurological Exam: Alert, Awake, Oriented x3 Assessment and Plan - Assessment and Plan (Free Text) Assessment: 47M w. L lung abscess Plan: -c/w abx -repeat CT scan on Sunday 11/19 -If no improvement in CT scan, will plan for OR thoracotomy or Friday or 11/21 -d/w attending Zemaitis PGY3
[2017-11-16] MEDS: Aspirin 325 mg EC Tablets PO SCH (11:07)
[2017-11-16] MEDS: Promethazine 6.25 MG/5 ML CUP PO SCH ×3 (11:09→17:14)
--- NOTE | 2017-11-16 11:33 | PN ---
DATE: SUBJECTIVE: The patient is in bed, in no acute distress, nontoxic. OBJECTIVE VITAL SIGNS: Temperature is 98, blood pressure is 112/70, respiratory rate of 20, heart rate of 75. HEENT: Examination is unremarkable. NECK: Supple. LUNGS: Have decreased breath sounds. HEART: Normal S1, S2. ABDOMEN: Soft, nontender. LABORATORY DATA: Examination reveals a white count 11,900, hemoglobin of 13, platelets of 306,000. Chemistries reveals the patient to have a BUN of 17, creatinine of 0.5. Urinalysis is noted. Microbiology is noted. MRSA in the sputum. Blood cultures are negative. The patient is on p.o. doxycycline, IV vancomycin and meropenem. Dr. Antonio's note from yesterday is reviewed. ASSESSMENT AND PLAN: This is a 47-year-old male seen earlier today in 564, bed 2 with left-sided healthcare-associated pneumonia and abscess formation with sepsis and MRSA, community-acquired pneumonia, obesity, BMI of 30 in a patient who is diabetic, hypertensive; coronary artery disease, day #8 of vancomycin, meropenem and doxycycline and we will continue his present course, pending repeat imaging of CT scan of the chest in 7 to 10 days and we will follow closely with you. We will also order a vancomycin trough level for today at 12:30, an hour before the 01:30 dose. We will check. We will follow with you. Yonis Guzman MD
--- NOTE | 2017-11-16 20:12 | PN ---
DATE: SUBJECTIVE: The patient is 47 years old, seen and examined, lying in bed, with some wheezing. PHYSICAL EXAMINATION: VITAL SIGNS: He is afebrile, pulse 71, respirations 20, blood pressure 119/83. LUNGS: Bilateral good airflow. No rhonchi or crackle except occasional rhonchi scattered in upper and lower lung regions. ABDOMEN: Soft, nontender. No rebound, no guarding. NEUROLOGIC: He is awake, alert, oriented, communicative, ambulatory, nonfocal. LABORATORY DATA: WBC is 11.9, hemoglobin 13.3, hematocrit 39.5, platelet is 306. Chemistry: Blood sugar is 177, rheumatoid factor is negative. ASSESSMENT: 1. Left lower lung abscess. 2. Status post community-acquired pneumonia causing pneumothorax followed by chest tube insertion and now he came with left lower lung abscess. 3. Hypertension. 4. Coronary artery disease, status post angioplasty. 5. Leukocytosis, improving. Vancomycin trough has been 5. PLAN: ID input noted and appreciated. We will maintain patient on doxycycline 100 twice a day on oral hypoglycemic. Currently he is on meropenem and vancomycin. I will request Dr. Avery Connell for PICC line placement and we will reach out to Dr. Guzman for duration of antibiotic and choice of antibiotic and social service technician has already spoken to [facility] ([facility] Once PICC line in place, patient can be discharged and he can finish his course of antibiotic and we will repeat CT scan [address] scan that was done on 11/14, that is around 11/25 or 11/26. Then decision will be made if abscess has resolved, there might not be intervention, otherwise he will need VAT. Andrew Antonio MD
[2017-11-16 21:11] VITALS: RESP 20; TEMP 97.9; O2SAT 96
--- NOTE | 2017-11-17 00:02 | PN ---
DATE: 11/16/2017 PULMONARY PROGRESS NOTE REFERRING PHYSICIAN: Andrew Antonio MD. SUBJECTIVE: Patient is lying in the bed, head at 45 degrees, having lunch, night was unremarkable, cough is better, not much sputum production. No nausea, no vomiting or diarrhea. No leg pain or leg swelling. OBJECTIVE: GENERAL: In no acute distress. VITAL SIGNS: Temperature 98, heart rate 63, respiratory rate is 18, blood pressure 128/73, pulse ox 98% on room air. HEENT: Moist mucous membrane. Crowded airway. Mallampati score is 4. NECK: Supple. No JVD. LUNGS: Have decreased breath sounds at the left base. HEART: S1 and S2. ABDOMEN: Soft, nontender. No organomegaly. EXTREMITIES: No edema. NEUROLOGIC: Awake, alert, follows simple command. MEDICATIONS: He is on Amaryl 4 mg , Ambien 10 mg at bedtime p.r.n., doxycycline 100 mg twice a day, DuoNeb every 4 hours p.r.n. and also every 8 hours [id number], Ecotrin 325 mg daily, metformin 500 mg twice a day, insulin coverage, Januvia 100 mg daily, Lipitor 20 mg daily, metoprolol tartrate 25 mg twice a day, meropenem 1 g IV every 8 hours, oxycodone immediate release 10 mg every 6 hours p.r.n., promethazine 6.25 mg three times a day, Tylenol p.r.n., vancomycin 1 g IV every 12 hours, Zestril 5 mg daily. LABORATORY DATA: Shows hemoglobin 13.3, hematocrit 39.5, WBC 11.9, platelet count is 306. Blood sugar 133. Microbiology: Sputum culture has MRSA. IMPRESSION AND PLAN: Left lobe area abscess with thick wall, has methicillin-resistant Staphylococcus aureus in the sputum, chronic obstructive lung disease, diabetes, hyperlipidemia, hypertension. Pulmonary point of view, he is doing well, continue inhaled bronchodilator, antibiotics as per Infectious Disease. We will suggest getting CAT scan about 10 days or so to make further decision to continue further antibiotics and/or need of further procedure. Thank you and we will follow with you. Laz Da Silva MD [facility] # [id number]
[2017-11-17] MEDS: Vancomycin 1gm in NS 250ml 1 GM/250 ML BAG IVPB SCH (01:30)
[2017-11-17] MEDS: oxyCODONE 10 mg Immediate Release Tab PO PRN (04:51)
[2017-11-17] MEDS: Meropenem IV 1 gm in NS 50 ML IVPB SCH ×2 (05:05→13:35)
[2017-11-17] MEDS: Albuterol-Ipratrop 3 mg / 0.5 (3 ml) UD IH SCH ×2 (07:32→13:49)
--- NOTE | 2017-11-17 08:12 | CP.PCM.PN ---
Subjective - Date & Time of Evaluation Date of Evaluation: 11/17/17 Time of Evaluation: 07:43 - Subjective Subjective: Surgery Progress Note: Patient seen and examined at bedside. No acute events overnight. Pt states that he is doing better. Denies fever, chills, nausea, vomiting, cough, sob. Objective - Vital Signs/Intake and Output Vital Signs (last 24 hours): Temp Pulse Resp BP Pulse Ox 97.9 F 90 20 100/64 96 11/16/17 21:08 11/16/17 21:08 11/16/17 21:08 11/16/17 21:08 11/16/17 21:08 Intake and Output: 11/17/17 11/17/17 06:59 18:59 Intake Total 1140 Balance 1140 - Medications Medications: Current Medications Acetaminophen (Tylenol 325mg Tab) 650 mg PO Q6H PRN PRN Reason: Pain, Mild (1-3) Albuterol/Ipratropium (Duoneb 3 Mg/0.5 Mg (3 Ml) Ud) 3 ml IH TIDRESP [facility] Last Admin: 11/17/17 07:32 Dose: Not Given Albuterol/Ipratropium (Duoneb 3 Mg/0.5 Mg (3 Ml) Ud) 3 ml IH [id number] PRN PRN Reason: Shortness of Breath Last Admin: 11/09/17 01:00 Dose: 3 ml Aspirin (Ecotrin) 325 mg PO DAILY [facility] Last Admin: 11/16/17 11:07 Dose: 325 mg Atorvastatin Calcium (Lipitor) 20 mg PO DIN [facility] Last Admin: 11/16/17 17:17 Dose: 20 mg Doxycycline Hyclate (Doryx) 100 mg PO Q12 [facility] PRN Reason: Protocol Stop: 11/18/17 22:01 Last Admin: 11/16/17 21:12 Dose: 100 mg Glimepiride (Amaryl) 4 mg PO ACBD [facility] Last Admin: 11/16/17 17:15 Dose: 4 mg Meropenem (Merrem Iv 1 Gm Premix) 50 mls @ 100 mls/hr IVPB Q8 [facility] PRN Reason: Protocol Stop: 11/18/17 14:01 Last Admin: 11/17/17 05:05 Dose: 100 mls/hr Vancomycin HCl (Vancomycin 1gm) 1 gm in 250 mls @ 167 mls/hr IVPB Q12H [facility] PRN Reason: Protocol Stop: 11/18/17 13:31 Last Admin: 11/17/17 01:30 Dose: 167 mls/hr Insulin Human Regular (Humulin R High) 0 units SC ACHS [facility] PRN Reason: Protocol Last Admin: 11/16/17 21:23 Dose: Not Given Lisinopril (Zestril) 5 mg PO DAILY [facility] Last Admin: 11/16/17 11:09 Dose: 5 mg Metformin HCl (Glucophage) 500 mg PO BID [facility] Last Admin: 11/16/17 17:17 Dose: 500 mg Metoprolol Tartrate (Lopressor) 25 mg PO BID [facility] Last Admin: 11/16/17 17:17 Dose: 25 mg Oxycodone HCl (Oxycodone Immediate Release Tab) 10 mg PO Q6H PRN PRN Reason: Pain, moderate (4-7) Last Admin: 11/17/17 04:51 Dose: 10 mg Promethazine HCl (Phenergan Syrup) 6.25 mg PO TID [facility] Last Admin: 11/16/17 17:14 Dose: Not Given Sitagliptin Phosphate (Januvia) 100 mg PO DAILY [facility] Last Admin: 11/16/17 11:08 Dose: 100 mg Zolpidem Tartrate (Ambien) 10 mg PO HS PRN; Protocol PRN Reason: Insomnia Last Admin: 11/16/17 21:13 Dose: 10 mg - Labs Labs: 11/16/17 06:30 11/14/17 11:30 PT 13.0 SECONDS (9.4-12.5) H 11/08/17 19:20 INR 1.14 (0.93-1.08) H 11/08/17 19:20 APTT 29.8 Seconds (25.1-36.5) 11/08/17 19:20 - Constitutional Appears: Non-toxic, No Acute Distress - Head Exam Head Exam: ATRAUMATIC, NORMOCEPHALIC - Eye Exam Eye Exam: EOMI, PERRL. absent: Conjunctival injection, Nystagmus, Scleral icterus Pupil Exam: NORMAL ACCOMODATION, PERRL. absent: Irregular, Unequal - ENT Exam ENT Exam: Mucous Membranes Moist - Neck Exam Neck Exam: Full ROM - Respiratory Exam Respiratory Exam: Rales. absent: Accessory Muscle Use, Respiratory Distress - Cardiovascular Exam Cardiovascular Exam: RRR, +S1, +S2. absent: Murmur - GI/Abdominal Exam GI & Abdominal Exam: Soft, Normal Bowel Sounds. absent: Guarding, Rigid, Tenderness, Organomegaly - Extremities Exam Extremities Exam: Normal Inspection. absent: Calf Tenderness, Pedal Edema - Back Exam Back Exam: NORMAL INSPECTION - Neurological Exam Neurological Exam: Alert, Awake, Oriented x3 - Psychiatric Exam Psychiatric exam: Normal Affect, Normal Mood - Skin Skin Exam: Dry, Normal Color, Warm Assessment and Plan - Assessment and Plan (Free Text) Assessment: 47M with left lung abscess: -c/w abx per ID -repeat CT scan on Sunday 11/19 -If no improvement in CT scan, will plan for OR thoracotomy or Friday or 11/21 -Will discuss with Dr Poe
[2017-11-17 08:50] VITALS: BP 116/76; PULSE 83
[2017-11-17] MEDS: Aspirin 325 mg EC Tablets PO SCH (10:05)
[2017-11-17] MEDS: Promethazine 6.25 MG/5 ML CUP PO SCH ×2 (10:06→10:11)
[2017-11-17] MEDS: Insulin Reg-HIGH-Coverage SC SCH (10:06)
[2017-11-17] MEDS ORDERED: Vancomycin 1.5 GM in Sodium Chloride 0.9% 500 ML IVPB SCH (10:45)
[2017-11-17] MEDS ORDERED: oxyCODONE 10 mg Immediate Release Tab PO PRN (11:27)
--- NOTE | 2017-11-17 12:43 | PN ---
DATE: 11/17/2017 CARDIOLOGY FOLLOWUP SUBJECTIVE: The patient is without dyspnea. PHYSICAL EXAMINATION VITAL SIGNS: Blood pressure is 116/76, the heart rate is in the 80s. NECK: Negative JVD. LUNGS: Without rales. HEART: Reveals S1 and S2. EXTREMITIES: Without edema. LABORATORY DATA: Hemoglobin is 13.3, the white count is 11.9. IMPRESSION: 1. Lung abscess. 2. Pneumonia. 3. Stable angina. 4. Coronary artery disease. 5. Diabetes mellitus. 6. Chronic obstructive pulmonary disease. PLAN: Given these findings, the patient is being followed by Chest Surgery. Repeat CT will be done prior to discussion on whether thoracotomy as necessary. Avery Toribio MD
--- NOTE | 2017-11-17 18:12 | CP.PCM.PN ---
Subjective - Date & Time of Evaluation Date of Evaluation: 11/17/17 Time of Evaluation: 11:45 - Subjective Subjective: Comfortable, no fevers, not in distress, no chest pain. Objective - Vital Signs/Intake and Output Vital Signs (last 24 hours): Temp Pulse Resp BP Pulse Ox 97.9 F 83 20 116/76 96 11/17/17 07:30 11/17/17 10:06 11/17/17 07:30 11/17/17 10:06 11/17/17 07:30 Intake and Output: 11/17/17 11/17/17 06:59 18:59 Intake Total 1140 Balance 1140 - Medications Medications: Current Medications Acetaminophen (Tylenol 325mg Tab) 650 mg PO Q6H PRN PRN Reason: Pain, Mild (1-3) Albuterol/Ipratropium (Duoneb 3 Mg/0.5 Mg (3 Ml) Ud) 3 ml IH TIDRESP [facility] Last Admin: 11/17/17 07:32 Dose: Not Given Albuterol/Ipratropium (Duoneb 3 Mg/0.5 Mg (3 Ml) Ud) 3 ml IH [id number] PRN PRN Reason: Shortness of Breath Last Admin: 11/09/17 01:00 Dose: 3 ml Aspirin (Ecotrin) 325 mg PO DAILY [facility] Last Admin: 11/17/17 10:05 Dose: 325 mg Atorvastatin Calcium (Lipitor) 20 mg PO DIN [facility] Last Admin: 11/16/17 17:17 Dose: 20 mg Doxycycline Hyclate (Doryx) 100 mg PO Q12 [facility] PRN Reason: Protocol Stop: 11/18/17 22:01 Last Admin: 11/17/17 10:05 Dose: 100 mg Glimepiride (Amaryl) 4 mg PO ACBD [facility] Last Admin: 11/17/17 08:40 Dose: 4 mg Meropenem (Merrem Iv 1 Gm Premix) 50 mls @ 100 mls/hr IVPB Q8 [facility] PRN Reason: Protocol Stop: 11/18/17 14:01 Last Admin: 11/17/17 05:05 Dose: 100 mls/hr Vancomycin HCl 1.5 gm/ Sodium (Chloride) 500 mls @ 167 mls/hr IVPB Q12H [facility] PRN Reason: Protocol Insulin Human Regular (Humulin R High) 0 units SC ACHS [facility] PRN Reason: Protocol Last Admin: 11/17/17 10:06 Dose: Not Given Lisinopril (Zestril) 5 mg PO DAILY [facility] Last Admin: 11/17/17 10:06 Dose: 5 mg Metformin HCl (Glucophage) 500 mg PO BID [facility] Last Admin: 11/17/17 10:05 Dose: 500 mg Metoprolol Tartrate (Lopressor) 25 mg PO BID [facility] Last Admin: 11/17/17 10:07 Dose: 25 mg Promethazine HCl (Phenergan Syrup) 6.25 mg PO TID [facility] Last Admin: 11/17/17 10:11 Dose: Not Given Sitagliptin Phosphate (Januvia) 100 mg PO DAILY [facility] Last Admin: 11/17/17 10:05 Dose: 100 mg Zolpidem Tartrate (Ambien) 10 mg PO HS PRN; Protocol PRN Reason: Insomnia Last Admin: 11/16/17 21:13 Dose: 10 mg - Labs Labs: 11/16/17 06:30 11/14/17 11:30 PT 13.0 SECONDS (9.4-12.5) H 11/08/17 19:20 INR 1.14 (0.93-1.08) H 11/08/17 19:20 APTT 29.8 Seconds (25.1-36.5) 11/08/17 19:20 - Constitutional Appears: Chronically Ill - Head Exam Head Exam: NORMAL INSPECTION - Neck Exam Neck Exam: absent: Meningismus - Respiratory Exam Respiratory Exam: Decreased Breath Sounds - Cardiovascular Exam Cardiovascular Exam: +S1, +S2 - GI/Abdominal Exam GI & Abdominal Exam: Soft. absent: Tenderness Assessment and Plan - Assessment and Plan (Free Text) Plan: Assessment left sided HCAP with abscess formation, slowly improving history of sepsis with multifocal MRSA community-acquired pneumonia obesity with BMI 30 DM HTN CAD S/P PCI Plan continue Vancomycin, Merrem and Doxycycline day 9; repeated CT chest and shows some improvement but persistent abscess - should complete at least total 3 weeks of antibiotics then re-evaluate with repeat CT scan after antibiotics discussed with Dr. Antonio
== END 2017-11-17 17:42 | disposition home or self-care (01) | DRG 178 ==
LOC: ED 18:52 → ERH 21:27 → 3RSO 22:45 → 5RNO 11-10 14:47
PROVIDERS: ADMIT Internal Medicine Nephrology; ATTEND Internal Medicine
PROC: 3E0F7GC Introduction of Other Therapeutic Substance into Respiratory Tract, Via Natural or Artificial Opening (ICD-10-PCS; 2017-11-09)
PROC: 05H533Z Insertion of Infusion Device into Right Subclavian Vein, Percutaneous Approach (ICD-10-PCS; principal; 2017-11-17)
PROC: B546ZZA Ultrasonography of Right Subclavian Vein, Guidance (ICD-10-PCS; 2017-11-17)
DX: J85.1 Abscess of lung with pneumonia (principal); J90 Pleural effusion, not elsewhere classified; B95.61 Methicillin susceptible Staphylococcus aureus infection as the cause of diseases classified elsewhere; I48.91 Unspecified atrial fibrillation; J44.0 Chronic obstructive pulmonary disease with (acute) lower respiratory infection; E11.9 Type 2 diabetes mellitus without complications; I10 Essential (primary) hypertension; I25.118 Atherosclerotic heart disease of native coronary artery with other forms of angina pectoris; E78.5 Hyperlipidemia, unspecified; Y95 Nosocomial condition; E78.00 Pure hypercholesterolemia, unspecified; F17.200 Nicotine dependence, unspecified, uncomplicated; I25.2 Old myocardial infarction; E66.9 Obesity, unspecified; Z68.30 Body mass index [BMI] 30.0-30.9, adult; Z87.01 Personal history of pneumonia (recurrent); Z95.5 Presence of coronary angioplasty implant and graft; Z79.82 Long term (current) use of aspirin